=== PATIENT | male | born 1975 | race Caucasian/White ===

== ENCOUNTER 2023-07-22 08:55 | Outpatient (OUT) | payer OTHER, SELFPAY ==
[2023-07-22 09:19] LABS: Basophils Percent Auto 0.9 % (0.2-2.0); Bilirubin Urine NEGATIVE (NEGATIVE); Blood Urine TRACE-I (NEGATIVE); Clarity Urine CLEAR (CLEAR); Color Urine LT. YELLOW (YELLOW); Eosinophils Percent Auto 0.7 % (0.9-7.0); Glucose Urine UA NEGATIVE (NEGATIVE); Hematocrit 48.9 % (42.0-54.0); Hemoglobin 16.2 g/dL (14.0-18.0); Immature Granulocytes Abs Auto 0.01 10^3/uL (0.00-0.03); Immature Granulocytes Pct Auto 0.2 % (0.0-0.5); Ketones Urine NEGATIVE (NEGATIVE); Leukocyte Esterase Urine NEGATIVE (NEGATIVE); Lymphocytes Absolute Auto 1.4 10^3/uL (1.2-3.8); Lymphocytes Percent Auto 31.8 % (20.5-60.0); Mean Corpuscular HGB Conc 33.1 g/dL (29.9-35.2); Mean Corpuscular Hemoglobin 30.5 pg (25.9-34.0); Mean Corpuscular Volume 91.9 fL (80.0-94.0); Mean Platelet Volume 10.1 fL (9.5-13.5); Monocytes Absolute Auto 0.5 10^3/uL (0.3-0.8); Monocytes Percent Auto 11.1 % (1.7-12.0); Neutrophils Absolute Auto 2.4 10^3/uL (1.4-6.5); Neutrophils Percent Auto 55.3 % (43.0-75.0); Nitrite Urine NEGATIVE (NEGATIVE); Platelet Count 219 10^3/uL (150-450); Protein Urine NEGATIVE (NEG/TRACE); Red Blood Count 5.32 10^6/uL (4.70-6.10); Red Cell Distribution Width 13.2 % (11.0-15.0); Specific Gravity Urine <=1.005 (1.005-1.025); Urobilinogen Urine 0.2 EU/dL (0.2-1.0); White Blood Count 4.3 10^3/uL (4.0-11.0)
[2023-07-22 09:31] LABS: Bacteria Urine NONE SEEN #/HPF (NONE SEEN); Mucus Urine NONE SEEN (NONE SEEN); RBC Urine 0-2 #/HPF (0-2); Squamous Epithelial Cell Urine NONE SEEN #/LPF (NONE/RARE); WBC Urine NONE SEEN #/HPF (NONE SEEN)
[2023-07-22 09:54] LABS: Estimated Average Glucose 100 mg/dL; Glycohemoglobin A1C 5.1 % (4.5-6.2)
[2023-07-22 10:05] LABS: Alanine Aminotransferase 36 U/L (16-63); Albumin Globulin Ratio 1.3; Albumin Level 4.2 g/dL (3.4-5.0); Alkaline Phosphatase 90 U/L (46-116); Aspartate Amino Transferase 22 U/L (15-37); Bilirubin Total 2.6 mg/dL (0.2-1.0); Calcium 9.2 mg/dL (8.5-10.1); Chloride 102 mmol/L (98-107); Chol HDL Ratio 4.2; Cholesterol 200 mg/dL (<=200); Estimated GFR (African America >60 (>=60); Estimated GFR (Non-African Ame >60 (>=60); Globulin 3.2 g/dL; Glucose 94 mg/dL (74-106); HDL Cholesterol 48 mg/dL (40-60); LDL Cholesterol Calculated 140.4 mg/dL; Sodium 139 mmol/L (136-145); Thyroid Stimulating Hormone 1.319 uIU/mL (0.358-3.740); Total Protein 7.4 g/dL (6.4-8.2); Triglycerides 58 mg/dL (<=150); VLDL CHOLESTEROL 11.6 mg/dL
[2023-07-22 10:13] LABS: Prostate Specific Antigen Scrn 0.63 ng/mL (<=4.00)
== END 2023-07-22 08:56 | disposition home or self-care (01) ==
PROVIDERS: PCP Family Medicine; Visit Provider Family Medicine
DX: Z00.00 Encounter for general adult medical examination without abnormal findings (principal); E55.9 Vitamin D deficiency, unspecified
CPT/HCPCS: 36415; 80053; 80061; 81001; 82306; 83036; 84443; 85025; G0103

== ENCOUNTER 2024-01-15 13:45 | Outpatient (REF) | payer OTHER, SELFPAY ==
[2024-01-15 16:25] LABS: Occult Blood Negative
[2024-01-15 16:29] LABS: C. Difficile PCR NEGATIVE (NEGATIVE)
[2024-01-18 14:09] LABS: Rotavirus Ag, EIA Negative (Negative)
[2024-01-19 01:07] LABS: Lactoferrin, Fecal, Quant. <1.00 ug/mL(g) (0.00-7.24)
[2024-01-22 16:09] LABS: Ova + Parasite Exam Final report (.)
== END 2024-01-15 13:46 | disposition home or self-care (01) ==
LOC: LAB 13:45
PROVIDERS: PCP Family Medicine; Visit Provider Family Medicine
DX: R19.7 Diarrhea, unspecified (principal)
CPT/HCPCS: 36415; 83631; 87045; 87046; 87177; 87209; 87425; 87427; 87493; 87798; G0328

== ENCOUNTER 2024-08-03 08:06 | Outpatient (OUT) | payer OTHER, SELFPAY ==
[2024-08-03 08:38] LABS: Bilirubin Urine NEGATIVE (NEGATIVE); Blood Urine NEGATIVE (NEGATIVE); Clarity Urine CLEAR (CLEAR); Color Urine LT. YELLOW (YELLOW); Glucose Urine UA NEGATIVE (NEGATIVE); Ketones Urine NEGATIVE (NEGATIVE); Leukocyte Esterase Urine NEGATIVE (NEGATIVE); Nitrite Urine NEGATIVE (NEGATIVE); Protein Urine NEGATIVE (NEG/TRACE); Specific Gravity Urine <=1.005 (1.005-1.025); Urobilinogen Urine 0.2 EU/dL (0.2-1.0); pH Urine 6.5 (5.0-9.0)
[2024-08-03 08:45] LABS: Basophils Percent Auto 0.9 % (0.2-2.0); Eosinophils Percent Auto 0.9 % (0.9-7.0); Hematocrit 49.9 % (42.0-54.0); Hemoglobin 16.3 g/dL (14.0-18.0); Lymphocytes Absolute Auto 1.4 10^3/uL (1.2-3.8); Lymphocytes Percent Auto 32.6 % (20.5-60.0); Mean Corpuscular HGB Conc 32.7 g/dL (29.9-35.2); Mean Corpuscular Hemoglobin 29.9 pg (25.9-34.0); Mean Corpuscular Volume 91.6 fL (80.0-94.0); Mean Platelet Volume 10.3 fL (9.5-13.5); Monocytes Absolute Auto 0.5 10^3/uL (0.3-0.8); Monocytes Percent Auto 11.8 % (1.7-12.0); Neutrophils Absolute Auto 2.3 10^3/uL (1.4-6.5); Neutrophils Percent Auto 53.8 % (43.0-75.0); Platelet Count 236 10^3/uL (150-450); Red Blood Count 5.45 10^6/uL (4.70-6.10); Red Cell Distribution Width 13.5 % (11.0-15.0); White Blood Count 4.3 10^3/uL (4.0-11.0)
[2024-08-03 08:46] LABS: Bacteria Urine NONE SEEN #/HPF (NONE SEEN); Cast Seen? NONE SEEN #/LPF (NONE SEEN); Crystals Seen? None Seen #/HPF (None Seen); Mucus Urine NONE SEEN (NONE SEEN); RBC Urine NONE SEEN #/HPF (0-2); Squamous Epithelial Cell Urine RARE #/LPF (NONE/RARE); WBC Urine NONE SEEN #/HPF (NONE SEEN)
[2024-08-03 08:51] LABS: Estimated Average Glucose 94 mg/dL; Glycohemoglobin A1C 4.9 % (4.5-6.2)
[2024-08-03 10:42] LABS: Alanine Aminotransferase 35 U/L (16-63); Albumin Globulin Ratio 1.2; Alkaline Phosphatase 100 U/L (46-116); Anion Gap 12.7; Aspartate Amino Transferase 23 U/L (15-37); BUN Creatinine Ratio 16.4; Bilirubin Total 2.4 mg/dL (0.2-1.0); Calcium 9.4 mg/dL (8.5-10.1); Carbon Dioxide 27.5 mmol/L (21.0-32.0); Chloride 106 mmol/L (98-107); Chol HDL Ratio 3.9; Cholesterol 166 mg/dL (<=200); Estimated GFR (African America >60 (>=60 mL/min/1.73m^2); Estimated GFR (Non-African Ame >60 (>=60 mL/min/1.73m^2); Globulin 3.3 g/dL; Glucose 95 mg/dL (74-106); HDL Cholesterol 43 mg/dL (40-60); LDL Cholesterol Calculated 109.2 mg/dL; Potassium 4.2 mmol/L (3.5-5.1); Sodium 142 mmol/L (136-145); Thyroid Stimulating Hormone 1.807 uIU/mL (0.358-3.740); Total Protein 7.3 g/dL (6.4-8.2); Triglycerides 69 mg/dL (<=150); VLDL CHOLESTEROL 13.8 mg/dL
[2024-08-03 10:45] LABS: Prostate Specific Antigen Scrn 0.69 ng/mL (<=4.00)
== END 2024-08-03 08:07 | disposition home or self-care (01) ==
LOC: LAB 08:06
PROVIDERS: PCP Family Medicine; Visit Provider Family Medicine
DX: Z00.00 Encounter for general adult medical examination without abnormal findings (principal)
CPT/HCPCS: 36415; 80053; 80061; 81001; 82306; 83036; 84443; 85025; G0103

== ENCOUNTER 2025-04-01 09:38 | Emergency (ER) | payer OTHER, SELFPAY ==
--- OUTSIDE RECORDS SUMMARY | 2025-04-01 09:44 | XMS_ITS | Encounter Summary ---
Author Organization [facility] Address [address] [place] [address] Care Team Providers Care Marketing Operations Associate Name Role Phone Satish Kaufman MD Primary Care Provider [phone] Encounter Details Date Type Department Care Team (Late st Contact Info) Description 12/22/[address] [facility] [address] 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 [employer] 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 Not on file No t on file documented as of this encounter Plan of Treatment Not on file documented as of this encounter Procedures Procedure Name Priority Date/Time Associated Diagnosis Comments COLONOSCOPY Routine 12/22/2023 10:56 AM EDT documented in this encounter Results * Colonoscopy (12/22/2023 10:56 AM EDT) Anatomical Region Laterality Modality Endoscopy Alex Schneider MD ENDOSCOPY PROCEDURE ORDERABL ES Final Result documented in this encounter Visit Diagnoses Not on filedocumented in this encounter Care Teams Marketing Operations Associate Relationship Specialty Start Date End Date Satish Kaufman MD [address] [place] [address] [place] [address] PCP - General Family Medicine 10/23/23 documented as of this encounter
--- OUTSIDE RECORDS SUMMARY | 2025-04-01 09:44 | XMS_ITS | Clinical Summary ---
Author Organization [facility] Address [address] [place] [address] Care Team Providers Care Testboard Operator Name Role Phone Satish Kaufman MD Primary Care Provider [phone] Allergies Active Allergy Reactions Criticality Noted Date Comments Dimetapp Children's Cold-Cough Shortness of breath High 12/12/2023 Medications albuterol HFA 90 mcg/act inhaler INHALE 1 TO 2 PUFFS EVERY 4 TO 6 HOURS NEEDED 08/07/2023 Active budesonide-form oterol (Symbicort) 160-4.5 MCG/ACT inhaler Inhale 2 puffs in the morning and 2 puffs before bedtime. 08/07/2023 Active Active Problems Problem Noted Date Diagnosed Date Right inguinal pain 12/12/2023 Encounter for screening for malignant neoplasm o f colon 12/12/2023 Immunizations Immunization Administration Dates Next Due Tdap 12/28/2015 Family History Medical History Relation Name Comments No Known Problems Sister Breast cancer Neg Hx Colon cancer Neg Hx Ovarian cancer Neg Hx Relation Name Status Comments Father Alive Mother Alive Sister Alive Social History Tobacco Use Types Packs/Day Years Used Date Smoking Tobacco: Former Cigarettes 1 17 0 10/09/1987 - 10/09/2004 Smokeless Tobacco: Current Chew Tobacco Cessation:Ready to Q uit: Not Asked; Counseling Given: Not Answered Alcohol Use Standard Drinks/Week Comments Not Currently 0 (1 standard drink = 0.6 oz pure alcohol) caffeine intake: 1-2 cups per day Sex and Gender Information Value Date Recorded Sex Assigned at Not on file Legal Sex Male 7:21 PM EDT Gender Identity Not on file Sexual Orientation Not on file 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
--- OUTSIDE RECORDS SUMMARY | 2025-04-01 09:44 | XMS_ITS | Clinical Summary ---
Author Organization [facility] Address [address] [place] [address] Care Team Providers Care Fast Food Worker Name Role Phone Satish Kaufman DO Primary Care Provider Unavail able Social History Tobacco Use Types Packs/Day Years Used Date Smoking Tobacco: Never Assessed Sex and Gender Information Value Date Recorded Sex Assigned at Not on file Legal Sex Male 5:51 PM EST Gender Identity Not on file Sexual Orientation Not on file Plan of Treatment Not on file Insurance [employer] Care Teams Fast Food Worker Relationship Specialty Start Date End Date Satish Kaufman, [address] [place] [address] PCP - General Family Medicine 01/01/21
[2025-04-01 09:45] VITALS: BP 133/84; PULSE 72; TEMP 36.7; O2SAT 99; BMI 27.1
--- NOTE | 2025-04-01 10:26 | CT_ITS ---
The [address] [address] Patient Name: STEPHANIE BABB MRN: [id number] date: 1975 Sex: M Assigned Patient Location: ER Current Patient Location: ER Accession/Order Number: [id number] Exam Date: 04/01/2025 11:36 Report Date: 04/01/2025 11:44 At the request of: NUBIA VARGAS MD Procedure: CT abdomen pelvis wo con CT ABDOMEN AND PELVIS WITHOUT CONTRAST COMPARISON: None CLINICAL DATA: Left flank pain and hematuria. Spiral images were obtained through the abdomen and pelvis without contrast. This CT exam was performed using one or more following dose reduction techniques: Automated exposure control, adjustment of the mA and/or kV according to patient size, or use of iterative reconstruction technique. Limited cuts through the lung bases show minimal atelectasis or scarring. Evaluation of the intra-abdominal organs is slightly limited by the absence of contrast. No calcified gallstones are identified. No intrahepatic masses are seen. The spleen, pancreas and adrenal glands show no acute abnormalities. No renal calculi are identified. There is an extrarenal pelvis on the right. There is slight fullness of the renal collecting system on the left. There is a stone toward the ureteropelvic junction measuring 4 mm in size. No additional ureteral dilatation or stones are seen. The abdominal aorta is normal caliber. There are small lymph nodes and subtle hazy density at the root of mesentery. Mild mesenteric panniculitis is possible. No ascites is seen. The small bowel loops are not distended. There is stool at the ascending colon. The transverse and descending colon are decompressed. The bony structures are intact. Images through the pelvis show no appendiceal inflammation. There are normal caliber small bowel loops. The distal colon is decompressed. There is at least one colonic diverticulum at the junction of the descending and sigmoid colon. There is no associated active inflammation. The prostate is borderline in size. No urinary bladder abnormalities are noted. There is a mildly patulous right inguinal ring containing fat. No ascites is seen. CT/CT abdomen pelvis wo con IMPRESSION: STONE NEAR THE LEFT URETEROPELVIC JUNCTION WITH MINOR ASSOCIATED HYDRONEPHROSIS. POSSIBLE MILD MESENTERIC PANNICULITIS. NO OTHER ACUTE FINDINGS. Impression dictated by: Manasa Trejo M.D. 04/01/2025 11:44 AM Dictation Location: [place] [address] Electronically authenticated by: [id number] Y Date: 04/01/2025 11:44
--- NOTE | 2025-04-01 10:26 | ED_ITS ---
HPI HPI - General Adult General Chief complaint: Urogenital-Male Stated complaint: BLOOD IN URINE FLANK PAIN Time Seen by Provider: 04/01/25 10:23 Source: patient Mode of arrival: walk-in Limitations: no limitations History of Present Illness HPI narrative: 50-year-old male presents to the emergency department for hematuria and left flank pain. It began yesterday and he does not have any pain now. He has never had hematuria previously and has never had a kidney stone. No injury. He talked to his doctor who told him to come here to get checked. Related Data Home Medications ?Medication ?Instructions ?Recorded ?Confirmed albuterol sulfate 90 mcg/actuation 2 puff inhalation P RN asthma 04/01/25 aerosol inhaler Previous Rx's ?Medication ?Instructions ?Recorded acetaminophen 300 mg-codeine 30 mg 1 tab PO Q6H PRN pa in 5 days #20 04/01/25 tablet tabs ondansetron 4 mg disintegrating 4 mg PO Q6H PRN nausea and 04/01/25 tablet vomiting #20 tabs tamsulosin 0.4 mg capsule (Flomax) 0.4 mg PO DAILY #7 caps 04/01/25 Allergies Allergy/AdvReac Type Severity Reaction Status Date / Time cefdinir AdvReac Intermediate joint pain Verified 04/01/25 09:50 Opioid HPI Opioid Management Most Recent Opioid Data: Last Pain Scale 4 Today, 09:45 Review of Systems ROS Narrative A ten point review of systems is negative except as noted above. PFSH PFSH Social History Little interest or pleasure in doing things: not at all Feeling down, depressed, or hopeless: not at all Exam Narrative Exam Narrative: Nurses note and vital signs reviewed and patient is not hypoxic. General: The patient appears well and in no apparent distress. Patient is resting comfortably on cart. Skin: Warm, dry, no pallor noted. There is no rash noted. Head: Normocephalic, atraumatic Eye: Normal conjunctiva, no drainage Ears, Nose, Mouth, and Throat: oral mucosa is moist. Nares patent. Cardiovascular: Regular Rate and Rhythm Respiratory: Patient is in no distress, no accessory muscle use, lungs are clear to auscultation, no wheezing, rales or rhonchi Back: non-tender, no bruise or rash GI: Soft and nontender Musculoskeletal: The patient has no evidence of calf tenderness, no pitting edema, symmetrical pulses noted bilaterally Neurological: A&O, normal speech Psychiatric: Cooperative Constitutional Vital Signs, click to edit/add: Last Vital Signs Temp 98.1 F 04/01/25 09:45 Pulse 72 04/01/25 09:45 Resp 18 04/01/25 09:45 BP 133/84 04/01/25 09:45 Pulse Ox 99 04/01/25 09:45 O2 Del Method Room Air 04/01/25 09:45 Course Vital Signs Vital signs: Vital Signs Temperature 98.1 F 04/01/25 09:45 Pulse Rate 72 04/01/25 09:45 Respiratory Rate 18 04/01/25 09:45 Blood Pressure 133/84 04/01/25 09:45 Pulse Oximetry 99 04/01/25 09:45 Oxygen Delivery Method Room Air 04/01/25 09:45 Temperature 98.1 F 04/01/25 09:45 Pulse Rate 72 04/01/25 09:45 Respiratory Rate 18 04/01/25 09:45 Blood Pressure 133/84 04/01/25 09:45 Pulse Oximetry 99 04/01/25 09:45 Oxygen Delivery Method Room Air 04/01/25 09:45 Medical Decision Making MDM Narrative Medical decision making narrative: 4 mm proximal kidney stone is identified. He does not require admission in the hospital and is discharged home on Tylenol 3, Zofran, and Flomax. Referral made to urology. He was provided urine strainer and specimen cup. Treatment diagnosis and follow-up were discussed with the patient. Differential Diagnosis Differential Diagnosis: Kidney stone, UTI Lab Data Lab results reviewed: Yes I reviewed the patient's lab results Labs: Lab Results 04/01/25 04/01/25 Range/Units 10:20 10:31 WBC 10.0 (4.0-11.0) 10^3/uL RBC 5.47 (4.70-6.10) 10^6/uL Hgb 16.7 (14.0-18.0) g/dL Hct 48.5 (42.0-54.0) % MCV 88.7 (80.0-94.0) fL MCH 30.5 (25.9-34.0) pg MCHC 34.4 (29.9-35.2) g/dL RDW 13.6 (11.0-15.0) % Plt Count 225 (150-450) 10^3/uL MPV 10.2 (9.5-13.5) fL Neut % (Auto) 80.7 H (43.0-75.0) % Lymph % (Auto) 11.7 L (20.5-60.0) % [place] % (Auto) 6.7 (1.7-12.0) % Eos % (Auto) 0.2 L (0.9-7.0) % Baso % (Auto) 0.4 (0.2-2.0) % Neut # (Auto) 8.1 H (1.4-6.5) 10^3/uL Lymph # (Auto) 1.2 (1.2-3.8) 10^3/uL [place] # (Auto) 0.7 (0.3-0.8) 10^3/uL Eos # (Auto) 0.0 (0.0-0.7) 10^3/uL Baso # (Auto) 0.0 (0.0-0.1) 10^3/uL Abs Immat Gran (auto) 0.03 (0.00-0.03) 10^3/uL Imm/Tot Granulo (auto) 0.3 (0.0-0.5) % Sodium 138 (136-145) mmol/L Potassium 4.1 (3.5-5.1) mmol/L Chloride 104 (98-107) mmol/L Carbon Dioxide 23.5 (21.0-32.0) mmol/L Anion Gap 14.6 BUN 19.0 H (7.0-18.0) mg/dL Creatinine 0.83 (0.70-1.30) mg/dL Est GFR ( Amer) >60 (>=60 mL/min/1.73m^2) Est GFR (Non-Af Amer) >60 (>=60 mL/min/1.73m^2) BUN/Creatinine Ratio 22.9 Glucose 106 (74-106) mg/dL Calcium 9.2 (8.5-10.1) mg/dL Urine Color Brown A (YELLOW) Urine Clarity Cloudy A (CLEAR) Urine pH 6.0 (5.0-9.0) Ur Specific [place] 1.025 (1.005-1.025) Urine Protein Trace (NEG/TRACE) mg/dL Urine Glucose (UA) Negative (NEGATIVE) mg/dL Urine Ketones Negative (NEGATIVE) mg/dL Urine Occult Blood Large A (NEGATIVE) Urine Nitrite Negative (NEGATIVE) Urine Bilirubin Negative (NEGATIVE) Urine Urobilinogen 0.2 (0.2-1.0) EU/dL Ur Leukocyte Esterase Negative (NEGATIVE) Urine RBC >100 A (0-2) #/HPF Urine WBC 0-2 A (NONE SEEN) #/HPF Ur Squamous Epith Cells None seen (NONE/RARE) #/LPF Urine Crystals None seen (None Seen) #/HPF Urine Bacteria Large A (NONE SEEN) #/HPF Urine Casts None seen (NONE SEEN) #/LPF Urine Mucus None seen (NONE SEEN) Ur Culture Indicated? Yes-[facility] Imaging Data CT scan - abdomen: Radiologist's impression: ITS Impressions Abdomen/Pelvis CT 04/01/25 10:26 IMPRESSION: STONE NEAR THE LEFT URETEROPELVIC JUNCTION WITH MINOR ASSOCIATED HYDRONEPHROSIS. POSSIBLE MILD MESENTERIC PANNICULITIS. NO OTHER ACUTE FINDINGS. Impression dictated by: Manasa Trejo M.D. 04/01/2025 11:44 AM Dictation Location: [place] [address] Electronically authenticated by: [id number] Y Date: 04/01/2025 11:44 Discharge Plan Discharge Chief Complaint: Urogenital-Male Clinical Impression: Kidney stone Patient Disposition: Home, Self-Care Time of Disposition Decision: 11:52 Condition: Good Mode of Transportation: Private Vehicle Prescriptions / Home Meds: New acetaminophen-codeine 300-30 mg tablet 1 tab PO Q6H PRN (Reason: pain) 5 Days Qty: 20 0RF tamsulosin [Flomax] 0.4 mg capsule 0.4 mg PO DAILY Qty: 7 0RF ondansetron 4 mg tablet,disintegrating 4 mg PO Q6H PRN (Reason: nausea and vomiting) Qty: 20 0RF No Action albuterol sulfate 90 mcg/actuation HFA aerosol inhaler 2 puff INHALATION PRN (Reason: asthma) Print Language: Upper Sorbian Instructions: Kidney Stones (ED), How to Strain Your Urine (ED) Referrals: ANA GABRIEL [Primary Care Provider, Family Practice] - 1 week Hansel Tabor MD [Physician, Urology] - 1 week
[2025-04-01 10:43] LABS: Bilirubin Urine NEGATIVE (NEGATIVE); Blood Urine LARGE (NEGATIVE); Clarity Urine CLOUDY (CLEAR); Color Urine BROWN (YELLOW); Glucose Urine UA NEGATIVE (NEGATIVE); Ketones Urine NEGATIVE (NEGATIVE); Leukocyte Esterase Urine NEGATIVE (NEGATIVE); Nitrite Urine NEGATIVE (NEGATIVE); Protein Urine TRACE mg/dL (NEG/TRACE); Specific Gravity Urine 1.025 (1.005-1.025); Urobilinogen Urine 0.2 EU/dL (0.2-1.0)
[2025-04-01 10:46] LABS: Basophils Percent Auto 0.4 % (0.2-2.0); Eosinophils Percent Auto 0.2 % (0.9-7.0); Hematocrit 48.5 % (42.0-54.0); Hemoglobin 16.7 g/dL (14.0-18.0); Immature Granulocytes Abs Auto 0.03 10^3/uL (0.00-0.03); Immature Granulocytes Pct Auto 0.3 % (0.0-0.5); Lymphocytes Absolute Auto 1.2 10^3/uL (1.2-3.8); Lymphocytes Percent Auto 11.7 % (20.5-60.0); Mean Corpuscular HGB Conc 34.4 g/dL (29.9-35.2); Mean Corpuscular Hemoglobin 30.5 pg (25.9-34.0); Mean Corpuscular Volume 88.7 fL (80.0-94.0); Mean Platelet Volume 10.2 fL (9.5-13.5); Monocytes Absolute Auto 0.7 10^3/uL (0.3-0.8); Monocytes Percent Auto 6.7 % (1.7-12.0); Neutrophils Absolute Auto 8.1 10^3/uL (1.4-6.5); Neutrophils Percent Auto 80.7 % (43.0-75.0); Platelet Count 225 10^3/uL (150-450); Red Blood Count 5.47 10^6/uL (4.70-6.10); Red Cell Distribution Width 13.6 % (11.0-15.0)
[2025-04-01 10:56] LABS: Anion Gap 14.6; BUN Creatinine Ratio 22.9; Calcium 9.2 mg/dL (8.5-10.1); Carbon Dioxide 23.5 mmol/L (21.0-32.0); Chloride 104 mmol/L (98-107); Estimated GFR (African America >60 (>=60 mL/min/1.73m^2); Estimated GFR (Non-African Ame >60 (>=60 mL/min/1.73m^2); Glucose 106 mg/dL (74-106); Potassium 4.1 mmol/L (3.5-5.1); Sodium 138 mmol/L (136-145)
[2025-04-01 11:14] LABS: Bacteria Urine LARGE #/HPF (NONE SEEN); Cast Seen? NONE SEEN #/LPF (NONE SEEN); Crystals Seen? None Seen #/HPF (None Seen); Mucus Urine NONE SEEN (NONE SEEN); RBC Urine >100 #/HPF (0-2); Squamous Epithelial Cell Urine NONE SEEN #/LPF (NONE/RARE); Urine Culture Indicated YES-FRMC; WBC Urine 0-2 #/HPF (NONE SEEN)
[2025-04-01 12:05] VITALS: BP 134/83; PULSE 75; O2SAT 99
== END 2025-04-01 12:05 | disposition home or self-care (01) ==
PROVIDERS: Emergency Provider Emergency Medicine; PCP Family Medicine
DX: N13.2 Hydronephrosis with renal and ureteral calculous obstruction (principal)
CPT/HCPCS: 36415; 74176; 80048; 81001; 85025; 87086; 99285

== ENCOUNTER 2025-05-01 14:08 | Outpatient (OUT) | payer OTHER, SELFPAY ==
--- NOTE | 2025-05-01 14:09 | ECG_ITS ---
The [facility] Test Date: 2025-05-01 Pat Name: STEPHANIE BABB Department: Room: - Gender: Male Perinatal Technician: : 1975 Requested By: 1730 Order Number: [id number] Reading MD: FELICITAS DUNCAN M.D. Measurements Intervals Cosmos Rate: 62 P: 43 NE: 184 QRS: 26 QRSD: 114 T: 45 QT: 393 QTc: 400 Interpretive Statements SINUS RHYTHM MODERATE INTRAVENTRICULAR CONDUCTION DELAY [110+ ms QRS DURATION] Borderline ECG No previous ECG available for comparison Electronically Signed On 05-02-2025 6:48:07 EDT by FELICITAS DUNCAN M.D.
--- OUTSIDE RECORDS SUMMARY | 2025-05-01 14:10 | XMS_ITS | Clinical Summary ---
Author Organization [facility] Address [address] [facility], [address] [place] [address] Care Team Providers Care Credit Relationship Manager Name Role Phone Satish Kaufman DO Primary [...] on file Insurance [employer] Care Teams Credit Relationship Manager Relationship Specialty Start Date End Date Satish Kaufman DO [address] [place] [address] PCP - General Family Medicine 01/01/21
--- OUTSIDE RECORDS SUMMARY | 2025-05-01 14:10 | XMS_ITS | Clinical Summary ---
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
--- OUTSIDE RECORDS SUMMARY | 2025-05-01 14:11 | XMS_ITS | Encounter Summary ---
Author Organization [facility] Address [address] [place] [address] Care Team Providers Care Intermodal Owner Operator Truck Driver Name Role Phone Satish Kaufman MD Primary Care Provider [phone] Encounter Details Date Type Department Care Team (Late st Contact Info) Description 12/22/[address] [address] 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
--- NOTE | 2025-05-01 14:43 | PM.PRESUREVA ---
History of Present Illness History of Present Illness Chief complaint: Left Ureteral Stone with Hydronephrosis Narrative: Patient presents for presurgical testing. Please see HPI from Dr. Alberts dated April 09, 2025. Review of Systems ROS Narrative Please see ROS from Dr. Alberts dated April 09, 2025. [facility] Medical History (Updated 05/01/25 @ 14:45 by Isi Courtney NP) Hydronephrosis ?N13.30 - Unspecified hydronephrosis (ICD-10) Left ureteral stone ?N20.1 - Calculus of ureter (ICD-10) Snores ?R06.83 - Snoring (ICD-10) Asthma ?J45.909 - Unspecified asthma, uncomplicated (ICD-10) Surgical History (Updated 05/01/25 @ 14:23 by Isi Courtney NP) H/O colonoscopy ?Z98.890 - Other specified postprocedural states (ICD-10) H/O hand surgery ?Z98.890 - Other specified postprocedural states (ICD-10) H/O inguinal hernia repair ?Z98.890 - Other specified postprocedural states (ICD-10) ?Z87.19 - Personal history of other diseases of the digestive system (ICD-10) Family History (Updated 05/01/25 @ 14:26 by Isi Courtney NP) Other Family history of aneurysm Family history of cancer Family history of diabetes mellitus Family history of myocardial infarction Family history of seizures Social History (Updated 05/01/25 @ 14:22 by Isi Courtney NP) Within the past year, how often did you have a drink containing alcohol: never Score interpretation: A score less than 4 is consistent with normal alcohol consumption. Smoking status: Former smoker Non-prescribed substance use: denies use Previous occupational history: [employer] Highest level of school completed/degree received: high school graduate Little interest or pleasure in doing things: not at all Feeling down, depressed, or hopeless: not at all Meds Home Medications and Allergies Home Medications ?Medication ?Instructions ?Recorded ?Confirmed ?Type albuterol sulfate 90 mcg/actuation 2 puff inhalation Q4H PRN asthma 04/01/25 05/01/25 History aerosol inhaler tamsulosin 0.4 mg capsule (Flomax) 0.4 mg PO DAILY #7 caps 04/01/25 05/01/25 Rx multivitamin (Daily Multi-Vitamin 1 tab PO DAILY 05/01/25 05/01/25 History tablet) Allergies Allergy/AdvReac Type Severity Reaction Status Date / Time avocado Allergy Abdominal Verified 05/01/25 14:20 Pain brompheniramine (From Allergy Unknown Verified 05/01/25 14:19 Dimetapp (brompheniramine-PPA)) fluticasone (From Advair Allergy Headache Verified 05/01/25 14:20 Diskus) phenylpropanolamine (From Allergy Unknown Verified 05/01/25 14:19 Dimetapp (brompheniramine-PPA)) salmeterol (From Advair Allergy Headache Verified 05/01/25 14:20 Diskus) cefdinir AdvReac Intermediate joint pain Verified 04/01/25 09:50 Exam Narrative Exam Narrative: Constitutional: Awake, alert, comfortable, well-appearing, nontoxic, interactive, vital signs as charted Head: Normocephalic, atraumatic Neck: Supple, normal appearance, normal range of motion, no meningeal signs, no lymphadenopathy Respiratory: No respiratory distress, breath sounds clear Cardiovascular: Regular rate and rhythm, strong and regular heart tones Abdomen: Nontender, normal bowel sounds, soft, no CVA tenderness Musculoskeletal: Normal gait, no swelling or edema Skin: No rashes or induration, no lesions, only visible skin inspected Neuro: No neurological deficits, normal sensation Psychiatric: Oriented ?3, normal affect Assessment and Plan Assessment and Plan (1) Left ureteral stone: (2) Hydronephrosis: Plan Left ESWL scheduled with Dr. Alberts May 07, 2025.
[2025-05-01 14:56] LABS: Hematocrit 46.8 % (42.0-54.0); Hemoglobin 15.9 g/dL (14.0-18.0); Immature Granulocytes Abs Auto 0.00 10^3/uL (0.00-0.03); Immature Granulocytes Pct Auto 0.0 % (0.0-0.5); Lymphocytes Absolute Auto 1.7 10^3/uL (1.2-3.8); Mean Corpuscular HGB Conc 34.0 g/dL (29.9-35.2); Mean Corpuscular Hemoglobin 30.3 pg (25.9-34.0); Mean Corpuscular Volume 89.1 fL (80.0-94.0); Platelet Count 225 10^3/uL (150-450); Red Blood Count 5.25 10^6/uL (4.70-6.10); White Blood Count 5.6 10^3/uL (4.0-11.0)
[2025-05-01 15:03] LABS: INR 1.02; Partial Thromboplastin Time 29.1 sec (22.3-36.2); Prothrombin Time 10.8 sec (9.0-11.6)
[2025-05-01 15:15] LABS: Anion Gap 11.9; Blood Urea Nitrogen 20.0 mg/dL (7.0-18.0); Calcium 9.2 mg/dL (8.5-10.1); Carbon Dioxide 26.2 mmol/L (21.0-32.0); Chloride 105 mmol/L (98-107); Estimated GFR (African America >60 (>=60 mL/min/1.73m^2); Estimated GFR (Non-African Ame >60 (>=60 mL/min/1.73m^2); Glucose 93 mg/dL (74-106); Potassium 4.1 mmol/L (3.5-5.1); Sodium 139 mmol/L (136-145)
[2025-05-01 17:40] LABS: Glucose Urine UA NEGATIVE (NEGATIVE)
== END 2025-05-01 14:09 | disposition home or self-care (01) ==
LOC: PST 14:08
PROVIDERS: PCP Family Medicine; Visit Provider Urology
DX: Z01.810 Encounter for preprocedural cardiovascular examination (principal); Z01.812 Encounter for preprocedural laboratory examination; Z01.818 Encounter for other preprocedural examination; N20.1 Calculus of ureter; N13.30 Unspecified hydronephrosis
CPT/HCPCS: 80048; 81003; 85025; 85610; 85730; 93005; G0463

== ENCOUNTER 2025-05-07 10:26 | Day surgery (SDC) | payer OTHER, SELFPAY ==
[2025-05-01 14:39] VITALS: BP 125/76; PULSE 73; TEMP 36.2; O2SAT 97; BMI 28.1
[2025-05-07] VITALS (12 sets, daily range): BP systolic 101–139; BP diastolic 63–87; PULSE 48–65; TEMP 36.1–36.2; O2SAT 95–100; BMI 27.3
--- OUTSIDE RECORDS SUMMARY | 2025-05-07 10:29 | XMS_ITS | Clinical Summary ---
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
--- OUTSIDE RECORDS SUMMARY | 2025-05-07 10:29 | XMS_ITS | Encounter Summary ---
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 Not on file No t on file documented as of this encounter Plan of Treatment Not on file documented as of this encounter Procedures Procedure Name Priority Date/Time Associated Diagnosis Comments COLONOSCOPY Routine 12/22/2023 10:56 AM EDT documented in this encounter Results * Colonoscopy (12/22/2023 10:56 AM EDT) Anatomical Region Laterality Modality Endoscopy lAex Schneider MD ENDOSCOPY PROCEDURE ORDERABL ES Final Result documented in this encounter Visit Diagnoses Not on filedocumented in this encounter Care Teams Manager Copy Relationship Specialty Start Date End Date Satish Kaufman MD [address] [place] [address] [place] [address] PCP - General Family Medicine 10/23/23 documented as of this encounter
--- OUTSIDE RECORDS SUMMARY | 2025-05-07 10:29 | XMS_ITS | Clinical Summary ---
Author Organization [facility] Address [address] [facility], [address] [place] [address] Care Team Providers Care Compensation/Benefits Specialist Name Role Phone Satish Kaufman DO Primary [...] on file Insurance [employer] Care Teams Compensation/Benefits Specialist Relationship Specialty Start Date End Date Satish Kaufman DO [address] [place] [address] PCP - General Family Medicine 01/01/21
--- NOTE | 2025-05-07 10:35 | XR_ITS ---
The [address] [address] Patient Name: STEPHANIE BABB MRN: [id number] date: 1975 Sex: M Assigned Patient Location: [facility] Current Patient Location: [facility] Accession/Order Number: [id number] Exam Date: 05/07/2025 11:00 Report Date: 05/07/2025 11:01 At the request of: J LUIS PICKETT MD Procedure: XR abdomen 1V KUB: CLINICAL INFORMATION: Kidney stone. COMPARISON: CT abdomen and pelvis 04/01/2025 FINDINGS: 2 mm stone in the region of the proximal left ureter similar in location to the prior CT study. No additional suspicious urinary tract calculi are seen. Moderate stool burden without obstruction. Osseous structures appear grossly intact. XR/XR abdomen 1V IMPRESSION: 2 MM STONE IN THE REGION OF THE PROXIMAL LEFT URETER SIMILAR LOCATION WHEN COMPARED TO THE PRIOR CT STUDY. Impression dictated by: Jonathan Montez Jr., D.O. 05/07/2025 11:01 AM Dictation Location: [place] [address] Electronically authenticated by: [id number] Y Date: 05/07/2025 11:01
--- OUTSIDE RECORDS SUMMARY | 2025-05-07 10:49 | XMS_ITS | CCD ---
Author Organization [facility] Care Team Providers Care Cyber Defense Analyst Name Role Phone Ana Gabriel Primary Care Provider UnavailANA Jackson Primary Care Unavailable MARITO PATHAK Referring Unavailable Ana Gabriel Unavailable Ana Gabriel Primary Care Physician [phone] Monae Daily Unavailable DO Ana Gabriel Primary Care Provider Antonietta [facility] Aicha Saud Emergency Provider Antonietta [facility]- Aicha E Attending Provider DO Matthew Sneed Emergency Provider [phone] DO Jennifer Momin Admit Provider MD Christal Arnold Other Provider MD Judit Cuevas Attending Provider NERY, DR PEREZ Consulting Unavailable NERY, DR PEREZ Attending Unavailable GIRAISHA, DR PEREZ Admitting Unavailable GIRAISHA, DR PEREZ Primary Care Unavailable GIRAISHA, DR PEREZ Primary Care Unavailable GIRAISHA, DR PEREZ Consulting Unavailable NERY, DR PEREZ Attending Unavailable GIRAISHA, DR PEREZ Admitting Unavailable GIRVIN, DR PEREZ Primary Care Unavailable GIRVIN, DR PEREZ Consulting Unavailable GIRAISHA, DR PEREZ Attending Unavailable GIRAISHA, DR PEREZ Admitting Unavailable ABHISHEK MAYO Attending Unavailable ANA GABRIEL Referring Unavailable ABHISHEK MAYO Attending Unavailable Gray Edouard Attending Unavailable Gray Edouard Admitting Unavailable Isabelle Alberts Attending Unavailable Isabelle Alberts Attending Unavailable Allergies Allergy Classification Reported Allergen(s) Allergy Type Date of Onset Reaction(s) Facility (20 sources) avocaFatRedCouch allergenic extract Drug Allergy abdominal bloating [place] Other (1 source) Brompheniramine / Phenylephrine Drug Allergy stopped breathing [facility] [employer] Other (20 sources) Doxycycline Drug Allergy 05-18-20 22 rash/leg cramps, Rash, Rash, rash/leg cramps [facility] (20 sources) fluticasone / salmeterol Drug Allergy headache [facility] [employer] Other (20 sources) Pseudoephedrine Drug Allergy stopped breathing [facility] [employer] Other (20 sources) Dimetapp Cold/Allergy Drug allergy stopped breathing [facility] [employer] Other (6 sources) Brompheniramine; Translations: [brompheniramine] Drug Allergy 03-25-20 24 Unknown (qualifier value) [facility] (1 source) Brompheniramine / Phenylpropanolamine Drug Allergy 04-21-20 17 [facility] (1 source) cefdinir Drug Allergy 11-27-19 20 [facility] (1 source) fluticasone / salmeterol Drug Allergy 11-27-19 20 [facility] (3 sources) avocado oil Drug Allergy 08-07-20 23 abdominal bloating [facility] (3 sources) Dextromethorphan Drug Allergy 03-25-20 24 stopped breathing [facility] (3 sources) diphenhydrAMINE Drug Allergy 03-25-20 24 stopped breathing [facility] (3 sources) fluticasone Drug Allergy 03-25-20 24 [facility] (3 sources) guaiFENesin Drug Allergy 03-25-20 24 stopped breathing [facility] (3 sources) Phenylephrine Drug Allergy 03-25-20 24 stopped breathing [facility] (3 sources) Pseudoephedrine Drug Allergy 03-25-20 24 stopped breathing [facility] (3 sources) salmeterol Drug Allergy 03-25-20 24 [facility] Medications Current Medications Medication Drug Class(es) Dates Sig (Normalized) Sig (Original) [id number] 200 actuat albuterol 0.09 mg/actuat metered dose inhaler (20 sources) beta2-Adrenergic Agonist Start: 04-08-2025 Pro-Air HFA CFC free 90 mcg/inh MDI Inhalation, Refill(s) 0 Start Date: 04/08/25 Status: Ordered Repeat number: 1 Start: 07-09-2024 End: 07-09-2024 Albuterol Sulfate 90 mcg/act uation HFA aerosol inhaler Active 2 INH INHALATION EVERY 4-6 HOURS as needed for Shortness Of Breath Or Wheezing 8.5 July 09, 2024 3:22pm Start: 08-05-2020 End: 07-09-2024 take 1 puff(s) by inhalation once daily as needed for wheezing Albuterol Sulfate (Proair Hfa) 90 mcg/actuation HFA aerosol inhaler Discontinued 2 PUFF INHALATION Daily as needed for Shortness Of Breath Or Wheezing August 04, 2020 11:00pm July 09, 2024 3:22pm take 1-2 puff(s) by mouth every four to six hours as needed ProAir HFA 108 INHALE 1-2 PUFFS BY MOUTH EVERY 4-6 HOURS NEEDED for 90 days Active take 1-2 puff(s) by mouth every four to six hours as needed ProAir HFA 108 INHALE 1-2 PUFFS BY MOUTH EVERY 4-6 HOURS NEEDED Active cholecalciferol 0.05 mg oral tablet (11 sources) Vitamin D Start: 07-11-2022 take 1 tablet by mouth every twenty-four hours Vitamin D 50 MCG (2000 UT) 1 tablet Orally Once a day Jul, Active [facility] Fluticasone Propionate 50 MCG/ACT (2 sources) take 2 spray(s) nasal route once daily [facility] Fluticasone Propionate 50 MCG/ACT SPRAY 2 SPRAYS INTO INTO EACH NOSTRIL EVERY DAY for 30 Active LORazepam 0.5 mg oral tablet (6 sources) Benzodiazepine Start: 05-06-2022 methylPREDNISolone 4 mg oral tablet (20 sources) Corticosteroid Start: 08-26-2024 take 1 tablet by mouth once Methylprednisolone (Medrol ([place]le)) 4 mg tablets,dose pack Active 0 PO per package directions August 26, 2024 12:00am PO PER PKG DIR Start: 07-20-2022 Medrol 4 MG as directed Orally for 6 days Jul, Active Start: 04-20-2017 Depo-Medrol 80 mg Apr, 80 mg Multivitamin preparation (15 sources) Start: 04-09-2025 multivitamin R efill(s) 0 Start Date: 04/09/25 Status: Ordered Repeat number: 1 Start: 03-25-2024 take 1 tablet by yobani th once daily Multivitamin Active 1 TAB PO Daily March 25, 2024 12:00am Multivitamin Act lawrenec Multivitamin tablet (1 source) Start: 03-25-2024 take 1 tablet by mouth once daily Multivitamin tablet Active 1 TAB PO Daily March 24, 2024 11:00pm Multivitamins - (20 sources) Multivitamins - Orally Active probiotic (6 sources) probiotic Active Probiotic 250 MG (4 sources) take 1 capsule by mouth twice daily Probiotic 250 MG 1 capsule Orally Twice a day Active tamsulosin hydrochloride 0.4 mg oral capsule (1 source) alpha-Adrenergic Iva Start: End: take 1 capsule by mouth once daily tamsulosin 0.4 mg Cap 0.4 mg = 1 cap(s), Oral, Daily, Take to help with stone passage. Stop taking if experiencing dizziness or lightheadedness., X 30 day(s), # 30 cap(s), Refills(s) 0 Start Date: 04/09/25 Stop Date: 05/09/25 Status: Ordered Quantity: 30.0 Unit: cap(s) Repeat number: 1 Completed/Discontinued Medications Medication Drug Class(es) Dates Sig (Normalized) Sig (Original) acetaminophen 325 mg / HYDROcodone bitartrate 5 mg oral tablet (7 sources) Opioid Agonist Start: 12-12-2020 End: 05-17-2022 take 1 tablet by mouth three times daily as needed for pain Hydrocodone-Acetam inophen 5-325 mg tablet Discontinued 1 TAB PO Three times daily as needed for pain 10 December 12, 2020 May 17, 2022 4:29pm amoxicillin 875 mg / clavulanate 125 mg oral tablet (20 sources) Penicillin-class Antibacterial Start: 03-25-2024 End: 08-06-2024 take 1 tablet by mouth twice daily at mealtime Amoxicillin-Pot Clavulanate 875-125 mg tablet Discontinued 1 TAB PO Twice daily 20 March 24, 2024 11:00pm August 06, 2024 2:17pm with food Start: 05-27-2022 take 1 tablet by yobani th every twelve hours Amoxicillin-Pot Clavulanate 875-125 MG 1 tablet Orally every 12 hrs for 14 day(s) May, Active Start: 05-21-2022 End: 01-15-2024 take 1 tablet by mouth twice daily Amoxicillin-Pot Clavulanate 875-125 mg Tablet Discontinued 1 TAB PO Twice daily 21 04May 20, 2022 11:00pm January 15, 2024 10:59am Start: 05-21-2022 take 1 tablet by yobani th twice daily Amoxicillin-Pot Clavulanate Active 1 TAB PO Twice daily 21 04May 21, 2022 12:00am Start: 05-21-2022 take 1 tablet by yobani th twice daily Amoxicillin-Pot Clavulanate Active 1 TAB PO Twice daily 21 04May 21, 2022 12:00am Start: 05-21-2022 take 1 tablet by yobani th twice daily Amoxicillin-Pot Clavulanate Active 1 TAB PO Twice daily 21 04May 21, 2022 12:00am Start: 09-17-2021 take 1 tablet by yobani th twice daily at mealtime Amoxicillin-Pot Clavulanate 875-125 MG 1 tablet Orally bid with food May, Active 120 actuat budesonide 0.16 mg/actuat / formoterol fumarate 0.0045 mg/actuat metered dose inhaler (20 sources) Corticosteroid, beta2-Adrenergic Agonist Start: 07-09-2024 End: 08-26-2024 Budesonide-Formoterol (Symbicort) 160-4.5 mcg/actuation HFA aerosol inhaler Discontinued 2 INH INHALATION Twice daily 30.6 90 July 09, 2024 3:24pm August 26, 2024 3:39pm rinse mouth and brush teeth after use Start: 08-05-2020 End: 07-09-2024 take 1 puff(s) by inhalation twice daily Budesonide-Formoterol (Symbicort) 160-4.5 mcg/actuation HFA aerosol inhaler Discontinued 2 PUFF INHALATION Twice daily August 04, 2020 11:00pm July 09, 2024 3:23pm take 2 puff(s) by in halation twice daily Budesonide-Formoterol Fumarate 160-4.5 MCG/ACT 2 puffs Inhalation Twice a day for 90 days Active take 1 puff(s) by mo [facility] twice daily Budesonide-Formoterol Fumarate 160-4.5 MCG/ACT INHALE 1 PUFF BY MOUTH TWICE DAILY Active Symbicort Active cetirizine hydrochloride 10 mg oral tablet (15 sources) Histamine-1 Receptor Antagonist Start: 07-26-2021 take 1 tablet by mouth once daily ZyrTEC Allergy 10 MG 1 tablet Orally Once a day Jul, Not-Taking ciprofloxacin 250 mg oral tablet (13 sources) Quinolone Antimicrobial Start: 01-15-2024 End: 03-25-2024 take 1 tablet by mouth twice daily Ciprofloxacin Hcl 250 mg tablet Discontinued 250 MG PO Twice daily January 15, 2024 11:41am March 25, 2024 3:18pm Start: 08-05-2020 End: 08-07-2020 take 1 tablet by mouth twice daily Ciprofloxacin Hcl 500 mg tablet Discontinued 500 MG PO Twice daily August 04, 2020 11:00pm August 07, 2020 2:25pm clindamycin 150 mg oral capsule (7 sources) Lincosamide Antibacterial Start: 08-05-2020 End: 08-07-2020 take 1 capsule by mouth three times daily Clindamycin Hcl 150 mg capsule Discontinued 150 MG PO Three times daily August 04, 2020 11:00pm August 07, 2020 2:25pm ertapenem 1000 mg injection (7 sources) Penem Antibacterial Start: 08-07-2020 End: 05-17-2022 take 1 g intravenously once daily Ertapenem (Invanz) 1 gram recon soln Discontinued 1 GM IV Daily August 06, 2020 11:00pm May 17, 2022 4:29pm escitalopram 10 mg oral tablet (20 sources) Serotonin Reuptake Inhibitor Start: 08-05-2020 End: 01-15-2024 take 5 mg by mouth at bedtime Escitalopram Oxalate 10 mg tablet Discontinued 5 MG PO Bedtime August 04, 2020 11:00pm January 15, 2024 11:41am Start: 08-05-2020 End: 01-15-2024 take 5 mg by mouth at bedtime Escitalopram Oxalate Dis continued 5 MG PO Bedtime August 05, 2020 12:00am January 15, 2024 12:41pm take 1 tablet by [facility] once daily Escitalopram Oxalate 5 MG TAKE 1 TABLET BY MOUTH EVERY DAY for 90 days Active take 0.5 tablet by m outh once daily Escitalopram Oxalate 10 MG TAKE 1/2 TABLET BY MOUTH DAILY for 30 Not-Taking 120 actuat fluticasone propionate 0.22 mg/actuat metered dose inhaler (20 sources) Corticosteroid Start: 03-10-2023 Fluticasone Pr opionate HFA 220 MCG/ACT 2 inhalations Inhalation Twice a day rinse mouth after use for 90 days Mar, Not-Taking Start: 01-03-2023 take 2 spray(s) nasa l route once daily Fluticasone Propionate 50 MCG/ACT 2 sprays each nostril Nasally Once a day for 30 days Dec, Active Start: 07-26-2021 take 2 spray(s) nasa l route once daily Fluticasone Propionate 50 MCG/ACT 2 sprays each nostril Nasally Once a day Jul, Not-Taking Fluticasone Furo ate Active 60 actuat fluticasone propionate 0.113 mg/actuat / salmeterol xinafoate 0.014 mg/actuat dry powder inhaler (15 sources) Corticosteroid, beta2-Adrenergic Agonist Start: 03-09-2021 take 1 puff(s) by inhalation twice daily AirDuo RespiClick 113/14 113-14 MCG/ACT 1 puff Inhalation Twice a day for 30 days Mar, Not-Taking ibuprofen 800 mg oral tablet (15 sources) Nonsteroidal Anti-inflammatory Drug take 1 tablet by mouth at mealtime as needed, then take 1-2 tablets by mouth once daily as needed Ibuprofen 800 MG 1 tablet with food or milk as needed Orally 1 - 2 x daily PRN Not-Taking Ketorolac (18 sources) Nonsteroidal Anti-inflammatory Drug, Cyclooxygenase Inhibitor Start: 05-14-2017 Toradol per 15 mg May, 30 mg omeprazole 20 mg delayed release oral capsule (9 sources) Proton Pump Inhibitor Omeprazole 20 MG TAKE 1 CAPSULE BY MOUTH 30 MINUTES BEFORE MORNING MEAL for 30 Not-Taking take 1 tablet by mouth once adalberto y Omeprazole 20 MG 1 tablet 30 minutes before morning meal Orally Once a day for 30 day(s) Active Omeprazole Magnesium (Prilosec Otc) 20 mg Tablet,Delayed Release (Dr/Ec) (7 sources) Start: 05-18-2022 End: 03-25-2024 take 1 tablet by mouth once daily Omeprazole Magnesium (Prilosec Otc) 20 mg Tablet,Delayed Release (Dr/Ec) Discontinued 20 MG PO Daily May 17, 2022 11:00pm March 25, 2024 3:18pm Start: 05-18-2022 End: 03-25-2024 take 1 tablet by mouth once daily Omeprazole Magnesium (Prilosec Otc) 20 mg Tablet,Delayed Release (Dr/Ec) Discontinued 20 MG PO Daily May 18, 2022 12:00am March 25, 2024 4:18pm Start: 05-18-2022 take 1 tablet by yobani th once daily Omeprazole Magnesium (Prilosec Otc) 20 mg Tablet,Delayed Release (Dr/Ec) Active 20 MG PO Daily May 18, 2022 12:00am predniSONE 20 mg oral tablet (7 sources) Start: 12-12-2020 End: 05-17-2022 take 3 tablets by mouth once daily at mealtime Prednisone 20 mg tablet Discontinued 60 MG PO Daily December 12, 2020 12:00am May 17, 2022 4:29pm administer with food or milk Start: 12-12-2020 End: 05-17-2022 take 60 mg by mouth once daily at mealtime Prednisone Discontinued 60 MG PO Daily December 12, 2020 1:00am May 17, 2022 5:29pm administer with food or milk saccharomyces boulardii 250 mg oral capsule (20 sources) Start: 05-18-2022 End: 03-25-2024 take 1 capsule by mouth twice daily Saccharomyces Boulardii 250 mg Capsule Discontinued 500 MG PO Twice daily May 17, 2022 11:00pm March 25, 2024 3:18pm Start: 05-18-2022 End: 03-25-2024 take 500 mg by mouth twice daily Saccharomyces Boulardii Discontinued 500 MG PO Twice daily May 18, 2022 12:00am March 25, 2024 4:18pm sulfamethoxazole 800 mg / trimethoprim 160 mg oral tablet (13 sources) Dihydrofolate Reductase Inhibitor Antibacterial, Sulfonamide Antimicrobial Start: 05-21-2022 End: 01-15-2024 take 1 tablet by mouth twice daily Sulfamethoxazole-Trimethoprim 800-160 mg Tablet Discontinued 1 TAB PO Twice daily 21 04May 20, 2022 11:00pm January 15, 2024 10:59am Start: 05-21-2022 take 1 tablet by yobani th twice daily Sulfamethoxazole-Trimethoprim Active 1 T AB PO Twice daily 14 May 21, 2022 12:00am Start: 05-21-2022 take 1 tablet by yobani th twice daily Sulfamethoxazole-Trimethoprim Active 1 T AB PO Twice daily 21 04May 21, 2022 12:00am Start: 05-21-2022 take 1 tablet by yobani th twice daily Sulfamethoxazole-Trimethoprim Active 1 T AB PO Twice daily 14 May 21, 2022 12:00am Bactrim Active Triamcinolone (18 sources) Corticosteroid Start: 05-14-2017 KENALOG - 10 m g May, 40 mg Problems Active Problems Problem Classification Problem Date Documented Da te Episodic/Chronic Abdominal hernia (1 source) Right inguinal hernia 04-08-2025 Episodic Anxiety disorders (20 sources) Anxiety; Translations: [Anxiety disorder, unspecified] Onset: 1 Resolved: 1 Chronic Asthma (20 sources) Asthma; Translations: [Unspecified asthma, uncomplicated] Onset: 1 Resolved: 2 Chronic Coma; stupor; and brain damage (20 sources) Daytime somnolence; Translations: [Somnolence] 08-26-2024 Episodic Diabetes mellitus without complication (7 sources) Hyperglycemia, unspecified; Translations: [Hyperglycemia] Onset: 1 Resolved: 1 Episodic Disorders of lipid metabolism (20 sources) Hyperlipidemia; Translations: [Hyperlipidemia, unspecified] Onset: 1 Resolved: 1 Chronic Esophageal disorders (20 sources) Gastroesophageal reflux disease; Translations: [Gastro-esophageal reflux disease without esophagitis] 05-07-2022 Chronic Genitourinary symptoms and ill-defined conditions (8 sources) Hematuria, unspecified; Translations: [HEMATURIA UNSPECIFIED] Onset: 2 Episodic Nonspecific chest pain (1 source) Chest pain; Translations: [Other chest pain] Onset: 2 Episodic Nutritional deficiencies (20 sources) Vitamin D deficiency; Translations: [Vitamin D deficiency, unspecified] Onset: 2 Chronic Osteoarthritis (20 sources) Inflammation of joint of right hand; Translations: [Primary osteoarthritis, right hand] Chronic Other diseases of kidney and ureters (1 source) Urinary tract obstruction; Translations: [Hydronephrosis with renal and ureteral calculous obstruction] Onset: 5 Episodic Other diseases of veins and lymphatics (20 sources) Lymphangitis; Translations: [Lymphangitis] 05-18-2022 Chronic Comment on above: Problem List clean-u p per request of Phys. EHR Cmte Other diseases of veins and lymphatics (8 sources) Lymphangitis; Translations: [Lymphangitis] Onset: 2 Resolved: 2 Chronic Other gastrointestinal disorders (3 sources) Diarrhea; Translations: [Diarrhea, unspecified] 01-15-2024 Episodic Other liver diseases (3 sources) Abnormal levels of other serum enzymes; Translations: [ABNORMAL LEVELS OTHER SERUM ENZYMES] Onset: 2 Episodic Other lower respiratory disease (1 source) Dyspnea; Translations: [Shortness of breath] Onset: 2 Episodic Other nervous system disorders (1 source) Paresthesia of lower extremity; Translations: [Numbness and tingling of both legs] Episodic Other nutritional; endocrine; and metabolic disorders (3 sources) Abnormal weight loss; Translations: [Weight loss R63.4] Onset: 1 Resolved: 1 Episodic Other screening for suspected conditions (not mental disorders or infectious disease) (2 sources) Encounter for screening for malignant neoplasm of prostate; Translations: [Encounter for screening for malignant neoplasm of colon] Onset: 2 Episodic Other upper respiratory disease (20 sources) Allergic rhinitis; Translations: [Allergic rhinitis, unspecified] 03-25-2024 Chronic Other upper respiratory disease (2 sources) Allergic rhinitis, unspecified; Translations: [Allergic rhinitis, cause unspecified] Onset: 1 Resolved: 1 Chronic Other upper respiratory infections (7 sources) Acute sinusitis, unspecified; Translations: [Acute sinusitis] Onset: 1 Resolved: 2 Episodic Otitis media and related conditions (4 sources) Otitis media; Translations: [Otitis media, unspecified, unspecified ear] 03-25-2024 Episodic Comment on above: left / early Residual codes; unclassified (20 sources) Insomnia; Translations: [Insomnia, unspecified] Episodic Residual codes; unclassified (5 sources) Other specified postprocedural states Onset: 2 Resolved: 2 Episodic Residual codes; unclassified (7 sources) Other specified health status; Translations: [Failure of outpatient treatment] 08-06-2020 Episodic Comment on above: Problem List clean-u p per request of Phys. EHR Cmte Septicemia (except in labor) (11 sources) Sepsis; Translations: [Sepsis, unspecified organism] 05-18-2022 Episodic Comment on above: Problem List clean-u p per request of Phys. EHR Cmte Skin and subcutaneous tissue infections (20 sources) Cellulitis of right finger; Translations: [Infection of finger] Onset: 2 Resolved: 2 Episodic Comment on above: Problem List clean-u p per request of Phys. EHR Cmte Spondylosis; intervertebral disc disorders; other back problems (20 sources) Degeneration of lumbar intervertebral disc; Translations: [Other intervertebral disc degeneration, lumbar region] Chronic Spondylosis; intervertebral disc disorders; other back problems (8 sources) Lumbar radiculopathy; Translations: [Radiculopathy, lumbar region] 12-12-2020 Episodic Comment on above: Problem List clean-u p per request of Phys. EHR Cmte Unclassified (1 source) Obstructive hydronephrosis 04-09-2025 Viral infection (7 sources) COVID-19; Translations: [Severe acute respiratory syndrome coronavirus 2 (SARS-CoV-2) detected] 08-06-2020 Episodic Comment on above: Problem List clean-u p per request of Phys. EHR Cmte Past or Other Problems Problem Classification Problem Date Documented Da te Episodic/Chronic Headache; including migraine (1 source) Headache; including migraine; Translations: [Sinus headache R51.9] Onset: 07-26-2021 Resolved: 07-26-2021 Other aftercare (1 source) Encounter for removal of sutures Onset: 06-03-2022 Resolved: 06-03-2022 Episodic Results Test Name Value Interpretation Reference Range Facility Urology Office/Clinic Noteon 04-09-2025 Urology Office/Clinic Note Urology Office/Clinic Note Chief Complaint fu er HPI Staff 50 yr old male here as [employer]PER[employer], referred by [facility] and PCP. pt presented to [facility] ED with hematuria and left flank pain CT done 04/02/25 Patient denies any dysuria or gross hematuria. PAtient does have flank and abdomen pain. Weak stream History of Present Illness Tests reviewed: UA, external referral records, ER records, CT, labs, UA I have reviewed the previous health record information and history for this patient from external provider. I have reviewed and verified the staff HPI to be accurate for this encounter. Review of Systems PHQ Score Initial Depression Screen Score: 0 SCORE ROS - Provider Constitutional: denies weight loss, denies hot flashes. Eyes: denies eye problems. Gastrointestinal: denies nausea, denies vomiting. Cardiovascular: denies chest pain or angina. Integumentary: no dryness Musculoskeletal: denies musculoskeletal symptoms. ENMT: denies otolaryngeal symptoms. Respiratory: no shortness of breath. Heme/Lymph: denies easy bleeding tendency, denies easy bruising tendency. Psychiatric: no confusion, no anxiety. Genitourinary: See HPI. Physical Exam Vitals & Measurements HR: 67(Peripheral) BP: 123/77 HT: 72 in HT: 183 cm WT: 205.691 lb WT: 93.3 kg BMI: 27.86 General Appearance: alert, no distress, well nourished, well developed adult. Mild L CVA TTP Assessment/Plan Americo is a 50 yo M new pt following up to [facility] ER visit on 04/01/25 d/t hematuria and L flank pain. IPSS 2. AIMEE 25. 1. Ureteral stone with hydronephrosis (N13.2: Hydronephrosis with renal and ureteral calculous obstruction) CT AP wo con 04/01/25 - Extrarenal pelvis on the R. Slight fullness of RCS on the L. 4 mm stone toward the L UPJ. No additional stones. WBC 10. Cre wnl. UA was neg for infection but did show large bacteria. UA shows trace-intact blood wo signs of infection. Pt's first stone. Has been having pain on the L, radiates to flank and a little bit of groin. Reviewed imaging with pt using visual diagram and locations where stones cause the most pain. Likely 60% chance of passing stone. Educated pt on most common causes of renal stones and dietary modifications and fluid intake for stone prevention. Pt has been putting Celtic salt in his water for a yr. Discussed management options including medical expulsive therapy x 4-6 week vs intervention including extracorporeal shockwave lithotripsy vs ureteroscopy with laser lithotripsy/stone basket extraction possible stent. Risks/benefits of each were discussed including but not limited to: MET- renal damage, pain or infection; ESWL- bleeding, hematoma, pain, infection, inability to break up the stone, ureteral obstruction, cardiac arrhythmias, damage to surrounding structures and need for additional procedures; ureteroscopy - bleeding, pain, infection, damage to surrounding structures, ureteral perforation, stricture, inability to treat the stone and need for additional procedures. If a stent is placed, pt understands this is not permanent and needs to be removed or exchanged within 3 months to prevent encrustation, infection, permanent renal damage and need for more invasive procedures. Pt opts for MET-prefers ESWL if candidate and fails MET. Follow up pending below or sooner if needed. Pt understands and agrees with plan. -Cont Flomax for MET, refill sent -Strain urine, need to catch stone to ensure it passed -If he doesn't catch stone but thinks he passed it, would order imaging to ensure passage -Dietary modifications as above -If fails MET, will need KUB and if visible, will schedule Left ESWL. The procedure risks, benefits, details and treatment alternatives have been discussed with the patient. These include blood in the urine, infection, bleeding around the kidney, kidney bruising, inability to break up the stone, need for blood transfusion, blockage from stone fragments, and need for additional procedures, among others. Full informed consent has been obtained. Will order General anesthesia. -If fails MET and no stone visible on KUB, will schedule cysto, left RPG, ureteroscopy with Laser Lithotripsy, possible stent . The procedural risks, benefits, details, and treatment alternatives have been discussed with the patient. These include bleeding, infection, inability to break or retrieve all of the stone, injury to the ureter (the tube which connects the kidney to the bladder), injury to the kidney scarring of the ureter, and need for repeat procedures, among others. Full informed consent has been obtained. Will order General anesthesia. Follow-up With When Contact Information Aristeo SEBASTIAN, Isabelle Duncan, URL, URO Additional Instructions: f/u pending if pt passes stone Patient Education Laser Therapy for Kidney Stones, Care After Laser Therapy for Kidney Stones ESWL for Kidney Stones, Care After ESWL for Kidney Stones IMary, personally scribed for Dr. Alberts on 04/09/2025 08:59:26. Electronically signed by scr (more content not included)... Normal [facility] Comment on above: Result Comment: Elec tronically Signed By: Aristeo SEBASTIAN, Isabelle Duncan\.br\Date and Time Signed: 04/09/25 09:11 EDT\.br\Electronically Co-Signed By: Mary Roberts\.br\Date and Time Co-Signed: 04/09/25 09:00 EDT Urine Cultureon 04-01-2025 Bacteria identified Cx Nom (U) No Growth 2 Days PERFORMED BY: [place] [address] PATHOLOGIST PROSPECTING DRILLER STEFANIA BYRD M.D. Normal [facility] Comment on above: Performed By: #### C UU #### [address] Basophils Auto (Bld) [#/Vol] on 08-03-2024 Basophils (Bld) [#/Vol] 0.0 10 3/uL 0.0-0.1 [facility] Basophils (Bld) [#/Vol] Automated basoph il count 0.0-0.1 [facility] Basophils/100 WBC Auto (Bld) on 08-03-2024 Basophils/100 WBC (Bld) 0.9 % 0.2-2.0 [facility] Basophils/100 WBC (Bld) Automated basophil % 0. 2-2.0 [facility] Cholesterol in LDL Calc [Mas s/Vol]on 08-03-2024 Cholesterol in LDL [Mass/Vol] 109.2 mg/dL [facility] Comment on above: <100 mg/dl [id number] 0-129 mg/dl NEAR OR ABOVE PERAXNH231-997 mg/dl BORDERLINE [id number] mg/dl HIGH>190 mg/dl VERY HIGH Cholesterol in LDL [Mass/Vol] Cholesterol in LDL [Mass/volume] in Serum or Plasma by calculation [facility] Comment on above: <100 mg/dl [id number] 0-129 mg/dl NEAR OR ABOVE [id number] mg/dl BORDERLINE [id number] mg/dl HIGH>190 mg/dl VERY HIGH Cholesterol in VLDL Calc [Ma ss/Vol]on 08-03-2024 Cholesterol in VLDL [Mass/Vol] 13.8 mg/dL [facility] Cholesterol in VLDL [Mass/Vol] Cholesterol in VLDL [Mass/volume] in Serum or Plasma by calculation [facility] Eosinophils/100 WBC Auto (Bl d)on 08-03-2024 Eosinophils/100 WBC (Bld) 0.9 % 0.9-7.0 [facility] Eosinophils/100 WBC (Bld) Automated eosinophil % 0.9-7.0 [facility] Erythrocyte distribution wid th Auto (RBC) [Ratio]on 08-03-2024 Erythrocyte distribution width (RBC) [Ratio] 13.5 % 11.0-15.0 [facility] Erythrocyte distribution width (RBC) [Ratio] Erythrocyte distribution width [Ratio] by Automated count 11.0-15.0 [facility] Estimated glomerular filtrat ion rate (GFR) non- Americanon 08-03-2024 GFR/1.73 sq M.predicted among non-blacks MDRD (S/P/Bld) [Vol rate/Area] mL/min/{1.73_m2} >=60 mL/min/1.73m 2 [facility] GFR/1.73 sq M.predicted among non-blacks MDRD (S/P/Bld) [Vol rate/Area] Estimated glomerular filtration rate (GFR) non- >=60 mL/min/1.73m 2 [facility] Globulin Calc (S) [Mass/Vol] on 08-03-2024 Globulin (S) [Mass/Vol] 3.3 g/dL [facility] Globulin (S) [Mass/Vol] Serum globulin measurement by calculation (mass/volume) [facility] Glucose mean value [Mass/vol ume] in Blood Estimated from glycated hemoglobinon 08-03-2024 Average glucose Estimated from glycated hemoglobin (Bld) [Mass/Vol] 94 mg/dL [facility] Average glucose Estimated from glycated hemoglobin (Bld) [Mass/Vol] Glucose mean value [Mass/volume] in Blood Estimated from glycated hemoglobin [facility] Hematocrit Auto (Bld) [Volum e fraction]on 08-03-2024 Hematocrit (Bld) [Volume fraction] 49.9 % 42.0-54.0 [facility] Hematocrit (Bld) [Volume fraction] Hematocrit [Volume Fraction] of Blood by Automated count 42.0-54.0 [facility] Hemoglobin [Mass/volume] in Bloodon 08-03-2024 Hemoglobin (Bld) [Mass/Vol] 16.3 g/dL 14.0-18.0 [facility] Hemoglobin (Bld) [Mass/Vol] Hemoglobin [Mass/volume] in Blood 14.0-18.0 [facility] Laboratory - Chemistry and C hemistry - challengeon 08-03-2024 Albumin [Mass/Vol] 4.0 g/dL 3.4-5.0 [facility] ALP [Catalytic activity/Vol] 100 U/L 46-116 [facility] ALT [Catalytic activity/Vol] 35 U/L 16-63 [facility] AST [Catalytic activity/Vol] 23 U/L 15-37 [facility] Bilirubin [Mass/Vol] 2.4 mg/dL High 0.2-1.0 [facility] Calcium [Mass/Vol] 9.4 mg/dL 8.5-10.1 [facility] Chloride [Moles/Vol] 106 mmol/L 98-107 [facility] Cholesterol [Mass/Vol] 166 mg/dL <=200 [facility] Cholesterol in HDL [Mass/Vol] 43 mg/dL 40-60 [facility] Comment on above: > or =60 mg/dl - LOW CARDIOVASCULAR RISK<40 mg/dl - HIGH CARDIOVASCULAR RISK CO2 [Moles/Vol] 27.5 mmol/L 21.0-32.0 [facility] Creatinine [Mass/Vol] 1.10 mg/dL 0.70-1.30 [facility] GFR/1.73 sq M.predicted MDRD (S/P/Bld) [Vol rate/Area] mL/min/{1.73_m2} >=60 mL/min/1.73m 2 [facility] Glucose [Mass/Vol] 95 mg/dL 74-106 [facility] Potassium [Moles/Vol] 4.2 mmol/L 3.5-5.1 [facility] Protein [Mass/Vol] 7.3 g/dL 6.4-8.2 [facility] Sodium [Moles/Vol] 142 mmol/L 136-145 [facility] Triglyceride [Mass/Vol] 69 mg/dL <=150 [facility] TSH Qn 1.807 m[IU]/L 0.358-3.740 [facility] Urea nitrogen [Mass/Vol] 18.0 mg/dL 7.0-18.0 [facility] Urea nitrogen/Creatinine [Mass ratio] 16.4 mg/mg [facility] Bilirubin Ql (U) Negative NEGATIVE [facility] Glucose (U) [Mass/Vol] Negative NEGATIVE Fi [facility] Ketones Ql (U) Negative NEGATIVE [facility] pH (U) 6.5 [pH] 5.0-9.0 [facility] Specific gravity (U) [Rel density] <=1.005 Abnormal 1.005-1.025 [facility] Urobilinogen Qn (U) 0.2 {Colby'U}/dL 0.2-1.0 [facility] Laboratory - Hematology and Cell countson 08-03-2024 HbA1c (Bld) [Mass fraction] 4.9 % 4.5-6.2 [facility] Comment on above: ADA RECOMMENDED LIMI T 4.0 - 6.0ADA THERAPEUTIC TARGET < 7.0ACTION SUGGESTED> 7.0 Immature granulocytes/100 WBC (Bld) 0.0 % 0.0-0.5 [facility] Laboratory - Specimen inform ationon 08-03-2024 Appearance (U) CLEAR CLEAR [facility] Color (U) LT. YELLOW YELLOW [facility] Laboratory - Urinalysison Leukocyte esterase Test strip Ql (U) Negative NEGATIVE [facility] Mucus Ql (Urine sed) NONE SEEN NONE SEEN [facility] Nitrite Ql (U) Negative NEGATIVE [facility] Protein Ql (U) Negative NEG/TRACE [facility] Leukocytes [#/volume] correc randolph for nucleated erythrocytes in Blood by Automated counon 08-03-2024 WBC corrected for nucl RBC Auto (Bld) [#/Vol] 4.3 10 3/uL 4.0-11.0 [facility] WBC corrected for nucl RBC Auto (Bld) [#/Vol] Leukocytes [#/volume] corrected for nucleated erythrocytes in Blood by Automated coun 4.0-11.0 [facility] Lymphocytes Auto (Bld) [#/Vo l]on 08-03-2024 Lymphocytes (Bld) [#/Vol] 1.4 10 3/uL 1.2-3.8 [facility] Lymphocytes (Bld) [#/Vol] Lymphocytes [#/volume] in Blood by Automated count 1.2-3.8 [facility] Lymphocytes/100 WBC Auto (Bl d)on 08-03-2024 Lymphocytes/100 WBC (Bld) 32.6 % 20.5-60.0 [facility] Lymphocytes/100 WBC (Bld) Lymphocytes/100 leukocytes in Blood by Automated count 20.5-60.0 [facility] MCH Auto (RBC) [Entitic mass ]on 08-03-2024 MCH (RBC) [Entitic mass] 29.9 pg 25.9-34.0 [facility] MCH (RBC) [Entitic mass] MCH [Entitic ma ss] by Automated count 25.9-34.0 [facility] MCHC Auto (RBC) [Mass/Vol]on 08-03-2024 MCHC (RBC) [Mass/Vol] 32.7 g/dL 29.9-35.2 [facility] MCHC (RBC) [Mass/Vol] MCHC [Mass/volume] by Automated count 29.9-35.2 [facility] MCV Auto (RBC) [Entitic vol] on 08-03-2024 MCV (RBC) [Entitic vol] 91.6 fL 80.0-94.0 [facility] MCV (RBC) [Entitic vol] MCV [Entitic vol ume] by Automated count 80.0-94.0 [facility] Monocytes Auto (Bld) [#/Vol] on 08-03-2024 Monocytes (Bld) [#/Vol] 0.5 10 3/uL 0.3-0.8 [facility] Monocytes (Bld) [#/Vol] Automated blood monocyte count 0.3-0.8 [facility] Monocytes/100 WBC Auto (Bld) on 08-03-2024 Monocytes/100 WBC (Bld) 11.8 % 1.7-12.0 [facility] Monocytes/100 WBC (Bld) Automated monocyte % 1. 7-12.0 [facility] Neutrophils Auto (Bld) [#/Vo l]on 08-03-2024 Neutrophils (Bld) [#/Vol] 2.3 10 3/uL 1.4-6.5 [facility] Neutrophils (Bld) [#/Vol] Neutrophils [#/volume] in Blood by Automated count 1.4-6.5 [facility] Neutrophils/100 WBC Auto (Bl d)on 08-03-2024 Neutrophils/100 WBC (Bld) 53.8 % 43.0-75.0 [facility] Neutrophils/100 WBC (Bld) Automated neutrophil % 43.0-75.0 [facility] No Panel Informationon 08-03 25-Hydroxy Vitamin D Total 32.9 ng/mL [facility] Comment on above: <20 ng/mL Vit D defi cient20-<30 ng/mL Vit D jxzurixozpys40-123 ng/mL Vit D sufficient>100 ng/mL Potential Toxicity Eosinophils # (Auto) 0.0 10 3/uL 0.0-0.7 [facility] Immature Granulocyte # (Auto) 0.00 10 3/uL 0.00-0.03 [facility] Prostate Specific Antigen Screen 0.69 ng/mL <=4.00 [facility] Urine Bacteria NONE SEEN #/HPF NONE SEEN [facility] U[facility] Occult Blood Negative NEGATIVE [facility] Urine Other Casts NONE SEEN #/LPF NONE SEEN [facility] Urine Other Crystals None Seen #/HPF None Seen [facility] Urine RBC NONE SEEN #/HPF 0-2 [facility] Urine Squamous Epithelial Cells RARE #/LPF NONE/RARE [facility] Urine WBC NONE SEEN #/HPF NONE SEEN [facility] Platelet mean volume Auto (B ld) [Entitic vol]on 08-03-2024 Platelet mean volume (Bld) [Entitic vol] 10.3 fL 9.5-13.5 [facility] Platelet mean volume (Bld) [Entitic vol] Platelet mean volume [Entitic volume] in Blood by Automated count 9.5-13.5 [facility] Platelets Auto (Bld) [#/Vol] on 08-03-2024 Platelets (Bld) [#/Vol] 236 10 3/uL 150-450 [facility] Platelets (Bld) [#/Vol] Platelets [#/vol ume] in Blood by Automated count 150-450 [facility] RBC Auto (Bld) [#/Vol]on RBC (Bld) [#/Vol] 5.45 10 6/uL 4.70-6.10 [facility] RBC (Bld) [#/Vol] Erythrocytes [#/volume] in Blood by Automated count 4.70-6.10 [facility] Serum or plasma albumin/glob ulin mass ratioon 08-03-2024 Albumin/Globulin [Mass ratio] 1.2 {ratio} [facility] Albumin/Globulin [Mass ratio] Serum or plasma albumin/globulin mass ratio [facility] Serum or plasma anion gap de terminationon 08-03-2024 Anion gap [Moles/Vol] 12.7 mmol/L [facility] Anion gap [Moles/Vol] Serum or plasma anion gap determination [facility] Serum or plasma total choles terol/high density lipoprotein (HDL) cholesterol mass en 08-03-2024 Cholesterol.total/Choles terol in HDL [Mass ratio] 3.9 {ratio} [facility] Comment on above: 3.3 - 4.4 LOW RISK4. 4 - 7.1 AVERAGE RISK7.1 - 11.0 MODERATE RISK>11.0 HIGH RISK Cholesterol.total/Choles terol in HDL [Mass ratio] Serum or plasma total cholesterol/high density lipoprotein (HDL) cholesterol mass rat [facility] Comment on above: 3.3 - 4.4 LOW RISK4. 4 - 7.1 AVERAGE RISK7.1 - 11.0 MODERATE RISK>11.0 HIGH RISK No Panel Informationon 01-14 Clostridium difficile (PCR)(LAB) Negative NEGATIVE [facility] Miscellaneous Test COMMENT . [facility] Comment on above: Test Ordered: [id number] Norovirus, RT-PCRNorovirus GI Negative BN Reference Range: NegativeNorovirus GII Positive [A ] BN Reference Range: NegativeThis test was developed and its performance characteristicsdetermined by [employer]. It has not been cleared or approvedby the Food and Drug Administration. The FDA hasdetermined that such clearance or approval is notnecessary.Performed at: [address] [id number] Director: Jossue Elizabeth MD, Phone: [phone] at: [address] [id number] Director: Prosper Peña PhD, Phone: [phone] Miscellaneous Test Comment See comment [facility] Comment on above: Specimen Source: [facility] Stool - 700.100 Ova & Parasite Result 1 Comment . [facility] Comment on above: No ova, cysts, or pa rasites seen.One negative specimen does not rule out the possibility ofa parasitic infection.Performed at: [address] [id number] Director: Prosper Peña PhD, Phone: [phone] Ova and Parasites (LAB) Final report . [facility] Comment on above: These results were o btained using wet preparation(s) andtrichrome stained smear. This test does not include testingfor Cryptosporidium parvum, Cyclospora, or Microsporidia. Rotavirus Antigen (LAB) Negative Negative [facility] Comment on above: Performed at: [address] [id number] Director: Prosper Peña PhD, Phone: [phone] Stool Campylobacter Culture Res 1 See comment [facility] Comment on above: [facility], Stool Leukocytes, Qualitative <1.00 ug/mL(g) 0.00-7.24 [facility] Comment on above: Results verified b y repeat testing Baseline (normal) 0.00 - 7.24 Elevated >7.24An elevated result is indicative of the presence offecal lactoferrin, a marker of intestinal inflammation.A normal result does not exclude the presence ofintestinal inflammation.The test can be used as an in vitro diagnostic aid todistinguish patients with active inflammatory boweldisease (IBD) from those with non-inflammatoryirritable bowel syndrome (IBS).Performed at: [address] [id number] Director: Jossue Elizabeth MD, Phone: [phone] Stool Occult Blood Negative [facility] No Panel InformationOrdered By: Ana Gabriel on 01-15-2024 E coli Shiga Toxin EIA [facility] Salmonella/Shigella Screen [facility] VITAMIN D 25 OHon 09-29-2022 VIT D 25-OH 31.0 ng/mL Normal [facility] Comment on above: Performed By: #### V ITAD #### [facility] [address] [place] [address] Dr. Faith Quintana VIT D RANGES SEE BELOW Normal [facility] Comment on above: Result Comment: <20 ng/mL Vit D deficient 20 - <30 ng/mL Vit D insufficient 30 - 100 ng/mL Vit D sufficient >100 ng/mL Potential Toxicity Performed By: #### V ITAD #### [facility] [address] [address] [address] Faith Quintana UA RANDOM W/MICROSCOPICon AMORPHOUS CRYSTALS MODERATE Normal [facility] Comment on above: Performed By: #### U AMIC #### [facility] [address] [address] [address] Faith Quintana BACTERIA NONE SEEN Normal NONE SEEN [facility] Comment on above: Performed By: #### U AMIC #### [facility] [address] [address] [address] Faith Quintana Bilirubin Ql (U) Negative Normal NEGATIVE [facility] Comment on above: Performed By: #### U AMIC #### [facility] [address] [address] [address] Faith Quintana CAST NONE SEEN Normal NONE SEEN [facility] Comment on above: Performed By: #### U AMIC #### [facility] [address] [address] [address] Faith Quintana Clarity (U) CLEAR Normal CLEAR [facility] Comment on above: Performed By: #### U AMIC #### [facility] [address] [address] [address] Faith Quintana Color (U) LT. YELLOW Normal YELLOW [facility] Comment on above: Performed By: #### U AMIC #### [facility] [address] [address] [address] Faith Quintana Crystals LM Nom (Urine sed) SEEN Abnormal NONE SEEN [facility] Comment on above: Performed By: #### U AMIC #### [facility] [address] [place] [address] Dr. Faith Quintana Epithelial cells LM Ql (Urine sed) RARE Normal NONE SEEN /RARE [facility] Comment on above: Performed By: #### U AMIC #### [facility] [address] [place] [address] Dr. Faith Quintana Glucose Ql (U) Negative Normal NEGATIVE [facility] Comment on above: Performed By: #### U AMIC #### [facility] [address] [place] [address] Dr. Faith Quintana Hemoglobin Ql (U) TRACE-INTACT Abnormal NEGATIVE [facility] Comment on above: Performed By: #### U AMIC #### [facility] [address] [place] [address] Dr. Faith Quintana Ketones Ql (U) Negative Normal NEGATIVE [facility] Comment on above: Performed By: #### U AMIC #### [facility] [address] [address] [address] Faith Quintana LEUKOCYTES Negative Normal NEGATIVE [facility] Comment on above: Performed By: #### U AMIC #### [facility] [address] [address] [address] Faith Quintana MUCOUS NONE SEEN Normal NONE SEEN [facility] Comment on above: Performed By: #### U AMIC #### [facility] [address] [address] [address] Faith Quintana Nitrite Ql (U) Negative Normal NEGATIVE [facility] Comment on above: Performed By: #### U AMIC #### [facility] [address] [place] [address] Dr. Faith Quintana pH (U) 6.5 [pH] Normal 5-9 [facility] Comment on above: Performed By: #### U AMIC #### [facility] [address] [place] [address] Dr. Faith Quintana RBC 0-2 Normal 0-2 [facility] Comment on above: Performed By: #### U AMIC #### [facility] [address] [place] [address] Dr. Faith Quintana SPEC GRAVITY 1.020 Normal 1.005-<=1.02 5 [facility] Comment on above: Performed By: #### U AMIC #### [facility] [address] [place] [address] Dr. Faith Quintana UA PROTEIN Negative Normal NEGATIVE/ TRACE [facility] Comment on above: Performed By: #### U AMIC #### [facility] [address] [place] [address] Dr. Faith Quintana Urobilinogen Qn (U) 0.2 {Colby'U}/dL Normal 0.2 - 1. 0 [facility] Comment on above: Performed By: #### U AMIC #### [facility] [address] [place] [address] Dr. Faith Quintana WBC NONE SEEN Normal NONE SEEN [facility] Comment on above: Performed By: #### U AMIC #### [facility] [address] [place] [address] Dr. Faith Quintana CBC AUTO DIFFon 07-09-2022 BASO # 0.0 103/ul Normal 0.0-0.1 [facility] Comment on above: Performed By: #### C BC #### [facility] [address] [place] [address] Dr. Faith Quintana Basophils/100 WBC (Bld) 0.9 % Normal 0.2-2.0 [facility] Comment on above: Performed By: #### C BC #### [facility] [address] [place] [address] Dr. Faith Quintana EO # 0.1 103/ul Normal 0.0-0.7 [facility] Comment on above: Performed By: #### C BC #### [facility] [address] [place] [address] Dr. Faith Quintana Eosinophils/100 WBC (Bld) 1.2 % Normal 0.9-7.0 [facility] Comment on above: Performed By: #### C BC #### [facility] [address] [place] [address] Dr. Faith Quintana Erythrocyte distribution width (RBC) [Ratio] 13.7 % Normal 11.0-15.0 [facility] Comment on above: Performed By: #### C BC #### [facility] [address] [place] [address] Dr. Faith Quintana Hematocrit (Bld) [Volume fraction] 50.2 % Normal 42.0-54.0 [facility] Comment on above: Performed By: #### C BC #### [facility] [address] [place] [address] Dr. Faith Quintana Hemoglobin (Bld) [Mass/Vol] 16.4 g/dL Normal 14.0-18.0 [facility] Comment on above: Performed By: #### C BC #### [facility] [address] [place] [address] Dr. Faith Quintana IG # 0.01 10e3/ul Normal 0.00-0.03 [facility] Comment on above: Performed By: #### C BC #### [facility] [address] [place] [address] Dr. Faith Quintana IG % 0.2 % Normal 0.0-0.5 [facility] Comment on above: Performed By: #### C BC #### [facility] [address] [place] [address] Dr. Faith Quintana LYMPH # 1.5 103/ul Normal 1.2-3.8 [facility] Comment on above: Performed By: #### C BC #### [facility] [address] [place] [address] Dr. Faith Quintana Lymphocytes/100 WBC (Bld) 34.7 % Normal 20.5-60.0 [facility] Comment on above: Performed By: #### C BC #### [facility] [address] [place] [address] Dr. Faith Quintana MANUAL DIFF REQ NO Normal [facility] Comment on above: Performed By: #### C BC #### [facility] [address] [place] [address] Dr. Faith Quintana MCH (RBC) [Entitic mass] 29.7 pg Normal 25.9-34.0 [facility] Comment on above: Performed By: #### C BC #### [facility] [address] [place] [address] Dr. Faith Quintana MCHC (RBC) [Mass/Vol] 32.7 g/dL Normal 29.9-35.2 [facility] Comment on above: Performed By: #### C BC #### [facility] [address] [place] [address] Dr. Faith Quintana MCV (RBC) [Entitic vol] 90.8 fL Normal 80.0-94.0 [facility] Comment on above: Performed By: #### C BC #### [facility] [address] [place] [address] Dr. Faith Quintana MONO # 0.5 103/ul Normal 0.3-0.8 [facility] Comment on above: Performed By: #### C BC #### [facility] [address] [place] [address] Dr. Faith Quintana Monocytes/100 WBC (Bld) 11.2 % Normal 1.7-12.0 [facility] Comment on above: Performed By: #### C BC #### [facility] [address] [place] [address] Dr. Faith Quintana NEUT # 2.2 103/ul Normal 1.4-6.5 [facility] Comment on above: Performed By: #### C BC #### [facility] [address] [place] [address] Dr. Faith Quintana Neutrophils/100 WBC (Bld) 51.8 % Normal 43.0-75.0 [facility] Comment on above: Performed By: #### C BC #### [facility] [address] [place] [address] Dr. Faith Quintana Platelet mean volume (Bld) [Entitic vol] 10.3 fL Normal 9.5-13.5 [facility] Comment on above: Performed By: #### C BC #### [facility] [address] [place] [address] Dr. Faith Quintana PLT 227 103/ul Normal 150-450 [facility] Comment on above: Performed By: #### C BC #### [facility] [address] [place] [address] Dr. Faith Quintana RBC 5.53 106/ul Normal 4.70-6.10 [facility] Comment on above: Performed By: #### C BC #### [facility] [address] [place] [address] Dr. Faith Quintana WBC 4.3 103/ul Normal 4.0-11.0 [facility] Comment on above: Performed By: #### C BC #### [facility] [address] [place] [address] Dr. Faith Quintana GLYCOHEMOGLOBIN A1Con 2021 ADA RECOMMENDATION SEE BELOW Normal [facility] Comment on above: Result Comment: ADA RECOMMENDED LIMIT 4.0 - 6.0 ADA THERAPEUTIC TARGET < 7.0 ACTION SUGGESTED > 7.0 Performed By: #### A 1C #### [facility] [address] [place] [address] Dr. Faith Quintana Glucose [Mass/Vol] 100 mg/dL Normal [facility] Comment on above: Performed By: #### A 1C #### [facility] [address] [place] [address] Dr. Faith Quintana HbA1c (Bld) [Mass fraction] 5.1 % Normal 4.5-6.2 [facility] Comment on above: Performed By: #### A 1C #### [facility] [address] [address] [address] Faith Quintana LIPID PROFILEon 07-09-2022 CHOL-HDL RATIO NORM SEE BELOW Normal [facility] Comment on above: Result Comment: 3.3 - 4.4 LOW RISK 4.4 - 7.1 AVERAGE RISK 7.1 - 11.0 MODERATE RISK >11.0 HIGH RISK Performed By: #### T SH, CMP, LIPID #### [facility] [address] [address] [address] Faith Quintana Cholesterol [Mass/Vol] 192 mg/dL Normal <=200 [facility] Comment on above: Performed By: #### T SH, CMP, LIPID #### [facility] [address] [address] [address] Faith Quintana Cholesterol in HDL [Mass/Vol] 36 mg/dL Critically low 40-60 [facility] Comment on above: Performed By: #### T SH, CMP, LIPID #### [facility] [address] [address] [address] Faith Quintana Cholesterol in LDL [Mass/Vol] 136.2 mg/dL Normal [facility] Comment on above: Performed By: #### T SH, CMP, LIPID #### [facility] [address] [address] [address] Faith Quintana Cholesterol.total/Choles terol in HDL [Mass ratio] 5.3 {ratio} Normal [facility] Comment on above: Performed By: #### T SH, CMP, LIPID #### [facility] [address] [place], [place] [address] Dr. Faith Quintana HDL NORMAL > or = 60 mg/dl - LOW CARDIOVASCULAR RISK <40 mg/dl - HIGH CARDIOVASCULAR RISK Normal [facility] Comment on above: Performed By: #### T SH, CMP, LIPID #### [facility] [address] [address] [address] Faith Quintana LDL CALC NORMAL SEE BELOW Normal [facility] Comment on above: Result Comment: <100 mg/dl OPTIMAL 100 - 129 mg/dl NEAR OR ABOVE OPTIMAL 130 - 159 mg/dl BORDERLINE HIGH 160 - 189 mg/dl HIGH >190 mg/dl VERY HIGH Performed By: #### T SH, CMP, LIPID #### [facility] [address] [place] [address] Dr. Faith Quintana Triglyceride [Mass/Vol] 99 mg/dL Normal <=150 [facility] Comment on above: Performed By: #### T SH, CMP, LIPID #### [facility] [address] [place] [address] Dr. Faith Quintana VLDL CALC 19.8 mg/dL Normal [facility] Comment on above: Performed By: #### T VALE, CMP, LIPID #### [facility] [address] [place] [address] Dr. Faith Quintana PROF 14(COMP METB)on 022 Albumin [Mass/Vol] 4.2 g/dL Normal 3.4-5.0 [facility] Comment on above: Performed By: #### T SH, CMP, LIPID #### [facility] [address] [place] [address] Dr. Faith Quintana Albumin/Globulin [Mass ratio] 1.3 {ratio} Normal [facility] Comment on above: Performed By: #### T VALE, CMP, LIPID #### [facility] [address] [place] [address] Dr. Faith Quintana ALP [Catalytic activity/Vol] 120 U/L Critically high 46-116 [facility] Comment on above: Performed By: #### T SH, CMP, LIPID #### [facility] [address] [place] [address] Dr. Faith Quintana ALT [Catalytic activity/Vol] 37 U/L Normal 16-63 [facility] Comment on above: Performed By: #### T SH, CMP, LIPID #### [facility] [address] [place] [address] Dr. Faith Quintana Anion gap [Moles/Vol] 9.2 mmol/L Normal [facility] Comment on above: Performed By: #### T SH, CMP, LIPID #### [facility] [address] [address] [address] Faith Quintana AST [Catalytic activity/Vol] 19 U/L Normal 15-37 [facility] Comment on above: Performed By: #### T SH, CMP, LIPID #### [facility] [address] [address] [address] Faith Quintana Bilirubin [Mass/Vol] 1.8 mg/dL Critically high 0.2-1.0 [facility] Comment on above: Performed By: #### T SH, CMP, LIPID #### [facility] [address] [address] [address] Faith Quintana Calcium [Mass/Vol] 8.8 mg/dL Normal 8.5-10.1 [facility] Comment on above: Performed By: #### T SH, CMP, LIPID #### [facility] [address] [place] [address] Dr. Faith Quintana Chloride [Moles/Vol] 102 mmol/L Normal 98-107 [facility] Comment on above: Performed By: #### T SH, CMP, LIPID #### [facility] [address] [address] [address] Faith Quintana CO2 [Moles/Vol] 27.6 mmol/L Normal 21.0-32.[address] [facility] Comment on above: Performed By: #### T SH, CMP, LIPID #### [facility] [address] [address] [address] Faith Quintana Creatinine [Mass/Vol] 1.00 mg/dL Normal 0.70-1.30 [facility] Comment on above: Performed By: #### T SH, CMP, LIPID #### [facility] [address] [address] [address] Faith Quintana EGFR-AF PERUVIAN >60 Normal >=60 [facility] Comment on above: Performed By: #### T SH, CMP, LIPID #### [facility] [address] [place] [address] Dr. Faith Quintana EGFR-NON AF PERUVIAN >60 Normal >=60 [facility] Comment on above: Performed By: #### T SH, CMP, LIPID #### [facility] [address] [address] [address] Faith Quintana Globulin (S) [Mass/Vol] 3.3 g/dL Normal [facility] Comment on above: Performed By: #### T SH, CMP, LIPID #### [facility] [address] [place] [address] Dr. Faith Quintana Glucose [Mass/Vol] 91 mg/dL Normal 74-106 [facility] Comment on above: Performed By: #### T SH, CMP, LIPID #### [facility] [address] [place] [address] Dr. Faith Quintana Potassium [Moles/Vol] 3.8 mmol/L Normal 3.5-5.1 [facility] Comment on above: Performed By: #### T SH, CMP, LIPID #### [facility] [address] [place] [address] Dr. Faith Quintana Protein [Mass/Vol] 7.5 g/dL Normal 6.4-8.2 [facility] Comment on above: Performed By: #### T SH, CMP, LIPID #### [facility] [address] [place] [address] Dr. Faith Quintana Sodium [Moles/Vol] 135 mmol/L Critically low 136-145 [facility] Comment on above: Performed By: #### T SH, CMP, LIPID #### [facility] [address] [place] [address] Dr. Faith Quintana Urea nitrogen [Mass/Vol] 19.0 mg/dL Critically high 7.0-18 .0 [facility] Comment on above: Performed By: #### T SH, CMP, LIPID #### [facility] [address] [place] [address] Dr. Faith Quintana Urea nitrogen/Creatinine [Mass ratio] 19.0 mg/mg Normal [facility] Comment on above: Performed By: #### T SH, CMP, LIPID #### [facility] [address] [place] [address] Dr. Faith Quintana TSHon 07-09-2022 TSH 1.378 uIU/mL Normal 0.358-3.740 [facility] Comment on above: Performed By: #### T SH, CMP, LIPID #### [facility] [address] [place] [address] Dr. Faith Quintana UA RANDOMon 07-09-2022 Bilirubin Ql (U) Negative Normal NEGATIVE [facility] Comment on above: Performed By: #### U A #### [facility] [address] [place] [address] Dr. Faith Quintana Clarity (U) CLEAR Normal CLEAR [facility] Comment on above: Performed By: #### U A #### [facility] [address] [place] [address] Dr. Faith Quintana Color (U) LT. YELLOW Normal YELLOW [facility] Comment on above: Performed By: #### U A #### [facility] [address] [place] [address] Dr. Faith Quintana Glucose Ql (U) Negative Normal NEGATIVE [facility] Comment on above: Performed By: #### U A #### [facility] [address] [place] [address] Dr. Faith Quintana Hemoglobin Ql (U) TRACE-INTACT Abnormal NEGATIVE [facility] Comment on above: Performed By: #### U A #### [facility] [address] [place] [address] Dr. Faith Quintana Ketones Ql (U) Negative Normal NEGATIVE [facility] Comment on above: Performed By: #### U A #### [facility] [address] [place] [address] Dr. Faith Quintana LEUKOCYTES Negative Normal NEGATIVE [facility] Comment on above: Performed By: #### U A #### [facility] [address] [place] [address] Dr. Faith Quintana Nitrite Ql (U) Negative Normal NEGATIVE [facility] Comment on above: Performed By: #### U A #### [facility] [address] [place] [address] Dr. Faith Quintana pH (U) 6.0 [pH] Normal 5-9 [facility] Comment on above: Performed By: #### U A #### [facility] [address] [address] [address] Faith Quintana SPEC GRAVITY 1.015 Normal 1.005-<=1.02 5 [facility] Comment on above: Performed By: #### U A #### [facility] [address] [address] [address] Faith Quintana UA PROTEIN Negative Normal NEGATIVE/ TRACE [facility] Comment on above: Performed By: #### U A #### [facility] [address] [address] [address] Faith Quintana Urobilinogen Qn (U) 0.2 {Colby'U}/dL Normal 0.2 - 1. 0 [facility] Comment on above: Performed By: #### U A #### [facility] [address] [place] [address] Dr. Faith Quintana VITAMIN D 25 OHon 07-09-2022 VIT D 25-OH 26.4 ng/mL Normal [facility] Comment on above: Performed By: #### V ITAD #### [facility] [address] [address] [address] Faith Quintana VIT D RANGES SEE BELOW Normal [facility] Comment on above: Result Comment: <20 ng/mL Vit D deficient 20 - <30 ng/mL Vit D insufficient 30 - 100 ng/mL Vit D sufficient >100 ng/mL Potential Toxicity Performed By: #### V ITAD #### [facility] [address] [place] [address] Dr. Faith Quintana Bacteria identified Anaer cx Nom (Unsp spec)Ordered By: Monae Daily on 05-22-2022 Anaerobic microbial culture No Anaerobes Isolated 3 Days [facility] Bacterial blood cultureOrder ed By: Aicha Mane on 05-22-2022 Bacteria identified Cx Nom (Bld) NO GROWTH 5 DAYS [facility] Bacteria identified Aer cx N om (Unsp spec)Ordered By: Monae Daily on 05-21-2022 Aerobic Culture Beta strep not Group A or B [facility] Basophils Auto (Bld) [#/Vol] Ordered By: Kacie Antunez on 05-21-2022 Basophils (Bld) [#/Vol] 0.1 10*3/uL 0.0-0.2 [facility] Basophils/100 WBC Auto (Bld) Ordered By: Kacie Antunez on 05-21-2022 Basophils/100 WBC (Bld) 0.9 % . [facility] Blood hemoglobin measurement (mass/volume)Ordered By: Kacie Antunez on 05-21-2022 Hemoglobin (Bld) [Mass/Vol] 14.5 g/dL 13.0-17.0 [facility] Blood leukocytes automated c ount (number/volume)Ordered By: Kacie Antunez on 05-21-2022 WBC (Bld) [#/Vol] 5.7 10*3/uL 4.5-11.0 [facility] Creatinine and Glomerular fi ltration rate.predicted panel (S/P/Bld)Ordered By: Kacie Antunez on 05-21-2022 Creatinine [Mass/Vol] 0.95 mg/dL 0.64-1.27 [facility] Eosinophils Auto (Bld) [#/Vo l]Ordered By: Kacie Antunez on 05-21-2022 Eosinophils (Bld) [#/Vol] 0.1 10*3/uL 0.0-0.45 [facility] Eosinophils/100 WBC Auto (Bl d)Ordered By: Kacie Antunez on 05-21-2022 Eosinophils/100 WBC (Bld) 2.6 % . [facility] Erythrocyte distribution wid th Auto (RBC) [Ratio]Ordered By: Kacie Antunez on 05-21-2022 Erythrocyte distribution width (RBC) [Ratio] 14.1 % 12.0-14.8 [facility] Estimated glomerular filtrat ion rate (GFR) non- AmericanOrdered By: Kacie Antunez on 05-21-2022 GFR/1.73 sq M.predicted among non-blacks MDRD (S/P/Bld) [Vol rate/Area] > 60 mL/Min [facility] Hematocrit Auto (Bld) [Volum e fraction]Ordered By: Kacie Antunez on 05-21-2022 Hematocrit (Bld) [Volume fraction] 44.1 % 38.8-50.0 [facility] - Hematology and Cell countsOrdered By: Kacie Antunez on 05-21-2022 Nucleated RBC/100 WBC (Bld) [Ratio] 0.0 % 0-0.5 [facility] Lymphocytes Auto (Bld) [#/Vo l]Ordered By: Kacie Antunez on 05-21-2022 Lymphocytes (Bld) [#/Vol] 1.1 10*3/uL 1.00-4.8 [facility] Lymphocytes/100 WBC Auto (Bl d)Ordered By: Kacie Antunez on 05-21-2022 Lymphocytes/100 WBC (Bld) 18.8 % . [facility] MCH Auto (RBC) [Entitic mass ]Ordered By: Kacie Antunez on 05-21-2022 MCH (RBC) [Entitic mass] 30.1 pg 27.5-35.2 [facility] MCHC Auto (RBC) [Mass/Vol]Or dered By: Kacie Antunez on 05-21-2022 MCHC (RBC) [Mass/Vol] 32.9 g/dL 32.5-35.6 [facility] MCV Auto (RBC) [Entitic vol] Ordered By: Kacie Antunez on 05-21-2022 MCV (RBC) [Entitic vol] 91.5 fL 83.5-101 [facility] Monocytes Auto (Bld) [#/Vol] Ordered By: Kacie Antunez on 05-21-2022 Monocytes (Bld) [#/Vol] 0.7 10*3/uL 0.0-0.8 [facility] Monocytes/100 WBC Auto (Bld) Ordered By: Kacie Antunez on 05-21-2022 Monocytes/100 WBC (Bld) 11.7 % . [facility] Neutrophils Auto (Bld) [#/Vo l]Ordered By: Kacie Antunez on 05-21-2022 Neutrophils (Bld) [#/Vol] 3.7 10*3/uL 1.8-7.7 [facility] Neutrophils/100 WBC Auto (Bl d)Ordered By: Kacie Antunez on 05-21-2022 Neutrophils/100 WBC (Bld) 66.0 % . [facility] No Panel InformationOrdered By: Kacie Antunez on 05-21-2022 Estimated GFR () > 60 mL/Min [facility] Comment on above: GFR estimated refere nce range: According to KDOQI guidelines, <60 ml/min/1.73m2 is sufficient to diagnose a patient with chronic kidney disease. Pharmacy Creatinine Clearance (Chem 115.52 [facility] Peak vancomycin levelOrdered By: Kacie Antunez on 05-21-2022 Vancomycin peak [Mass/Vol] 25.3 ug/mL 20.0-40.0 [facility] Comment on above: Last dose: - Platelet mean volume Auto (B ld) [Entitic vol]Ordered By: Kacie Antunez on 05-21-2022 Platelet mean volume (Bld) [Entitic vol] 9.1 fL 6.6-10.1 [facility] Platelets Auto (Bld) [#/Vol] Ordered By: Kacie Antunez on 05-21-2022 Platelets (Bld) [#/Vol] 208 10*3/uL 150-450 [facility] RBC Auto (Bld) [#/Vol]Ordere d By: Kacie Antunez on 05-21-2022 RBC (Bld) [#/Vol] 4.82 10*6/uL 3.90-5.60 [facility] Serum or plasma calcium lola urement (mass/volume)Ordered By: Kacie Antunez on 05-21-2022 Calcium [Mass/Vol] 9.3 mg/dL 8.2-10.2 [facility] Serum or plasma chloride moose surement (moles/volume)Ordered By: Kacie Antunez on 05-21-2022 Chloride [Moles/Vol] 108 mmol/L 95-114 [facility] Serum or plasma glucose lola urement (mass/volume)Ordered By: Kacie Antunez on 05-21-2022 Glucose [Mass/Vol] 76 mg/dL 70-100 [facility] Comment on above: ADA recommended refe rence range Random Glucose Reference Range is dependent on time and content of last meal. Glucose of more than 200 mg/dL in a nonstressed, ambulatory subject supports the diagnosis of Diabetes Mellitus. Serum or plasma potassium me asurement (moles/volume)Ordered By: Kacie Antunez on 05-21-2022 Potassium [Moles/Vol] 3.9 mmol/L 3.5-5.1 [facility] Serum or plasma sodium measu rement (moles/volume)Ordered By: Kacie Antunez on 05-21-2022 Sodium [Moles/Vol] 140 mmol/L 136-146 [facility] Serum or plasma total carbon dioxide measurement (moles/volume)Ordered By: Kacie Antunez on 05-21-2022 CO2 [Moles/Vol] 22.1 mmol/L 22.0-30.0 [facility] Serum or plasma urea nitroge n measurement (mass/volume)Ordered By: Kacie Antunez on 05-21-2022 Urea nitrogen [Mass/Vol] 12 mg/dL 9-23 [facility] ABO and Rh group post transf usion reaction Nom (Bld)Ordered By: Monae Daily on 05-20-2022 Microscopic observation Gram stain Nom (Unsp spec) [facility] Serum or plasma trough vanco mycin levelOrdered By: Kacie Antunez on 05-20-2022 Vancomycin trough [Mass/Vol] 13.1 ug/mL 10.0-20.0 [facility] Comment on above: Last dose: - Activated partial thrombopla stin time (aPTT) in platelet poor plasma by coagulation aOrdered By: Kacie Antunez on 05-19-2022 aPTT Coag (PPP) [Time] 28.7 s 25.1-36.5 [facility] Albumin [Mass/volume] in Ser um or PlasmaOrdered By: Kacie Antunez on 05-19-2022 Albumin [Mass/Vol] 3.2 g/dL 3.2-5.5 [facility] Globulin Calc (S) [Mass/Vol] Ordered By: Kacie Antunez on 05-19-2022 Globulin (S) [Mass/Vol] 2.5 g/dL [facility] - CoagulationOrde red By: Kacie Antunez on 05-19-2022 PT Coag (PPP) [Time] 14.4 s 9.0-12.9 [facility] Platelet poor plasma interna tional normalized ratio (INR) by coagulation assay (relatOrdered By: Kacie Antunez on 05-19-2022 INR Coag (PPP) [Relative time] 1.3 {INR} [facility] Comment on above: INR Therapeutic Rang e A) Pre- and Peroperative OAT started two weeks before surgery. NOT HIP SURGERY: 1.5 - 2.5 HIP SURGERY: 2 - 3 B) Primary and secondary prevention of venous THROMBOSIS: 2 - 3 C) Active venous thrombosis, pulmonary embolism and prevention of recurrent venous thrombosis: 2 - 3 D) Prevention of arterial thromboembolism including patients with mechanical heart valves: 3 - 4.5 Protein [Mass/volume] in Ser um or PlasmaOrdered By: Kacie Antunez on 05-19-2022 Protein [Mass/Vol] 5.7 g/dL 6.1-7.9 [facility] Serum or plasma alanine talley otransferase measurement without P-5'-P (enzymatic activiOrdered By: Kacie Antunez on 05-19-2022 ALT No additional P-5'-P [Catalytic activity/Vol] 22 U/L 10-60 [facility] Serum or plasma albumin/glob ulin mass ratioOrdered By: Kacie Antunez on 05-19-2022 Albumin/Globulin [Mass ratio] 1.3 {ratio} [facility] Serum or plasma alkaline cristopher sphatase measurement (enzymatic activity/volume)Ordered By: Kacie Antunez on 05-19-2022 ALP [Catalytic activity/Vol] 62 U/L 32-92 [facility] Serum or plasma aspartate am inotransferase measurement (enzymatic activity/volume)Ordered By: Kacie Antunez on 05-19-2022 AST [Catalytic activity/Vol] 18 U/L 10-42 [facility] Serum or plasma total biliru bin measurement (mass/volume)Ordered By: Kacie Antunez on 05-19-2022 Bilirubin [Mass/Vol] 2.2 mg/dL 0.3-1.2 [facility] Comment on above: Samples from patient s who have taken Naproxen have shown spurious elevation in Total Bilirubin levels. A metabolite of Naproxen, O-desmethylnaproxen, has been shown to interfere with the Jendrсергейik-Davidf method for measuring Total Bilirubin. C reactive protein [Mass/vol ume] in Serum or PlasmaOrdered By: Matthew Sneed on 05-18-2022 CRP [Mass/Vol] 11.8 mg/dL 0.0-1.0 [facility] COVID-19 Positive/NegativeOr dered By: Matthew Sneed on 05-18-2022 SARS-CoV-2 (COVID-19) N gene ARIELLE+probe Ql (Resp) Positive Negative [facility] Comment on above: Positive results joe l only be called to Providers for the following groups of patients: Pre-Surgical Testing, Emergency Room, and Inpatients. Results called at [phone] on 05/18/22 Testing for SARS-CoV-2 by RT-PCR This test was developed and its performance characteristics determined by [employer] and validated at the [facility]. This test has not been FDA cleared or approved. This test has been authorized by FDA under an Emergency Use Authorization (EUA). This test has been validated in accordance with the FDA's Guidance Document (Policy for Diagnostics Testing in Laboratories Certified to Perform High Complexity Testing under CLIA prior to Emergency Use Authorization for Coronavirus Disease-2019 during the Public Health Emergency) issued on January 09, 2020. This test is only authorized for the duration of time the declaration that circumstances exist justifying the authorization of the emergency use of in vitro diagnostic tests for detection of SARS-CoV-2 virus and/or diagnosis of COVID-19 infection under section 564(b)(1) of the Act, 21 U.S.C. 360bbb-3(b)(1), unless the authorization is terminated or revoked sooner. COVID-19 SOFIAOrdered By: Jaylon Sneed on 05-18-2022 SARS-CoV+SARS-CoV-2 (COVID-19) Ag IA.rapid Ql (Resp) Negative Negative [facility] Comment on above: This is a duplicate Nina SARS Antigen (CATRACHO) result to be used for statistical tracking purpose only. Creatine kinase [Enzymatic a ctivity/volume] in Serum or PlasmaOrdered By: Jennifer Momin on 05-18-2022 CK [Catalytic activity/Vol] 237 U/L 22-269 [facility] Erythrocyte sedimentation ra te by Photometric methodOrdered By: Matthew Sneed on 05-18-2022 ESR Photometric method (Bld) [Velocity] 4 mm/hr 0-14 [facility] - Microbiology an d Antimicrobial susceptibilityOrdered By: Matthew Sneed on 05-18-2022 SARS-CoV-2 (COVID-19) RNA ARIELLE+probe Ql (Unsp spec) N/A [facility] No Panel InformationOrdered By: Matthew Sneed on 05-18-2022 SARS Antigen (LFIA) [facility] Urine lactic acid measuremen tOrdered By: Matthew Sneed on 05-18-2022 Lactate (U) [Moles/Vol] 1.2 mmol/L 0.5-2.2 [facility] Basophils Auto (Bld) [#/Vol] Ordered By: Aicha Mane on 05-17-2022 Basophils (Bld) [#/Vol] 0.0 10*3/uL 0.0-0.2 [facility] Basophils/100 WBC Auto (Bld) Ordered By: Aicha Mane on 05-17-2022 Basophils/100 WBC (Bld) 0.3 % . [facility] Blood hemoglobin measurement (mass/volume)Ordered By: Aicha Mane on 05-17-2022 Hemoglobin (Bld) [Mass/Vol] 16.9 g/dL 13.0-17.0 [facility] Blood leukocytes automated c ount (number/volume)Ordered By: Aicha Mane on 05-17-2022 WBC (Bld) [#/Vol] 16.8 10*3/uL 4.5-11.0 [facility] Body fluid albumin measureme nt (mass/volume)Ordered By: Aicha Mane on 05-17-2022 Albumin (Body fld) [Mass/Vol] 4.8 g/dL 3.2-5.5 [facility] Creatinine and Glomerular fi ltration rate.predicted panel (S/P/Bld)Ordered By: Aicha Bullimore on 05-17-2022 Creatinine [Mass/Vol] 1.06 mg/dL 0.64-1.27 [facility] Eosinophils Auto (Bld) [#/Vo l]Ordered By: Aicha Bullimore on 05-17-2022 Eosinophils (Bld) [#/Vol] 0.0 10*3/uL 0.0-0.45 [facility] Eosinophils/100 WBC Auto (Bl d)Ordered By: Aicha Bullimore on 05-17-2022 Eosinophils/100 WBC (Bld) 0.2 % . [facility] Erythrocyte distribution wid th Auto (RBC) [Ratio]Ordered By: Aicha Bullimore on 05-17-2022 Erythrocyte distribution width (RBC) [Ratio] 13.4 % 12.0-14.8 [facility] Estimated glomerular filtrat ion rate (GFR) non- AmericanOrdered By: Aicha Bullimore on 05-17-2022 GFR/1.73 sq M.predicted among non-blacks MDRD (S/P/Bld) [Vol rate/Area] > 60 mL/Min [facility] Globulin Calc (S) [Mass/Vol] Ordered By: Aicha Bullimore on 05-17-2022 Globulin (S) [Mass/Vol] 3.1 g/dL [facility] Hematocrit Auto (Bld) [Volum e fraction]Ordered By: Aicha Bullimore on 05-17-2022 Hematocrit (Bld) [Volume fraction] 50.9 % 38.8-50.0 [facility] Laboratory - Hematology and Cell countsOrdered By: Aicha Bullimore on 05-17-2022 Nucleated RBC/100 WBC (Bld) [Ratio] 0.0 % 0-0.5 [facility] Lymphocytes Auto (Bld) [#/Vo l]Ordered By: Aicha Bullimore on 05-17-2022 Lymphocytes (Bld) [#/Vol] 0.8 10*3/uL 1.00-4.8 [facility] Lymphocytes/100 WBC Auto (Bl d)Ordered By: Aicha Bullimore on 05-17-2022 Lymphocytes/100 WBC (Bld) 4.7 % . [facility] MCH Auto (RBC) [Entitic mass ]Ordered By: Aicha Bullimore on 05-17-2022 MCH (RBC) [Entitic mass] 30.0 pg 27.5-35.2 [facility] MCHC Auto (RBC) [Mass/Vol]Or dered By: Aicha Bullimore on 05-17-2022 MCHC (RBC) [Mass/Vol] 33.2 g/dL 32.5-35.6 [facility] MCV Auto (RBC) [Entitic vol] Ordered By: Aicha Bullimore on 05-17-2022 MCV (RBC) [Entitic vol] 90.4 fL 83.5-101 [facility] Monocytes Auto (Bld) [#/Vol] Ordered By: Aicha Bullimore on 05-17-2022 Monocytes (Bld) [#/Vol] 1.1 10*3/uL 0.0-0.8 [facility] Monocytes/100 WBC Auto (Bld) Ordered By: Aicha Bullimore on 05-17-2022 Monocytes/100 WBC (Bld) 6.4 % . [facility] Neutrophils Auto (Bld) [#/Vo l]Ordered By: Aicha Bullimore on 05-17-2022 Neutrophils (Bld) [#/Vol] 14.8 10*3/uL 1.8-7.7 [facility] Neutrophils/100 WBC Auto (Bl d)Ordered By: Aicha Bullimore on 05-17-2022 Neutrophils/100 WBC (Bld) 88.4 % . [facility] No Panel InformationOrdered By: Aicha Bullimore on 05-17-2022 Estimated GFR () > 60 mL/Min [facility] Comment on above: GFR estimated refere nce range: According to KDOQI guidelines, <60 ml/min/1.73m2 is sufficient to diagnose a patient with chronic kidney disease. Pharmacy Creatinine Clearance (Chem 103.33 [facility] Platelet mean volume Auto (B ld) [Entitic vol]Ordered By: Aicha Bullimore on 05-17-2022 Platelet mean volume (Bld) [Entitic vol] 9.0 fL 6.6-10.1 [facility] Platelets Auto (Bld) [#/Vol] Ordered By: Aicha Mane on 05-17-2022 Platelets (Bld) [#/Vol] 235 10*3/uL 150-450 [facility] Protein [Mass/volume] in Ser um or PlasmaOrdered By: Aicha Mane on 05-17-2022 Protein [Mass/Vol] 7.9 g/dL 6.1-7.9 [facility] RBC Auto (Bld) [#/Vol]Ordere d By: Aicha Benzore on 05-17-2022 RBC (Bld) [#/Vol] 5.63 10*6/uL 3.90-5.60 [facility] Serum or plasma alanine talley otransferase measurement without P-5'-P (enzymatic activiOrdered By: Aicha Mane on 05-17-2022 ALT No additional P-5'-P [Catalytic activity/Vol] 32 U/L 10-60 [facility] Serum or plasma albumin/glob ulin mass ratioOrdered By: Aicha Mane on 05-17-2022 Albumin/Globulin [Mass ratio] 1.5 {ratio} [facility] Serum or plasma alkaline cristopher sphatase measurement (enzymatic activity/volume)Ordered By: Aicha Mane on 05-17-2022 ALP [Catalytic activity/Vol] 86 U/L 32-92 [facility] Serum or plasma aspartate am inotransferase measurement (enzymatic activity/volume)Ordered By: Aicha Mane on 05-17-2022 AST [Catalytic activity/Vol] 25 U/L 10-42 [facility] Serum or plasma calcium lola urement (mass/volume)Ordered By: Aicha Mane on 05-17-2022 Calcium [Mass/Vol] 9.9 mg/dL 8.2-10.2 [facility] Serum or plasma chloride moose surement (moles/volume)Ordered By: Aicha Benzore on 05-17-2022 Chloride [Moles/Vol] 101 mmol/L 95-114 [facility] Serum or plasma glucose lola urement (mass/volume)Ordered By: Aicha Mane on 05-17-2022 Glucose [Mass/Vol] 105 mg/dL 70-100 [facility] Comment on above: ADA recommended refe rence range Random Glucose Reference Range is dependent on time and content of last meal. Glucose of more than 200 mg/dL in a nonstressed, ambulatory subject supports the diagnosis of Diabetes Mellitus. Serum or plasma potassium me asurement (moles/volume)Ordered By: Aicha Mane on 05-17-2022 Potassium [Moles/Vol] 3.9 mmol/L 3.5-5.1 [facility] Serum or plasma sodium measu rement (moles/volume)Ordered By: Aicha Mane on 05-17-2022 Sodium [Moles/Vol] 138 mmol/L 136-146 [facility] Serum or plasma total biliru bin measurement (mass/volume)Ordered By: Aicha Mane on 05-17-2022 Bilirubin [Mass/Vol] 2.0 mg/dL 0.3-1.2 [facility] Comment on above: Samples from patient s who have taken Naproxen have shown spurious elevation in Total Bilirubin levels. A metabolite of Naproxen, O-desmethylnaproxen, has been shown to interfere with the Gricelda-Kenji method for measuring Total Bilirubin. Serum or plasma total carbon dioxide measurement (moles/volume)Ordered By: Aicha Mane on 05-17-2022 CO2 [Moles/Vol] 26.1 mmol/L 22.0-30.0 [facility] Serum or plasma urea nitroge n measurement (mass/volume)Ordered By: Aicha Mane on 05-17-2022 Urea nitrogen [Mass/Vol] 15 mg/dL 9- [facility] Urine lactic acid measuremen tOrdered By: Aicha Mane on 05-17-2022 Lactate (U) [Moles/Vol] 0.9 mmol/L 0.5-2.2 [facility] CHEMISTRYOrdered By: SYSTEM SYSTEM on 05-07-2022 Anion gap [Moles/Vol] 12 mmol/L Normal 6 - 16 mEq/L [facility] Calcium [Mass/Vol] 10.0 mg/dL Normal 8.9 - 11. 1 mg/dL [facility] Chloride [Moles/Vol] 105 mmol/L Normal 101 - 1 11 mmol/L [facility] CO2 [Moles/Vol] 25 mmol/L Normal 21 - 31 mmol/L [facility] Creatinine [Mass/Vol] 1.0 mg/dL Normal 0.5 - 1.3 mg/dL [facility] GFR/1.73 sq M.predicted among blacks MDRD (S/P/Bld) [Vol rate/Area] mL/min/1.73 m2 Normal >=59mL/min/1 .73 m2 [facility] Chem S GFR/1.73 sq M.predicted among non-blacks MDRD (S/P/Bld) [Vol rate/Area] mL/min/1.73 m2 Normal >=59mL/min/1 .73 m2 [facility] Chem S Glucose [Mass/Vol] 97 mg/dL Normal 55 - 199 mg/dL [facility] Magnesium [Mass/Vol] 2.3 mg/dL Normal 1.3 - 2 .4 mg/dL [facility] Potassium [Moles/Vol] 4.1 mmol/L Normal 3.5 - 5.3 mmol/L [facility] Sodium [Moles/Vol] 138 mmol/L Normal 135 - 145 mmol/L [facility] Troponin I.cardiac [Mass/Vol] 3.90 pg/mL Low 15.90 - 38.40 pg/mL [facility] Urea nitrogen [Mass/Vol] 18 mg/dL Normal 5 - 21 mg/d L [facility] Urea nitrogen/Creatinine [Mass ratio] 18 mg/mg Normal 10 - 20 [facility] Remisol CHEMISTRYOrdered By: Isi Valerio on 05-07-2022 Natriuretic peptide B (Bld) [Mass/Vol] 10 pg/mL Normal 5 - 80 pg/mL [facility] HemeManSS COAGULATIONOrdered By: Zeynep Hahn on 05-07-2022 aPTT Coag (PPP) [Time] 37.9 s High 25.1 - 36.5 second(s) [facility] Auto Coag Fibrin D-dimer FEU (PPP) [Mass/Vol] 445 ng/mL FEU Normal 215 - 500 ng/mL FEU [facility] Auto Coag INR Coag (PPP) [Relative time] 1.0 {INR} Invalid Interpretation Code [facility] Auto Coag PT Coag (PPP) [Time] 11.9 s Normal 10.2 - 12.9 second(s) [facility] Auto Coag HEMATOLOGYOrdered By: SYSTEM SYSTEM on 05-07-2022 Basophils/100 WBC (Bld) 1.0 % Normal 0.0 - 2.0 % [facility] HemeAutoSS Basophils/Leukocytes Auto (Bld) [Pure # fraction] 0.1 E9/L Normal 0.0 - 0.2 E9/L [facility] Eosinophils/100 WBC (Bld) 0.9 % Normal 0.0 - 8.0 % [facility]Auto[facility] Eosinophils/Leukocytes Auto (Bld) [Pure # fraction] 0.1 E9/L Normal 0.0 - 0.5 E9/L [facility] Lymphocytes/100 WBC (Bld) 21.3 % Normal 14.0 - 50.0 % [facility]eAuto[facility] Lymphocytes/Leukocytes Auto (Bld) [Pure # fraction] 1.3 E9/L Normal 1.0 - 4.0 E9/L [facility]eAuto[facility] Monocytes/100 WBC (Bld) 10.4 % Normal 4.0 - 14.0 % [facility]eAuto[facility] Monocytes/Leukocytes Auto (Bld) [Pure # fraction] 0.7 E9/L Normal 0.2 - 1.0 E9/L [facility] Neutrophils/100 WBC (Bld) 66.4 % Normal 36.0 - 75.0 % [facility]eAuto[facility] Neutrophils/Leukocytes Auto (Bld) [Pure # fraction] 4.2 E9/L Normal 2.0 - 7.5 E9/L [facility] HEMATOLOGYOrdered By: Isi Valerio on 05-07-2022 Erythrocyte distribution width (RBC) [Ratio] 13.6 % Normal 10.9 - 14.2 % [facility] Hematocrit (Bld) [Volume fraction] 51.3 % High 37.7 - 49.0 % [facility] Hemoglobin (Bld) [Mass/Vol] 17.1 g/dL Normal 13.5 - 17.5 gm/dL [facility]eAuto[facility] MCH (RBC) [Entitic mass] 30.0 pg Normal 27. 0 - 34.0 pg [facility] MCHC (RBC) [Mass/Vol] 33.4 g/dL Normal 31.4 - 36.0 gm/dL [facility]eAuto[facility] MCV (RBC) [Entitic vol] 89.7 fL Normal 80.0 - 100.0 fL [facility]eAuto[facility] Platelet mean volume (Bld) [Entitic vol] 8.9 fL Normal 6.4 - 10.8 fL [facility]eAutoSS Platelets (Bld) [#/Vol] 251.0 E9/L Normal 150. 0 - 500.0 E9/L [facility] HemeAuto[facility] RBC (Bld) [#/Vol] 5.7 E12/L Normal 4.3 - 5.9 E12/L [facility]eAuto[facility] WBC corrected for nucl RBC Auto (Bld) [#/Vol] 6.3 E9/L Normal 4.0 - 11.0 E9/L [facility] HemeAutoSS MRI LUMBAR SPINE WO CONTRAST on 2021 MRI LUMBAR SPINE WO CONTRAST EXAMINATION: MRI OF THE LUMBAR SPINE WITHOUT CONTRAST, 2021 3:43 pm TECHNIQUE: Multiplanar multisequence MRI of the lumbar spine was performed without the administration of intravenous contrast. COMPARISON: None. HISTORY: ORDERING SYSTEM PROVIDED HISTORY: Lumbar radiculopathy FINDINGS: BONES/ALIGNMENT: There is normal alignment of the spine. The vertebral body heights are maintained. The bone marrow signal appears unremarkable. SPINAL CORD: The conus terminates normally. SOFT TISSUES: No paraspinal mass identified. L1-L2: There is no significant disc herniation, spinal canal stenosis or neural foraminal narrowing. L2-L3: There is no significant disc herniation, spinal canal stenosis or neural foraminal narrowing. L3-L4: There is no significant disc herniation, spinal canal stenosis or neural foraminal narrowing. L4-L5: Mild loss of disc signal. Disc bulging with 3 mm central disc protrusion with annular tear effaces the anterior thecal sac. Mild bilateral facet arthropathy. Findings resulting in mild bilateral neural foraminal narrowing. L5-S1: Mild loss of disc signal. Disc bulging with 5 mm central/left paracentral disc protrusion effaces the anterior thecal sac. The protruded disc mildly narrows left subarticular recess impinging on the descending left S1 nerve root. Moderate bilateral facet arthropathy and ligamentum flavum thickening. Findings result in moderate bilateral neural foraminal narrowing. IMPRESSION: At L4-L5, central disc protrusion with annular tear and mild bilateral neural foraminal narrowing. At L5-S1, moderate bilateral neural foraminal narrowing, left paracentral disc protrusion impinges on the descending left S1 nerve root. Interpreted by: Rolf Grayson MD Signed by: Rolf Grayson MD 01/07/21 Final result Normal [facility] At L4-L5, central disc protrusion with annular tear and mild bilateral neural foraminal narrowing. At L5-S1, moderate bilateral neural foraminal narrowing, left paracentral disc protrusion impinges on the descending left S1 nerve root. [employer] Phone: EXAMINATION: MRI OF THE LUMBAR SPINE WITHOUT CONTRAST, 2021 3:43 pm TECHNIQUE: Multiplanar multisequence MRI of the lumbar spine was performed without the administration of intravenous contrast. COMPARISON: None. HISTORY: ORDERING SYSTEM PROVIDED HISTORY: Lumbar radiculopathy FINDINGS: BONES/ALIGNMENT: There is normal alignment of the spine. The vertebral body heights are maintained. The bone marrow signal appears unremarkable. SPINAL CORD: The conus terminates normally. SOFT TISSUES: No paraspinal mass identified. L1-L2: There is no significant disc herniation, spinal canal stenosis or neural foraminal narrowing. L2-L3: There is no significant disc herniation, spinal canal stenosis or neural foraminal narrowing. L3-L4: There is no significant disc herniation, spinal canal stenosis or neural foraminal narrowing. L4-L5: Mild loss of disc signal. Disc bulging with 3 mm central disc protrusion with annular tear effaces the anterior thecal sac. Mild bilateral facet arthropathy. Findings resulting in mild bilateral neural foraminal narrowing. L5-S1: Mild loss of disc signal. Disc bulging with 5 mm central/left paracentral disc protrusion effaces the anterior thecal sac. The protruded disc mildly narrows left subarticular recess impinging on the descending left S1 nerve root. Moderate bilateral facet arthropathy and ligamentum flavum thickening. Findings result in moderate bilateral neural foraminal narrowing. [employer] Phone: Anmol, [employer] Incoming Radiant Results From [employer] - 2021 4:39 PM EDT EXAMINATION: MRI OF THE LUMBAR SPINE WITHOUT CONTRAST, 2021 3:43 pm TECHNIQUE: Multiplanar multisequence MRI of the lumbar spine was performed without the administration of intravenous contrast. COMPARISON: None. HISTORY: ORDERING SYSTEM PROVIDED HISTORY: Lumbar radiculopathy FINDINGS: BONES/ALIGNMENT: There is normal alignment of the spine. The vertebral body heights are maintained. The bone marrow signal appears unremarkable. SPINAL CORD: The conus terminates normally. SOFT TISSUES: No paraspinal mass identified. L1-L2: There is no significant disc herniation, spinal canal stenosis or neural foraminal narrowing. L2-L3: There is no significant disc herniation, spinal canal stenosis or neural foraminal narrowing. L3-L4: There is no significant disc herniation, spinal canal stenosis or neural foraminal narrowing. L4-L5: Mild loss of disc signal. Disc bulging with 3 mm central disc protrusion with annular tear effaces the anterior thecal sac. Mild bilateral facet arthropathy. Findings resulting in mild bilateral neural foraminal narrowing. L5-S1: Mild loss of disc signal. Disc bulging with 5 mm central/left paracentral disc protrusion effaces the anterior thecal sac. The protruded disc mildly narrows left subarticular recess impinging on the descending left S1 nerve root. Moderate bilateral facet arthropathy and ligamentum flavum thickening. Findings result in moderate bilateral neural foraminal narrowing. IMPRESSION: At L4-L5, central disc protrusion with annular tear and mild bilateral neural foraminal narrowing. At L5-S1, moderate bilateral neural foraminal narrowing, left paracentral disc protrusion impinges on the descending left S1 nerve root. [employer] Work Phone: Vital Signs Date Time Vital Sign Value Performing Clinician Facility 08-26-2024 15:32-0500 Body height 182.88 cm [facility] 08-26-2024 15:32-0500 Body mass index (BMI) [Ratio] 27.9 kg/m2 [facility] 08-26-2024 15:32-0500 Body temperature 98.5 [degF] [facility] 08-26-2024 15:32-0500 Body weight 93.44 kg [facility] 08-26-2024 15:32-0500 Diastolic blood pressure 76 mm[Hg] [facility] 08-26-2024 15:32-0500 Heart rate 78 /min [facility] 08-26-2024 15:32-0500 Respiratory rate 16 /min [facility] 08-26-2024 15:32-0500 SaO2% (BldA) [Mass fraction] 95 % [facility] 08-26-2024 15:32-0500 Systolic blood pressure 120 mm[Hg] [facility] 08-06-2024 13:51-0400 Body height 180.34 cm [facility] 08-06-2024 13:51-0400 Body mass index (BMI) [Ratio] 28.4 kg/m2 [facility] 08-06-2024 13:51-0400 Body temperature 97.3 [degF] [facility] 08-06-2024 13:51-0400 Body weight 92.53 kg [facility] 08-06-2024 13:51-0400 Diastolic blood pressure 80 mm[Hg] [facility] 08-06-2024 13:51-0400 Heart rate 74 /min [facility] 08-06-2024 13:51-0400 SaO2% (BldA) [Mass fraction] 97 % [facility] 08-06-2024 13:51-0400 Systolic blood pressure 118 mm[Hg] [facility] 03-25-2024 16:09-0400 Body height 180.34 cm [facility] 03-25-2024 16:09-0400 Body mass index (BMI) [Ratio] 28.3 kg/m2 [facility] 03-25-2024 16:09-0400 Body temperature 97.5 [degF] [facility] 03-25-2024 16:09-0400 Body weight 92.22 kg [facility] 03-25-2024 16:09-0400 Diastolic blood pressure 82 mm[Hg] [facility] 03-25-2024 16:09-0400 Heart rate 80 /min [facility] 03-25-2024 16:09-0400 Systolic blood pressure 120 mm[Hg] [facility] 08-07-2023 15:20-0400 Body height 180.34 cm Ana Gabriel Other [facility] Other 08-07-2023 15:20-0400 Body mass index (BMI) [Ratio] 27.33 kg/m2 Ana Gabriel Other [facility] Other 08-07-2023 15:20-0400 Body temperature 98 [degF] Ana Gabriel Other [facility] Other 08-07-2023 15:20-0400 Body weight 88.91 kg Ana Gabriel Other [facility] Other 08-07-2023 15:20-0400 Diastolic blood pressure 74 mm[Hg] Ana Gabriel Other [facility] Other 08-07-2023 15:20-0400 Respiratory rate 18 /min Ana Joeaisha Other [facility] Other 08-07-2023 15:20-0400 SaO2% (BldA) [Mass fraction] 99 % Ana Joeaisha Other [facility] Other 08-07-2023 15:20-0400 Systolic blood pressure 118 mm[Hg] Ana Gabriel Other [facility] Other 07-11-2022 16:20-0400 Body height 180.34 cm Ana Joeaisha Other [facility] Other 07-11-2022 16:20-0400 Body mass index (BMI) [Ratio] 29.84 kg/m2 Ana Gabriel Other [facility] Other 07-11-2022 16:20-0400 Body temperature 97.1 [degF] Ana Gabriel Other [facility] Other 07-11-2022 16:20-0400 Body weight 97.07 kg Ana Gabriel Other [employer] Other 07-11-2022 16:20-0400 Diastolic blood pressure 86 mm[Hg] Ana Gabriel Other [employer] Other 07-11-2022 16:20-0400 Respiratory rate 18 /min Ana Gabriel Other [employer] Other 07-11-2022 16:20-0400 SaO2% (BldA) [Mass fraction] 97 % Ana Gabriel Other [employer] Other 07-11-2022 16:20-0400 Systolic blood pressure 128 mm[Hg] Ana Diazaisha Other [facility] [employer] Other 05-21-2022 07:56-0400 Body temperature 97.7 [degF] DO Ana Gabriel Work Phone: [facility] 05-21-2022 07:56-0400 Diastolic blood pressure 85 mm[Hg] DO Ana Gabriel Work Phone: [facility] 05-21-2022 07:56-0400 Heart rate 70 /min DO Ana Gabriel Work Phone: [facility] 05-21-2022 07:56-0400 Respiratory rate 16 /min DO Ana Gabriel Work Phone: [facility] 05-21-2022 07:56-0400 SaO2% (BldA) [Mass fraction] 98 % DO Ana Gabriel Work Phone: [facility] 05-21-2022 07:56-0400 Systolic blood pressure 144 mm[Hg] DO Ana Gabriel Work Phone: [facility] 05-21-2022 06:00-0400 Body weight 96 kg DO Ana Gabriel Work Phone: [facility] 05-19-2022 14:29-0400 Body height 182.88 cm DO Ana Giraisha Work Phone: [facility] 05-19-2022 13:35-0400 Inhaled oxygen flow rate 6 L/min DO Ana Gabriel Work Phone: [facility] 05-19-2022 12:33-0400 Body mass index (BMI) [Ratio] 28.5 kg/m2 DO Ana Giraisha Work Phone: [facility] 05-18-2022 08:45-0400 Body temperature 98 [degF] DO Ana Gabriel Work Phone: [facility] 05-18-2022 08:45-0400 Diastolic blood pressure 86 mm[Hg] DO Ana Gabriel Work Phone: [facility] 05-18-2022 08:45-0400 Heart rate 105 /min DO Ana Gabriel Work Phone: [facility] 05-18-2022 08:45-0400 Respiratory rate 18 /min DO Ana Gabriel Work Phone: [facility] 05-18-2022 08:45-0400 Systolic blood pressure 141 mm[Hg] DO Ana Giraisha Work Phone: [facility] 05-17-2022 21:15-0400 Body temperature 99.1 [degF] DO Ana Giraisha Work Phone: [facility] 05-17-2022 21:15-0400 Diastolic blood pressure 83 mm[Hg] DO Ana Girvin Work Phone: [facility] 05-17-2022 21:15-0400 Heart rate 92 /min DO Ana Girvin Work Phone: [facility] 05-17-2022 21:15-0400 Respiratory rate 16 /min DO Ana Giraisha Work Phone: [facility] 05-17-2022 21:15-0400 SaO2% (BldA) [Mass fraction] 96 % DO Ana Gabriel Work Phone: [facility] 05-17-2022 21:15-0400 Systolic blood pressure 137 mm[Hg] DO Ana Gabriel Work Phone: [facility] 05-17-2022 17:32-0400 Body height 182.88 cm DO Ana Gabriel Work Phone: [facility] 05-17-2022 17:32-0400 Body weight 95.6 kg DO Ana Gabriel Work Phone: [facility] 05-07-2022 14:39-0400 Diastolic blood pressure 79 mm[Hg] [facility] 05-07-2022 14:39-0400 Heart rate 77 /min [facility] 05-07-2022 14:39-0400 Mean blood pressure 90 mm[Hg] [facility] 05-07-2022 14:39-0400 Respiratory rate 16 /min [facility] 05-07-2022 14:39-0400 SaO2% (BldA) [Mass fraction] 98 % [facility] 05-07-2022 14:39-0400 Systolic blood pressure 111 mm[Hg] [facility] 05-07-2022 13:21-0400 Diastolic blood pressure 87 mm[Hg] [facility] 05-07-2022 13:21-0400 Heart rate 61 /min [facility] 05-07-2022 13:21-0400 Hourly Rounding [facility] 05-07-2022 13:21-0400 Mean blood pressure 98 mm[Hg] [facility] 05-07-2022 13:21-0400 Promise to Return [facility] 05-07-2022 13:21-0400 Respiratory rate 10 /min [facility] 05-07-2022 13:21-0400 SaO2% (BldA) [Mass fraction] 96 % [facility] 05-07-2022 13:21-0400 Systolic blood pressure 121 mm[Hg] [facility] 05-07-2022 12:40-0400 Hourly Rounding [facility] 05-07-2022 12:40-0400 Promise to Return [facility] 05-07-2022 12:34-0400 Diastolic blood pressure 89 mm[Hg] [facility] 05-07-2022 12:34-0400 Heart rate 69 /min [facility] 05-07-2022 12:34-0400 Mean blood pressure 105 mm[Hg] [facility] 05-07-2022 12:34-0400 Respiratory rate 14 /min [facility] 05-07-2022 12:34-0400 SaO2% (BldA) [Mass fraction] 97 % [facility] 05-07-2022 12:34-0400 Systolic blood pressure 136 mm[Hg] [facility] 05-07-2022 12:05-0400 Body temperature 97.88 [degF] [facility] 05-07-2022 12:05-0400 Hourly Rounding [facility] 05-07-2022 12:05-0400 Promise to Return [facility] 05-07-2022 11:41-0400 Heart rate 82 /min [facility] 05-07-2022 11:41-0400 Respiratory rate 20 /min [facility] 02-11-2022 12:30-0400 Body height 180.34 cm Ana Gabriel Other [facility] Other 07-26-2021 16:20-0400 Body height 180.34 cm Ana Gabriel Other [facility] Other 07-26-2021 16:20-0400 Body mass index (BMI) [Ratio] 29.84 kg/m2 Ana Gabriel Other [facility] Other 07-26-2021 16:20-0400 Body temperature 98.2 [degF] Ana Diazaisha Other [facility] Other 07-26-2021 16:20-0400 Body weight 97.07 kg Ana Diazaisha Other [facility] Other 07-26-2021 16:20-0400 Diastolic blood pressure 86 mm[Hg] Ana Joeaisha Other [facility] Other 07-26-2021 16:20-0400 Respiratory rate 18 /min Ana Gabriel Other [facility] Other 07-26-2021 16:20-0400 SaO2% (BldA) [Mass fraction] 97 % Ana Gabriel Other [facility] Other 07-26-2021 16:20-0400 Systolic blood pressure 130 mm[Hg] Ana Joeaisha Other [facility] Other Encounters Encounter Date Encounter Type Care Provider Facility Start: 05-07-2025 ambulatory Isabelle Alberts Facility:C D:[id number] Start: 04-09-2025 End: 04-09-2025 ambulatory Isabelle Alberts Facility:[facility] Start: 04-09-2025 End: 04-09-2025 Patient encounter procedure Isabelle Alberts [facility] Start: 04-01-2025 ambulatory Facility:[facility] Start: 04-01-2025 End: 04-01-2025 ambulatory Gray Edouard Facility:[facility] Start: 08-26-2024 End: 08-26-2024 ambulatory [facility] Work Phone: Start: 08-26-2024 End: 08-26-2024 Patient encounter procedure [facility] Work Phone: Start: 08-06-2024 Patient encounter status [facility] Start: 08-06-2024 End: 08-06-2024 ambulatory [facility] Work Phone: Start: 08-06-2024 End: 08-06-2024 Encounter for general adult medical examination without abnormal findings [facility] Start: 08-06-2024 End: 08-06-2024 Patient encounter procedure [facility] Work Phone: Start: 08-03-2024 Non-patient / Non-visit [facility] Work Phone: Start: 03-25-2024 End: 03-25-2024 ambulatory [facility] Work Phone: Start: 03-25-2024 End: 03-25-2024 Patient encounter procedure [facility] Work Phone: Start: 01-15-2024 Non-patient / Non-visit [facility] Work Phone: Start: 12-27-2023 End: 12-27-2023 ambulatory ABHISHEK GUTIERRES V Not Available Start: 12-12-2023 End: 12-12-2023 ambulatory ABHISHEK GUTIERRES V Not Available Start: 08-07-2023 End: 08-07-2023 ambulatory Ana Gabriel Other [facility] Other Start: 08-07-2023 Encounter for genera l adult medical examination without abnormal findings Ana Gabriel [facility] Start: 08-07-2023 Periodic preventive med est patient 40-64yrs Ana Gabriel [facility] Start: 07-10-2023 End: 07-10-2023 ambulatory Ana Gabriel Other [facility] Other Start: 07-10-2023 Encounter for genera l adult medical examination without abnormal findings Ana Gabriel [facility] Start: 07-10-2023 Telephone encounter Ana Gabriel [facility] Start: 03-10-2023 End: 03-10-2023 ambulatory Ana Gabriel Other [facility] Other Start: 03-10-2023 Telephone encounter Ana Gabriel [facility] Start: 01-03-2023 End: 01-03-2023 ambulatory Ana Gabriel Other [facility] Other Start: 01-03-2023 Telephone encounter Ana Gabriel [facility] Start: 09-29-2022 End: 09-30-[address] ANA GABRIEL Facility:[facility] Start: 08-16-2022 End: 08-16-2022 ambulatory Monae Daily Other [facility] Other Start: 08-16-2022 Office outpatient vi sit 15 minutes Monae Daily [facility] Start: 07-20-2022 End: 07-20-2022 ambulatory Monae Daily Other [facility] Other Start: 07-20-2022 Postop follow up vis it related to original px Monae Daily [facility] Start: 07-18-2022 End: 07-19-[address] ANA GABRIEL Facility:[facility] Start: 07-12-2022 Encounter for genera l adult medical examination without abnormal findings DR ANA GABRIEL [facility] Start: 07-12-2022 End: 07-12-2022 ambulatory Ana Gabriel Other [facility] Other Start: 07-12-2022 Telephone encounter Ana Gabriel [facility] Start: 07-11-2022 End: 07-11-2022 ambulatory Ana Gabriel Other [facility] Other Start: 07-11-2022 Encounter for genera l adult medical examination without abnormal findings Ana Gabriel [facility] Start: 07-11-2022 Periodic preventive med est patient 40-64yrs Ana Gabriel [facility] Start: 07-11-2022 Telephone encounter Ana Gabriel [facility] Start: 07-09-2022 End: 07-10-[address] ANA GABRIEL Facility:[facility] Start: 07-09-2022 End: 07-10-2022 Encounter for general adult medical examination without abnormal findings DR ANA GABRIEL Facility:[facility] Start: 06-17-2022 End: 06-17-2022 ambulatory Monae Daily Other [facility] Other Start: 06-17-2022 Postop follow up vis it related to original px Monae Calvey [facility] Start: 06-16-2022 End: 06-16-2022 ambulatory Ana Gabriel Other [facility] Other Start: 06-16-2022 Telephone encounter Ana Gabriel [facility] Start: 06-03-2022 End: 06-03-2022 ambulatory Monae Daily Other [facility] Other Start: 06-03-2022 Postop follow up vis it related to original px Monae Calvey [facility] Start: 05-23-2022 End: 05-23-2022 ambulatory Ana Gabriel Other [facility] Other Start: 05-23-2022 [facility] Start: 05-18-2022 End: 05-18-2022 ambulatory Ana Gabriel Other [facility] Other Start: 05-18-2022 Telephone encounter Ana Gabriel [facility] Start: 05-18-2022 End: 05-21-2022 Evaluation and management of inpatient DO Ana Gabriel Work Phone: [facility] Start: 05-18-2022 End: 05-18-2022 Discharged Recurring DO Ana Gabriel Work Phone: [facility] Start: 05-17-2022 End: 05-17-2022 Emergency department patient visit DO Ana Gabriel Work Phone: [facility] Start: 05-07-2022 End: 05-07-2022 Emergency department patient visit Marcelo Parish juana [facility] Start: 05-06-2022 End: 05-06-2022 ambulatory Ana Gabriel Other [facility] Other Start: 05-06-2022 Telephone encounter Ana Gabriel [facility] [place] Start: 02-11-2022 End: 02-11-2022 ambulatory Ana Gabriel Other [facility] Other Start: 02-11-2022 Telephone encounter Ana Gabriel [facility] [place] Start: 09-27-2021 End: 09-27-2021 ambulatory Ana Gabriel Other [facility] Other Start: 09-27-2021 Telephone encounter Ana Gabriel [facility] [place] Start: 09-17-2021 End: 09-17-2021 ambulatory Ana Gabriel Other [facility] Other Start: 09-17-2021 Telephone encounter Ana Gabriel [facility] Start: 07-26-2021 Encounter for genera l adult medical examination without abnormal findings Ana Gabriel [facility] Start: 07-26-2021 Periodic preventive med est patient 40-64yrs Ana Gabriel [facility] Start: 2021 End: 01-10-2021 Patient encounter procedure ANA GABRIEL [facility] Start: 2021 End: 01-09-2021 Subsequent hospital visit by physician [facility] Comment on above: Lumbar radiculopathy ; Numbness and tingling of both legs Procedures Date Procedure Procedure Detail Performing Clinician Start: 01-15-2024 E coli Shiga Toxin EIA Start: 01-15-2024 Salmonella/Shigella Screen Start: 07-09-[address] ANA GABRIEL Comment on above: Performed By: #### P SASC #### [facility] [address] [place] [address] Dr. Faith Quintana Start: 05-18-2022 MRI of right hand wi th contrast DO Ana Gabriel Work Phone: Start: 05-18-2022 XR pre/post mri xray DO nAa Gabriel Work Phone: Start: 05-17-2022 Plain X-ray of right thumb DO Ana Gabriel Work Phone: Start: 2021 Mri spinal canal lum bar w/o contrast material Marito Pathak Work Phone: Aerobic microbial culture DO Ana Gabriel Work Phone: Anaerobic microbial culture DO Ana Gabriel Work Phone: Blood culture for ba cteria, including anaerobic screen DO Ana Gabriel Work Phone: Investigation of transfusion reaction DO Ana Gabriel Work Phone: Repair of right ingu inal hernia Isabelle Aristeo SARS Antigen (LFIA) DO Ana Gabriel Work Phone: Plan of Treatment Date Care Activity Detail Author Start: 05-21-2022 [facility] Work Phone: Start: 05-18-2022 Drainage of Right Mccarthy nd Tendon, Open Approach Drainage of Right Hand Tendon, Open Approach [facility] Start: 05-18-2022 Release Right Hand Tendon, Open Approach Release Right Hand Tendon, Open Approach [facility] Start: 05-18-2022 End: 05-21-2022 Evaluation and management of inpatient Cellulitis of thumb, right [facility] Start: 05-18-2022 Consultation [facility] Work Phone: Start: 05-18-[address] [facility] Work Phone: Start: 06-09-2021 Influenza vaccination Flu vacc ine (Season Ended) [facility] Work Phone: Start: 2015 Lipid panel Lipid screen [facility] Work Phone: Start: 1994 DTaP/Tdap/Td vaccine (1 - Tdap) DTaP/Tdap/Td vaccine (1 - Tdap) [facility] Work Phone: Start: 1991 COVID-19 Vaccine (1) COVID-19 Vaccin e (1) [facility] Work Phone: Start: 1990 HIV screening HIV screen [facility] Work Phone: Start: 1975 Hepatitis C screening Hepatitis C sc [facility] Work Phone: Comprehensive metabo lic 2000 panel - Serum or Plasma [facility] Patient Education [facility] Work Phone: Patient referral [facility] Work Phone: [facility] Immunizations Immunization Date Immunization Notes Care Provider Fa cility 05-14-2017 KENALOG - 10 mg Ana Gabriel Other [facility] Other 05-14-2017 Toradol per 15 mg Ana Parry in Other [facility] Other 04-20-2017 Depo-Medrol 80 mg Ana Parry in Other [facility] [employer] Other Payers Date Payer Category Payer Unknown [id number] [id number] 2022 Private Health Insurance 68f [id number] 1975 Unknown [id number] 2.16.8 [id number] 1975 Unknown [id number] 2.16.84 [id number] 1975 Unknown [id number] 2.16.84 [id number] 1975 Unknown [id number] 2.16.84 [id number] 1975 Unknown [id number] 2.16.84 [id number] 1975 Unknown [id number] 2.16.84 [id number] 1975 Unknown [id number] 2.16.8 [id number] 1975 Unknown [id number] 2.16.8 [id number] 1959 Unknown [id number] Self-pay Self Pay [id number] Social History Date Type Detail Facility Tobacco smoking stat [facility] Unknown if ever smoked [facility] Phone: Sex Assigned At Not on file [facility] Phone: Exposure to SARS-CoV -2 (event) Not sure [employer] Phone: Start: 10-09-1989 Sex Assigned At N [facility] [employer] Other Tobacco smoking status No Smokin g Status Entered [facility] Start: 05-19-2022 End: 04-09-2025 Tobacco smoking status NHIS Ex-smoker (finding) [facility] Start: 1975 Sex Assigned At Male F [facility] Start: 05-07-2022 End: 08-26-2024 Sex Male (finding) [facility] Sexual Orientation [facility] Goals Date Patient Goal Desired Activity /State Functional Status Date Assessment Result Facility 05-21-2022 Functional status Patient at Baseline [facility] Work Phone: 05-07-2022 Functional Status N/A [facility] Mental Status Date Assessment Result Facility 05-21-2022 Cognitive function Cognitive Sta tus Patient at Baseline [facility] Work Phone: Clinical Notes 05-09-2020 to 04-09-2025 Note Date & Type Note Facility 04-09-2025 Hospital Discharg e instructions Patient Education 04/09/2025 08:58:51 Laser Therapy for Kidney Stones, Care After Laser Therapy for Kidney Stones, Care After After laser therapy for kidney stones, it is common to have: Pain. A burning feeling when you pee (urinate). Small amounts of blood in your pee (urine). A need to pee a lot. Parts of the kidney stone in your pee. Mild discomfort in your back when you pee. You may have this if you had a small mesh tube (stent) placed during the procedure. Follow these instructions at home: Medicines Take fnog-uuo-djvutfn and prescription medicines only as told by your health care provider. If you were prescribed antibiotics, take them as told by your provider. Do not stop using the antibiotic even if you start to feel better. Ask your provider if the medicine prescribed to you: ?Requires you to avoid driving or using machinery. ?Can cause constipation. You may need to take these actions to prevent or treat constipation: ?Drink enough fluid to keep your pee pale yellow. ?Take jppy-kcb-xrlgice or prescription medicines. ?Eat foods that are high in fiber, such as beans, whole grains, and fresh fruits and vegetables. ?Limit foods that are high in fat and processed sugars, such as fried or sweet foods. Activity If you were given a sedative during the procedure, it can affect you for several hours. Do not drive or operate machinery until your provider says that it is safe. Return to your normal activities as told by your provider. Ask your provider what activities are safe for you. General instructions Your provider may recommend that you drink a lot of water for a few hours after your procedure. If you have heart or kidney disease, ask your provider how much you should drink. You may be asked to strain your pee to collect any stone pieces that you pass. Your provider may have these pieces tested. Do not take baths, swim, or use a hot tub until your provider approves. Ask your provider if you may take warm baths to soothe the burning. Keep all follow-up visits. If you have a stent, you will need to go back to your provider to have it removed. Your provider may give you more instructions. Make sure you know what you can and cannot do. Contact a health care provider if: You have pain or a burning feeling that lasts for more than 2 days. You feel nauseous. You vomit more and more often. You have trouble peeing. You have pain that gets worse or does not get better with medicine. You have a fever or shaking chills. Get help right away if: You cannot pee, even when your bladder feels full. You faint. You have chest pain, shortness of breath, or cough up blood. You have: ?Bright red blood or blood clots in your pee. ?Severe pain or discomfort. ?Pain in your abdomen. ?Swelling in your legs. These symptoms may be an emergency. Get help right away. Call 911. Do not wait to see if the symptoms will go away. Do not drive yourself to the hospital. This information is not intended to replace advice given to you by your health care provider. Make sure you discuss any questions you have with your health care provider. Document Revised: 05/26/2023 Document Reviewed: 05/26/2023 [employer] Patient Education 2023 [employer]. 04/09/2025 08:58:51 Laser Therapy for Kidney Stones Laser Therapy for Kidney Stones Laser therapy for kidney stones is a procedure to break up rock-like masses that form inside the kidneys (kidney stones). It is done using a device that beams a strong light (laser) on the kidney stones. This breaks the stones up into small pieces. These small pieces may leave your body when you pee (urinate) or may be taken out during the procedure. You may need laser therapy if you have kidney stones that are painful or that are stopping you from being able to pee. Tell a health care provider about: Any allergies you have. All medicines you are taking, including vitamins, herbs, eye drops, creams, and mbdw-qsj-uswnmyx medicines. Any problems you or family members have had with anesthesia. Any bleeding problems you have. Any surgeries you have had. Any medical conditions you have. Whether you are or may be . What are the risks? Your health care provider will talk with you about risks. These may include: Infection. Bleeding. Allergic reactions to medicines. Damage to: ?The part of your body that drains pee (urine) from the bladder (urethra). ?The bladder. ?The tube that connects the bladder to the kidneys (ureter). Urinary tract infection (UTI). Urethral stricture. This is when the urethra is narrowed by scarring. Trouble peeing. Blockage of the kidney. This may be caused by a piece of kidney stone. What happens before the procedure? When to stop eating and drinking Follow instructions from your provider about what you may eat and drink. These may include: 8 hours before the procedure ?Stop eating most foods. Do not eat meat, fried foods, or fatty foods. ?Eat only light foods, such as toast or crackers. ?All liquids are okay except energy drinks and alcohol. 6 hours before the procedure ?Stop eating. ?Drink only clear liquids, such as water, clear fruit juice, black coffee, plain tea, and sports drinks. ?Do not drink energy drinks or alcohol. 2 hours before the procedure ?Stop drinking all liquids. ?You may be allowed to take medicines with small sips of water. If you do not follow your provider's instructions, your procedure may be delayed or canceled. Medicines Ask your provider about: ?Changing or stopping your regular medicines. These include any diabetes medicines or blood thinners you take. ?Taking medicines such as aspirin and ibuprofen. These medicines can thin your blood. Do not take them unless your provider tells you to. ?Taking dnql-fqy-ordffjz medicines, vitamins, herbs, and supplements. Tests You may have a physical exam before the procedure. You may also have tests done. These may include: ?Imaging tests. ?Blood or pee tests. Surgery safety Ask your provider: ?How your surgery site will be marked. ?What steps will be taken to help prevent infection. These steps may include: ?Removing hair at the surgery site. ?Washing skin with a soap that kills germs. ?Taking antibiotics. General instructions Do not use any products that contain nicotine or tobacco for at least 4 weeks before the procedure. These products include cigarettes, chewing tobacco, and vaping devices, such as e-cigarettes. If you need help quitting, ask your provider. If you will be going home right after the procedure, plan to have a responsible adult: ?Take you home from the hospital or clinic. You will not be allowed to drive. ?Care for you for the time you are told. What happens during the procedure? An IV will be inserted into one of your veins. You will be given: ?A sedative. This helps you relax. ?Anesthesia. This keeps you from feeling pain. It will make you fall asleep for surgery. A tool with a camera on the end (ureteroscope) will be put into your urethra. It will be moved through your bladder to your kidney. It will send pictures to a screen in the operating room. This will show what parts of your kidney need to be treated. A tube will be put through the ureteroscope. It will be moved into your kidney. The laser device will be put into your kidney through the tube. The laser will be used to break up the kidney stones. A tool with a tiny wire basket may be put through the tube into your kidney. This can help remove the small pieces of the kidney stone. A small mesh tube (stent) may be placed to allow your kidney to drain. The tube and ureteroscope will be taken out at the end of the surgery. The procedure may vary among providers and hospitals. What happens after the procedure? Your blood pressure, heart rate, breathing rate, and blood oxygen level will be monitored until you leave the hospital or clinic. If you had a stent placed, it may have a string that will be secured to your skin. This helps your provider remove the stent. You may be given a strainer to collect any stone pieces that you pass in your pee. Your provider may have these tested. This information is not intended to replace advice given to you by your health care provider. Make sure you discuss any questions you have with your health care provider. Document Revised: 05/26/2023 Document Reviewed: 05/26/2023 [employer] Patient Education 2023 [employer]. 04/09/2025 08:58:48 ESWL for Kidney Stones, Care After ESWL for Kidney Stones, Care After The following information offers guidance on how to care for yourself after your procedure. Your health care provider may also give you more specific instructions. If you have problems or questions, contact your health care provider. What can I expect after the procedure? After the procedure, it is common to have: Some blood in your urine. This should only last for a few days. Soreness in your back, sides, or upper abdomen for a few days. Blotches or bruises on the area where the shock wave entered the skin. Pain, discomfort, or nausea when pieces (fragments) of the kidney stone move through the tube that carries urine from the kidney to the bladder (ureter). Fragments may pass soon after the procedure. They may also take up to 4 8 weeks to pass. ?If you have severe pain or nausea, contact your health care provider. This may be caused by a large stone that was not broken up enough. This may mean that you need more treatment. Some pain or discomfort during urination. Some pain or discomfort in the lower abdomen or at the base of the penis. Follow these instructions at home: Medicines Take wtxr-msz-afkxfmu and prescription medicines only as told by your health care provider. If you were prescribed antibiotics, take them as told by your health care provider. Do not stop using the antibiotic even if you start to feel better. Ask your health care provider if the medicine prescribed to you: ?Requires you to avoid driving or using machinery. ?Can cause constipation. You may need to take these actions to prevent or treat constipation: ?Take ffbk-xnt-wvwults or prescription medicines. ?Eat foods that are high in fiber, such as beans, whole grains, and fresh fruits and vegetables. ?Limit foods that are high in fat and processed sugars, such as fried or sweet foods. Eating and drinking Follow instructions from your health care provider about what you may eat and drink. You may be told to: ?Reduce how much salt (sodium) you eat or drink. Check ingredients and nutrition facts on packaged foods and drinks to see how much sodium they contain. ?Reduce how much meat you eat. Drink enough fluid to keep your urine pale yellow. This can help you pass any pieces of the stone that are left. It can also prevent new stones from forming. Eat plenty of fresh fruits and vegetables. Eat the recommended amount of calcium for your age and gender. Ask your health care provider how much calcium you should have. Activity Get plenty of rest as told by your health care provider. Avoid sitting for a long time without moving. Get up to take short walks every 1 2 hours. This is important to improve blood flow and breathing. Ask for help if you feel weak or unsteady. Your health care provider may tell you to lie in a certain position (postural drainage) and tap firmly (percuss) over your kidney area to help stone fragments pass. Follow instructions as told by your health care provider. Return to your normal activities as told by your health care provider. Ask your health care provider what activities are safe for you. Most people can resume normal activities 1 2 days after the procedure. General instructions If told, strain all urine through the strainer that was provided by your health care provider. ?Keep all fragments for your health care provider to see. Any stones that are found may be sent to a medical lab for examination. The stone may be as small as a grain of salt. Keep all follow-up visits. This is important if you had a stent placed because it may need to stay in place for a few weeks. Ask your health care provider when the stent will be removed. Contact a health care provider if: You have a fever or chills. You have severe nausea that leads to persistent vomiting. You have any of these urinary symptoms: ?Increased blood or blood clots in the urine. ?Urine that smells bad or unusual. ?A strong urge to urinate after emptying your bladder. ?Pain or burning with urination that does not go away. ?A continued need to urinate more often than usual. You have a stent, and it comes out. Get help right away if: You have severe pain in your back, sides, or upper abdomen. You faint. You have any of these urinary symptoms: ?Severe pain while urinating. ?More blood in your urine, or blood in your urine when you did not have any before. ?Blood clots in your urine larger than 1 inch (2.5 cm) in size. ?You pass only a small amount of urine when you urinate or are unable to pass any urine. This information is not intended to replace advice given to you by your health care provider. Make sure you discuss any questions you have with your health care provider. Document Revised: 01/26/2023 Document Reviewed: 01/26/2023 [employer] Patient Education 2023 [employer]. 04/09/2025 08:58:47 ESWL for Kidney Stones ESWL for Kidney Stones Extracorporeal shock wave lithotripsy (ESWL) is a treatment that can help break up kidney stones that are too large to pass on their own. This is a nonsurgical procedure that breaks up a kidney stone with shock waves. These shock waves pass through your body and focus on the kidney stone. They cause the kidney stone to break into smaller pieces (fragments) while it is still in the urinary tract. The fragments of stone can pass more easily out of your body in the urine. Tell a health care provider about: Any allergies you have. All medicines you are taking, including vitamins, herbs, eye drops, creams, and sdeu-pao-wwdzajf medicines. Any problems you or family members have had with anesthetic medicines. Any bleeding problems you have. Any surgeries you have had. Any medical conditions you have. Whether you are or may be . What are the risks? Your health care provider will talk with you about risks. These may include: Infection. Bleeding from the kidney. Bruising of the kidney or skin. Scarring of the kidney. This can lead to: ?Increased blood pressure. ?Poor kidney function. ?Return (recurrence) of kidney stones. Damage to other structures or organs. This may include the liver, colon, spleen, or pancreas. Blockage (obstruction) of the tube that carries urine from the kidney to the bladder (ureter). Failure of the kidney stone to break into fragments. What happens before the procedure? When to stop eating and drinking Follow instructions from your health care provider about what you may eat and drink. These may include: 8 hours before your procedure ?Stop eating most foods. Do not eat meat, fried foods, or fatty foods. ?Eat only light foods, such as toast or crackers. ?All liquids are okay except energy drinks and alcohol. 6 hours before your procedure ?Stop eating. ?Drink only clear liquids, such as water, clear fruit juice, black coffee, plain tea, and sports drinks. ?Do not drink energy drinks or alcohol. 2 hours before your procedure ?Stop drinking all liquids. ?You may be allowed to take medicines with small sips of water. If you do not follow your health care provider's instructions, your procedure may be delayed or canceled. Medicines Ask your health care provider about: Changing or stopping your regular medicines. These include any diabetes medicines or blood thinners you take. Taking medicines such as aspirin and ibuprofen. These medicines can thin your blood. Do not take them unless your health care provider tells you to. Taking uwvw-vqo-ewusqps medicines, vitamins, herbs, and supplements. Tests You may have tests, such as: Blood tests. Urine tests. Imaging tests. This may include a CT scan. Surgery safety Ask your health care provider: How your surgery site will be marked. What steps will be taken to help prevent infection. These steps may include: ?Washing skin with a soap that kills germs. ?Receiving antibiotics. General instructions If you will be going home right after the procedure, plan to have a responsible adult: ?Take you home from the hospital or clinic. You will not be allowed to drive. ?Care for you for the time you are told. What happens during the procedure? An IV will be inserted into one of your veins. You may be given: ?A sedative. This helps you relax. ?Anesthesia. This will: ?Numb certain areas of your body. ?Make you fall asleep for surgery. A water-filled cushion may be placed behind your kidney or on your abdomen. In some cases, you may be placed in a tub of lukewarm water. Your body will be positioned in a way that makes it easier to target the kidney stone. An X-ray or ultrasound exam will be done to locate your stone. Shock waves will be aimed at the stone. If you are awake, you may feel a tapping sensation as the shock waves pass through your body. A small mesh tube (stent) may be placed in your ureter. This will help keep urine flowing from the kidney if the fragments of the stone have been blocking the ureter. The stent will be removed at a later time by your health care provider. The procedure may vary among health care providers and hospitals. What happens after the procedure? Your blood pressure, heart rate, breathing rate, and blood oxygen level will be monitored until you leave the hospital or clinic. You may have an X-ray after the procedure to see how many of the kidney stones were broken up. This will also show how much of the stone has passed. If there are still large fragments after treatment, you may need to have a second procedure at a later time. This information is not intended to replace advice given to you by your health care provider. Make sure you discuss any questions you have with your health care provider. Document Revised: 01/26/2023 Document Reviewed: 01/26/2023 [employer] Patient Education 2023 [employer]. Follow Up Care 04/03/2025 10:22:13 With:Aristeo SEBASTIAN, REBECCA Browning, URO Address: When: Unknown [facility] 04-09-2025 Note Patient Education Nephrology Laser Therapy for Kidney Stones, Care After After laser therapy for kidney stones, it is common to have: ??? Pain. ??? A burning feeling when you pee (urinate). ??? Small amounts of blood in your pee (urine). ??? A need to pee a lot. ??? Parts of the kidney stone in your pee. ??? Mild discomfort in your back when you pee. You may have this if you had a small mesh tube (stent) placed during the procedure. Follow these instructions at home: Medicines ??? Take lqvf-hfj-ujvgklt and prescription medicines only as told by your health care provider. ??? If you were prescribed antibiotics, take them as told by your provider. Do not stop using the antibiotic even if you start to feel better. ??? Ask your provider if the medicine prescribed to you: ? Requires you to avoid driving or using machinery. ? Can cause constipation. You may need to take these actions to prevent or treat constipation: ? Drink enough fluid to keep your pee pale yellow. ? Take efry-jij-lvqnjbp or prescription medicines. ? Eat foods that are high in fiber, such as beans, whole grains, and fresh fruits and vegetables. ? Limit foods that are high in fat and processed sugars, such as fried or sweet foods. Activity ??? If you were given a sedative during the procedure, it can affect you for several hours. Do not drive or operate machinery until your provider says that it is safe. ??? Return to your normal activities as told by your provider. Ask your provider what activities are safe for you. General instructions ??? Your provider may recommend that you drink a lot of water for a few hours after your procedure. If you have heart or kidney disease, ask your provider how much you should drink. ??? You may be asked to strain your pee to collect any stone pieces that you pass. Your provider may have these pieces tested. ??? Do not take baths, swim, or use a hot tub until your provider approves. Ask your provider if you may take warm baths to soothe the burning. ??? Keep all follow-up visits. If you have a stent, you will need to go back to your provider to have it removed. Your provider may give you more instructions. Make sure you know what you can and cannot do. Contact a health care provider if: ??? You have pain or a burning feeling that lasts for more than 2 days. ??? You feel nauseous. ??? You vomit more and more often. ??? You have trouble peeing. ??? You have pain that gets worse or does not get better with medicine. ??? You have a fever or shaking chills. Get help right away if: ??? You cannot pee, even when your bladder feels full. ??? You faint. ??? You have chest pain, shortness of breath, or cough up blood. ??? You have: ? Bright red blood or blood clots in your pee. ? Severe pain or discomfort. ? Pain in your abdomen. ? Swelling in your legs. These symptoms may be an emergency. Get help right away. Call 911. ??? Do not wait to see if the symptoms will go away. ??? Do not drive yourself to the hospital. This information is not intended to replace advice given to you by your health care provider. Make sure you discuss any questions you have with your health care provider. Document Revised: 05/26/2023 Document Reviewed: 05/26/2023 [employer] Patient Education ? 2023 [employer] Laser Therapy for Kidney Stones Laser therapy for kidney stones is a procedure to break up rock-like masses that form inside the kidneys (kidney stones). It is done using a device that beams a strong light (laser) on the kidney stones. This breaks the stones up into small pieces. These small pieces may leave your body when you pee (urinate) or may be taken out during the procedure. You may need laser therapy if you have kidney stones that are painful or that are stopping you from being able to pee. Tell a health care provider about: ??? Any allergies you have. ??? All medicines you are taking, including vitamins, herbs, eye drops, creams, and itlp-viy-ykytfgo medicines. ??? Any problems you or family members have had with anesthesia. ??? Any bleeding problems you have. ??? Any surgeries you have had. ??? Any medical conditions you have. ??? Whether you are or may be . What are the risks? Your health care provider will talk with you about risks. These may include: ??? Infection. ??? Bleeding. ??? Allergic reactions to medicines. ??? Damage to: ? The part of your body that drains pee (urine) from the bladder (urethra). ? The bladder. ? The tube that connects the bladder to the kidneys (ureter). ??? Urinary tract infection (UTI). ??? Urethral stricture. This is when the urethra is narrowed by scarring. ??? Trouble peeing. ??? Blockage of the kidney. This may be caused by a piece of kidney stone. What happens before the procedure? When to stop eating and drinking Follow instructions from your provider about what you may eat and drink. Thes (more content not included)... [facility] 08-06-2024 Evaluation note Authored August 06, 2024 2 :53pm The above note written by __ _Mohit Baeza____ acting as human recorder, note dictated by Dr. Castro .I performed the above HPI, ROS, and Examination. I formulated and dictated the treatment plan and was present for entire encounter. Ana Gabriel D.O. [facility] Work Phone: [phone]) 331-689910-30-2023 Evaluation note* Encounter Date Diagnosis Assessment Notes Treatment Notes Treatment Clinical Notes Jul, Wellness examination (ICD-10 - Z00.00) He is here for a wellness exam today. I did recommend a colonoscopy. He does agree, a referral is provided. His PSA is 0.63, no sign of prostate cancer at this time. Jul, Asthma (ICD-10 - J45.909) Provided him with a new prescription for above medications today. He has only been using the Budesonide-Formoter ol one inhalation twice a day and is doing well. Jul, Anxiety (ICD-10 - F41.9) Above medication is working well, I did provide him with a new prescription today. Jul, Hyperglycemia (ICD-10 - R73.9) Discussed blood sugar results with him today. Glucose is 94. HgA1C is 5.1. He is to continue with his lifestyle and dietary changes and weight loss. Jul, Hyperlipidemia (ICD-10 - E78.5) Discussed cholesterol results with patient today. Total is 200. HDL is 48. LDL is 140.4. Triglycerides are 58. VLDL is 11.6. Jul, Vitamin D deficiency (ICD-10 - E55.9) His Vitamin D level is 45.5. He is to continue with his Vitamin D supplement. Jul, Weight loss (ICD-10 - R63.4) He has lost weight by watching his diet and with exercise. He started one year ago and has done well. He is to continue with his dietary and lifestyle changes. He voices that on his home scale he is around 185-190 pounds. His TSH is normal at 1.319. 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 Jul, Infection of right hand (ICD-10 - L08.9) He voices that he had another infection in his right hand thumb last fall (2021) but since then he has not had any issue. He voices that the thumb functions well but it does not feel normal. Jul, Encounter for screening colonoscopy (ICD-10 - Z12.11) I did recommend that he have a colonoscopy. He agrees and a referral is provided for him to see Dr. Gutierres. [facility] 10-02-2023 Evaluation note* Encounter Date Diagnosis Assessment Notes Treatment Notes Treatment Clinical Notes Jul, Wellness examination (ICD-10 - Z00.00) Jul, Vitamin D deficiency (ICD-10 - E55.9) [facility] 06-02-2023 Evaluation note* Encounter Date Diagnosis Assessment Notes Treatment Notes Treatment Clinical Notes Mar, Asthma (ICD-10 - J45.909) [facility] 03-28-2023 Evaluation note* Encounter Date Diagnosis Assessment Notes Treatment Notes Treatment Clinical Notes Dec, Other specified postprocedural states (ICD-10 - Z98.890) [facility] 11-08-2022 Evaluation note* Encounter Date Diagnosis Assessment Notes Treatment Notes Treatment Clinical Notes Aug, Cellulitis of right finger (ICD-10 - L03.011) Aug, Lymphangitis (ICD-10 - I89.1) Aug, Other specified postprocedural states (ICD-10 - Z98.890) Patient is progressing well from this Surgery. Progress activity as tolerated. [facility] 10-12-2022 Evaluation note* Encounter Date Diagnosis Assessment Notes Treatment Notes Treatment Clinical Notes Jul, Cellulitis of right finger (ICD-10 - L03.011) Jul, Lymphangitis (ICD-10 - I89.1) Jul, Other specified postprocedural states (ICD-10 - Z98.890) Patient instructed on the use of Voltaren Gel. use of heat and ice, use of lidocaine patches, use of turmeric/curcumin and Glucosamine/Chond roitin. Rx given for Medrol Dosepak [facility] 10-04-2022 Evaluation note* Encounter Date Diagnosis Assessment Notes Treatment Notes Treatment Clinical Notes Jul, Hematuria (ICD-10 - R31.9) [facility] 10-03-2022 Evaluation note* Encounter Date Diagnosis Assessment Notes Treatment Notes Treatment Clinical Notes Jul, Hematuria (ICD-10 - R31.9) [facility] 10-03-2022 Evaluation note* Encounter Date Diagnosis Assessment Notes Treatment Notes Treatment Clinical Notes Jul, Vitamin D deficiency (ICD-10 - E55.9) Jul, Elevated alkaline phosphatase level (ICD-10 - R74.8) [facility] 10-03-2022 Evaluation note* Encounter Date Diagnosis Assessment Notes Treatment Notes Treatment Clinical Notes Jul, Wellness examination (ICD-10 - Z00.00) He is here for a wellness exam today. His PSA is 0.82 which is normal, no sign of over or underactive thyroid. Jul, Anxiety (ICD-10 - F41.9) He is doing well on the generic Lexapro. He is still taking 1/2 of the 10 MG of Lexapro (5 MG) daily. He has only used the Lorazepam one time and does not feel he will need to use these. I will discontinue the Lorazepam. If he feels he needs to return to taking this medication he will need to be seen every three months for evaluation. Side effects/risks/bene fits of medication were reviewed. An OARRS report was reviewed no discrepancies noted. Jul, Asthma (ICD-10 - J45.909) He does continue to use and benefit from above medications. Jul, Hyperglycemia (ICD-1 0 - R73.9) Discussed blood sugar results with patient today. Glucose is 91. HgA1C is 5.1 which is normal. Continue to monitor intake of carbs and sugars. Stay active. Jul, Hyperlipidemia (ICD- 10 - E78.5) Discussed cholesterol results with patient today. Total is 192. HDL is 36. LDL is 136.2. Triglycerides are 99. VLDL is 19.8. Again, he is encouraged to watch his intake of carbs and sugars, stay active. Jul, Weight loss (ICD-10 - R63.4) TSH is normal at 1.378. Thyroid is not over or underactive. Jul, Hematuria (ICD-10 - R31.9) His urine did have blood in it so we did ask the lab to do the microscopic urine, they are currently working on this and he was asked to call later this week for that result. He has never seen blood in his urine. His urine was not infected. Jul, Elevated alkaline phosphatase level (ICD-10 - R74.8) His alk phos level is 120 which is elevated. He voices that the issue with his right hand thumb was in May (2021) I would like to see if they can add a Vitamin D level to his lab that was recently drawn. He can call for the results. I explained to him that this is usually an indication that the Vitamin D level is low but it is also possible that the lab is being too strict with their lab values. Jul, Gastroesophageal reflux disease, esophagitis presence not specified (ICD-10 - K21.9) He voices that he took the Omeprazole as directed and then stopped the medication and he has not had any issue since then. He wonders if he should continue to take the medication or not. He is still working on chewing tobacco cessation. I would like him to let me know if the symptoms return and we would discuss referring him to a specialist to have the EGD done and would likely refer him to Dr. Alcazar in [place]. He voices that the Omeprazole helped his constipation and hemorrhoids. Jul, Other He voices that he got a strep bacteria in his right thumb after he pinched the finger on a sommelier, he had to have surgery with Dr. Daily. He voices that it continues to heal but continues to be tender. He voices that it gets his attention at times if he grabs something and is not paying attention. He does return to see Dr. Daily one more time this month for evaluation. This could be why his alk phos level is elevated. [facility] 09-09-2022 Evaluation note* Encounter Date Diagnosis Assessment Notes Treatment Notes Treatment Clinical Notes Jun, Cellulitis of right finger (ICD-10 - L03.011) Patient instructed on desensitizing exercises. Patient may return to work with no restrictions 06/20/2022 Jun, Lymphangitis (ICD-10 - I89.1) Jun, Other specified postprocedural states (ICD-10 - Z98.890) [facility] 09-08-2022 Evaluation note* Encounter Date Diagnosis Assessment Notes Treatment Notes Treatment Clinical Notes Jun, Asthma (ICD-10 - J45.909) [facility] 08-26-2022 Evaluation note* Encounter Date Diagnosis Assessment Notes Treatment Notes Treatment Clinical Notes May, Cellulitis of right finger (ICD-10 - L03.011) May, Lymphangitis (ICD-10 - I89.1) May, Other specified postprocedural states (ICD-10 - Z98.890) Patient is progressing well from surgery. Advised the skin peeling is normal, and it will likely continue to some extent. Swelling continues to improve. Sutures removed under clean conditions, patient tolerated well. Advised the numbness he is experiencing is also normal and should improve as time goes. Continue gentle motion exercises of the hand. May slowly progress lifting as tolerated. Instructed to keep thumb clean and covered for any potentially contaminated activities. Finish antibiotics as directed. Continue to monitor for signs of infection, call if any occur. May, Encounter for remova l of sutures (ICD-10 - Z48.02) [facility] 08-13-2022 Discharge summary Author Judit Cuevas [facility] May 23, 2022 10:36am Note Date/Time May 21, 2022 9: 54am [facility] [address] [place] [address] Discharge Summary Signed with Brian Patient: Americo Figueroa MR#: [id number] : 1975 Acct:[id number] Age/Sex: 47 / M Adm Date: 2 Loc: Room: [address] [place] [address]: Judit Cuevas MD Copies to: Kacie Antunez, [employer]-C DO Judit Mascorro MD~ ADDENDUM1 Patient was personally seen by me on the day of encounter, reviewed his history and performed garcia elements of exam and formulated the plan of care and confirmedthe nurse practitioner note below. Addendum Documented By: Judit Cuevas MD 05/23/22 1036 Addendum Signed By: <Electronically signed by Judit Cuevas MD> 05/23/22 1036 Providers Date of Discharge: 05/21/22 Discharging Provider: Kacie Antunez Primary Care Provider: Ana Gabriel Consults: 05/18/22 11:50 Consult to Orthopedic Surgery Routine Discharge Diagnosis (1) Cellulitis of thumb, right: (2) Lymphangitis: (3) Sepsis: Final Diagnosis Final Discharge Diagnosis: as above s/p right thumb I&D of flexor tenosynovitis and abscess Summary Hospital Course Hospital course: Patient is a pleasant 47-year-old male with past medical history of anxiety and asthma who presented to the emergency department due to worsening right thumb cellulitis.? This past Monday, patient pinched the pad of his thumb in a sommelier.? He noticed increased pain, swelling, erythema prompting presentation tothe ER yesterday.? He was diagnosed with cellulitis and offered admission for IVantibiotic therapy versus outpatient follow-up at the infusion center.? He received vancomycin and was seen at the infusion center the following day.? He was sent to the emergency department due to worsening erythema, edema, red streaking ascending of his right forearm to right medial upper arm area.? Patient does have previous history of right thumb cellulitis requiring PICC lineplacement and IV antibiotic therapy. In the ER, CBC demonstrated leukocytosis of 17,000 (up from 16,800 yesterday).? Chemistry is unremarkable.? T bili is 3.6.? Patient states he has chronically elevated bilirubin. CRP is 11.8.? Negative for COVID-19.? He received a 1 L normal saline bolus, vancomycin, and Zosyn and is admitted to hospitalist service for further evaluation and treatment The patient was followed by orthopedic surgery. On 05/19, the patient underwent right thumb I&D of flexor tenosynovitis and abscess. The patient demonstrated marked improvement in erythema. He continued with right thumb edema, decreased mobility. Sensation was intact. He was medically cleared for discharge with recommendation to continue antibiotic coverage with Bactrim and Augmentin as blood cultures demonstrated no growth and wound cultures were pending at time ofdischarge. He is to continue soap soaks x3 days per orthopedic recommendation and follow-up with orthopedic surgery. Condition Condition at Discharge: Stable Status at Discharge Functional status at discharge: independent ambulation Overall status at discharge: patient is progressing back to baseline Time Spent with Patient Time spent providing/coordinating discharge services (# min): 35 Surgeries and Procedures Operation Date: 05/19/22 14:15 Actual Procedures p OR I&D Right Thumb abscess and flexor tendon shealth(Right) - Monae Daily MD Diagnostic Studies Completed and Pending Studies Pending studies at discharge: 05/19/22 13:01 Wound Culture (Deep) Routine 05/21/22 09:46 Basic Metabolic Panel [CHEM] IN AM Complete Blood Count Auto Diff IN AM Vancomycin,Peak [TOX] Timed 05/21/22 15:30 Vancomycin,Trough [TOX] Timed 05/22/22 05:00 Basic Metabolic Panel [CHEM] IN AM Complete Blood Count Auto Diff IN AM 05/23/22 05:00 Basic Metabolic Panel [CHEM] IN AM Complete Blood Count Auto Diff IN AM Preliminary micro results at discharge 05/19/22 13:01 Aerobic Culture - Preliminary Thumb, Right - Incision Anaerobic Culture - Preliminary No Anaerobes Isolated 2 Days Exam Physical Exam Vital Signs: Temp Pulse Resp BP Pulse Ox O2 Del Method O2 Flow Rate 36.5 C 70 16 144/85 H 98 Room Air 6 05/21/22 07:56 05/21/22 07:56 05/21/22 07:56 05/21/22 07:56 05/21/22 07:56 05/21/22 07:56 05/19/22 13:35 Const General: cooperative and comfortable Orientation: alert, awake and oriented x3 HEENT Head: normocephalic and atraumatic Eyes General: appearance normal, both eyes and all related structures Neck Neck: normal visual inspection Chest Chest palpation & inspection: normal inspection of the chest Resp Effort & Inspection: normal respiratory effort, able to speak in complete sentences and symmetric chest movement Auscultation: clear to auscultation bilaterally Cardio Rate: regular rate Rhythm: regular rhythm GI Inspection: normal to inspection Palpation: soft and nontender Auscultation: normal bowel sounds Skin General: other (Right forearm postsurgical dressing/Michael wrap intact) Neuro General: patient alert, patient awake, patient oriented x3, moves all extremities and no focal motor deficits Cranial Nerves: CN's II-XII intact bilaterally Cognition: normal cognition Speech: speech normal Extrem General: no clubbing, cyanosis or edema and no calf tenderness Discharge Plan Discharge Plan Patient Disposition: Home Activity: Other Comment: See Dr. Daily and Covid discharge instructions for activity restrictions. Diet: Regular Additional Instructions: You tested positive for Covid-19. Please see provided instructions. DR. DAILY'S POST OP INSTRUCTIONS Take prescribed pain medication as directed and as needed to control your post-operative pain. -In addition to the prescribed medication, you may take ibuprofen (Advil, Motrin) or naproxen (Aleve/Naprosyn) to help control pain and decrease swelling. -DO NOT TAKE ibuprofen/Naprosyn/naproxen if you have a history of bleeding ulcer, are taking anticoagulation medication (Coumadin/warfarin, Eliquis, Xarelto, Plavix, Lovenox), if you have had a history of gastric bypass surgery, or if you have a history of kidney disease. Elevate the operative area as much as possible, using at least 2-3 pillows, keeping the hand higher than the elbow. Keep ice at the operative area as much as possible. It takes longer than 20 minutes for the cold to penetrate the bandages, so leave the ice bag or cold pack in place until the ice melts, then it is time to change to a fresh ice bag or cold pack. -Elevation and ice help to lessen the swelling post-operatively which helps to lessen pain so that you will need to take less pain medication, as well as maintaining better range of motion and function of your hand (more swelling, less movement). You may wiggle your fingers, bending, flexing, and move them to decrease stiffness. You may use your hands for light activities of 2-5 lbs. This is lifting your coffee cup, using your silverware, and typing on a computer or tablet. -Do NOT perform strenuous lifting or lift greater than 10 lbs until 4-6 weeks after surgery to minimize exacerbation of pain at the surgery site. You may remove your dressing on the third day after surgery, and get your surgical incision wet in the shower or when washing your hands with soap and water. -DO NOT soak your incision or submerge it under standing water such as dishwater or bathtub. -DO NOT apply perfumed moisturizers or ointments unless otherwise instructed by your physician. -Washing your incision gently with soap and water on a daily basis, helps to rid your skin of bacteria and decrease the risk of wound infections. -After showering or washing your hands, pat the incision dry, and keep covered with a clean dry gauze bandage. -You may apply Bacitracin, Neosporin, or generic triple antibiotic ointment to incision if you would like Take vitamin C 500 mg by mouth daily to help skin and incision heal Take antibiotics as directed to decrease risk of infection after surgery SOAP SOAKING PROTOCOL: Please continue the soap soaking protocol as directed and per the preprinted sheet three times daily Instructions: [facility] [place] Discharge Instructions Stand Alone Forms: Work/School Release Form Prescriptions: New amoxicillin-pot clavulanate 875-125 mg Tablet 1 tab PO BID 7 Days Qty: 14 0RF sulfamethoxazole-trimethoprim 800-160 mg Tablet 1 tab PO BID 7 Days Qty: 14 0RF Continued albuterol sulfate [ProAir HFA] 90 mcg/actuation HFA aerosol inhaler 2 puff INHALATION DAILY PRN (Reason: Shortness Of Breath Or Wheezing) Label Comments: INL 1 TO 2 PFS PO Q 4 TO 6 H PRN escitalopram oxalate 10 mg tablet 5 mg PO HS Label Comments: TAKE 1 TABLET BY MOUTH EVERY DAY budesonide-formoterol [Symbicort] 160-4.5 mcg/actuation HFA aerosol inhaler 2 puff INHALATION BID Label Comments: INL 1 PUFF PO BID omeprazole magnesium [Prilosec OTC] 20 mg Tablet,Delayed Release (Dr/Ec) 20 mg PO DAILY Saccharomyces boulardii 250 mg Capsule 500 mg PO BID Follow Up: Ana Gabriel DO [Primary Care Provider] - (His office is currently closed. Please call on Monday to schedule a post hospital follow up appointment. When you call please inform them that you tested positive for Covid on 05/19/22 so that they can schedule this appointment accordingly.) Monae Daily MD [Active Staff] - (Please call and schedule an appointment for 1 week.) Documented By: EDI Kat 05/21/22 0 954 Signed By: <Electronically signed by EDI Antunez> 05/22/227 <Electronically signed by Judit Cuevas MD> 05/23/22 1035 [facility] Work Phone: [phone]) [phone] Progress note Author Arnold Siegel [facility] May 21, 2022 8:47am Note Date/Time May 21, 2022 7: 35am [facility] [address] [place] [address] Orthopedic Progress Note Signed Patient: Americo Figueroa MR#: [id number] : 1975 Acct:[id number] Age/Sex: 47 / M Adm Date: 2 Loc: 3T Room: [address] [place] [address] Type: ADM IN Attending Dr: Judit Cuevas MD Copies to: ~ Date of Service: 05/21/2022 Exam Physical Exam Vital Signs: Temp Pulse Resp BP Pulse Ox O2 Del Method O2 Flow Rate 98 F 68 14 111/67 99 Room Air 6 05/20/22 20:00 05/20/22 23:49 05/20/22 23:49 05/20/22 23:49 05/20/22 23:49 05/20/22 23:49 05/19/22 13:35 Narrative: Patient states hand is improving. Still notable stiffness of the thumb. No redness or warmth into the forearm. Objective Micro Microbiology Results: Microbiology 05/19/22 13:01 Thumb, Right - Incision Aerobic Culture - Preliminary 05/19/22 13:01 Thumb, Right - Incision Anaerobic Culture - Preliminary No Anaerobes Isolated 1 Day 05/19/22 13:01 Thumb, Right - Incision Gram Stain - Final Assessment / Plan Assessment and plan (1) Cellulitis of thumb, right: Plan: Plan for discharge home today on oral antibiotic. Follow-up in the office next week. Code(s): L03.011 - Cellulitis of right finger Status: Acute (2) Lymphangitis: Code(s): I89.1 - Lymphangitis Status: Acute (3) Sepsis: Code(s): A41.9 - Sepsis, unspecified organism Status: Acute Documented By: Arnold Siegel MD 05/21/22 0734 Signed By: <Electronically signed by MD Arnold Siegel> 05/21/22 0847 [facility] Work Phone: [phone]) 506-379308-13-2022 Progress note Author Judit Cuevas [facility] May 21, 2022 8:22am Note Date/Time May 20, 2022 12 :19pm [facility] [address] [place] [address] Hospitalist Progress Note Signed with Brian Patient: Americo Figueroa MR#: [id number] : 1975 Acct:[id number] Age/Sex: 47 / M Adm Date: 2 Loc: Room: [address] [place] [address] Type: ADM IN Attending Dr: Judit Cuevas MD Copies to: ~ ADDENDUM1 Patient was personally seen by me on the day of encounter, reviewed his history and performed garcia elements of exam and formulated the plan of care and confirmedthe nurse practitioner note below. Addendum Documented By: Judit Cuevas MD 05/21/22820 Addendum Signed By: <Electronically signed by Judit Cuevas MD> 05/21/22821 Date of Service: 05/20/2022 Subjective Subjective Narrative: Patient is seen and examined with spouse at bedside. Denies headache or dizziness. No fevers or chills. No abdominal pain or nausea. Right thumb presently dressed. He did do soaks earlier today. Reported he thought his affected thumb appeared nugent earlier today. Undressed wound. Good capillary refill. He does have expected postsurgical bruising. Edema and erythema is much improved from initial presentation. Exam Physical Exam Vital Signs: Temp Pulse Resp BP Pulse Ox O2 Del Method O2 Flow Rate 36.6 C 78 18 134/78 97 Room Air 6 05/20/22 08:10 05/20/22 11:27 05/20/22 11:27 05/20/22 11:27 05/20/22 11:27 05/20/22 11:27 05/19/22 13:35 Const General: cooperative and comfortable Orientation: alert, awake and oriented x3 HEENT Head: normocephalic and atraumatic Eyes General: appearance normal, both eyes and all related structures Neck Neck: normal visual inspection Chest Chest palpation & inspection: normal inspection of the chest Resp Effort & Inspection: normal respiratory effort, able to speak in complete sentences and symmetric chest movement Auscultation: clear to auscultation bilaterally Cardio Rate: regular rate Rhythm: regular rhythm GI Inspection: normal to inspection Palpation: soft and nontender Auscultation: normal bowel sounds Skin General: other (Right forearm postsurgical dressing/Michael wrap intact) Neuro General: patient alert, patient awake, patient oriented x3, moves all extremities and no focal motor deficits Cranial Nerves: CN's II-XII intact bilaterally Cognition: normal cognition Speech: speech normal Extrem General: no clubbing, cyanosis or edema and no calf tenderness Objective Lab Results CBC & Chem 7: 05/20/22 05:55 05/20/22 05:55 Microbiology Results Microbiology 05/19/22 13:01 Thumb, Right - Incision Aerobic Culture - Preliminary 05/19/22 13:01 Thumb, Right - Incision Anaerobic Culture - Preliminary No Anaerobes Isolated 1 Day Meds Allergies and Active Meds Allergies doxycycline Adverse Reaction (Verified 05/18/22 10:29) Rash Active Meds: Active Medications Generic Name Dose Route Start Last Admin Trade Name Freq PRN Reason Stop Dose Admin Acetaminophen 650 mg 05/18/22 11:50 05/19/22 09:01 Acetaminophen 325 Mg Tablet PO 05/18/23 11:49 650 mg Q6HR PRN Administration Pain or fever Hydrocodone Bitart/Acetaminophen 1 tab 05/19/22 13:42 Hydrocodone/Acetaminophen 5-325 Mg Tablet PO Q4H PRN Pain Scale 1 - 3 Hydrocodone Bitart/Acetaminophen 2 tab 05/19/22 13:42 Hydrocodone/Acetaminophen 5-325 Mg Tablet PO Q4H PRN Pain Scale 4 - 7 Al Hydrox/Mg Hydrox/Simethicone 30 ml 05/18/22 11:50 Mag Hydrox/Al Hydrox/Simeth 30 Ml Udc PO 05/18/23 11:49 Q4H PRN Heartburn Albuterol 2 puff 05/18/22 11:58 05/19/22 10:52 Albuterol Hfa 60 Puff/8 Gram Inhaler INHALATION 05/18/23 11:57 2 puff DAILY PRN Administration Shortness Of Breath Or Wheezing Ascorbic Acid 500 mg 05/19/22 17:00 05/20/22 08:07 Ascorbic Acid 500 Mg Tablet PO 05/19/23 16:59 500 mg BID.WITH.MEALS KRISTEN Administration Docusate Sodium 100 mg 05/19/22 21:00 05/20/22 08:07 Docusate 100 Mg Capsule PO 05/19/23 20:59 100 mg BID KRISTEN Administration Escitalopram Oxalate 5 mg 05/18/22 22:00 05/19/22 21:14 Escitalopram 5 Mg Tablet PO 05/18/23 21:59 5 mg HS KRISTEN Administration Piperacillin Sod/Tazobactam Sod 3.375 gm in 100 mls @ 200 mls/hr 05/18/22 15:00 05/20/22 12:10 Zosyn IV 100 mls/hr Q6H KRISTEN Administration Lactated Ringer's 1,000 mls @ 75 mls/hr 05/19/22 13:45 05/20/22 05:52 Lactated Ringers IV 05/19/23 13:44 75 mls/hr .[id number] KRISTEN Administration Vancomycin HCl 0.75 gm in 250 mls @ 250 mls/hr 05/20/22 08:00 05/20/22 08:07 Vancomycin IV 250 mls/hr Q8H KRISTEN Administration Ketorolac Tromethamine 30 mg 05/18/22 11:50 05/19/22 21:13 Ketorolac Tromethamine 30 Mg/Ml Vial IV-PUSH 05/23/22 11:49 30 mg Q6H PRN Administration Pain Scale 1 - 3 Ketorolac Tromethamine 15 mg 05/19/22 13:42 Ketorolac Tromethamine 15 Mg/Ml Vial IV-PUSH 05/24/22 13:41 Q8H PRN Pain Magnesium Hydroxide 30 ml 05/19/22 13:42 Magnesium Hydroxide Susp 30 Ml Udc PO 05/19/23 13:41 BID PRN Constipation Omeprazole 20 mg 05/19/22 07:30 05/20/22 08:06 Omeprazole 20 Mg Capsule. PO 05/19/23 07:29 20 mg DAILY.AC.BKFAST KRISTEN Administration Ondansetron HCl 4 mg 05/18/22 11:50 Ondansetron 4 Mg/2 Ml Vial IV-PUSH 05/18/23 11:49 Q8H PRN Nausea And Vomiting Oxycodone HCl 5 mg 05/18/22 18:13 Oxycodone Ir 5 Mg Tablet PO Q4HR PRN pain Potassium Chloride 20 meq 05/18/22 11:50 Potassium Chloride Er 20 Meq Tab.Er.Prt PO 05/18/23 11:49 DAILY PRN Hypokalemia Potassium Chloride 40 meq 05/18/22 11:50 Potassium Chloride Er 20 Meq Tab.Er.Prt PO 05/18/23 11:49 DAILY PRN Hypokalemia Promethazine HCl 12.5 mg 05/19/22 13:46 Promethazine 25 Mg/Ml Vial IV-PUSH 05/19/23 13:45 Q6H PRN Nausea And Vomiting Saccharomyces Boulardii 500 mg 05/18/22 21:00 05/20/22 08:07 Saccharomyces Boulardii 250 Mg Capsule PO 05/18/23 20:59 500 mg BID KRISTEN Administration Fluticasone/Salmeterol 1 puff 05/18/22 21:00 05/20/22 07:43 Fluticasone/Salmeterol 113-14 Mcg 60 Puff Inhaler INHALATION 05/18/23 20:59 1 puff BID KRISTEN Administration Sodium Chloride 0 ml 05/18/22 09:08 05/19/22 10:28 Sodium Chloride 0.9 % 10 Ml Syringe IV-PUSH 05/18/23 09:07 10 ml PRN PRN Administration Flush Sodium Chloride 0 ml 05/19/22 14:00 05/20/22 06:00 Sodium Chloride 0.9 % 10 Ml Syringe IV-PUSH 05/19/23 13:59 Not Given QSHIFT KRISTEN Sodium Chloride 10 ml 05/19/22 13:46 Sodium Chloride 0.9 % 10 Ml Vial.Pf INJECTION 05/19/23 13:45 PRN PRN Promethazine Dilution Vancomycin HCl 1 each 05/18/22 11:55 Vancomycin - Pharmacy Dosing 1 Each Miscell IV ONCE PRN ZZ.Pharmacy Consult Protocol A&P - Hospitalist Assessment/Plan (1) Cellulitis of thumb, right: (2) Lymphangitis: (3) Sepsis: Plan Right thumb cellulitis Lymphangitis ? Previous history of right thumb cellulitis requiring PICC line and IV antibiotic therapy. Presents due to injury of right palmar aspect of thumb withworsening erythema, edema, streaking up the right arm. ? Initiated on vancomycin and Zosyn ? Blood culture showing NGTD ? Orthopedic surgery following. POD 1 status post right thumb I&D of flexor tenosynovitis and abscess ? Follow wound cultures Chronic conditions 1. Asthma?continue Symbicort, as needed albuterol 2. Anxiety?escitalopram Full code DVT PPx with SCDs Documented By: EDI Kat 05/20/22 1 218 Signed By: <Electronically signed by TERMINAL GAUGER SUPERVISOR-C Kacie J Chesnee> 05/20/22 1711 <Electronically signed by Judit Cuevas MD> 05/21/22 0821 [facility] Work Phone: 1([phone]) 331-268008-12-2022 Progress note Author Monae Daily [facility] May 20, 2022 2:22pm Note Date/Time May 20, 2022 2: 22pm [facility] [address] [place] [address] Orthopedic Progress Note Signed Patient: Americo Figueroa MR#: [id number] : 1975 Acct:[id number] Age/Sex: 47 / M Adm Date: 2 Loc: Room: [address] [place] [address] Type: ADM IN Attending Dr: Judit Cuevas MD Copies to: ~ Date of Service: 05/20/2022 Subjective Subjective Interval History: Patient and family report that he is doing well, overall pain seems to be improved compared to prior to surgery Denies fevers Reports that pain seems to be well controlled, and again, is better than prior to surgery Patient was able to do 1 soak earlier this morning, reports that he has another one scheduled for this afternoon Exam Physical Exam Vital Signs: Temp Pulse Resp BP Pulse Ox O2 Del Method O2 Flow Rate 97.9 F 78 18 134/78 97 Room Air 6 05/20/22 08:10 05/20/22 11:27 05/20/22 11:27 05/20/22 11:27 05/20/22 11:27 05/20/22 11:27 05/19/22 13:35 Narrative: GENERAL Awake, alert, oriented, and in no acute distress UPPER EXTREMITY Post injury/ operative incision is clean dry and intact Nonabsorbable sutures are in place without evidence of significant wound dehiscence Positive swelling right thumb and hand as expected in the postoperative period Positive ecchymosis right thumb and hand as expected in the postoperative period Mild positive tenderness to palpation right thumb and hand as expected in the postoperative period Negative pain with passive right thumb extension Minimal tenderness palpation over right thumb flexor sheath Negative pain with percussion of the right thumb flexor tendon sheath R Radial pulse 2+ and intact R Sensory intact to light touch at the axillary/ radial/ ulnar/ median nerve distributions R Motor intact EPL/ FPL/ Dorsal interosseous ABduction/ Palmar interosseous ADduction/ DIP/ PIP/ EIP/ EDC/ EDM/ wrist extension & flexion/ elbow extension & flexion/ shoulder forward elevation & abduction Objective Labs Labs: Laboratory Results - last 24 hr 05/19/22 05/19/22 05/20/22 14:31 17:34 00:33 Corrected WBC Uncorrected WBC Count RBC Hgb Hct MCV MCH MCHC RDW Plt Count MPV Neut % (Auto) Lymph % (Auto) [place] % (Auto) Eos % (Auto) Baso % (Auto) Neut # (Auto) Lymph # (Auto) [place] # (Auto) Eos # (Auto) Baso # (Auto) Nucleated RBC % (auto) PHA Creatinine Clear Sodium Potassium Chloride Carbon Dioxide BUN Creatinine Est GFR ( Amer) Est GFR (Non-Af Amer) Glucose Calcium Vancomycin Peak 17.9 L 31.3 Vancomycin Trough 25.1 H 05/20/22 05/20/22 05/20/22 05:55 05:55 05:55 Corrected WBC 7.9 Uncorrected WBC Count 7.9 RBC 4.73 Hgb 14.4 Hct 43.6 MCV 92.2 MCH 30.5 MCHC 33.1 RDW 14.2 Plt Count 199 MPV 8.9 Neut % (Auto) 67.9 Lymph % (Auto) 17.2 [place] % (Auto) 11.4 Eos % (Auto) 3.0 Baso % (Auto) 0.5 Neut # (Auto) 5.4 Lymph # (Auto) 1.4 [place] # (Auto) 0.9 H Eos # (Auto) 0.2 Baso # (Auto) 0.0 Nucleated RBC % (auto) 0.0 PHA Creatinine Clear 105.47 Sodium 139 Potassium 3.8 Chloride 106 Carbon Dioxide 25.7 BUN 13 Creatinine 1.04 Est GFR ( Amer) > 60 Est GFR (Non-Af Amer) > 60 Glucose 105 H Calcium 9.1 Vancomycin Peak Vancomycin Trough 13.1 Micro Microbiology Results: Microbiology 05/19/22 13:01 Thumb, Right - Incision Aerobic Culture - Preliminary 05/19/22 13:01 Thumb, Right - Incision Anaerobic Culture - Preliminary No Anaerobes Isolated 1 Day Assessment / Plan Assessment and plan (1) Cellulitis of thumb, right: Plan: 47-year-old man POD 1 status post right thumb I&D of flexor tenosynovitis and abscess - Edema reduction - Local wound care - Scar management - Pain control - Light activities 2-5 lbs for activities of daily living - Vitamin C 500 mg daily for wound healing - Soap soaking protocol to 3 times daily - Antibiotics: Currently on Zosyn and vancomycin - Follow-up on cultures as become available - DC planning: Patient seems to be stable from orthopedic standpoint, I would anticipate potential discharge home 05/21/2022 as long as patient continues to improve and we can determine home-going oral antibiotic. Would recommend follow-up with orthopedics in 1 week following discharge. Code(s): L03.011 - Cellulitis of right finger Status: Acute (2) Lymphangitis: Code(s): I89.1 - Lymphangitis Status: Acute (3) Sepsis: Code(s): A41.9 - Sepsis, unspecified organism Status: Acute Billing Billing Codes (IF APPLICABLE) List of Applicable Codes for [place] Documented By: Monae Daiyl MD 05/20/22 141 8 Signed By: <Electronically signed by Monae Daily MD> 05/20/22 1422 [facility] Work Phone: [phone]) [phone] Progress note Author Naveen Moore [facility] May 20, 2022 12:41am Note Date/Time May 19, 2022 4: 14pm [facility] [address] [place] [address] Hospitalist Progress Note Signed with Brian Patient: Americo Figueroa MR#: [id number] : 1975 Acct:[id number] Age/Sex: 47 / M Adm Date: 2 Loc: Room: [address] [place] [address] Type: ADM IN Attending Dr: Naveen Moore MD Copies to: ~ ADDENDUM1 I personally saw this patient on the day of the encounter, reviewed the history,performed the garcia elements of the exam and formulated the plan of care and confirmed the nurse practitioners/residents/manager of international written note. Addendum Documented By: Naveen Moore MD 05/20/22 0041 Addendum Signed By: <Electronically signed by Naveen Moore MD> 05/20/22 0041 Date of Service: 05/19/2022 Subjective Subjective Narrative: Patient is seen and examined. He is status post right thumb incision, irrigation, debridement flexor tendon sheath and abscess. No fever or chills. No headache or dizziness. No chest pain, palpitations, shortness of breath. Noabdominal pain or nausea. Patient did have an incidental finding of COVID-19. He states that he was sick approximately 2 to 3 weeks ago. States that he did have contact with coworkers who were COVID-positive around that time. Reports no symptoms at present. Exam Physical Exam Vital Signs: Temp Pulse Resp BP Pulse Ox O2 Del Method O2 Flow Rate 36.8 C 69 16 145/82 H 99 Room Air 6 05/19/22 15:23 05/19/22 15:23 05/19/22 15:23 05/19/22 15:23 05/19/22 15:23 05/19/22 15:45 05/19/22 13:35 Const General: cooperative and comfortable Orientation: alert, awake and oriented x3 HEENT Head: normocephalic and atraumatic Eyes General: appearance normal, both eyes and all related structures Neck Neck: normal visual inspection Chest Chest palpation & inspection: normal inspection of the chest Resp Effort & Inspection: normal respiratory effort, able to speak in complete sentences and symmetric chest movement Auscultation: clear to auscultation bilaterally Cardio Rate: regular rate Rhythm: regular rhythm GI Inspection: normal to inspection Palpation: soft and nontender Auscultation: normal bowel sounds Skin General: other (Right forearm postsurgical dressing/Michael wrap intact) Neuro General: patient alert, patient awake, patient oriented x3, moves all extremities and no focal motor deficits Cranial Nerves: CN's II-XII intact bilaterally Cognition: normal cognition Speech: speech normal Extrem General: no clubbing, cyanosis or edema and no calf tenderness Objective Lab Results CBC & Chem 7: 05/19/22 06:55 05/19/22 06:55 Meds Allergies and Active Meds Allergies doxycycline Adverse Reaction (Verified 05/18/22 10:29) Rash Active Meds: Active Medications Generic Name Dose Route Start Last Admin Trade Name Freq PRN Reason Stop Dose Admin Acetaminophen 650 mg 05/18/22 11:50 05/19/22 09:01 Acetaminophen 325 Mg Tablet PO 05/18/23 11:49 650 mg Q6HR PRN Administration Pain or fever Hydrocodone Bitart/Acetaminophen 1 tab 05/19/22 13:42 Hydrocodone/Acetaminophen 5-325 Mg Tablet PO Q4H PRN Pain Scale 1 - 3 Hydrocodone Bitart/Acetaminophen 2 tab 05/19/22 13:42 Hydrocodone/Acetaminophen 5-325 Mg Tablet PO Q4H PRN Pain Scale 4 - 7 Al Hydrox/Mg Hydrox/Simethicone 30 ml 05/18/22 11:50 Mag Hydrox/Al Hydrox/Simeth 30 Ml Udc PO 05/18/23 11:49 Q4H PRN Heartburn Albuterol 2 puff 05/18/22 11:58 05/19/22 10:52 Albuterol Hfa 60 Puff/8 Gram Inhaler INHALATION 05/18/23 11:57 2 puff DAILY PRN Administration Shortness Of Breath Or Wheezing Ascorbic Acid 500 mg 05/19/22 17:00 Ascorbic Acid 500 Mg Tablet PO 05/19/23 16:59 BID.WITH.MEALS KRISTEN Docusate Sodium 100 mg 05/19/22 21:00 Docusate 100 Mg Capsule PO 05/19/23 20:59 BID KRISTEN Escitalopram Oxalate 5 mg 05/18/22 22:00 05/18/22 23:27 Escitalopram 5 Mg Tablet PO 05/18/23 21:59 5 mg HS KRISTEN Administration Piperacillin Sod/Tazobactam Sod 3.375 gm in 100 mls @ 200 mls/hr 05/18/22 15:00 05/19/22 13:18 Zosyn IV Infused Q6H KRISTEN Infusion Vancomycin HCl 1 gm in 250 mls @ 250 mls/hr 05/18/22 21:00 05/19/22 13:14 Vancomycin IV 250 mls/hr Q8H KRISTEN Administration Lactated Ringer's 1,000 mls @ 75 mls/hr 05/19/22 10:00 05/19/22 10:52 Lactated Ringers IV 05/19/23 09:59 75 mls/hr .[id number] KRISTEN Administration Lactated Ringer's 1,000 mls @ 75 mls/hr 05/19/22 13:45 05/19/22 15:01 Lactated Ringers IV 05/19/23 13:44 75 mls/hr .[id number] KRISTEN Administration Ketorolac Tromethamine 30 mg 05/18/22 11:50 05/19/22 14:55 Ketorolac Tromethamine 30 Mg/Ml Vial IV-PUSH 05/23/22 11:49 30 mg Q6H PRN Administration Pain Scale 1 - 3 Ketorolac Tromethamine 15 mg 05/19/22 13:42 Ketorolac Tromethamine 15 Mg/Ml Vial IV-PUSH 05/24/22 13:41 Q8H PRN Pain Magnesium Hydroxide 30 ml 05/19/22 13:42 Magnesium Hydroxide Susp 30 Ml Udc PO 05/19/23 13:41 BID PRN Constipation Omeprazole 20 mg 05/19/22 07:30 05/19/22 09:02 Omeprazole 20 Mg Capsule. PO 05/19/23 07:29 20 mg DAILY.AC.BKFAST KRISTEN Administration Ondansetron HCl 4 mg 05/18/22 11:50 Ondansetron 4 Mg/2 Ml Vial IV-PUSH 05/18/23 11:49 Q8H PRN Nausea And Vomiting Oxycodone HCl 5 mg 05/18/22 18:13 Oxycodone Ir 5 Mg Tablet PO Q4HR PRN pain Potassium Chloride 20 meq 05/18/22 11:50 Potassium Chloride Er 20 Meq Tab.Er.Prt PO 05/18/23 11:49 DAILY PRN Hypokalemia Potassium Chloride 40 meq 05/18/22 11:50 Potassium Chloride Er 20 Meq Tab.Er.Prt PO 05/18/23 11:49 DAILY PRN Hypokalemia Promethazine HCl 12.5 mg 05/19/22 13:46 Promethazine 25 Mg/Ml Vial IV-PUSH 05/19/23 13:45 Q6H PRN Nausea And Vomiting Saccharomyces Boulardii 500 mg 05/18/22 21:00 05/19/22 08:51 Saccharomyces Boulardii 250 Mg Capsule PO 05/18/23 20:59 500 mg BID KRISTEN Administration Fluticasone/Salmeterol 1 puff 05/18/22 21:00 05/19/22 07:56 Fluticasone/Salmeterol 113-14 Mcg 60 Puff Inhaler INHALATION 05/18/23 20:59 1 puff BID KRISTEN Administration Sodium Chloride 0 ml 05/18/22 09:08 05/19/22 10:28 Sodium Chloride 0.9 % 10 Ml Syringe IV-PUSH 05/18/23 09:07 10 ml PRN PRN Administration Flush Sodium Chloride 0 ml 05/19/22 14:00 05/19/22 15:02 Sodium Chloride 0.9 % 10 Ml Syringe IV-PUSH 05/19/23 13:59 10 ml QSHIFT KRISTEN Administration Sodium Chloride 10 ml 05/19/22 13:46 Sodium Chloride 0.9 % 10 Ml Vial.Pf INJECTION 05/19/23 13:45 PRN PRN Promethazine Dilution Vancomycin HCl 1 each 05/18/22 11:55 Vancomycin - Pharmacy Dosing 1 Each Miscell IV ONCE PRN ZZ.Pharmacy Consult Protocol A&P - Hospitalist Assessment/Plan (1) Cellulitis of thumb, right: (2) Lymphangitis: (3) Sepsis: Plan Right thumb cellulitis Lymphangitis ? Previous history of right thumb cellulitis requiring PICC line and IV antibiotic therapy. Presents due to injury of right palmar aspect of thumb withworsening erythema, edema, streaking up the right arm. ? Initiated on vancomycin and Zosyn ? Blood culture showing no growth x1 day ? Orthopedic surgery following. Patient is status post right thumb incision, irrigation, debridement flexor tendon sheath and abscess, right thumb A1 july release ? Follow wound cultures Chronic conditions 1. Asthma?continue Symbicort, as needed albuterol 2. Anxiety?escitalopram Full code DVT PPx with SCDs Documented By: EDI Kat 05/19/22 1 608 Signed By: <Electronically signed by EDI Antunez> 05/19/22 1614 <Electronically signed by Naveen Moore MD> 05/20/22 0036 [facility] Work Phone: 1([phone] 453-538608-11-2022 Consult note Author Arnold Siegel [facility] May 19, 2022 11:01am Note Date/Time May 19, 2022 6: 37am [facility] [address] [place], [place] [id number] Orthopedic Consult Note Signed Patient: Americo Figueroa MR#: [id number] : 1975 Acct:[id number] Age/Sex: 47 / M Adm Date: 2 Loc: 3T Room: [address] [place] [address] Type: ADM IN Attending Dr: Naveen Moore MD Copies to: MD Ana Mendoza DO Thomas A Olexa, MD~ History of Present Illness HPI Consult date: 05/19/2022 Requesting provider: Jennifer Momin DO History of present illness: Patient is a 47-year-old male who states he was picking cherries 2 days ago and sustained a puncture/compression injury to the volar aspect of the thumb near the IP joint. He progressively developed redness pain and swelling. He was seen in the emergency room on the and placed on IV antibiotics. He then returned again on the and has been admitted for IV antibiotic treatment andobservation. Orthopedics consulted for evaluation Review of Systems Review of Systems All other systems reviewed & are negative unless noted below or in HPI PMFSH Vaccinated for COVID-19?: No Medical History (Updated 05/18/22 @ 18:26 by Jennifer Momin DO) Anxiety Asthma Surgical History History of hernia surgery Family History (Updated 05/18/22 @ 11:38 by EDI Kat) Other Heart disease Lung cancer Social History Smoking Status: Former smoker Tobacco Type: cigarettes Substance Use Type: None Substance Abuse Comment: social alcohol Allergies & Medications Medications and Allergies Allergies doxycycline Adverse Reaction (Verified 05/18/22 10:29) Rash Home Medications albuterol sulfate 90 mcg/actuation aerosol inhaler (ProAir HFA) 2 puff inhalation DAILY PRN Shortness Of Breath Or Wheezing 08/05/20 [History Confirmed 05/18/22] budesonide-formoterol HFA 160 mcg-4.5 mcg/actuation aerosol inhaler (Symbicort) 2 puff inhalation BID 08/05/20 [History Confirmed 05/18/22] escitalopram oxalate 10 mg tablet 5 mg PO HS 08/05/20 [History Confirmed 05/18/22] Saccharomyces boulardii 250 mg capsule 500 mg PO BID 05/18/22 [History Confirmed 05/18/22] omeprazole magnesium 20 mg tablet,delayed release (Prilosec OTC) 20 mg PO DAILY 05/18/22 [History Confirmed 05/18/22] Exam Physical Exam Vital Signs: Temp Pulse Resp BP Pulse Ox O2 Del Method 98.6 F 88 16 124/74 97 Room Air 05/19/22 04:00 05/19/22 04:00 05/19/22 04:00 05/19/22 04:00 05/19/22 04:00 05/19/22 04:00 Const General: cooperative and no acute distress HEENT Head: normal to inspection Resp Effort & Inspection: normal respiratory effort Extrem Other: Evaluation of the right hand demonstrates notable swelling of the entire right thumb. There is a small puncture site noted on the volar aspect of the distal phalanx. No drainage noted. there appears to be particular swelling on the volar aspect near the IP joint. Demonstrating limited flexion of the IP joint due to swelling. There are some generalized redness and swelling in the first webspace and into the index finger. There is some redness extending proximally to the volar aspect of the wrist and forearm. Results Lab Results Result Diagrams: 05/18/22 09:14 05/18/22 09:14 Labs: Laboratory Results - Last 48 hrs. 05/18/22 19:20: Total Creatine Kinase 237 05/18/22 09:18: SARS Antigen (LFIA) Negative 05/18/22 09:18: COVID-19 PCR Interp N/A, COVID-19 Clin Com Positive A 05/18/22 09:14: Lactic Acid 1.2 05/18/22 09:14: PHA Creatinine Clear 105.62, Sodium 134 L, Potassium 4.0, Chloride 102, Carbon Dioxide 20.9 L, BUN 19, Creatinine 1.04, Est GFR ( Amer) > 60, Est GFR (Non-Af Amer) > 60, Glucose 99, Calcium 9.6, Total Bilirubin3.6 H, AST 21, ALT 27, Alkaline Phosphatase 81, C-Reactive Prot, Quant 11.8 H, Total Protein 6.9, Albumin 4.0, Globulin 2.9, Albumin/Globulin Ratio 1.4 05/18/22 09:14: Corrected WBC 17.0 H, Uncorrected WBC Count 17.0 H, RBC 5.30, Hgb 16.1, Hct 47.9, MCV 90.4, MCH 30.4, MCHC 33.6, RDW 14.0, Plt Count 247, MPV 9.4, Neut % (Auto) 86.8, Lymph % (Auto) 5.0, [place] % (Auto) 7.8, Eos % (Auto) 0.1, Baso % (Auto) 0.3, Neut # (Auto) 14.8 H, Lymph # (Auto) 0.9 L, [place] # (Auto) 1.3 H, Eos # (Auto) 0.0, Baso # (Auto) 0.1, Nucleated RBC % (auto) 0.1, ESR 4 H & H 05/18/22 Range/Units 09:14 Hgb 16.1 (13.0-17.0) g/dL Hct 47.9 (38.8-50.0) % All other labs are normal. Microbiology Results Microbiology: Microbiology - Results from entire visit 05/18/22 09:18 Nasal SARS Antigen (LFIA) - Final Imaging & Diagnostic Results Imaging/Diagnostics: AP and lateral views of the right hand demonstrate generalized soft tissue swelling of the thumb. MRI of the thumb demonstrates swelling/possible abscess over the volar aspect ofdistal phalanx Assessment/Plan (1) Cellulitis of thumb, right: Plan: Patient appears to have sustained a puncture wound to the right thumb with development of deep infection/flexor tenosynovitis. I would like to keep him n.p.o. today. Plan for potential open irrigation and debridement this afternoon. Code(s): L03.011 - Cellulitis of right finger (2) Lymphangitis: Code(s): I89.1 - Lymphangitis (3) Sepsis: Code(s): A41.9 - Sepsis, unspecified organism Documented By: Arnold Siegel MD 05/19/22 0629 Signed By: <Electronically signed by MD Arnold Siegel> 05/19/22 1105 [facility] Work Phone: [phone]) 478-637208-10-2022 History and physical note Author Jennifer Momin [facility] May 18, 2022 6:54pm Note Date/Time May 18, 2022 11 :40am [facility] [address] [place] [address] Hospitalist H&P Signed Patient: Americo Figueroa MR#: [id number] : 1975 Acct:[id number] Age/Sex: 47 / M Adm Date: 2 Loc: Room: [address] [place] [address] Type: ADM IN Attending Dr: Jennifer Momin DO Copies to: EDI Kat DO Margo Simon, DO~ HPI DATE OF EXAMINATION: 05/18/22 CHIEF COMPLAINT: Right thumb cellulitis, injury HISTORY OF PRESENT ILLNESS: Patient is a pleasant 47-year-old male with past medical history of anxiety and asthma who presented to the emergency department due to worsening right thumb cellulitis. This past Monday, patient pinched the pad of his thumb in a astorga pit or. He noticed increased pain, swelling, erythema prompting presentation tothe ER yesterday. He was diagnosed with cellulitis and offered admission for IVantibiotic therapy versus outpatient follow-up at the infusion center. He received vancomycin and was seen at the infusion center earlier today. He was sent to the emergency department due to worsening erythema, edema, red streakingascending of his right forearm to right medial upper arm area. Patient does have previous history of right thumb cellulitis requiring PICC line placement and IV antibiotic therapy. In the ER, CBC demonstrates leukocytosis of 17,000 (up from 16,800 yesterday). Chemistry is unremarkable. T bili is 3.6. Patient states he has chronically elevated bilirubin. CRP is 11.8. Negative for COVID-19. He received a 1 L normal saline bolus, vancomycin, and Zosyn and is admitted to hospitalist service for further evaluation and treatment. Seen and examined in the ER. No headache or dizziness. No fevers. Endorses chills. No chest pain or shortness of breath. No abdominal pain or nausea. Nodiarrhea. Review of Systems Review of Systems Review of systems: 10 point review of systems was obtained and all are negative unless noted below or in the HPI. [facility] Vaccinated for COVID-19?: No Medical History (Updated 05/18/22 @ 18:26 by Jennifer Momin DO) Anxiety Asthma Surgical History History of hernia surgery Family History (Updated 05/18/22 @ 11:38 by EDI Kat) Other Heart disease Lung cancer Social History Smoking Status: Former smoker (1ppd, smoked for ~15 years. quit ~age 30) Tobacco Type: cigarettes Substance Use Type: None Substance Abuse Comment: social alcohol Meds Medications and Allergies Allergies doxycycline Adverse Reaction (Verified 05/18/22 10:29) Rash Home Medications albuterol sulfate 90 mcg/actuation aerosol inhaler (ProAir HFA) 2 puff inhalation DAILY PRN Shortness Of Breath Or Wheezing 08/05/20 [History Confirmed 05/18/22] budesonide-formoterol HFA 160 mcg-4.5 mcg/actuation aerosol inhaler (Symbicort) 2 puff inhalation BID 08/05/20 [History Confirmed 05/18/22] escitalopram oxalate 10 mg tablet 5 mg PO HS 08/05/20 [History Confirmed 05/18/22] Saccharomyces boulardii 250 mg capsule 500 mg PO BID 05/18/22 [History Confirmed 05/18/22] omeprazole magnesium 20 mg tablet,delayed release (Prilosec OTC) 20 mg PO DAILY 05/18/22 [History Confirmed 05/18/22] Exam Physical Exam Vital Signs: Temp Pulse Resp BP Pulse Ox O2 Del Method 36.6 C 108 H 18 157/80 H 97 Room Air 05/18/22 09:10 05/18/22 09:10 05/18/22 09:10 05/18/22 09:10 05/18/22 09:10 05/18/22 09:10 Const General: cooperative and comfortable Orientation: alert, awake and oriented x3 HEENT Head: normocephalic and atraumatic Eyes General: appearance normal, both eyes and all related structures Neck Neck: normal visual inspection Chest Chest palpation & inspection: normal inspection of the chest Resp Effort & Inspection: normal respiratory effort, able to speak in complete sentences and symmetric chest movement Auscultation: clear to auscultation bilaterally Cardio Rate: regular rate Rhythm: regular rhythm GI Inspection: normal to inspection Palpation: soft and nontender Auscultation: normal bowel sounds Skin General: other (Right thumb erythema, edema, erythematous streaking running medially RUE) Neuro General: patient alert, patient awake, patient oriented x3, moves all extremities and no focal motor deficits Cranial Nerves: CN's II-XII intact bilaterally Cognition: normal cognition Speech: speech normal Extrem General: no clubbing, cyanosis or edema and no calf tenderness Results Lab Results Labs: Laboratory Last Values Corrected WBC 17.0 X10E3/uL (4.1-10.5) H 05/18/22 09:14 Uncorrected WBC Count 17.0 x10E3/uL (4.5-11.0) H 05/18/22 09:14 RBC 5.30 x10E6/uL (3.90-5.60) 05/18/22 09:14 Hgb 16.1 g/dL (13.0-17.0) 05/18/22 09:14 Hct 47.9 % (38.8-50.0) 05/18/22 09:14 MCV 90.4 fl (83.5-101) 05/18/22 09:14 MCH 30.4 pg (27.5-35.2) 05/18/22 09:14 MCHC 33.6 g/dL (32.5-35.6) 05/18/22 09:14 RDW 14.0 % (12.0-14.8) 05/18/22 09:14 Plt Count 247 x10E3/uL (150-450) 05/18/22 09:14 MPV 9.4 fl (6.6-10.1) 05/18/22 09:14 Neut % (Auto) 86.8 % (.) 05/18/22 09:14 Lymph % (Auto) 5.0 % (.) 05/18/22 09:14 [place] % (Auto) 7.8 % (.) 05/18/22 09:14 Eos % (Auto) 0.1 % (.) 05/18/22 09:14 Baso % (Auto) 0.3 % (.) 05/18/22 09:14 Neut # (Auto) 14.8 x10E3/uL (1.8-7.7) H 05/18/22 09:14 Lymph # (Auto) 0.9 x10E3/uL (1.00-4.8) L 05/18/22 09:14 [place] # (Auto) 1.3 x10E3/uL (0.0-0.8) H 05/18/22 09:14 Eos # (Auto) 0.0 x10E3/uL (0.0-0.45) 05/18/22 09:14 Baso # (Auto) 0.1 x10E3/uL (0.0-0.2) 05/18/22 09:14 Nucleated RBC % (auto) 0.1 % (0-0.5) 05/18/22 09:14 ESR 4 mm/hr (0-14) 05/18/22 09:14 PHA Creatinine Clear 105.62 05/18/22 09:14 Sodium 134 mmol/L (136-146) L 05/18/22 09:14 Potassium 4.0 mmol/L (3.5-5.1) 05/18/22 09:14 Chloride 102 mmol/L (95-114) 05/18/22 09:14 Carbon Dioxide 20.9 mmol/L (22.0-30.0) L 05/18/22 09:14 BUN 19 mg/dL (9-23) 05/18/22 09:14 Creatinine 1.04 mg/dL (0.64-1.27) 05/18/22 09:14 Est GFR ( Amer) > 60 mL/Min 05/18/22 09:14 Est GFR (Non-Af Amer) > 60 mL/Min 05/18/22 09:14 Glucose 99 mg/dL (70-100) 05/18/22 09:14 Lactic Acid 1.2 mmol/L (0.5-2.2) 05/18/22 09:14 Calcium 9.6 mg/dL (8.2-10.2) 05/18/22 09:14 Total Bilirubin 3.6 mg/dL (0.3-1.2) H 05/18/22 09:14 AST 21 U/L (10-42) 05/18/22 09:14 ALT 27 U/L (10-60) 05/18/22 09:14 Alkaline Phosphatase 81 U/L (32-92) 05/18/22 09:14 C-Reactive Prot, Quant 11.8 mg/dL (0.0-1.0) H 05/18/22 09:14 Total Protein 6.9 gm/dL (6.1-7.9) 05/18/22 09:14 Albumin 4.0 gm/dL (3.2-5.5) 05/18/22 09:14 Globulin 2.9 gm/dL 05/18/22 09:14 Albumin/Globulin Ratio 1.4 05/18/22 09:14 COVID-19 PCR Interp N/A 05/18/22 09:18 SARS Antigen (LFIA) Negative (Negative) 05/18/22 09:18 Microbiology Results Micro: Microbiology - Results from entire visit 05/18/22 09:18 Nasal SARS Antigen (LFIA) - Final A&P - Hospitalist Assessment/Plan (1) Cellulitis of thumb, right: (2) Lymphangitis: (3) Sepsis: Plan Right thumb cellulitis Lymphangitis ? Previous history of right thumb cellulitis requiring PICC line and IV antibiotic therapy. Presents due to injury of right palmar aspect of thumb withworsening erythema, edema, streaking up the right arm. ? Initiated on vancomycin and Zosyn ? Follow blood cultures ? Consult orthopedic surgery Chronic conditions 1. Asthma?continue Symbicort, as needed albuterol 2. Anxiety?escitalopram Full code DVT PPx with SCDs Patient was seen by me on the day of encounter. I reviewed history and performed garcia elements of exam and formulated the plan of care and agree with the A&P above. Patient was seen and evaluated on the medical floor. I saw the patient with nurse practitioner Kacie Stone. 47-year-old male presenting with nonpurulent cellulitis of the right thumb and a sending lymphangitis. He was seen in the emergency department 05/17. Initial WBCS 16.8, afebrile. Received IV antibiotics Vancomycin and Zosyn and opted for outpatient treatment and antibiotics through the infusion center. Blood cx drawn 05/17 are pending. He was sent from the infusion center back to the emergency department today after he had worsening signs and symptoms. Repeat WBCs of 17 today. He was initiallytachycardic, afebrile . XR of the right thumb did not show acute bony process orerosion. No focal soft tissue abnormality. He was admitted to the medical floor. After receiving IV Zosyn on the floor he c/o of worsening pain and swelling of the left thumb and hand, worsening of erythema and edema of the lefthand that was confirmed during examination by myself and the nurse practitioner. Wound has been outlined. -Agree with Vanco and Zosyn -Obtain stat MRI to eval for foreign body and bone -Orthopedics consulted, reviewed the case with Dr. Siegel over the phone, states he will see patient first thing in the morning -Did discuss the case with Dr. Zaidi on the phone, he recommended one-time additional dose of daptomycin and continuing vancomycin and Zosyn. -Patient reports up-to-date on tetanus -Pain control -Keep the thumb iced, extremity elevated -Follow-up blood cultures Jennifer Momin DO Documented By: EDI Kat 05/18/22 1 122 Signed By: <Electronically signed by EDI Antunez> 05/18/22 1429 <Electronically signed by Jennifer Momin DO> 05/18/22 8874 [facility] Work Phone: [phone]) 823-757908-10-2022 History and physical note Author Jennifer Momin [facility] May 18, 2022 6:54pm Note Date/Time May 18, 2022 11 :40am [facility] [address] [place] [address] Hospitalist H&P Signed Patient: Americo Figueroa MR#: [id number] : 1975 Acct:[id number] Age/Sex: 47 / M Adm Date: 2 Loc: Room: [address] [place] [address] Type: ADM IN Attending Dr: Jennifer Momin DO Copies to: EDI Kat DO Margo Simon, DO~ HPI DATE OF EXAMINATION: 05/18/22 CHIEF COMPLAINT: Right thumb cellulitis, injury HISTORY OF PRESENT ILLNESS: Patient is a pleasant 47-year-old male with past medical history of anxiety and asthma who presented to the emergency department due to worsening right thumb cellulitis. This past Monday, patient pinched the pad of his thumb in a astorga pit or. He noticed increased pain, swelling, erythema prompting presentation tothe ER yesterday. He was diagnosed with cellulitis and offered admission for IVantibiotic therapy versus outpatient follow-up at the infusion center. He received vancomycin and was seen at the infusion center earlier today. He was sent to the emergency department due to worsening erythema, edema, red streakingascending of his right forearm to right medial upper arm area. Patient does have previous history of right thumb cellulitis requiring PICC line placement and IV antibiotic therapy. In the ER, CBC demonstrates leukocytosis of 17,000 (up from 16,800 yesterday). Chemistry is unremarkable. T bili is 3.6. Patient states he has chronically elevated bilirubin. CRP is 11.8. Negative for COVID-19. He received a 1 L normal saline bolus, vancomycin, and Zosyn and is admitted to hospitalist service for further evaluation and treatment. Seen and examined in the ER. No headache or dizziness. No fevers. Endorses chills. No chest pain or shortness of breath. No abdominal pain or nausea. Nodiarrhea. Review of Systems Review of Systems Review of systems: 10 point review of systems was obtained and all are negative unless noted below or in the HPI. PMFSH Vaccinated for COVID-19?: No Medical History (Updated 05/18/22 @ 18:26 by Jennifer Momin DO) Anxiety Asthma Surgical History History of hernia surgery Family History (Updated 05/18/22 @ 11:38 by Kacie Antunez NP-C) Other Heart disease Lung cancer Social History Smoking Status: Former smoker (1ppd, smoked for ~15 years. quit ~age 30) Tobacco Type: cigarettes Substance Use Type: None Substance Abuse Comment: social alcohol Meds Medications and Allergies Allergies doxycycline Adverse Reaction (Verified 05/18/22 10:29) Rash Home Medications albuterol sulfate 90 mcg/actuation aerosol inhaler (ProAir HFA) 2 puff inhalation DAILY PRN Shortness Of Breath Or Wheezing 08/05/20 [History Confirmed 05/18/22] budesonide-formoterol HFA 160 mcg-4.5 mcg/actuation aerosol inhaler (Symbicort) 2 puff inhalation BID 08/05/20 [History Confirmed 05/18/22] escitalopram oxalate 10 mg tablet 5 mg PO HS 08/05/20 [History Confirmed 05/18/22] Saccharomyces boulardii 250 mg capsule 500 mg PO BID 05/18/22 [History Confirmed 05/18/22] omeprazole magnesium 20 mg tablet,delayed release (Prilosec OTC) 20 mg PO DAILY 05/18/22 [History Confirmed 05/18/22] Exam Physical Exam Vital Signs: Temp Pulse Resp BP Pulse Ox O2 Del Method 36.6 C 108 H 18 157/80 H 97 Room Air 05/18/22 09:10 05/18/22 09:10 05/18/22 09:10 05/18/22 09:10 05/18/22 09:10 05/18/22 09:10 Const General: cooperative and comfortable Orientation: alert, awake and oriented x3 HEENT Head: normocephalic and atraumatic Eyes General: appearance normal, both eyes and all related structures Neck Neck: normal visual inspection Chest Chest palpation & inspection: normal inspection of the chest Resp Effort & Inspection: normal respiratory effort, able to speak in complete sentences and symmetric chest movement Auscultation: clear to auscultation bilaterally Cardio Rate: regular rate Rhythm: regular rhythm GI Inspection: normal to inspection Palpation: soft and nontender Auscultation: normal bowel sounds Skin General: other (Right thumb erythema, edema, erythematous streaking running medially RUE) Neuro General: patient alert, patient awake, patient oriented x3, moves all extremities and no focal motor deficits Cranial Nerves: CN's II-XII intact bilaterally Cognition: normal cognition Speech: speech normal Extrem General: no clubbing, cyanosis or edema and no calf tenderness Results Lab Results Labs: Laboratory Last Values Corrected WBC 17.0 X10E3/uL (4.1-10.5) H 05/18/22 09:14 Uncorrected WBC Count 17.0 x10E3/uL (4.5-11.0) H 05/18/22 09:14 RBC 5.30 x10E6/uL (3.90-5.60) 05/18/22 09:14 Hgb 16.1 g/dL (13.0-17.0) 05/18/22 09:14 Hct 47.9 % (38.8-50.0) 05/18/22 09:14 MCV 90.4 fl (83.5-101) 05/18/22 09:14 MCH 30.4 pg (27.5-35.2) 05/18/22 09:14 MCHC 33.6 g/dL (32.5-35.6) 05/18/22 09:14 RDW 14.0 % (12.0-14.8) 05/18/22 09:14 Plt Count 247 x10E3/uL (150-450) 05/18/22 09:14 MPV 9.4 fl (6.6-10.1) 05/18/22 09:14 Neut % (Auto) 86.8 % (.) 05/18/22 09:14 Lymph % (Auto) 5.0 % (.) 05/18/22 09:14 [place] % (Auto) 7.8 % (.) 05/18/22 09:14 Eos % (Auto) 0.1 % (.) 05/18/22 09:14 Baso % (Auto) 0.3 % (.) 05/18/22 09:14 Neut # (Auto) 14.8 x10E3/uL (1.8-7.7) H 05/18/22 09:14 Lymph # (Auto) 0.9 x10E3/uL (1.00-4.8) L 05/18/22 09:14 [place] # (Auto) 1.3 x10E3/uL (0.0-0.8) H 05/18/22 09:14 Eos # (Auto) 0.0 x10E3/uL (0.0-0.45) 05/18/22 09:14 Baso # (Auto) 0.1 x10E3/uL (0.0-0.2) 05/18/22 09:14 Nucleated RBC % (auto) 0.1 % (0-0.5) 05/18/22 09:14 ESR 4 mm/hr (0-14) 05/18/22 09:14 PHA Creatinine Clear 105.62 05/18/22 09:14 Sodium 134 mmol/L (136-146) L 05/18/22 09:14 Potassium 4.0 mmol/L (3.5-5.1) 05/18/22 09:14 Chloride 102 mmol/L (95-114) 05/18/22 09:14 Carbon Dioxide 20.9 mmol/L (22.0-30.0) L 05/18/22 09:14 BUN 19 mg/dL (9-23) 05/18/22 09:14 Creatinine 1.04 mg/dL (0.64-1.27) 05/18/22 09:14 Est GFR ( Amer) > 60 mL/Min 05/18/22 09:14 Est GFR (Non-Af Amer) > 60 mL/Min 05/18/22 09:14 Glucose 99 mg/dL (70-100) 05/18/22 09:14 Lactic Acid 1.2 mmol/L (0.5-2.2) 05/18/22 09:14 Calcium 9.6 mg/dL (8.2-10.2) 05/18/22 09:14 Total Bilirubin 3.6 mg/dL (0.3-1.2) H 05/18/22 09:14 AST 21 U/L (10-42) 05/18/22 09:14 ALT 27 U/L (10-60) 05/18/22 09:14 Alkaline Phosphatase 81 U/L (32-92) 05/18/22 09:14 C-Reactive Prot, Quant 11.8 mg/dL (0.0-1.0) H 05/18/22 09:14 Total Protein 6.9 gm/dL (6.1-7.9) 05/18/22 09:14 Albumin 4.0 gm/dL (3.2-5.5) 05/18/22 09:14 Globulin 2.9 gm/dL 05/18/22 09:14 Albumin/Globulin Ratio 1.4 05/18/22 09:14 COVID-19 PCR Interp N/A 05/18/22 09:18 SARS Antigen (LFIA) Negative (Negative) 05/18/22 09:18 Microbiology Results Micro: Microbiology - Results from entire visit 05/18/22 09:18 Nasal SARS Antigen (LFIA) - Final A&P - Hospitalist Assessment/Plan (1) Cellulitis of thumb, right: (2) Lymphangitis: (3) Sepsis: Plan Right thumb cellulitis Lymphangitis ? Previous history of right thumb cellulitis requiring PICC line and IV antibiotic therapy. Presents due to injury of right palmar aspect of thumb withworsening erythema, edema, streaking up the right arm. ? Initiated on vancomycin and Zosyn ? Follow blood cultures ? Consult orthopedic surgery Chronic conditions 1. Asthma?continue Symbicort, as needed albuterol 2. Anxiety?escitalopram Full code DVT PPx with SCDs Patient was seen by me on the day of encounter. I reviewed history and performed garcia elements of exam and formulated the plan of care and agree with the A&P above. Patient was seen and evaluated on the medical floor. I saw the patient with nurse practitioner Kacie Stone. 47-year-old male presenting with nonpurulent cellulitis of the right thumb and a sending lymphangitis. He was seen in the emergency department 05/17. Initial WBCS 16.8, afebrile. Received IV antibiotics Vancomycin and Zosyn and opted for outpatient treatment and antibiotics through the infusion center. Blood cx drawn 05/17 are pending. He was sent from the infusion center back to the emergency department today after he had worsening signs and symptoms. Repeat WBCs of 17 today. He was initiallytachycardic, afebrile . XR of the right thumb did not show acute bony process orerosion. No focal soft tissue abnormality. He was admitted to the medical floor. After receiving IV Zosyn on the floor he c/o of worsening pain and swelling of the left thumb and hand, worsening of erythema and edema of the lefthand that was confirmed during examination by myself and the nurse practitioner. Wound has been outlined. -Agree with Vanco and Zosyn -Obtain stat MRI to eval for foreign body and bone -Orthopedics consulted, reviewed the case with Dr. Siegel over the phone, states he will see patient first thing in the morning -Did discuss the case with Dr. Zaidi on the phone, he recommended one-time additional dose of daptomycin and continuing vancomycin and Zosyn. -Patient reports up-to-date on tetanus -Pain control -Keep the thumb iced, extremity elevated -Follow-up blood cultures Jennifer Momin DO Documented By: EDI Kat 05/18/22 1 122 Signed By: <Electronically signed by EDI Antunez> 05/18/22 1429 <Electronically signed by Jennifer Momin DO> 05/18/22 1669 [facility] [facility] Phone: 1(467) 828-265807-30-2022 Hospital Discharge instructions Patient Education 05/07/2022 14:50:51 Nonspecific Chest Pain, Adult Nonspecific Chest Pain, Adult Chest pain can be caused by many different conditions. It can be caused by a condition that is life-threatening and requires treatment right away. It can also be caused by something that is not life-threatening. If you have chest pain, it can be hard to know the difference, so it is important to get help right away to make sure that you do not have a serious condition. Some life-threatening causes of chest pain include: Heart attack. A tear in the body's main blood vessel (aortic dissection). Inflammation around your heart (pericarditis). A problem in the lungs, such as a blood clot (pulmonary embolism) or a collapsed lung (pneumothorax). Some non life-threatening causes of chest pain include: Heartburn. Anxiety or stress. Damage to the bones, muscles, and cartilage that make up your chest wall. Pneumonia or bronchitis. Shingles infection (varicella-zoster virus). Chest pain can feel like: Pain or discomfort on the surface of your chest or deep in your chest. Crushing, pressure, aching, or squeezing pain. Burning or tingling. Dull or sharp pain that is worse when you move, cough, or take a deep breath. Pain or discomfort that is also felt in your back, neck, jaw, shoulder, or arm, or pain that spreads to any of these areas. Your chest pain may come and go. It may also be constant. Your health care provider will do lab tests and other studies to find the cause of your pain. Treatment will depend on the cause of your chest pain. Follow these instructions at home: Medicines Take [id number] and prescription medicines only as told by your health care provider. If you were prescribed an antibiotic, take it as told by your health care provider. Do not stop taking the antibiotic even if you start to feel better. Lifestyle Rest as directed by your health care provider. Do not use any products that contain nicotine or tobacco, such as cigarettes and e-cigarettes. If you need help quitting, ask your health care provider. Do not drink alcohol. Make healthy lifestyle choices as recommended. These may include: ?Getting regular exercise. Ask your health care provider to suggest some activities that are safe for you. ?Eating a heart-healthy diet. This includes plenty of fresh fruits and vegetables, whole grains, low-fat (lean) protein, and low-fat dairy products. A dietitian can help you find healthy eating options. ?Maintaining a healthy weight. ?Managing any other health conditions you have, such as high blood pressure (hypertension) or diabetes. ?Reducing stress, such as with yoga or relaxation techniques. General instructions Pay attention to any changes in your symptoms. Tell your health care provider about them or any newsymptoms. Avoid any activities that cause chest pain. Keep all follow-up visits as told by your health care provider. This is important. This includes visits for any further testing if your chest pain does not go away. Contact a health care provider if: Your chest pain does not go away. You feel depressed. You have a fever. Get help right away if: Your chest pain gets worse. You have a cough that gets worse, or you cough up blood. You have severe pain in your abdomen. You faint. You have sudden, unexplained chest discomfort. You have sudden, unexplained discomfort in your arms, back, neck, or jaw. You have shortness of breath at any time. You suddenly start to sweat, or your skin gets clammy. You feel nausea or you vomit. You suddenly feel lightheaded or dizzy. You have severe weakness, or unexplained weakness or fatigue. Your heart begins to beat quickly, or it feels like it is skipping beats. These symptoms may represent a serious problem that is an emergency. Do not wait to see if the symptoms will go away. Get medical help right away. Call your local emergency services (911 in the [place] Do not drive yourself to the hospital. Summary Chest pain can be caused by a condition that is serious and requires urgent treatment. It may also be caused by something that is not life-threatening. If you have chest pain, it is very important to see your health care provider. Your health care provider may do lab tests and other studies to find the cause of your pain. Follow your health care provider's instructions on taking medicines, making lifestyle changes, and getting emergency treatment if symptoms become worse. Keep all follow-up visits as told by your health care provider. This includes visits for any further testing if your chest pain does not go away. This information is not intended to replace advice given to you by your health care provider. Make sure you discuss any questions you have with your health care provider. Document Released: 07/05/2006 Document Revised: 03/28/2019 Document Reviewed: 03/28/2019 [employer] Patient Education 2020 [employer]. Follow Up Care 05/07/2022 11:40:18 With:Ana Gabriel Address: [facility] [place] [address] [facility] (1) When:05/10/2022 14:35:06 Comments:Return to the emergency room if your chest pain and/or shortness of breath recurs or any new symptoms. [facility]07-30-2022 Evaluation + Plan noteExtracted from: Title:ED Note Author:Esteban ELIJAHCHRISDewey Date:05/07/22 1. Atypical chest pain (R07. 89: Other chest pain) 2. Shortness of breath (R06.02: Shortness of breath) Orders: Al hydroxide/Mg hydroxide/simethicone, 30 mL, Susp-Oral, Oral, Once, Stop date 05/07/22 12:34:00 EDT, STAT, Start date 05/07/22 12:34:00 EDT atropine/hyoscyamine/PB/scopolamine, 10 mL, Elixir, Oral, Once, Stop date 05/07/22 12:34:00 EDT, STAT, Start date 05/07/22 12:34:00 EDT lidocaine topical, 200 mg, 10 mL, Soln-Oral, Oral, Once, Stop date 05/07/22 12:34:00 EDT, STAT, Start date 05/07/22 12:34:00 EDT lorazepam, 1 mg = 1 tab(s), Tab, Oral, Once, Stop date 05/07/22 12:19:00 EDT, STAT, Start date 05/07/22 12:19:00 EDT, 05/07/22 12:19:00 EDT Automated Diff B-Type Natriuretic Peptide Basic Metabolic Panel CBC w/ Auto Diff D-Dimer ED Cardiac Monitoring eGFR Magnesium Level Oxygen Saturation Oxygen Therapy PT & PTT Saline Lock Insert Troponin 0 Hr. XR Chest Single View Addendum by Aide Covarrubias, As [facility] on May 07, 2022 18:18:36 EDT Review of system: Additional ROS info: Except as noted in the above Review of Systems and in the History of Present Illness all other systems have been reviewed and are negative or noncontributory. [facility]05-06-2022 Evaluation note* Encounter Date Diagnosis Assessment Notes Treatment Notes Treatment Clinical Notes February, Acute sinusitis (ICD-10 - J01.90) Will treat with an antibiotic to help resolve symptoms. He is in agreement to this. He is encouraged to eat yogurt daily while on ATB to prevent GI upset. Rest, push fluids. He may get loose stools while on the medication but if he develops severe diarrhea then he should stop the medication and let me know. He is encouraged to start using the Fluticasone nasal spray 2 sprays each morning versus evening due to letdown effect to help keep the eustachian tube open and decrease inflammation. February, Other 11:55 AM - 12:00 PM [facility] Other 04-01-2022 Progress note Author Judit Cuevas [facility] May 21, 2022 8:22am Note Date/Time May 20, 2022 12 :19pm [facility] [address] [place] [address] Hospitalist Progress Note Signed with Addenda Patient: Americo Figueroa MR#: [id number] : 1975 Acct:[id number] Age/Sex: 47 / M Adm Date: 2 Loc: Room: [address] [place] [address] Type: ADM IN Attending Dr: Judit Cuevas MD Copies to: ~ ADDENDUM1 Patient was personally seen by me on the day of encounter, reviewed his history and performed garcia elements of exam and formulated the plan of care and confirmedthe nurse practitioner note below. Addendum Documented By: Judit Cuevas MD 05/21/22820 Addendum Signed By: <Electronically signed by Judit Cuevas MD> 05/21/22821 Date of Service: 05/20/2022 Subjective Subjective Narrative: Patient is seen and examined with spouse at bedside. Denies headache or dizziness. No fevers or chills. No abdominal pain or nausea. Right thumb presently dressed. He did do soaks earlier today. Reported he thought his affected thumb appeared nugent earlier today. Undressed wound. Good capillary refill. He does have expected postsurgical bruising. Edema and erythema is much improved from initial presentation. Exam Physical Exam Vital Signs: Temp Pulse Resp BP Pulse Ox O2 Del Method O2 Flow Rate 36.6 C 78 18 134/78 97 Room Air 6 05/20/22 08:10 05/20/22 11:27 05/20/22 11:27 05/20/22 11:27 05/20/22 11:27 05/20/22 11:27 05/19/22 13:35 Const General: cooperative and comfortable Orientation: alert, awake and oriented x3 HEENT Head: normocephalic and atraumatic Eyes General: appearance normal, both eyes and all related structures Neck Neck: normal visual inspection Chest Chest palpation & inspection: normal inspection of the chest Resp Effort & Inspection: normal respiratory effort, able to speak in complete sentences and symmetric chest movement Auscultation: clear to auscultation bilaterally Cardio Rate: regular rate Rhythm: regular rhythm GI Inspection: normal to inspection Palpation: soft and nontender Auscultation: normal bowel sounds Skin General: other (Right forearm postsurgical dressing/Michael wrap intact) Neuro General: patient alert, patient awake, patient oriented x3, moves all extremities and no focal motor deficits Cranial Nerves: CN's II-XII intact bilaterally Cognition: normal cognition Speech: speech normal Extrem General: no clubbing, cyanosis or edema and no calf tenderness Objective Lab Results CBC & Chem 7: 05/20/22 05:55 05/20/22 05:55 Microbiology Results Microbiology 05/19/22 13:01 Thumb, Right - Incision Aerobic Culture - Preliminary 05/19/22 13:01 Thumb, Right - Incision Anaerobic Culture - Preliminary No Anaerobes Isolated 1 Day Meds Allergies and Active Meds Allergies doxycycline Adverse Reaction (Verified 05/18/22 10:29) Rash Active Meds: Active Medications Generic Name Dose Route Start Last Admin Trade Name Freq PRN Reason Stop Dose Admin Acetaminophen 650 mg 05/18/22 11:50 05/19/22 09:01 Acetaminophen 325 Mg Tablet PO 05/18/23 11:49 650 mg Q6HR PRN Administration Pain or fever Hydrocodone Bitart/Acetaminophen 1 tab 05/19/22 13:42 Hydrocodone/Acetaminophen 5-325 Mg Tablet PO Q4H PRN Pain Scale 1 - 3 Hydrocodone Bitart/Acetaminophen 2 tab 05/19/22 13:42 Hydrocodone/Acetaminophen 5-325 Mg Tablet PO Q4H PRN Pain Scale 4 - 7 Al Hydrox/Mg Hydrox/Simethicone 30 ml 05/18/22 11:50 Mag Hydrox/Al Hydrox/Simeth 30 Ml Udc PO 05/18/23 11:49 Q4H PRN Heartburn Albuterol 2 puff 05/18/22 11:58 05/19/22 10:52 Albuterol Hfa 60 Puff/8 Gram Inhaler INHALATION 05/18/23 11:57 2 puff DAILY PRN Administration Shortness Of Breath Or Wheezing Ascorbic Acid 500 mg 05/19/22 17:00 05/20/22 08:07 Ascorbic Acid 500 Mg Tablet PO 05/19/23 16:59 500 mg BID.WITH.MEALS KRISTEN Administration Docusate Sodium 100 mg 05/19/22 21:00 05/20/22 08:07 Docusate 100 Mg Capsule PO 05/19/23 20:59 100 mg BID KRISTEN Administration Escitalopram Oxalate 5 mg 05/18/22 22:00 05/19/22 21:14 Escitalopram 5 Mg Tablet PO 05/18/23 21:59 5 mg HS KRISTEN Administration Piperacillin Sod/Tazobactam Sod 3.375 gm in 100 mls @ 200 mls/hr 05/18/22 15:00 05/20/22 12:10 Zosyn IV 100 mls/hr Q6H KRISTEN Administration Lactated Ringer's 1,000 mls @ 75 mls/hr 05/19/22 13:45 05/20/22 05:52 Lactated Ringers IV 05/19/23 13:44 75 mls/hr .[id number] KRISTEN Administration Vancomycin HCl 0.75 gm in 250 mls @ 250 mls/hr 05/20/22 08:00 05/20/22 08:07 Vancomycin IV 250 mls/hr Q8H KRISTEN Administration Ketorolac Tromethamine 30 mg 05/18/22 11:50 05/19/22 21:13 Ketorolac Tromethamine 30 Mg/Ml Vial IV-PUSH 05/23/22 11:49 30 mg Q6H PRN Administration Pain Scale 1 - 3 Ketorolac Tromethamine 15 mg 05/19/22 13:42 Ketorolac Tromethamine 15 Mg/Ml Vial IV-PUSH 05/24/22 13:41 Q8H PRN Pain Magnesium Hydroxide 30 ml 05/19/22 13:42 Magnesium Hydroxide Susp 30 Ml Udc PO 05/19/23 13:41 BID PRN Constipation Omeprazole 20 mg 05/19/22 07:30 05/20/22 08:06 Omeprazole 20 Mg Capsule.Dr PO 05/19/23 07:29 20 mg DAILY.AC.BKFAST KRISTEN Administration Ondansetron HCl 4 mg 05/18/22 11:50 Ondansetron 4 Mg/2 Ml Vial IV-PUSH 05/18/23 11:49 Q8H PRN Nausea And Vomiting Oxycodone HCl 5 mg 05/18/22 18:13 Oxycodone Ir 5 Mg Tablet PO Q4HR PRN pain Potassium Chloride 20 meq 05/18/22 11:50 Potassium Chloride Er 20 Meq Tab.Er.Prt PO 05/18/23 11:49 DAILY PRN Hypokalemia Potassium Chloride 40 meq 05/18/22 11:50 Potassium Chloride Er 20 Meq Tab.Er.Prt PO 05/18/23 11:49 DAILY PRN Hypokalemia Promethazine HCl 12.5 mg 05/19/22 13:46 Promethazine 25 Mg/Ml Vial IV-PUSH 05/19/23 13:45 Q6H PRN Nausea And Vomiting Saccharomyces Boulardii 500 mg 05/18/22 21:00 05/20/22 08:07 Saccharomyces Boulardii 250 Mg Capsule PO 05/18/23 20:59 500 mg BID KRISTEN Administration Fluticasone/Salmeterol 1 puff 05/18/22 21:00 05/20/22 07:43 Fluticasone/Salmeterol 113-14 Mcg 60 Puff Inhaler INHALATION 05/18/23 20:59 1 puff BID KRISTEN Administration Sodium Chloride 0 ml 05/18/22 09:08 05/19/22 10:28 Sodium Chloride 0.9 % 10 Ml Syringe IV-PUSH 05/18/23 09:07 10 ml PRN PRN Administration Flush Sodium Chloride 0 ml 05/19/22 14:00 05/20/22 06:00 Sodium Chloride 0.9 % 10 Ml Syringe IV-PUSH 05/19/23 13:59 Not Given QSHIFT KRISTEN Sodium Chloride 10 ml 05/19/22 13:46 Sodium Chloride 0.9 % 10 Ml Vial.Pf INJECTION 05/19/23 13:45 PRN PRN Promethazine Dilution Vancomycin HCl 1 each 05/18/22 11:55 Vancomycin - Pharmacy Dosing 1 Each Miscell IV ONCE PRN ZZ.Pharmacy Consult Protocol A&P - Hospitalist Assessment/Plan (1) Cellulitis of thumb, right: (2) Lymphangitis: (3) Sepsis: Plan Right thumb cellulitis Lymphangitis ? Previous history of right thumb cellulitis requiring PICC line and IV antibiotic therapy. Presents due to injury of right palmar aspect of thumb withworsening erythema, edema, streaking up the right arm. ? Initiated on vancomycin and Zosyn ? Blood culture showing NGTD ? Orthopedic surgery following. POD 1 status post right thumb I&D of flexor tenosynovitis and abscess ? Follow wound cultures Chronic conditions 1. Asthma?continue Symbicort, as needed albuterol 2. Anxiety?escitalopram Full code DVT PPx with SCDs Documented By: EDI Kat 05/20/22 1 218 Signed By: <Electronically signed by EDI Antunez> 05/20/22 1711 <Electronically signed by Judit Cuevas MD> 05/21/22 0821 [facility] Work Phone: 1(220) 727-644712-20-2021 Evaluation note* Encounter Date Diagnosis Assessment Notes Treatment Notes Treatment Clinical Notes Sep, Acute sinusitis (ICD-10 - J01.90) [facility] Other 12-10-2021 Evaluation note* Encounter Date Diagnosis Assessment Notes Treatment Notes Treatment Clinical Notes Sep, Acute sinusitis (ICD-10 - J01.90) Will treat with above medication. He is encouraged to eat yogurt daily while on ATB to prevent GI upset. Rest, push fluids. If he develops severe diarrhea then he is to stop the medication. If by ten days he does not feel completely better he should call and we will extend treatment. Other than the yogurt he should avoid dairy to keep secretions thin and make them easier to expel. I do not feel he needs steroid treatment just yet. Rest, push fluids. Sep, Allergic rhinitis (ICD-10 - J30.9) He has been taking above medications daily for the last two months. He can continue with the nasal spray but while on the ATB he should hold the Zyrtec. Sep, Other 8:34 AM - 8:40 AM [facility] Other 10-18-2021 Evaluation note* Encounter Date Diagnosis Assessment Notes Treatment Notes Treatment Clinical Notes Jul, Wellness examination (ICD-10 - Z00.00) He is here for a wellness exam today. After evaluation I did sign his physical exam form today. His PSA level is 0.67, no sign of prostate cancer at this time. Jul, Hyperglycemia (ICD-10 - R73.9) Discussed blood sugar results with patient today. Glucose is 103. HgA1C is up from 5.1 to 5.2. Readings are at goal. Jul, Hyperlipidemia (ICD-10 - E78.5) Discussed cholesterol results with patient today. Total is 184. HDL is 37. LDL is 128.6. Triglycerides are 92. I would like to see his LDL between 70-100. He is encouraged to watch his intake of carbs and sugars. Stay active. Jul, Asthma (ICD-10 - J45.909) He is using the Symbicort daily as directed. He uses the ProAir as needed but states that he uses it on Monday's twice. When he hikes he does not need the ProAir. He notices he may use the inhaler when he has to wear a mask. He did not fill the AirDuo inhaler because it cost more than Symbicort. Jul, Weight loss (ICD-10 - R63.4) He has lost 8 pounds since last seen. He is encouraged to continue with what he is doing as it is working well. TSH is 1.801. Jul, Sinus headache (ICD-10 - R51.9) He voices that he is using Lisa and Flonase every morning. He blows his nose up to 10 times before he leaves his home every morning. He started the Lisa in the summer when it was warm through this recent weather change. He has been on the Fluticasone daily for one month. I did recommend that he switch to plain Zyrtec and continue with the nasal spray until the first deep freeze. I asked him to keep me posted with how he is doing by two weeks and if needed we may have him switch to Astelin nasal spray. He was recently in [place] and [place] for 9 days and felt good. He feels that his allergies are caused by his work and home environment. Mondays and Tuesdays he uses his inhaler often because of allergens. We may also try Singulair but I did advise him that this can cause behavior issues and irritate the liver. May also consider Accolate. 18 Jul, 2021 Anxiety (ICD-10 - F41.9) Right now he is not taking the generic Lexapro, but wants to have it available. He feels he may need this during the winter months. He has this available if needed and understands that if he needs to take it he should take it for at least six months. [facility] Other 08-01-2020 History general Narrative - Reported* Type Description Date Medical History Asthma Medical History Spinal stenosis of lumbar region Medical History COVID 05/2020 Surgical History hernia repair- right inguinal Surgical History hernia/ right inguinal at age [age]. Hospitalization History right inguinal hernia Hospitalization History right thumb infection- b [facility] Other 08-01-2020 History general Narrative - Reported* Type Description Date Medical History Asthma Medical History Spinal stenosis of lumbar region Medical History COVID 05/2020 Surgical History hernia repair- right inguinal Surgical History hernia/ right inguinal at age [age]. Surgical History I and D right thumb 05/2022 Hospitalization History right inguinal hernia Hospitalization History right thumb infection- b [facility] Hospitalization History Right thumb infection [facility] 05/2022 [facility] Other 08-01-2020 History general Narrative - Reported* Type Description Date Medical History Asthma Medical History Spinal stenosis of lumbar region Medical History COVID 05/2020 Medical History ANXIETY Surgical History hernia repair- right inguinal Surgical History hernia/ right inguinal at age [age]. Surgical History I and D right thumb 05/2022 Hospitalization History right inguinal hernia Hospitalization History right thumb infection- b [facility] Hospitalization History Right thumb infection [facility] 05/2022 [facility] Other Consult note Author Arnold Siegel [facility] May 19, 2022 11:01am Note Date/Time May 19, 2022 6: 37am [facility] [address] [place] [address] Orthopedic Consult Note Signed Patient: Americo Figueroa MR#: [id number] : 1975 Acct:[id number] Age/Sex: 47 / M Adm Date: 2 Loc: Room: [address] [place] [address] Type: ADM IN Attending Dr: Naveen Moore MD Copies to: MD Ana Mendoza DO Thomas A Olexa, MD~ History of Present Illness HPI Consult date: 05/19/2022 Requesting provider: Jennifer Momin DO History of present illness: Patient is a 47-year-old male who states he was picking cherries 2 days ago and sustained a puncture/compression injury to the volar aspect of the thumb near the IP joint. He progressively developed redness pain and swelling. He was seen in the emergency room on the and placed on IV antibiotics. He then returned again on the and has been admitted for IV antibiotic treatment andobservation. Orthopedics consulted for evaluation Review of Systems Review of Systems All other systems reviewed & are negative unless noted below or in HPI PMFSH Vaccinated for COVID-19?: No Medical History (Updated 05/18/22 @ 18:26 by Jennifer Momin DO) Anxiety Asthma Surgical History History of hernia surgery Family History (Updated 05/18/22 @ 11:38 by EDI Kat) Other Heart disease Lung cancer Social History Smoking Status: Former smoker Tobacco Type: cigarettes Substance Use Type: None Substance Abuse Comment: social alcohol Allergies & Medications Medications and Allergies Allergies doxycycline Adverse Reaction (Verified 05/18/22 10:29) Rash Home Medications albuterol sulfate 90 mcg/actuation aerosol inhaler (ProAir HFA) 2 puff inhalation DAILY PRN Shortness Of Breath Or Wheezing 08/05/20 [History Confirmed 05/18/22] budesonide-formoterol HFA 160 mcg-4.5 mcg/actuation aerosol inhaler (Symbicort) 2 puff inhalation BID 08/05/20 [History Confirmed 05/18/22] escitalopram oxalate 10 mg tablet 5 mg PO HS 08/05/20 [History Confirmed 05/18/22] Saccharomyces boulardii 250 mg capsule 500 mg PO BID 05/18/22 [History Confirmed 05/18/22] omeprazole magnesium 20 mg tablet,delayed release (Prilosec OTC) 20 mg PO DAILY 05/18/22 [History Confirmed 05/18/22] Exam Physical Exam Vital Signs: Temp Pulse Resp BP Pulse Ox O2 Del Method 98.6 F 88 16 124/74 97 Room Air 05/19/22 04:00 05/19/22 04:00 05/19/22 04:00 05/19/22 04:00 05/19/22 04:00 05/19/22 04:00 Const General: cooperative and no acute distress HEENT Head: normal to inspection Resp Effort & Inspection: normal respiratory effort Extrem Other: Evaluation of the right hand demonstrates notable swelling of the entire right thumb. There is a small puncture site noted on the volar aspect of the distal phalanx. No drainage noted. there appears to be particular swelling on the volar aspect near the IP joint. Demonstrating limited flexion of the IP joint due to swelling. There are some generalized redness and swelling in the first webspace and into the index finger. There is some redness extending proximally to the volar aspect of the wrist and forearm. Results Lab Results Result Diagrams: 05/18/22 09:14 05/18/22 09:14 Labs: Laboratory Results - Last 48 hrs. 05/18/22 19:20: Total Creatine Kinase 237 05/18/22 09:18: SARS Antigen (LFIA) Negative 05/18/22 09:18: COVID-19 PCR Interp N/A, COVID-19 Clin Com Positive A 05/18/22 09:14: Lactic Acid 1.2 05/18/22 09:14: PHA Creatinine Clear 105.62, Sodium 134 L, Potassium 4.0, Chloride 102, Carbon Dioxide 20.9 L, BUN 19, Creatinine 1.04, Est GFR ( Amer) > 60, Est GFR (Non-Af Amer) > 60, Glucose 99, Calcium 9.6, Total Bilirubin3.6 H, AST 21, ALT 27, Alkaline Phosphatase 81, C-Reactive Prot, Quant 11.8 H, Total Protein 6.9, Albumin 4.0, Globulin 2.9, Albumin/Globulin Ratio 1.4 05/18/22 09:14: Corrected WBC 17.0 H, Uncorrected WBC Count 17.0 H, RBC 5.30, Hgb 16.1, Hct 47.9, MCV 90.4, MCH 30.4, MCHC 33.6, RDW 14.0, Plt Count 247, MPV 9.4, Neut % (Auto) 86.8, Lymph % (Auto) 5.0, [place] % (Auto) 7.8, Eos % (Auto) 0.1, Baso % (Auto) 0.3, Neut # (Auto) 14.8 H, Lymph # (Auto) 0.9 L, [place] # (Auto) 1.3 H, Eos # (Auto) 0.0, Baso # (Auto) 0.1, Nucleated RBC % (auto) 0.1, ESR 4 H & H 05/18/22 Range/Units 09:14 Hgb 16.1 (13.0-17.0) g/dL Hct 47.9 (38.8-50.0) % All other labs are normal. Microbiology Results Microbiology: Microbiology - Results from entire visit 05/18/22 09:18 Nasal SARS Antigen (LFIA) - Final Imaging & Diagnostic Results Imaging/Diagnostics: AP and lateral views of the right hand demonstrate generalized soft tissue swelling of the thumb. MRI of the thumb demonstrates swelling/possible abscess over the volar aspect ofdistal phalanx Assessment/Plan (1) Cellulitis of thumb, right: Plan: Patient appears to have sustained a puncture wound to the right thumb with development of deep infection/flexor tenosynovitis. I would like to keep him n.p.o. today. Plan for potential open irrigation and debridement this afternoon. Code(s): L03.011 - Cellulitis of right finger (2) Lymphangitis: Code(s): I89.1 - Lymphangitis (3) Sepsis: Code(s): A41.9 - Sepsis, unspecified organism Documented By: Arnold Siegel MD 05/19/22 0629 Signed By: <Electronically signed by MD Arnold Siegel> 05/19/22 1101 [facility] Work Phone: Discharge summary Author Judit Cuevas [facility] May 23, 2022 10:36am Note Date/Time May 21, 2022 9: 54am [facility] [address] [place], [place] [id number] Discharge Summary Signed with Brian Patient: Americo Figueroa MR#: [id number] : 1975 Acct:[id number] Age/Sex: 47 / M Adm Date: 2 Loc: Room: 3Q2641-[address]: Judit Cuevas MD Copies to: Kacie Antunez, TERMINAL GAUGER SUPERVISOR-C Ana Gabriel,DO Judit Cuevas MD~ ADDENDUM1 Patient was personally seen by me on the day of encounter, reviewed his history and performed garcia elements of exam and formulated the plan of care and confirmedthe nurse practitioner note below. Addendum Documented By: Judit Cuevas MD 05/23/22 1036 Addendum Signed By: <Electronically signed by Judit Cuevas MD> 05/23/22 1036 Providers Date of Discharge: 05/21/22 Discharging Provider: Kacie Antunez Primary Care Provider: Ana Gabriel Consults: 05/18/22 11:50 Consult to Orthopedic Surgery Routine Discharge Diagnosis (1) Cellulitis of thumb, right: (2) Lymphangitis: (3) Sepsis: Final Diagnosis Final Discharge Diagnosis: as above s/p right thumb I&D of flexor tenosynovitis and abscess Summary Hospital Course Hospital course: Patient is a pleasant 47-year-old male with past medical history of anxiety and asthma who presented to the emergency department due to worsening right thumb cellulitis.? This past Monday, patient pinched the pad of his thumb in a sommelier.? He noticed increased pain, swelling, erythema prompting presentation tothe ER yesterday.? He was diagnosed with cellulitis and offered admission for IVantibiotic therapy versus outpatient follow-up at the infusion center.? He received vancomycin and was seen at the infusion center the following day.? He was sent to the emergency department due to worsening erythema, edema, red streaking ascending of his right forearm to right medial upper arm area.? Patient does have previous history of right thumb cellulitis requiring PICC lineplacement and IV antibiotic therapy. In the ER, CBC demonstrated leukocytosis of 17,000 (up from 16,800 yesterday).? Chemistry is unremarkable.? T bili is 3.6.? Patient states he has chronically elevated bilirubin. CRP is 11.8.? Negative for COVID-19.? He received a 1 L normal saline bolus, vancomycin, and Zosyn and is admitted to hospitalist service for further evaluation and treatment The patient was followed by orthopedic surgery. On 05/19, the patient underwent right thumb I&D of flexor tenosynovitis and abscess. The patient demonstrated marked improvement in erythema. He continued with right thumb edema, decreased mobility. Sensation was intact. He was medically cleared for discharge with recommendation to continue antibiotic coverage with Bactrim and Augmentin as blood cultures demonstrated no growth and wound cultures were pending at time ofdischarge. He is to continue soap soaks x3 days per orthopedic recommendation and follow-up with orthopedic surgery. Condition Condition at Discharge: Stable Status at Discharge Functional status at discharge: independent ambulation Overall status at discharge: patient is progressing back to baseline Time Spent with Patient Time spent providing/coordinating discharge services (# min): 35 Surgeries and Procedures Operation Date: 05/19/22 14:15 Actual Procedures p OR I&D Right Thumb abscess and flexor tendon shealth(Right) - Monae Daily MD Diagnostic Studies Completed and Pending Studies Pending studies at discharge: 05/19/22 13:01 Wound Culture (Deep) Routine 05/21/22 09:46 Basic Metabolic Panel [CHEM] IN AM Complete Blood Count Auto Diff IN AM Vancomycin,Peak [TOX] Timed 05/21/22 15:30 Vancomycin,Trough [TOX] Timed 05/22/22 05:00 Basic Metabolic Panel [CHEM] IN AM Complete Blood Count Auto Diff IN AM 05/23/22 05:00 Basic Metabolic Panel [CHEM] IN AM Complete Blood Count Auto Diff IN AM Preliminary micro results at discharge 05/19/22 13:01 Aerobic Culture - Preliminary Thumb, Right - Incision Anaerobic Culture - Preliminary No Anaerobes Isolated 2 Days Exam Physical Exam Vital Signs: Temp Pulse Resp BP Pulse Ox O2 Del Method O2 Flow Rate 36.5 C 70 16 144/85 H 98 Room Air 6 05/21/22 07:56 05/21/22 07:56 05/21/22 07:56 05/21/22 07:56 05/21/22 07:56 05/21/22 07:56 05/19/22 13:35 Const General: cooperative and comfortable Orientation: alert, awake and oriented x3 HEENT Head: normocephalic and atraumatic Eyes General: appearance normal, both eyes and all related structures Neck Neck: normal visual inspection Chest Chest palpation & inspection: normal inspection of the chest Resp Effort & Inspection: normal respiratory effort, able to speak in complete sentences and symmetric chest movement Auscultation: clear to auscultation bilaterally Cardio Rate: regular rate Rhythm: regular rhythm GI Inspection: normal to inspection Palpation: soft and nontender Auscultation: normal bowel sounds Skin General: other (Right forearm postsurgical dressing/Michael wrap intact) Neuro General: patient alert, patient awake, patient oriented x3, moves all extremities and no focal motor deficits Cranial Nerves: CN's II-XII intact bilaterally Cognition: normal cognition Speech: speech normal Extrem General: no clubbing, cyanosis or edema and no calf tenderness Discharge Plan Discharge Plan Patient Disposition: Home Activity: Other Comment: See Dr. Daily and Clark discharge instructions for activity restrictions. Diet: Regular Additional Instructions: You tested positive for Covid-19. Please see provided instructions. DR. DAILY'S POST OP INSTRUCTIONS Take prescribed pain medication as directed and as needed to control your post-operative pain. -In addition to the prescribed medication, you may take ibuprofen (Advil, Motrin) or naproxen (Aleve/Naprosyn) to help control pain and decrease swelling. -DO NOT TAKE ibuprofen/Naprosyn/naproxen if you have a history of bleeding ulcer, are taking anticoagulation medication (Coumadin/warfarin, Eliquis, Xarelto, Plavix, Lovenox), if you have had a history of gastric bypass surgery, or if you have a history of kidney disease. Elevate the operative area as much as possible, using at least 2-3 pillows, keeping the hand higher than the elbow. Keep ice at the operative area as much as possible. It takes longer than 20 minutes for the cold to penetrate the bandages, so leave the ice bag or cold pack in place until the ice melts, then it is time to change to a fresh ice bag or cold pack. -Elevation and ice help to lessen the swelling post-operatively which helps to lessen pain so that you will need to take less pain medication, as well as maintaining better range of motion and function of your hand (more swelling, less movement). You may wiggle your fingers, bending, flexing, and move them to decrease stiffness. You may use your hands for light activities of 2-5 lbs. This is lifting your coffee cup, using your silverware, and typing on a computer or tablet. -Do NOT perform strenuous lifting or lift greater than 10 lbs until 4-6 weeks after surgery to minimize exacerbation of pain at the surgery site. You may remove your dressing on the third day after surgery, and get your surgical incision wet in the shower or when washing your hands with soap and water. -DO NOT soak your incision or submerge it under standing water such as dishwater or bathtub. -DO NOT apply perfumed moisturizers or ointments unless otherwise instructed by your physician. -Washing your incision gently with soap and water on a daily basis, helps to rid your skin of bacteria and decrease the risk of wound infections. -After showering or washing your hands, pat the incision dry, and keep covered with a clean dry gauze bandage. -You may apply Bacitracin, Neosporin, or generic triple antibiotic ointment to incision if you would like Take vitamin C 500 mg by mouth daily to help skin and incision heal Take antibiotics as directed to decrease risk of infection after surgery SOAP SOAKING PROTOCOL: Please continue the soap soaking protocol as directed and per the preprinted sheet three times daily Instructions: [facility] COVID-19 Discharge Instructions Stand Alone Forms: Work/School Release Form Prescriptions: New amoxicillin-pot clavulanate 875-125 mg Tablet 1 tab PO BID 7 Days Qty: 14 0RF sulfamethoxazole-trimethoprim 800-160 mg Tablet 1 tab PO BID 7 Days Qty: 14 0RF Continued albuterol sulfate [ProAir HFA] 90 mcg/actuation HFA aerosol inhaler 2 puff INHALATION DAILY PRN (Reason: Shortness Of Breath Or Wheezing) Label Comments: INL 1 TO 2 PFS PO Q 4 TO 6 H PRN escitalopram oxalate 10 mg tablet 5 mg PO HS Label Comments: TAKE 1 TABLET BY MOUTH EVERY DAY budesonide-formoterol [Symbicort] 160-4.5 mcg/actuation HFA aerosol inhaler 2 puff INHALATION BID Label Comments: INL 1 PUFF PO BID omeprazole magnesium [Prilosec OTC] 20 mg Tablet,Delayed Release (Dr/Ec) 20 mg PO DAILY Saccharomyces boulardii 250 mg Capsule 500 mg PO BID Follow Up: Ana Gabriel DO [Primary Care Provider] - (His office is currently closed. Please call on Monday to schedule a post hospital follow up appointment. When you call please inform them that you tested positive for Covid on 05/19/22 so that they can schedule this appointment accordingly.) Monae Daily MD [Active Staff] - (Please call and schedule an appointment for 1 week.) Documented By: EDI Kat 05/21/22 0 954 Signed By: <Electronically signed by EDI Antunez> 05/22/22 1927 <Electronically signed by Judit Cuevas MD> 05/23/22 1035 [facility] Work Phone: Evaluation noteNo [facility] [employer] Other Evaluation note* Diagnosis Onset Date Resolution Status Cellulitis of thumb, right a cute Finger infection acute Lymphangitis acute Sepsis acute [facility] Work Phone: Evaluation note* Diagnosis Onset Date Resolution Status Allergic rhinitis acute Otitis media acute [facility] Work Phone: Evaluation note* Diagnosis Onset Date Resolution Status Acute sinusitis acute Asthma acute Hyperglycemia acute Hyperlipidemia acute Vitamin D deficiency acute Wellness examination acute [facility] Work Phone: Hospital course Narrative No data available for this section [facility] Work Phone: [facility] Work Phone: [facility] Work Phone: [facility] Work Phone: Progress note No data available for this section [facility] Author Naveen Moore [facility] May 20, 2022 12:41am Note Date/Time May 19, 2022 4: 14pm [facility] [address] [place] [address] Hospitalist Progress Note Signed with Brian Patient: Americo Figueroa MR#: [id number] : 1975 Acct:[id number] Age/Sex: 47 / M Adm Date: 2 Loc: Room: [address] [place] [address] Type: ADM IN Attending Dr: Naveen Moore MD Copies to: ~ ADDENDUM1 I personally saw this patient on the day of the encounter, reviewed the history,performed the garcia elements of the exam and formulated the plan of care and confirmed the nurse practitioners/residents/manager of international written note. Addendum Documented By: Naveen Moore MD 05/20/2240 Addendum Signed By: <Electronically signed by Naveen Moore MD> 05/20/2240 Date of Service: 05/19/2022 Subjective Subjective Narrative: Patient is seen and examined. He is status post right thumb incision, irrigation, debridement flexor tendon sheath and abscess. No fever or chills. No headache or dizziness. No chest pain, palpitations, shortness of breath. Noabdominal pain or nausea. Patient did have an incidental finding of COVID-19. He states that he was sick approximately 2 to 3 weeks ago. States that he did have contact with coworkers who were COVID-positive around that time. Reports no symptoms at present. Exam Physical Exam Vital Signs: Temp Pulse Resp BP Pulse Ox O2 Del Method O2 Flow Rate 36.8 C 69 16 145/82 H 99 Room Air 6 05/19/22 15:23 05/19/22 15:23 05/19/22 15:23 05/19/22 15:23 05/19/22 15:23 05/19/22 15:45 05/19/22 13:35 Const General: cooperative and comfortable Orientation: alert, awake and oriented x3 HEENT Head: normocephalic and atraumatic Eyes General: appearance normal, both eyes and all related structures Neck Neck: normal visual inspection Chest Chest palpation & inspection: normal inspection of the chest Resp Effort & Inspection: normal respiratory effort, able to speak in complete sentences and symmetric chest movement Auscultation: clear to auscultation bilaterally Cardio Rate: regular rate Rhythm: regular rhythm GI Inspection: normal to inspection Palpation: soft and nontender Auscultation: normal bowel sounds Skin General: other (Right forearm postsurgical dressing/Michael wrap intact) Neuro General: patient alert, patient awake, patient oriented x3, moves all extremities and no focal motor deficits Cranial Nerves: CN's II-XII intact bilaterally Cognition: normal cognition Speech: speech normal Extrem General: no clubbing, cyanosis or edema and no calf tenderness Objective Lab Results CBC & Chem 7: 05/19/22 06:55 05/19/22 06:55 Meds Allergies and Active Meds Allergies doxycycline Adverse Reaction (Verified 05/18/22 10:29) Rash Active Meds: Active Medications Generic Name Dose Route Start Last Admin Trade Name Freq PRN Reason Stop Dose Admin Acetaminophen 650 mg 05/18/22 11:50 05/19/22 09:01 Acetaminophen 325 Mg Tablet PO 05/18/23 11:49 650 mg Q6HR PRN Administration Pain or fever Hydrocodone Bitart/Acetaminophen 1 tab 05/19/22 13:42 Hydrocodone/Acetaminophen 5-325 Mg Tablet PO Q4H PRN Pain Scale 1 - 3 Hydrocodone Bitart/Acetaminophen 2 tab 05/19/22 13:42 Hydrocodone/Acetaminophen 5-325 Mg Tablet PO Q4H PRN Pain Scale 4 - 7 Al Hydrox/Mg Hydrox/Simethicone 30 ml 05/18/22 11:50 Mag Hydrox/Al Hydrox/Simeth 30 Ml Udc PO 05/18/23 11:49 Q4H PRN Heartburn Albuterol 2 puff 05/18/22 11:58 05/19/22 10:52 Albuterol Hfa 60 Puff/8 Gram Inhaler INHALATION 05/18/23 11:57 2 puff DAILY PRN Administration Shortness Of Breath Or Wheezing Ascorbic Acid 500 mg 05/19/22 17:00 Ascorbic Acid 500 Mg Tablet PO 05/19/23 16:59 BID.WITH.MEALS KRISTEN Docusate Sodium 100 mg 05/19/22 21:00 Docusate 100 Mg Capsule PO 05/19/23 20:59 BID KRISTEN Escitalopram Oxalate 5 mg 05/18/22 22:00 05/18/22 23:27 Escitalopram 5 Mg Tablet PO 05/18/23 21:59 5 mg HS KRISTEN Administration Piperacillin Sod/Tazobactam Sod 3.375 gm in 100 mls @ 200 mls/hr 05/18/22 15:00 05/19/22 13:18 Zosyn IV Infused Q6H KRISTEN Infusion Vancomycin HCl 1 gm in 250 mls @ 250 mls/hr 05/18/22 21:00 05/19/22 13:14 Vancomycin IV 250 mls/hr Q8H KRISTEN Administration Lactated Ringer's 1,000 mls @ 75 mls/hr 05/19/22 10:00 05/19/22 10:52 Lactated Ringers IV 05/19/23 09:59 75 mls/hr .[id number] KRISTEN Administration Lactated Ringer's 1,000 mls @ 75 mls/hr 05/19/22 13:45 05/19/22 15:01 Lactated Ringers IV 05/19/23 13:44 75 mls/hr .[id number] KRISTEN Administration Ketorolac Tromethamine 30 mg 05/18/22 11:50 05/19/22 14:55 Ketorolac Tromethamine 30 Mg/Ml Vial IV-PUSH 05/23/22 11:49 30 mg Q6H PRN Administration Pain Scale 1 - 3 Ketorolac Tromethamine 15 mg 05/19/22 13:42 Ketorolac Tromethamine 15 Mg/Ml Vial IV-PUSH 05/24/22 13:41 Q8H PRN Pain Magnesium Hydroxide 30 ml 05/19/22 13:42 Magnesium Hydroxide Susp 30 Ml Udc PO 05/19/23 13:41 BID PRN Constipation Omeprazole 20 mg 05/19/22 07:30 05/19/22 09:02 Omeprazole 20 Mg Capsule.Dr PO 05/19/23 07:29 20 mg DAILY.AC.BKFAST KRISTEN Administration Ondansetron HCl 4 mg 05/18/22 11:50 Ondansetron 4 Mg/2 Ml Vial IV-PUSH 05/18/23 11:49 Q8H PRN Nausea And Vomiting Oxycodone HCl 5 mg 05/18/22 18:13 Oxycodone Ir 5 Mg Tablet PO Q4HR PRN pain Potassium Chloride 20 meq 05/18/22 11:50 Potassium Chloride Er 20 Meq Tab.Er.Prt PO 05/18/23 11:49 DAILY PRN Hypokalemia Potassium Chloride 40 meq 05/18/22 11:50 Potassium Chloride Er 20 Meq Tab.Er.Prt PO 05/18/23 11:49 DAILY PRN Hypokalemia Promethazine HCl 12.5 mg 05/19/22 13:46 Promethazine 25 Mg/Ml Vial IV-PUSH 05/19/23 13:45 Q6H PRN Nausea And Vomiting Saccharomyces Boulardii 500 mg 05/18/22 21:00 05/19/22 08:51 Saccharomyces Boulardii 250 Mg Capsule PO 05/18/23 20:59 500 mg BID KRISTEN Administration Fluticasone/Salmeterol 1 puff 05/18/22 21:00 05/19/22 07:56 Fluticasone/Salmeterol 113-14 Mcg 60 Puff Inhaler INHALATION 05/18/23 20:59 1 puff BID KRISTEN Administration Sodium Chloride 0 ml 05/18/22 09:08 05/19/22 10:28 Sodium Chloride 0.9 % 10 Ml Syringe IV-PUSH 05/18/23 09:07 10 ml PRN PRN Administration Flush Sodium Chloride 0 ml 05/19/22 14:00 05/19/22 15:02 Sodium Chloride 0.9 % 10 Ml Syringe IV-PUSH 05/19/23 13:59 10 ml QSHIFT KRISTEN Administration Sodium Chloride 10 ml 05/19/22 13:46 Sodium Chloride 0.9 % 10 Ml Vial.Pf INJECTION 05/19/23 13:45 PRN PRN Promethazine Dilution Vancomycin HCl 1 each 05/18/22 11:55 Vancomycin - Pharmacy Dosing 1 Each Miscell IV ONCE PRN ZZ.Pharmacy Consult Protocol A&P - Hospitalist Assessment/Plan (1) Cellulitis of thumb, right: (2) Lymphangitis: (3) Sepsis: Plan Right thumb cellulitis Lymphangitis ? Previous history of right thumb cellulitis requiring PICC line and IV antibiotic therapy. Presents due to injury of right palmar aspect of thumb withworsening erythema, edema, streaking up the right arm. ? Initiated on vancomycin and Zosyn ? Blood culture showing no growth x1 day ? Orthopedic surgery following. Patient is status post right thumb incision, irrigation, debridement flexor tendon sheath and abscess, right thumb A1 july release ? Follow wound cultures Chronic conditions 1. Asthma?continue Symbicort, as needed albuterol 2. Anxiety?escitalopram Full code DVT PPx with SCDs Documented By: EDI Kat 05/19/22 1 608 Signed By: <Electronically signed by EDI Antunez> 05/19/22 1614 <Electronically signed by Naveen Moore MD> 05/20/22 0036 [facility] Work Phone: Progress note Author Monae Daily [facility] May 20, 2022 2:22pm Note Date/Time May 20, 2022 2: 22pm [facility] [address] [place] [address] Orthopedic Progress Note Signed Patient: Americo Figueroa MR#: [id number] : 1975 Acct:[id number] Age/Sex: 47 / M Adm Date: 2 Loc: Room: [address] [place] [address] Type: ADM IN Attending Dr: Judit Cuevas MD Copies to: ~ Date of Service: 05/20/2022 Subjective Subjective Interval History: Patient and family report that he is doing well, overall pain seems to be improved compared to prior to surgery Denies fevers Reports that pain seems to be well controlled, and again, is better than prior to surgery Patient was able to do 1 soak earlier this morning, reports that he has another one scheduled for this afternoon Exam Physical Exam Vital Signs: Temp Pulse Resp BP Pulse Ox O2 Del Method O2 Flow Rate 97.9 F 78 18 134/78 97 Room Air 6 05/20/22 08:10 05/20/22 11:27 05/20/22 11:27 05/20/22 11:27 05/20/22 11:27 05/20/22 11:27 05/19/22 13:35 Narrative: GENERAL Awake, alert, oriented, and in no acute distress UPPER EXTREMITY Post injury/ operative incision is clean dry and intact Nonabsorbable sutures are in place without evidence of significant wound dehiscence Positive swelling right thumb and hand as expected in the postoperative period Positive ecchymosis right thumb and hand as expected in the postoperative period Mild positive tenderness to palpation right thumb and hand as expected in the postoperative period Negative pain with passive right thumb extension Minimal tenderness palpation over right thumb flexor sheath Negative pain with percussion of the right thumb flexor tendon sheath R Radial pulse 2+ and intact R Sensory intact to light touch at the axillary/ radial/ ulnar/ median nerve distributions R Motor intact EPL/ FPL/ Dorsal interosseous ABduction/ Palmar interosseous ADduction/ DIP/ PIP/ EIP/ EDC/ EDM/ wrist extension & flexion/ elbow extension & flexion/ shoulder forward elevation & abduction Objective Labs Labs: Laboratory Results - last 24 hr 05/19/22 05/19/22 05/20/22 14:31 17:34 00:33 Corrected WBC Uncorrected WBC Count RBC Hgb Hct MCV MCH MCHC RDW Plt Count MPV Neut % (Auto) Lymph % (Auto) [place] % (Auto) Eos % (Auto) Baso % (Auto) Neut # (Auto) Lymph # (Auto) [place] # (Auto) Eos # (Auto) Baso # (Auto) Nucleated RBC % (auto) PHA Creatinine Clear Sodium Potassium Chloride Carbon Dioxide BUN Creatinine Est GFR ( Amer) Est GFR (Non-Af Amer) Glucose Calcium Vancomycin Peak 17.9 L 31.3 Vancomycin Trough 25.1 H 05/20/22 05/20/22 05/20/22 05:55 05:55 05:55 Corrected WBC 7.9 Uncorrected WBC Count 7.9 RBC 4.73 Hgb 14.4 Hct 43.6 MCV 92.2 MCH 30.5 MCHC 33.1 RDW 14.2 Plt Count 199 MPV 8.9 Neut % (Auto) 67.9 Lymph % (Auto) 17.2 [place] % (Auto) 11.4 Eos % (Auto) 3.0 Baso % (Auto) 0.5 Neut # (Auto) 5.4 Lymph # (Auto) 1.4 [place] # (Auto) 0.9 H Eos # (Auto) 0.2 Baso # (Auto) 0.0 Nucleated RBC % (auto) 0.0 PHA Creatinine Clear 105.47 Sodium 139 Potassium 3.8 Chloride 106 Carbon Dioxide 25.7 BUN 13 Creatinine 1.04 Est GFR ( Amer) > 60 Est GFR (Non-Af Amer) > 60 Glucose 105 H Calcium 9.1 Vancomycin Peak Vancomycin Trough 13.1 Micro Microbiology Results: Microbiology 05/19/22 13:01 Thumb, Right - Incision Aerobic Culture - Preliminary 05/19/22 13:01 Thumb, Right - Incision Anaerobic Culture - Preliminary No Anaerobes Isolated 1 Day Assessment / Plan Assessment and plan (1) Cellulitis of thumb, right: Plan: 47-year-old man POD 1 status post right thumb I&D of flexor tenosynovitis and abscess - Edema reduction - Local wound care - Scar management - Pain control - Light activities 2-5 lbs for activities of daily living - Vitamin C 500 mg daily for wound healing - Soap soaking protocol to 3 times daily - Antibiotics: Currently on Zosyn and vancomycin - Follow-up on cultures as become available - DC planning: Patient seems to be stable from orthopedic standpoint, I would anticipate potential discharge home 05/21/2022 as long as patient continues to improve and we can determine home-going oral antibiotic. Would recommend follow-up with orthopedics in 1 week following discharge. Code(s): L03.011 - Cellulitis of right finger Status: Acute (2) Lymphangitis: Code(s): I89.1 - Lymphangitis Status: Acute (3) Sepsis: Code(s): A41.9 - Sepsis, unspecified organism Status: Acute Billing Billing Codes (IF APPLICABLE) List of Applicable Codes for [place] Documented By: Monae Daily MD 05/20/22 141 8 Signed By: <Electronically signed by Monae Daily MD> 05/20/22 1422 [facility] Work Phone: Progress note Author Arnold Siegel [facility] May 21, 2022 8:47am Note Date/Time May 21, 2022 7: 35am [facility] [address] [place] [address] Orthopedic Progress Note Signed Patient: Americo Figueroa MR#: [id number] : 1975 Acct:[id number] Age/Sex: 47 / M Adm Date: 2 Loc: Room: [address] [place] [address] Type: ADM IN Attending Dr: Judit Cuevas MD Copies to: ~ Date of Service: 05/21/2022 Exam Physical Exam Vital Signs: Temp Pulse Resp BP Pulse Ox O2 Del Method O2 Flow Rate 98 F 68 14 111/67 99 Room Air 6 05/20/22 20:00 05/20/22 23:49 05/20/22 23:49 05/20/22 23:49 05/20/22 23:49 05/20/22 23:49 05/19/22 13:35 Narrative: Patient states hand is improving. Still notable stiffness of the thumb. No redness or warmth into the forearm. Objective Micro Microbiology Results: Microbiology 05/19/22 13:01 Thumb, Right - Incision Aerobic Culture - Preliminary 05/19/22 13:01 Thumb, Right - Incision Anaerobic Culture - Preliminary No Anaerobes Isolated 1 Day 05/19/22 13:01 Thumb, Right - Incision Gram Stain - Final Assessment / Plan Assessment and plan (1) Cellulitis of thumb, right: Plan: Plan for discharge home today on oral antibiotic. Follow-up in the office next week. Code(s): L03.011 - Cellulitis of right finger Status: Acute (2) Lymphangitis: Code(s): I89.1 - Lymphangitis Status: Acute (3) Sepsis: Code(s): A41.9 - Sepsis, unspecified organism Status: Acute Documented By: Arnold Siegel MD 05/21/22 0734 Signed By: <Electronically signed by MD Arnold Siegel> 05/21/22 0847 [facility] Work Phone: Reason for Referral Status Reason Specialty Diagnoses / Procedures Referre d By Contact Referred To Contact Closed Radiology Diagnoses Lumbar radiculopathy Numbness and tingling of both legs Procedures MRI LUMBAR SPINE WO CONTRAST Marito Pathak, NANCY [address] [place] [address] Reason appt pt needs cons ult to discuss screening colonoscopy Diagnosis 1 Encounter for screen ing colonoscopy (Z12.11) Referral Organization [facility] Family Stacie Carias Referring Provider First Name Ana Referring Provider Last Name Nery Referring Provider Specialty Family Prac estefania Referred Organization [facility] Referred Provider Abhishek Gutierres Referred Address ,[place], [place],[address] Referred Provider Specialty Surgery Referral Priority Routine General Notes Sadaf Mendez 08/08/2023 10:02:37 AM > referral faxed thru [facility] with visit note and insurance card. pt understands he will be contacted to schedule this appt. Assessments Diagnosis Lumbar radiculopathy Thoracic or lumbosacral neuritis or radiculitis, unspecified Numbness and tingling of both legs Disturbance of skin sensation Summary Purpose Family History No Family History Records Found Relationship Condition Age at Onset Recorded Date/T jeri Not Specified Heart disease Unknown Malignant neoplasm of lung Unknown Relationship Condition Age at Onset Recorded Date/T jeri Not Specified Malignant neoplasm of lung Unknown grandparent Unknown Heart disease Unknown Myocardial infarction Unknown grandparent Myocardial infarction Unknown Unknown Malignant neoplasm Unknown Advance Directives No Advanced Directives Records Found Advance Directive Response Recorded Date/ Time Advance Directives No August 05, 2020 10:32am Advance Directive Response Recorded Date/ Time Advance Directives No August 05, 2020 9:32am Chief Complaint and Reason for Visit Chief Complaint rt hand poss infecti on cellulitis. R hand/arm infection getting worse Reason for Visit Cellulitis of thumb, right Finger infection Lymphangitis Sepsis Chief Complaint rt ear pain Reason for Visit Allergic rhinitis Otitis media Chief Complaint wellness/review labs Reason for Visit Acute sinusitis Asthma Hyperglycemia Hyperlipidemia Vitamin D deficiency Wellness examination Chief Complaint Admit Date wellness/review labs August 06, 2024 3:07pm chest congestion August 26, 2024 3:03pm Reason for Visit Admit Date Acute sinusitis August 06, 2024 3 :07pm Asthma August 06, 2024 3 :07pm Hyperglycemia August 06, 2024 3 :07pm Hyperlipidemia August 06, 2024 3 :07pm Vitamin D deficiency August 06, 2024 3:07pm Wellness examination August 06, 2024 3:07pm Additional Source Comments Reason for Visit (unrecogniz ed section and content) Status Reason Specialty Diagnoses / Procedures Referred By Contact Referred To Contact Pending Review Radiology Diagnoses Lumbar radiculopathy Numbness and tingling of both legs Procedures MRI lumbar spine without contrast Marito Pathak, NANCY [address] [place] [address] [place] [address] (unrecognized sect ion and content) No Status Records FoundNo Status Records FoundNo Status Records FoundNo Status Records FoundNo Status Records FoundNo Status Records Found INFORMATION SOURCE (unrecogn ized section and content) DATE CREATED AUTHOR 01/10/2021 [facility] DATE CREATED AUTHOR AUTHOR'S ORGANIZ ATION 10/06/2022 [facility] DATE CREATED AUTHOR AUTHOR'S ORGANIZ ATION 12/28/2023 [facility] DATE CREATED AUTHOR AUTHOR'S ORGANIZ ATION 04/02/2025 [facility] DATE CREATED AUTHOR AUTHOR'S ORGANIZ ATION 04/04/2025 [facility] DATE CREATED AUTHOR AUTHOR'S ORGANIZ ATION 04/30/2025 [facility] Care Team (unrecognized sect ion and content) Team Status: Inactive Member Role Status Dates Ana Gabriel , DO Primary Care Provider Active Matthew Sneed , DO Emergency Provider Active Jennifer Momin , DO Admit Provider Active Arnold Siegel MD Other Provider Active Judit Cuevas MD Attending Provider Active Team Status: Inactive Member Role Status Dates Ana Gabriel , DO Primary Care Provider Active Aicha Saud Bullalexis , TOOL INSPECTOR-BC Attending Provider Active Team Status: Inactive Member Role Status Dates Ana Gabriel , DO Primary Care Provider Active Aicha E Bullimore , TOOL INSPECTOR-BC Emergency Provider Active Team Status: Active Member Role Status Dates Ana Gabriel , DO Primary Care Provider Active Team Status: Active Member Role Status Dates Ana Gabriel , DO Primary Care Provide r, Attending Provider Active Start: January 15, 2024 Team Status: Inactive Member Role Status Dates Ana Gabriel , DO Primary Care Provide r, Attending Provider Active Start: March 25, 2024 End: March 25, 2024 Team Status: Active Member Role Status Yumiko Gabriel , DO Primary Care Provide r, Attending Provider Active Start: August 03, 2024 Team Status: Inactive Member Role Status Yumiko Gabriel , DO Primary Care Provide r, Attending Provider Active Start: August 06, 2024 End: August 06, 2024 Team Status: Inactive Member Role Status Yumiko Gabriel , DO Primary Care Provider Active S tart: August 26, 2024 End: August 26, 2024 Alice Borja APRN Attending Provider Active S tart: August 26, 2024 End: August 26, 2024 Goals (unrecognized section and content) Goals may be documented in a n alternate section FOR RECORDS PERTAINING TO PATIENTS WHO ARE OR HAVE BEEN ENROLLED IN A CHEMICAL DEPENDENCY/SUBSTANCEABUSE PROGRAM, SOME INFORMATION MAY BE OMITTED. This clinical summary was aggregated from multiple sources. Caution should be exercised in using it in the provision of clinical care. This summary normalizes information from multiple sources, and as a consequence, information in this document may materially change the coding, format and clinical context of patient data. In addition, data may be omitted in some cases. CLINICAL DECISIONS SHOULD BE BASED ON THE PRIMARY CLINICAL RECORDS. [employer] provides no warranty or guarantee of the accuracy or completeness of information in this document.
[2025-05-07] MEDS: CEFAZOLIN SODIUM 2 GM/50 ML D5W PREMIX IV (12:16)
--- NOTE | 2025-05-07 13:07 | PM.URSON ---
Urology Surgery Operative Note Operative Note Procedure Date: 05/07/25 Time Out Performed: yes Pre-op Diagnosis: Left ureteral stone Post-op Diagnosis: same as pre-op Procedures performed: Left extracorporeal shockwave lithotripsy Anesthesia: General-LMA (Dr. Steele) Primary Surgeon: Isabelle Alberts Complications: none Estimated blood loss (mL): 0 Findings: Radiopaque left proximal ureteral stone underwent 3000 shocks, not visible at end of case. Specimens: none Indications for Procedures: The patient was evaluated in clinic and deemed a candidate for left extracorporeal shock wave lithotripsy. Risks were discussed to include but not limited to bleeding, pain, infection, damage to surrounding structures, inability to treat the stone, residual fragments, obstruction and need for additional procedures. Detailed description of Procedure: After informed consent was obtained, the patient was brought to the operating room and placed on the lithotripsy bed in supine position. Sequential compression devices were placed on bilateral lower extremities. The patient received the appropriate dose of preoperative IV antibiotics and general anesthesia was induced. An operative time out was performed confirming the patient's identity, procedure, laterality and safety checks. The patient was positioned with the Siemens Modularis Lithostar lithotripter head on the left flank. The stone was triangulated using fluoroscopy. A total of 3000 shocks were provided and the stone was seen to fragment well. It was no longer visualized. The procedure was concluded and patient was awakened from anesthesia in stable condition. The patient tolerated the procedure well without complications. Plan: Discharge home with strainer and tamsulosin. Follow up in 3 weeks with [facility] and renal US
--- NOTE | 2025-05-07 14:24 | PC.NURSE ---
1411- No increase in small reddened area/bruising noted to left flank area.
== END 2025-05-07 14:30 | disposition home or self-care (01) ==
LOC: SURGOUT 10:27
PROVIDERS: PCP Family Medicine; Visit Provider Urology
PROC: (CPT 00873; principal; 2025-05-07 12:00)
DX: N13.2 Hydronephrosis with renal and ureteral calculous obstruction (principal); F41.9 Anxiety disorder, unspecified; K21.9 Gastro-esophageal reflux disease without esophagitis; Z87.891 Personal history of nicotine dependence; J45.909 Unspecified asthma, uncomplicated
CPT/HCPCS: 00873; 50590; 36415; 74018; J0690; J1100; J1885; J2250; J2371; J2405; J2704; J3010

== ENCOUNTER 2025-05-08 15:45 | Outpatient (REF) | payer OTHER, SELFPAY ==
--- OUTSIDE RECORDS SUMMARY | 2025-06-11 19:25 | XMS_ITS | CCD ---
Author Organization [facility] Care Team Providers Care Neurology Technologist Name Role Phone Ana Gabriel Primary Care Provider UnavailANA Jackson Primary Care Unavailable MARITO PATHAK Referring Unavailable Ana Gabriel Unavailable Ana Gabriel Primary Care Physician [phone] Monae Daily Unavailable DO Ana Gabriel Primary Care Provider [phone] Antonietta PROMOTIONS PRODUCER-BC Aicha Saud Emergency Provider Antonietta [employer]OMOTIONS PRODUCER-ANGE Aicha E Attending Provider [phone] DO Matthew Sneed Emergency Provider DO Jennifer Momin Admit Provider MD Arnold Siegel Other Provider MD Judit Cuevas Attending Provider [phone] NERY, DR PEREZ Consulting Unavailable NERY, DR PEREZ Attending Unavailable GIRAISHA, DR PEREZ Admitting Unavailable GIRAISHA, DR PEREZ Primary Care Unavailable GIRAISHA, DR PEREZ Primary Care Unavailable GIRAISHA, DR PEREZ Consulting Unavailable NERY, DR PEREZ Attending Unavailable GIRAISHA, DR PEREZ Admitting Unavailable GIRAISHA, DR PEREZ Primary Care Unavailable GIRAISHA, DR PEREZ Consulting Unavailable GIRAISHA, DR PEREZ Attending Unavailable GIRAISHA, DR PEREZ Admitting Unavailable ABHISHEK MAYO Attending Unavailable ANA GABRIEL Referring Unavailable ABHISHEK MAYO Attending Unavailable Gray Edouard Attending Unavailable Gray Edouard Admitting Unavailable Isabelle Alberts Attending Unavailable Isabelle Alberts Referring Unavailable Isabelle Alberts Attending Unavailable Isabelle Alberts Attending Unavailable Allergies Allergy Classification Reported Allergen(s) Allergy Type Date of Onset Reaction(s) Facility (20 sources) avocado allergenic extract Drug Allergy abdominal bloating [facility] Other (1 source) Brompheniramine / Phenylephrine Drug Allergy stopped breathing [facility] Other (20 sources) Doxycycline Drug Allergy 05-18-20 22 rash/leg cramps, Rash, Rash, rash/leg cramps [facility] (20 sources) fluticasone / salmeterol Drug Allergy headache [facility] Other (20 sources) Pseudoephedrine Drug Allergy stopped breathing [facility] Other (20 sources) Dimetapp Cold/Allergy Drug allergy stopped breathing [facility] Other (6 sources) Brompheniramine; Translations: [brompheniramine] Drug Allergy 03-25-20 24 Unknown (qualifier value) [facility] (1 source) Brompheniramine / Phenylpropanolamine Drug Allergy 04-21-20 17 [facility] (1 source) cefdinir Drug Allergy 11-27-19 20 [facility] (1 source) fluticasone / salmeterol Drug Allergy 11-27-19 20 [facility] (3 sources) avocado oil Drug Allergy 08-07-20 23 abdominal bloating [facility] (3 sources) Dextromethorphan Drug Allergy 03-25-20 24 stopped breathing [facility] (3 sources) diphenhydrAMINE Drug Allergy 03-25-20 24 stopped breathing [facility] (3 sources) fluticasone Drug Allergy 03-25-20 24 headache [facility] (3 sources) guaiFENesin Drug Allergy 03-25-20 24 stopped breathing [facility] (3 sources) Phenylephrine Drug Allergy 03-25-20 24 stopped breathing [facility] (3 sources) Pseudoephedrine Drug Allergy 03-25-20 24 stopped breathing [facility] (3 sources) salmeterol Drug Allergy 03-25-20 24 [facility] Medications Current Medications Medication Drug Class(es) Dates Sig (Normalized) Sig (Original) [id number] 200 actuat albuterol 0.09 mg/actuat metered dose [...] Daily March 25, 2024 12:00am Multivitamin Act lawrence Multivitamin tablet (1 source) Start: 03-25-2024 take [...] Three times daily as needed for pain 07 11December 12, 2020 May 17, 2022 4:29pm amoxicillin 875 mg / clavulanate 125 mg oral tablet (20 sources) Penicillin-class Antibacterial Start: 03-25-2024 End: 08-06-2024 take 1 tablet by mouth twice daily at mealtime Amoxicillin-Pot Clavulanate 875-125 mg tablet Discontinued 1 TAB PO Twice daily 28 07March 24, 2024 11:00pm August 06, 2024 2:17pm [...] 10:59am Start: 05-21-2022 take 1 tablet by yoabni th twice daily Amoxicillin-Pot Clavulanate Active 1 TAB PO Twice daily 21 04May 21, 2022 12:00am Start: 05-21-2022 take 1 tablet by yobani th twice daily Amoxicillin-Pot Clavulanate Active 1 TAB PO Twice daily 14 May 21, 2022 [...] days Active take 1 puff(s) by mo uth twice daily Budesonide-Formoterol Fumarate 160-4.5 MCG/ACT INHALE [...] 15, 2024 12:41pm take 1 tablet by yobani th once daily Escitalopram Oxalate 5 MG TAKE [...] Twice daily 21 04May 21, 2022 12:00am Bactrim Active Triamcinolone (18 [...] Test Name Value Interpretation Reference Range Facility Provider Letteron 05-27-2025 Provider Letter Provider Letter May 27, 2025 [address]OA [address] [place] [phone] : 1975 Dear Americo, We have been trying to reach you with no success. It is important that you return our call regarding a message from your provider upon receiving this letter. Also, at the time of your call, please provide us with your current information. Thank you for your prompt attention to this matter. Sincerely, [facility] [address] [place] [id number] [facility] Patient Letter [facility] 2024 Patient Letter [facility] Patient Letter [facility] May 26, 2025 [address]OA [address] [place] [phone] : 1975 Dear Mr. Figueroa, I am corresponding with you by certified mail because you have a medical condition known as Left Ureteral Stone . This requires a routine follow up appointment with current imaging. My office has tried contacting you to get this scheduled with no response. Please contact my office at your earliest convenience and we will reschedule your testing and appointment so I can closely monitor your condition. We cannot be responsible for your urologic care and potential complications if you fail to obtain the follow up imaging as recommended. Non compliance may result in dismissal from the practice. Office Sincerely, Dr. Isabelle Alberts MD [facility] [address] [facility] Provider Letteron 05-12-2025 Provider Letter Provider Letter May 12, 2025 AMERICO FIGUEROA [address] [place] [phone] : 1975 Dear Americo, We have been trying to reach you with no success. It is important that you return our call regarding a message from your provider upon receiving this letter. Also, at the time of your call, please provide us with your current information. Thank you for your prompt attention to this matter. Sincerely, [facility] 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 pt presented to [facility] ED with hematuria and left flank pain [...] yo M new pt following up to [facility] ER visit on 04/01/25 d/t hematuria and [...] General anesthesia. Follow-up With When Contact Information Isabelle Alberts MD, URL, URO Additional Instructions: f/u pending if [...] above: Result Comment: Elec tronically Signed By: Isabelle Alberts MD\.br\Date and Time Signed: 04/09/25 09:11 EDT\.br\Electronically Co-Signed By: Mary Roberts\.br\Date and Time Co-Signed: 04/09/25 09:00 EDT Urine Cultureon 04-01-2025 Bacteria identified Cx Nom (U) No Growth 2 Days PERFORMED BY: [place] [address] PATHOLOGIST MECHANICAL DESIGNER STEFANIA BYRD M.D. Normal [facility] Comment on above: Performed By: #### C UU #### [address] Basophils Auto (Bld) [#/Vol] on 08-03-2024 Basophils (Bld) [#/Vol] 0.0 10 3/uL 0.0-0.1 [facility] Basophils (Bld) [#/Vol] Automated basoph il count 0.0-0.1 [facility] Basophils/100 WBC Auto (Bld) on 08-03-2024 Basophils/100 WBC (Bld) 0.9 % 0.2-2.0 [facility] Basophils/100 WBC (Bld) Automated basophil % 0. 2-2.0 [facility] Cholesterol in LDL Calc [Mas s/Vol]on 08-03-2024 Cholesterol in LDL [Mass/Vol] 109.2 mg/dL [facility] Comment on above: <100 mg/dl [id number] 0-129 mg/dl NEAR OR ABOVE [id number] mg/dl BORDERLINE [id number] mg/dl HIGH>190 mg/dl VERY HIGH Cholesterol in LDL [Mass/Vol] Cholesterol in LDL [Mass/volume] in Serum or Plasma by calculation [facility] Comment on above: <100 mg/dl [id number] 0-129 mg/dl NEAR OR ABOVE [id number] mg/dl BORDERLINE [id number] mg/dl HIGH>190 mg/dl VERY HIGH Cholesterol in VLDL Calc [Ma ss/Vol]on 08-03-2024 Cholesterol in VLDL [Mass/Vol] 13.8 mg/dL [facility] Cholesterol in VLDL [Mass/Vol] Cholesterol in VLDL [Mass/volume] in Serum or Plasma by calculation [facility] Eosinophils/100 WBC Auto (Bl d)on 08-03-2024 Eosinophils/100 WBC (Bld) 0.9 % 0.9-7.0 [facility] Eosinophils/100 WBC (Bld) Automated eosinophil % 0.9-7.0 [facility] Erythrocyte distribution wid th Auto (RBC) [Ratio]on 08-03-2024 Erythrocyte distribution width (RBC) [Ratio] 13.5 % 11.0-15.0 [facility] Erythrocyte distribution width (RBC) [Ratio] Erythrocyte distribution width [Ratio] by Automated count 11.0-15.0 [facility] Estimated glomerular filtrat ion rate (GFR) non- Americanon 08-03-2024 GFR/1.73 sq M.predicted among non-blacks MDRD (S/P/Bld) [Vol rate/Area] mL/min/{1.73_m2} >=60 mL/min/1.73m 2 [facility] GFR/1.73 sq M.predicted among non-blacks MDRD (S/P/Bld) [Vol rate/Area] Estimated glomerular filtration rate (GFR) non- >=60 mL/min/1.73m 2 [facility] Globulin Calc (S) [Mass/Vol] on 08-03-2024 Globulin (S) [Mass/Vol] 3.3 g/dL [facility] Globulin (S) [Mass/Vol] Serum globulin measurement by calculation (mass/volume) [facility] Glucose mean value [Mass/vol ume] in Blood Estimated from glycated hemoglobinon 08-03-2024 Average glucose Estimated from glycated hemoglobin (Bld) [Mass/Vol] 94 mg/dL [facility] Average glucose Estimated from glycated hemoglobin (Bld) [Mass/Vol] Glucose mean value [Mass/volume] in Blood Estimated from glycated hemoglobin [facility] Hematocrit Auto (Bld) [Volum e fraction]on 08-03-2024 Hematocrit (Bld) [Volume fraction] 49.9 % 42.0-54.0 [facility] Hematocrit (Bld) [Volume fraction] Hematocrit [Volume Fraction] of Blood by Automated count 42.0-54.0 [facility] Hemoglobin [Mass/volume] in Bloodon 08-03-2024 Hemoglobin (Bld) [Mass/Vol] 16.3 g/dL 14.0-18.0 [facility] Hemoglobin (Bld) [Mass/Vol] Hemoglobin [Mass/volume] in Blood 14.0-18.0 [facility] Laboratory - Chemistry and C hemistry - challengeon 08-03-2024 Albumin [Mass/Vol] 4.0 g/dL 3.4-5.[address] [facility] ALP [Catalytic activity/Vol] 100 U/L 46-116 [facility] ALT [Catalytic activity/Vol] 35 U/L 16-63 [facility] AST [Catalytic activity/Vol] 23 U/L 15-37 [facility] Bilirubin [Mass/Vol] 2.4 mg/dL High 0.2-1.0 [facility] Calcium [Mass/Vol] 9.4 mg/dL 8.5-10.[address] [facility] Chloride [Moles/Vol] 106 mmol/L 98-107 [facility] Cholesterol [Mass/Vol] 166 mg/dL <=200 [facility] Cholesterol in HDL [Mass/Vol] 43 mg/dL 40-60 [facility] Comment on above: > or =60 mg/dl - LOW CARDIOVASCULAR RISK<40 mg/dl - HIGH CARDIOVASCULAR RISK CO2 [Moles/Vol] 27.5 mmol/L 21.0-32.0 [facility] Creatinine [Mass/Vol] 1.10 mg/dL 0.70-1.30 [facility] GFR/1.73 sq M.predicted MDRD (S/P/Bld) [Vol rate/Area] mL/min/{1.73_m2} >=60 mL/min/1.73m 2 [facility] Glucose [Mass/Vol] 95 mg/dL 74-[address] [facility] Potassium [Moles/Vol] 4.2 mmol/L 3.5-5.1 [facility] Protein [Mass/Vol] 7.3 g/dL 6.4-8.[address] [facility] Sodium [Moles/Vol] 142 mmol/L 136-[address] [facility] Triglyceride [Mass/Vol] 69 mg/dL <=150 [facility] TSH Qn 1.807 m[IU]/L 0.358-3.740 [facility] Urea nitrogen [Mass/Vol] 18.0 mg/dL 7.0-18.0 [facility] Urea nitrogen/Creatinine [Mass ratio] 16.4 mg/mg [facility] Bilirubin Ql (U) Negative NEGATIVE [facility] Glucose (U) [Mass/Vol] Negative NEGATIVE Fi [facility] Ketones Ql (U) Negative NEGATIVE [facility] pH (U) 6.5 [pH] 5.0-9.0 [facility] Specific gravity (U) [Rel density] <=1.005 Abnormal 1.005-1.025 [facility] Urobilinogen Qn (U) 0.2 {Colby'U}/dL 0.2-1.0 [facility] Laboratory - Hematology and Cell countson 08-03-2024 HbA1c (Bld) [Mass fraction] 4.9 % 4.5-6.2 [facility] Comment on above: ADA RECOMMENDED LIMI T 4.0 - 6.0ADA THERAPEUTIC TARGET < 7.0ACTION SUGGESTED> 7.0 Immature granulocytes/100 WBC (Bld) 0.0 % 0.0-0.5 [facility] Laboratory - Specimen inform ationon 08-03-2024 Appearance (U) CLEAR CLEAR [facility] Color (U) LT. YELLOW YELLOW [facility] Laboratory - Urinalysison Leukocyte esterase Test strip Ql (U) Negative NEGATIVE [facility] Mucus Ql (Urine sed) NONE SEEN NONE SEEN [facility] Nitrite Ql (U) Negative NEGATIVE [facility] Protein Ql (U) Negative NEG/TRACE [facility] Leukocytes [#/volume] correc randolph for nucleated erythrocytes in Blood by Automated counon 08-03-2024 WBC corrected for nucl RBC Auto (Bld) [#/Vol] 4.3 10 3/uL 4.0-11.0 [facility] WBC corrected for nucl RBC Auto (Bld) [#/Vol] Leukocytes [#/volume] corrected for nucleated erythrocytes in Blood by Automated coun 4.0-11.0 [facility] Lymphocytes Auto (Bld) [#/Vo l]on 08-03-2024 Lymphocytes (Bld) [#/Vol] 1.4 10 3/uL 1.2-3.8 [facility] Lymphocytes (Bld) [#/Vol] Lymphocytes [#/volume] in Blood by Automated count 1.2-3.8 [facility] Lymphocytes/100 WBC Auto (Bl d)on 08-03-2024 Lymphocytes/100 WBC (Bld) 32.6 % 20.5-60.0 [facility] Lymphocytes/100 WBC (Bld) Lymphocytes/100 leukocytes in Blood by Automated count 20.5-60.0 [facility] MCH Auto (RBC) [Entitic mass ]on 08-03-2024 MCH (RBC) [Entitic mass] 29.9 pg 25.9-34.0 [facility] MCH (RBC) [Entitic mass] MCH [Entitic ma ss] by Automated count 25.9-34.0 [facility] MCHC Auto (RBC) [Mass/Vol]on 08-03-2024 MCHC (RBC) [Mass/Vol] 32.7 g/dL 29.9-35.2 [facility] MCHC (RBC) [Mass/Vol] MCHC [Mass/volume] by Automated count 29.9-35.2 [facility] MCV Auto (RBC) [Entitic vol] on 08-03-2024 MCV (RBC) [Entitic vol] 91.6 fL 80.0-94.0 [facility] MCV (RBC) [Entitic vol] MCV [Entitic vol ume] by Automated count 80.0-94.0 [facility] Monocytes Auto (Bld) [#/Vol] on 08-03-2024 Monocytes (Bld) [#/Vol] 0.5 10 3/uL 0.3-0.8 [facility] Monocytes (Bld) [#/Vol] Automated blood monocyte count 0.3-0.8 [facility] Monocytes/100 WBC Auto (Bld) on 08-03-2024 Monocytes/100 WBC (Bld) 11.8 % 1.7-12.0 [facility] Monocytes/100 WBC (Bld) Automated monocyte % 1. 7-12.0 [facility] Neutrophils Auto (Bld) [#/Vo l]on 08-03-2024 Neutrophils (Bld) [#/Vol] 2.3 10 3/uL 1.4-6.5 [facility] Neutrophils (Bld) [#/Vol] Neutrophils [#/volume] in Blood by Automated count 1.4-6.5 [facility] Neutrophils/100 WBC Auto (Bl d)on 08-03-2024 Neutrophils/100 WBC (Bld) 53.8 % 43.0-75.0 [facility] Neutrophils/100 WBC (Bld) Automated neutrophil % 43.0-75.0 [facility] No Panel Informationon 08-03 25-Hydroxy Vitamin D Total 32.9 ng/mL [facility] Comment on above: <20 ng/mL Vit D defi cient20-<30 ng/mL Vit D [id number] ng/mL Vit D sufficient>100 ng/mL Potential Toxicity Eosinophils # (Auto) 0.0 10 3/uL 0.0-0.7 [facility] Immature Granulocyte # (Auto) 0.00 10 3/uL 0.00-0.03 [facility] Prostate Specific Antigen Screen 0.69 ng/mL <=4.00 [facility] Urine Bacteria NONE SEEN #/HPF NONE SEEN [facility] Urine Occult Blood Negative NEGATIVE [facility] Urine Other Casts NONE SEEN #/LPF NONE SEEN [facility] Urine Other Crystals None Seen #/HPF None Seen [facility] Urine RBC NONE SEEN #/HPF 0-2 [facility] Urine Squamous Epithelial Cells RARE #/LPF NONE/RARE [facility] Urine WBC NONE SEEN #/HPF NONE SEEN [facility] Platelet mean volume Auto (B ld) [Entitic vol]on 08-03-2024 Platelet mean volume (Bld) [Entitic vol] 10.3 fL 9.5-13.5 [facility] Platelet mean volume (Bld) [Entitic vol] Platelet mean volume [Entitic volume] in Blood by Automated count 9.5-13.5 [facility] Platelets Auto (Bld) [#/Vol] on 08-03-2024 Platelets (Bld) [#/Vol] 236 10 3/uL 150-450 [facility] Platelets (Bld) [#/Vol] Platelets [#/vol ume] in Blood by Automated count 150-450 [facility] RBC Auto (Bld) [#/Vol]on RBC (Bld) [#/Vol] 5.45 10 6/uL 4.70-6.10 [facility] RBC (Bld) [#/Vol] Erythrocytes [#/volume] in Blood by Automated count 4.70-6.10 [facility] Serum or plasma albumin/glob ulin mass ratioon 08-03-2024 Albumin/Globulin [Mass ratio] 1.2 {ratio} [facility] Albumin/Globulin [Mass ratio] Serum or plasma albumin/globulin mass ratio [facility] Serum or plasma anion gap de terminationon 08-03-2024 Anion gap [Moles/Vol] 12.7 mmol/L [facility] Anion gap [Moles/Vol] Serum or plasma anion gap determination [facility] Serum or plasma total choles terol/high density lipoprotein (HDL) cholesterol mass en 08-03-2024 Cholesterol.total/Choles terol in HDL [Mass ratio] 3.9 {ratio} [facility] Comment on above: 3.3 - 4.4 LOW RISK4. 4 - 7.1 AVERAGE RISK7.1 - 11.0 MODERATE RISK>11.0 HIGH RISK Cholesterol.total/Choles terol in HDL [Mass ratio] Serum or plasma total cholesterol/high density lipoprotein (HDL) cholesterol mass rat [facility] Comment on above: 3.3 - 4.4 LOW RISK4. 4 - 7.1 AVERAGE RISK7.1 - 11.0 MODERATE RISK>11.0 HIGH RISK No Panel Informationon 01-14 Clostridium difficile (PCR)(LAB) Negative NEGATIVE [facility] Miscellaneous Test COMMENT . [facility] Comment on above: Test Ordered: [id number] Norovirus, RT-PCRNorovirus GI Negative BN Reference Range: NegativeNorovirus GII Positive [A ] BN Reference Range: NegativeThis test was developed and its performance characteristicsdetermined by [employer]. It has not been cleared or approvedby the Food and Drug Administration. The FDA hasdetermined that such clearance or approval is notnecessary.Performed at: [address] [id number] Director: Jossue Elizabeth MD, Phone: [phone] at: [address] [id number] Director: Prosper Peña PhD, Phone: [phone] Miscellaneous Test Comment See comment [facility] Comment on above: Specimen Source: [facility] Stool 700.100 Ova & Parasite Result 1 Comment . [facility] Comment on above: No ova, cysts, or pa rasites seen.One negative specimen does not rule out the possibility ofa parasitic infection.Performed at: [address] [id number] Director: Prosper Peña PhD, Phone: [phone] Ova and Parasites (LAB) Final report . [facility] Comment on above: These results were o btained using wet preparation(s) andtrichrome stained smear. This test does not include testingfor Cryptosporidium parvum, Cyclospora, or Microsporidia. Rotavirus Antigen (LAB) Negative Negative [facility] Comment on above: Performed at: [address] [id number] Director: Prosper Peña PhD, Phone: [phone] Stool Campylobacter Culture Res 1 See comment [facility] Comment on above: [facility], Stool Leukocytes, Qualitative <1.00 ug/mL(g) 0.00-7.24 [facility] Comment on above: Results verified b y [...] those with non-inflammatoryirritable bowel syndrome (IBS).Performed at: [facility] Lab[address] [id number] Director: Jossue Elizabeth MD, Phone: [phone] Stool Occult Blood Negative [facility] No Panel InformationOrdered By: Ana Gabriel on 01-15-2024 E coli Shiga Toxin EIA [facility] Salmonella/Shigella Screen [facility] VITAMIN D 25 OHon 09-29-2022 VIT D 25-OH 31.0 ng/mL Normal [facility] Comment on above: Performed By: #### V ITAD #### [facility] [address] [place] [address] Dr. Faith Quintana VIT D RANGES SEE BELOW Normal [facility] Comment on above: Result Comment: <20 ng/mL Vit D deficient 20 - <30 ng/mL Vit D insufficient 30 - 100 ng/mL Vit D sufficient >100 ng/mL Potential Toxicity Performed By: #### V ITAD #### [facility] [address] [address] [address] Faith Quintana UA RANDOM W/MICROSCOPICon AMORPHOUS CRYSTALS MODERATE Normal [facility] Comment on above: Performed By: #### U AMIC #### [facility] [address] [address] [address] Faith Quintana BACTERIA NONE SEEN Normal NONE SEEN [facility] Comment on above: Performed By: #### U AMIC #### [facility] [address] [address] [address] Faith Quintana Bilirubin Ql (U) Negative Normal NEGATIVE [facility] Comment on above: Performed By: #### U AMIC #### [facility] [address] [address] [address] Faith uQintana CAST NONE SEEN Normal NONE SEEN [facility] Comment on above: Performed By: #### U AMIC #### [facility] [address] [address] [address] Faith Quintana Clarity (U) CLEAR Normal CLEAR [facility] Comment on above: Performed By: #### U AMIC #### [facility] [address] [address] [address] Faith Quintana Color (U) LT. YELLOW Normal YELLOW [facility] Comment on above: Performed By: #### U AMIC #### [facility] [address] [address] [address] Faith Quintana Crystals LM Nom (Urine sed) SEEN Abnormal NONE SEEN [facility] Comment on above: Performed By: #### U AMIC #### [facility] [address] [address] [address] Faith Quintana Epithelial cells LM Ql (Urine sed) RARE Normal NONE SEEN /RARE [facility] Comment on above: Performed By: #### U AMIC #### [facility] [address] [place] [address] Dr. Faith Quintana Glucose Ql (U) Negative Normal NEGATIVE [facility] Comment on above: Performed By: #### U AMIC #### [facility] [address] [address] [address] Faith Quintana Hemoglobin Ql (U) TRACE-INTACT Abnormal NEGATIVE [facility] Comment on above: Performed By: #### U AMIC #### [facility] [address] [address] [address] Faith Quintana Ketones Ql (U) Negative Normal NEGATIVE [facility] Comment on above: Performed By: #### U AMIC #### [facility] [address] [address] [address] Faith Quintana LEUKOCYTES Negative Normal NEGATIVE [facility] Comment on above: Performed By: #### U AMIC #### [facility] [address] [place] [address] Dr. Faith Quintana MUCOUS NONE SEEN Normal NONE SEEN [facility] Comment on above: Performed By: #### U AMIC #### [facility] [address] [place] [address] Dr. Faith Quintana Nitrite Ql (U) Negative Normal NEGATIVE [facility] Comment on above: Performed By: #### U AMIC #### [facility] [address] [place] [address] Dr. Faith Quintana pH (U) 6.5 [pH] Normal 5-9 [facility] Comment on above: Performed By: #### U AMIC #### [facility] [address] [place] [address] Dr. Faith Quintana RBC 0-2 Normal 0-2 [facility] Comment on above: Performed By: #### U AMIC #### [facility] [address] [place] [address] Dr. Faith Quintana SPEC GRAVITY 1.020 Normal 1.005-<=1.02 5 [facility] Comment on above: Performed By: #### U AMIC #### [facility] [address] [place] [address] Dr. Faith Quintana UA PROTEIN Negative Normal NEGATIVE/ TRACE [facility] Comment on above: Performed By: #### U AMIC #### [facility] [address] [place] [address] Dr. Faith Quintana Urobilinogen Qn (U) 0.2 {Colby'U}/dL Normal 0.2 - 1. 0 [facility] Comment on above: Performed By: #### U AMIC #### [facility] [address] [place] [address] Dr. Faith Quintana WBC NONE SEEN Normal NONE SEEN [facility] Comment on above: Performed By: #### U AMIC #### [facility] [address] [place] [address] Dr. Faith Quintana CBC AUTO DIFFon 10-01-2022 BASO # 0.0 103/ul Normal 0.0-0.1 [facility] Comment on above: Performed By: #### C BC #### [facility] [address] [place] [address] Dr. Faith Quintana Basophils/100 WBC (Bld) 0.9 % Normal 0.2-2.0 [facility] Comment on above: Performed By: #### C BC #### [facility] [address] [place] [address] Dr. Faith Quintana EO # 0.1 103/ul Normal 0.0-0.7 [facility] Comment on above: Performed By: #### C BC #### [facility] [address] [place] [address] Dr. Faith Quintana Eosinophils/100 WBC (Bld) 1.2 % Normal 0.9-7.0 [facility] Comment on above: Performed By: #### C BC #### [facility] [address] [place] [address] Dr. Faith Quintana Erythrocyte distribution width (RBC) [Ratio] 13.7 % Normal 11.0-15.0 [facility] Comment on above: Performed By: #### C BC #### [facility] [address] [place] [address] Dr. Faith Quintana Hematocrit (Bld) [Volume fraction] 50.2 % Normal 42.0-54.0 [facility] Comment on above: Performed By: #### C BC #### [facility] [address] [place] [address] Dr. Faith Quintana Hemoglobin (Bld) [Mass/Vol] 16.4 g/dL Normal 14.0-18.0 [facility] Comment on above: Performed By: #### C BC #### [facility] [address] [place] [address] Dr. Faith Quintana IG # 0.01 10e3/ul Normal 0.00-0.03 [facility] Comment on above: Performed By: #### C BC #### [facility] [address] [place] [address] Dr. Faith Quintana IG % 0.2 % Normal 0.0-0.5 [facility] Comment on above: Performed By: #### C BC #### [facility] [address] [place] [address] Dr. Faith Quintana LYMPH # 1.5 103/ul Normal 1.2-3.8 [facility] Comment on above: Performed By: #### C BC #### [facility] [address] [place] [address] Dr. Faith Quintana Lymphocytes/100 WBC (Bld) 34.7 % Normal 20.5-60.0 [facility] Comment on above: Performed By: #### C BC #### [facility] [address] [place] [address] Dr. Faith Quintana MANUAL DIFF REQ NO Normal [facility] Comment on above: Performed By: #### C BC #### [facility] [address] [place] [address] Dr. Faith Quintana MCH (RBC) [Entitic mass] 29.7 pg Normal 25.9-34.0 [facility] Comment on above: Performed By: #### C BC #### [facility] [address] [place] [address] Dr. Faith Quintana MCHC (RBC) [Mass/Vol] 32.7 g/dL Normal 29.9-35.2 [facility] Comment on above: Performed By: #### C BC #### [facility] [address] [place] [address] Dr. Faith Quintana MCV (RBC) [Entitic vol] 90.8 fL Normal 80.0-94.0 [facility] Comment on above: Performed By: #### C BC #### [facility] [address] [place] [address] Dr. Faith Quintana MONO # 0.5 103/ul Normal 0.3-0.8 [facility] Comment on above: Performed By: #### C BC #### [facility] [address] [place] [address] Dr. Faith Quintana Monocytes/100 WBC (Bld) 11.2 % Normal 1.7-12.0 [facility] Comment on above: Performed By: #### C BC #### [facility] [address] [place] [address] Dr. Faith Quintana NEUT # 2.2 103/ul Normal 1.4-6.5 [facility] Comment on above: Performed By: #### C BC #### [facility] [address] [place] [address] Dr. Faith Quintana Neutrophils/100 WBC (Bld) 51.8 % Normal 43.0-75.0 [facility] Comment on above: Performed By: #### C BC #### [facility] [address] [place] [address] Dr. Faith Quintana Platelet mean volume (Bld) [Entitic vol] 10.3 fL Normal 9.5-13.5 [facility] Comment on above: Performed By: #### C BC #### [facility] [address] [place] [address] Dr. Faith Quintana PLT 227 103/ul Normal 150-450 [facility] Comment on above: Performed By: #### C BC #### [facility] [address] [place] [address] Dr. Faith Quintana RBC 5.53 106/ul Normal 4.70-6.10 [facility] Comment on above: Performed By: #### C BC #### [facility] [address] [place] [address] Dr. Faith Quintana WBC 4.3 103/ul Normal 4.0-11.0 [facility] Comment on above: Performed By: #### C BC #### [facility] [address] [place] [address] Dr. Faith Quintana GLYCOHEMOGLOBIN A1Con 2021 ADA RECOMMENDATION SEE BELOW Normal [facility] Comment on above: Result Comment: ADA RECOMMENDED LIMIT 4.0 - 6.0 ADA THERAPEUTIC TARGET < 7.0 ACTION SUGGESTED > 7.0 Performed By: #### A 1C #### [facility] [address] [place] [address] Dr. Faith Quintana Glucose [Mass/Vol] 100 mg/dL Normal [facility] Comment on above: Performed By: #### A 1C #### [facility] [address] [address] [address] Faith Quintana HbA1c (Bld) [Mass fraction] 5.1 % Normal 4.5-6.2 [facility] Comment on above: Performed By: #### A 1C #### [facility] [address] [address] [address] Faith Quintana LIPID PROFILEon 07-09-2022 CHOL-HDL RATIO NORM SEE BELOW Normal [facility] Comment on above: Result Comment: 3.3 - 4.4 LOW RISK 4.4 - 7.1 AVERAGE RISK 7.1 - 11.0 MODERATE RISK >11.0 HIGH RISK Performed By: #### T SH, CMP, LIPID #### [facility] [address] [address] [address] Faith Quintana Cholesterol [Mass/Vol] 192 mg/dL Normal <=200 [facility] Comment on above: Performed By: #### T SH, CMP, LIPID #### [facility] [address] [address] [address] Faith Quintana Cholesterol in HDL [Mass/Vol] 36 mg/dL Critically low 40-60 [facility] Comment on above: Performed By: #### T SH, CMP, LIPID #### [facility] [address] [address] [address] Faith Quintana Cholesterol in LDL [Mass/Vol] 136.2 mg/dL Normal [facility] Comment on above: Performed By: #### T SH, CMP, LIPID #### [facility] [address] [address] [address] Faith Quintana Cholesterol.total/Choles terol in HDL [Mass ratio] 5.3 {ratio} Normal [facility] Comment on above: Performed By: #### T SH, CMP, LIPID #### [facility] [address] [address] [address] Faith Quintana HDL NORMAL > or = 60 mg/dl - LOW CARDIOVASCULAR RISK <40 mg/dl - HIGH CARDIOVASCULAR RISK Normal [facility] Comment on above: Performed By: #### T SH, CMP, LIPID #### [facility] [address] [address] [address] Faith Quintana LDL CALC NORMAL SEE BELOW Normal [facility] Comment on above: Result Comment: <100 mg/dl OPTIMAL 100 - 129 mg/dl NEAR OR ABOVE OPTIMAL 130 - 159 mg/dl BORDERLINE HIGH 160 - 189 mg/dl HIGH >190 mg/dl VERY HIGH Performed By: #### T SH, CMP, LIPID #### [facility] [address] [address] [address] Faith Quintana Triglyceride [Mass/Vol] 99 mg/dL Normal <=150 [facility] Comment on above: Performed By: #### T SH, CMP, LIPID #### [facility] [address] [address] [address] Faith Quintana VLDL CALC 19.8 mg/dL Normal [facility] Comment on above: Performed By: #### T SH, CMP, LIPID #### [facility] [address] [address] [address] Faith Quintana PROF 14(COMP METB)on 022 Albumin [Mass/Vol] 4.2 g/dL Normal 3.4-5.[address] [facility] Comment on above: Performed By: #### T SH, CMP, LIPID #### [facility] [address] [address] [address] Faith Quintana Albumin/Globulin [Mass ratio] 1.3 {ratio} Normal [facility] Comment on above: Performed By: #### T SH, CMP, LIPID #### [facility] [address] [address] [address] Faith Quintana ALP [Catalytic activity/Vol] 120 U/L Critically high 46-116 [facility] Comment on above: Performed By: #### T SH, CMP, LIPID #### [facility] [address] [address] [address] Faith Quintana ALT [Catalytic activity/Vol] 37 U/L Normal 16-63 [facility] Comment on above: Performed By: #### T SH, CMP, LIPID #### [facility] [address] [address] [address] Faith Quintana Anion gap [Moles/Vol] 9.2 mmol/L Normal [facility] Comment on above: Performed By: #### T SH, CMP, LIPID #### [facility] [address] [address] [address] Faith Quintana AST [Catalytic activity/Vol] 19 U/L Normal 15-37 [facility] Comment on above: Performed By: #### T SH, CMP, LIPID #### [facility] [address] [address] [address] Faith Quintana Bilirubin [Mass/Vol] 1.8 mg/dL Critically high 0.2-1.0 [facility] Comment on above: Performed By: #### T SH, CMP, LIPID #### [facility] [address] [address] [address] Faith Quintana Calcium [Mass/Vol] 8.8 mg/dL Normal 8.5-10.[address] [facility] Comment on above: Performed By: #### T SH, CMP, LIPID #### [facility] [address] [address] [address] Faith Quintana Chloride [Moles/Vol] 102 mmol/L Normal 98-107 [facility] Comment on above: Performed By: #### T SH, CMP, LIPID #### [facility] [address] [address] [address] Faith Quintana CO2 [Moles/Vol] 27.6 mmol/L Normal 21.0-32.0 [facility] Comment on above: Performed By: #### T SH, CMP, LIPID #### [facility] [address] [address] [address] Faith Quintana Creatinine [Mass/Vol] 1.00 mg/dL Normal 0.70-1.30 [facility] Comment on above: Performed By: #### T SH, CMP, LIPID #### [facility] [address] [address] [address] Faith Quintana EGFR-AF MAURITIAN >60 Normal >=60 [facility] Comment on above: Performed By: #### T SH, CMP, LIPID #### [facility] [address] [address] [address] Faith Quintana EGFR-NON AF MAURITIAN >60 Normal >=60 [facility] Comment on above: Performed By: #### T SH, CMP, LIPID #### [facility] [address] [address] [address] Faith Quintana Globulin (S) [Mass/Vol] 3.3 g/dL Normal [facility] Comment on above: Performed By: #### T SH, CMP, LIPID #### [facility] [address] [address] [address] Faith Quintana Glucose [Mass/Vol] 91 mg/dL Normal 74-[address] [facility] Comment on above: Performed By: #### T SH, CMP, LIPID #### [facility] [address] [place] [address] Dr. Faith Quintana Potassium [Moles/Vol] 3.8 mmol/L Normal 3.5-5.1 [facility] Comment on above: Performed By: #### T SH, CMP, LIPID #### [facility] [address] [address] [address] Faith Quintana Protein [Mass/Vol] 7.5 g/dL Normal 6.4-8.[address] [facility] Comment on above: Performed By: #### T SH, CMP, LIPID #### [facility] [address] [address] [address] Faith Quintana Sodium [Moles/Vol] 135 mmol/L Critically low 136-145 [facility] Comment on above: Performed By: #### T SH, CMP, LIPID #### [facility] [address] [address] [address] Faith Quintana Urea nitrogen [Mass/Vol] 19.0 mg/dL Critically high 7.0-18 .0 [facility] Comment on above: Performed By: #### T SH, CMP, LIPID #### [facility] [address] [address] [address] Faith Quintana Urea nitrogen/Creatinine [Mass ratio] 19.0 mg/mg Normal [facility] Comment on above: Performed By: #### T SH, CMP, LIPID #### [facility] [address] [place] [address] Dr. Faith Quintana TSHon 07-09-2022 TSH 1.378 uIU/mL Normal 0.358-3.740 [facility] Comment on above: Performed By: #### T SH, CMP, LIPID #### [facility] [address] [place] [address] Dr. Faith Quintana UA RANDOMon 07-09-2022 Bilirubin Ql (U) Negative Normal NEGATIVE [facility] Comment on above: Performed By: #### U A #### [facility] [address] [place] [address] Dr. Faith Quintana Clarity (U) CLEAR Normal CLEAR [facility] Comment on above: Performed By: #### U A #### [facility] [address] [place] [address] Dr. Faith Quintana Color (U) LT. YELLOW Normal YELLOW [facility] Comment on above: Performed By: #### U A #### [facility] [address] [place] [address] Dr. Faith Quintana Glucose Ql (U) Negative Normal NEGATIVE [facility] Comment on above: Performed By: #### U A #### [facility] [address] [place] [address] Dr. Faith Quintana Hemoglobin Ql (U) TRACE-INTACT Abnormal NEGATIVE [facility] Comment on above: Performed By: #### U A #### [facility] [address] [place] [address] Dr. Faith Quintana Ketones Ql (U) Negative Normal NEGATIVE [facility] Comment on above: Performed By: #### U A #### [facility] [address] [place] [address] Dr. Faith Quintana LEUKOCYTES Negative Normal NEGATIVE [facility] Comment on above: Performed By: #### U A #### [facility] [address] [place] [address] Dr. Faith Quintana Nitrite Ql (U) Negative Normal NEGATIVE [facility] Comment on above: Performed By: #### U A #### [facility] [address] [place] [address] Dr. Faith Quintana pH (U) 6.0 [pH] Normal 5-9 [facility] Comment on above: Performed By: #### U A #### [facility] [address] [place] [address] Dr. Faith Quintana SPEC GRAVITY 1.015 Normal 1.005-<=1.02 5 [facility] Comment on above: Performed By: #### U A #### [facility] [address] [place] [address] Dr. Faith Quintana UA PROTEIN Negative Normal NEGATIVE/ TRACE [facility] Comment on above: Performed By: #### U A #### [facility] [address] [place] [address] Dr. Faith Quintana Urobilinogen Qn (U) 0.2 {Colby'U}/dL Normal 0.2 - 1. 0 [facility] Comment on above: Performed By: #### U A #### [facility] [address] [place] [address] Dr. Faith Quintana VITAMIN D 25 OHon 07-09-2022 VIT D 25-OH 26.4 ng/mL Normal [facility] Comment on above: Performed By: #### V ITAD #### [facility] [address] [place] [address] Dr. Faith Quintana VIT D RANGES SEE BELOW Normal [facility] Comment on above: Result Comment: <20 ng/mL Vit D deficient 20 - <30 ng/mL Vit D insufficient 30 - 100 ng/mL Vit D sufficient >100 ng/mL Potential Toxicity Performed By: #### V ITAD #### [facility] [address] [place] [address] Dr. Faith Quintana Bacteria identified Anaer cx Nom (Unsp spec)Ordered By: Monae Daily on 05-22-2022 Anaerobic microbial culture No Anaerobes Isolated 3 Days [facility] Bacterial blood cultureOrder ed By: Aicha Mane on 05-22-2022 Bacteria identified Cx Nom (Bld) NO GROWTH 5 DAYS [facility] Bacteria identified Aer cx N om (Unsp spec)Ordered By: Monae Daily on 05-21-2022 Aerobic Culture Beta strep not Group A or B [facility] Basophils Auto (Bld) [#/Vol] Ordered By: Kacie Antunez on 05-21-2022 Basophils (Bld) [#/Vol] 0.1 10*3/uL 0.0-0.2 [facility] Basophils/100 WBC Auto (Bld) Ordered By: Kacie Antunez on 05-21-2022 Basophils/100 WBC (Bld) 0.9 % . [facility] Blood hemoglobin measurement (mass/volume)Ordered By: Kacie Antunez on 05-21-2022 Hemoglobin (Bld) [Mass/Vol] 14.5 g/dL 13.0-17.0 [facility] Blood leukocytes automated c ount (number/volume)Ordered By: Kacie Antunez on 05-21-2022 WBC (Bld) [#/Vol] 5.7 10*3/uL 4.5-11.[address] [facility] Creatinine and Glomerular fi ltration rate.predicted panel (S/P/Bld)Ordered By: Kacie Antunez on 05-21-2022 Creatinine [Mass/Vol] 0.95 mg/dL 0.64-1.27 [facility] Eosinophils Auto (Bld) [#/Vo l]Ordered By: Kacie Antunez on 05-21-2022 Eosinophils (Bld) [#/Vol] 0.1 10*3/uL 0.0-0.45 [facility] Eosinophils/100 WBC Auto (Bl d)Ordered By: Kacie Antunez on 05-21-2022 Eosinophils/100 WBC (Bld) 2.6 % . [facility] Erythrocyte distribution wid th Auto (RBC) [Ratio]Ordered By: Kacie Antunez on 05-21-2022 Erythrocyte distribution width (RBC) [Ratio] 14.1 % 12.0-14.8 [facility] Estimated glomerular filtrat ion rate (GFR) non- AmericanOrdered By: Kacie Antunez on 05-21-2022 GFR/1.73 sq M.predicted among non-blacks MDRD (S/P/Bld) [Vol rate/Area] > 60 mL/Min [facility] Hematocrit Auto (Bld) [Volum e fraction]Ordered By: Kacie Antunez on 05-21-2022 Hematocrit (Bld) [Volume fraction] 44.1 % 38.8-50.0 [facility] Laboratory - Hematology and Cell countsOrdered By: Kacie Antunez on 05-21-2022 Nucleated RBC/100 WBC (Bld) [Ratio] 0.0 % 0-0.5 [facility] Lymphocytes Auto (Bld) [#/Vo l]Ordered By: Kacie Antunez on 05-21-2022 Lymphocytes (Bld) [#/Vol] 1.1 10*3/uL 1.00-4.8 [facility] Lymphocytes/100 WBC Auto (Bl d)Ordered By: Kacie Antunez on 05-21-2022 Lymphocytes/100 WBC (Bld) 18.8 % . [facility] MCH Auto (RBC) [Entitic mass ]Ordered By: Kacie Antunez on 05-21-2022 MCH (RBC) [Entitic mass] 30.1 pg 27.5-35.2 [facility] MCHC Auto (RBC) [Mass/Vol]Or dered By: Kacie Antunez on 05-21-2022 MCHC (RBC) [Mass/Vol] 32.9 g/dL 32.5-35.6 [facility] MCV Auto (RBC) [Entitic vol] Ordered By: Kacie Antunez on 05-21-2022 MCV (RBC) [Entitic vol] 91.5 fL 83.5-101 [facility] Monocytes Auto (Bld) [#/Vol] Ordered By: Kacie Antunez on 05-21-2022 Monocytes (Bld) [#/Vol] 0.7 10*3/uL 0.0-0.8 [facility] Monocytes/100 WBC Auto (Bld) Ordered By: Kacie Antunez on 05-21-2022 Monocytes/100 WBC (Bld) 11.7 % . [facility] Neutrophils Auto (Bld) [#/Vo l]Ordered By: Kacie Antunez on 05-21-2022 Neutrophils (Bld) [#/Vol] 3.7 10*3/uL 1.8-7.7 [facility] Neutrophils/100 WBC Auto (Bl d)Ordered By: Kacie Antunez on 05-21-2022 Neutrophils/100 WBC (Bld) 66.0 % . [facility] No Panel InformationOrdered By: Kacie Antunez on 05-21-2022 Estimated GFR () > 60 mL/Min [facility] [facility] Comment on above: GFR estimated refere nce range: According to KDOQI guidelines, <60 ml/min/1.73m2 is sufficient to diagnose a patient with chronic kidney disease. Pharmacy Creatinine Clearance (Chem 115.52 [facility] Peak vancomycin levelOrdered By: Kacie Antunez on 05-21-2022 Vancomycin peak [Mass/Vol] 25.3 ug/mL 20.0-40.0 [facility] Comment on above: Last dose: - Platelet mean volume Auto (B ld) [Entitic vol]Ordered By: Kacie Antunez on 05-21-2022 Platelet mean volume (Bld) [Entitic vol] 9.1 fL 6.6-10.1 [facility] Platelets Auto (Bld) [#/Vol] Ordered By: Kacie Antunez on 05-21-2022 Platelets (Bld) [#/Vol] 208 10*3/uL 150-450 [facility] RBC Auto (Bld) [#/Vol]Ordere d By: Kacie Antunez on 05-21-2022 RBC (Bld) [#/Vol] 4.82 10*6/uL 3.90-5.60 [facility] Serum or plasma calcium lola urement (mass/volume)Ordered By: Kacie Antunez on 05-21-2022 Calcium [Mass/Vol] 9.3 mg/dL 8.2-10.[address] [facility] Serum or plasma chloride moose surement (moles/volume)Ordered By: Kacie Antunez on 05-21-2022 Chloride [Moles/Vol] 108 mmol/L 95-114 [facility] Serum or plasma glucose lola urement (mass/volume)Ordered By: Kacie Anutnez on 05-21-2022 Glucose [Mass/Vol] 76 mg/dL 70-[address] [facility] Comment on above: ADA recommended refe rence range Random Glucose Reference Range is dependent on time and content of last meal. Glucose of more than 200 mg/dL in a nonstressed, ambulatory subject supports the diagnosis of Diabetes Mellitus. Serum or plasma potassium me asurement (moles/volume)Ordered By: Kacie Antunez on 05-21-2022 Potassium [Moles/Vol] 3.9 mmol/L 3.5-5.1 [facility] Serum or plasma sodium measu rement (moles/volume)Ordered By: Kacie Antunez on 05-21-2022 Sodium [Moles/Vol] 140 mmol/L 136-[address] [facility] Serum or plasma total carbon dioxide measurement (moles/volume)Ordered By: Kacie Antunez on 05-21-2022 CO2 [Moles/Vol] 22.1 mmol/L 22.0-30.0 [facility] Serum or plasma urea nitroge n measurement (mass/volume)Ordered By: Kacie Antunez on 05-21-2022 Urea nitrogen [Mass/Vol] 12 mg/dL 9-23 [facility] ABO and Rh group post transf usion reaction Nom (Bld)Ordered By: Monae Daily on 05-20-2022 Microscopic observation Gram stain Nom (Unsp spec) [facility] Serum or plasma trough vanco mycin levelOrdered By: Kacie Antunez on 05-20-2022 Vancomycin trough [Mass/Vol] 13.1 ug/mL 10.0-20.0 [facility] Comment on above: Last dose: - Activated partial thrombopla stin time (aPTT) in platelet poor plasma by coagulation aOrdered By: Kacie Antunez on 05-19-2022 aPTT Coag (PPP) [Time] 28.7 s 25.1-36.5 [facility] Albumin [Mass/volume] in Ser um or PlasmaOrdered By: Kacie Antunez on 05-19-2022 Albumin [Mass/Vol] 3.2 g/dL 3.2-5.[address] [facility] Globulin Calc (S) [Mass/Vol] Ordered By: Kacie Antunez on 05-19-2022 Globulin (S) [Mass/Vol] 2.5 g/dL [facility] - CoagulationOrde red By: Kacie Antunez on 05-19-2022 PT Coag (PPP) [Time] 14.4 s 9.0-12.9 [facility] Platelet poor plasma interna tional normalized ratio (INR) by coagulation assay (relatOrdered By: Kacie Antunez on 05-19-2022 INR Coag (PPP) [Relative time] 1.3 {INR} [facility] Comment on above: INR Therapeutic Rang e [...] on 05-19-2022 Protein [Mass/Vol] 5.7 g/dL 6.1-7.[address] [facility] Serum or plasma alanine talley otransferase measurement without P-5'-P (enzymatic activiOrdered By: Kacie Antunez on 05-19-2022 ALT No additional P-5'-P [Catalytic activity/Vol] 22 U/L 10-60 [facility] Serum or plasma albumin/glob ulin mass ratioOrdered By: Kacie Antunez on 05-19-2022 Albumin/Globulin [Mass ratio] 1.3 {ratio} [facility] Serum or plasma alkaline cristopher sphatase measurement (enzymatic activity/volume)Ordered By: Kacie Antunez on 05-19-2022 ALP [Catalytic activity/Vol] 62 U/L 32-92 [facility] Serum or plasma aspartate am inotransferase measurement (enzymatic activity/volume)Ordered By: Kacie Antunez on 05-19-2022 AST [Catalytic activity/Vol] 18 U/L 10-42 [facility] Serum or plasma total biliru bin measurement (mass/volume)Ordered By: Kacie Antunez on 05-19-2022 Bilirubin [Mass/Vol] 2.2 mg/dL 0.3-1.2 [facility] Comment on above: Samples from patient s who have taken Naproxen have shown spurious elevation in Total Bilirubin levels. A metabolite of Naproxen, O-desmethylnaproxen, has been shown to interfere with the Gricelda-Kenji method for measuring Total Bilirubin. C reactive protein [Mass/vol ume] in Serum or PlasmaOrdered By: Matthew Sneed on 05-18-2022 CRP [Mass/Vol] 11.8 mg/dL 0.0-1.0 [facility] COVID-19 Positive/NegativeOr dered By: Matthew Sneed on 05-18-2022 SARS-CoV-2 (COVID-19) N gene ARIELLE+probe Ql (Resp) Positive Negative [facility] Comment on above: Positive results joe l only be called to Providers for the following groups of patients: Pre-Surgical Testing, Emergency Room, and Inpatients. Results called at [phone] on 05/18/22 Testing for SARS-CoV-2 by RT-PCR This test was developed and its performance characteristics determined by [employer] ([employer]) and validated at the [facility]. This test has not been FDA cleared [...] (COVID-19) Ag IA.rapid Ql (Resp) Negative Negative [facility] Comment on above: This is a duplicate Nina SARS Antigen (CATRACHO) result to be used for statistical tracking purpose only. Creatine kinase [Enzymatic a ctivity/volume] in Serum or PlasmaOrdered By: Jennifer Momin on 05-18-2022 CK [Catalytic activity/Vol] 237 U/L 22-269 [facility] Erythrocyte sedimentation ra te by Photometric methodOrdered By: Matthew Sneed on 05-18-2022 ESR Photometric method (Bld) [Velocity] 4 mm/hr 0-14 [facility] Laboratory - Microbiology an d Antimicrobial susceptibilityOrdered By: Matthew Sneed on 05-18-2022 SARS-CoV-2 (COVID-19) RNA ARIELLE+probe Ql (Unsp spec) N/A [facility] No Panel InformationOrdered By: Matthew Sneed on 05-18-2022 SARS Antigen (LFIA) [facility] Urine lactic acid measuremen tOrdered By: Matthew Sneed on 05-18-2022 Lactate (U) [Moles/Vol] 1.2 mmol/L 0.5-2.2 [facility] Basophils Auto (Bld) [#/Vol] Ordered By: Aicha Mane on 05-17-2022 Basophils (Bld) [#/Vol] 0.0 10*3/uL 0.0-0.2 [facility] Basophils/100 WBC Auto (Bld) Ordered By: Aicha Mane on 05-17-2022 Basophils/100 WBC (Bld) 0.3 % . [facility] Blood hemoglobin measurement (mass/volume)Ordered By: Aicha Mane on 05-17-2022 Hemoglobin (Bld) [Mass/Vol] 16.9 g/dL 13.0-17.0 [facility] Blood leukocytes automated c ount (number/volume)Ordered By: Aicha Mane on 05-17-2022 WBC (Bld) [#/Vol] 16.8 10*3/uL 4.5-11.0 [facility] Body fluid albumin measureme nt (mass/volume)Ordered By: Aicha Mane on 05-17-2022 Albumin (Body fld) [Mass/Vol] 4.8 g/dL 3.2-5.5 [facility] Creatinine and Glomerular fi ltration rate.predicted panel (S/P/Bld)Ordered By: Aicha Lawsonimore on 05-17-2022 Creatinine [Mass/Vol] 1.06 mg/dL 0.64-1.27 [facility] Eosinophils Auto (Bld) [#/Vo l]Ordered By: Aicha Bullimore on 05-17-2022 Eosinophils (Bld) [#/Vol] 0.0 10*3/uL 0.0-0.45 [facility] Eosinophils/100 WBC Auto (Bl d)Ordered By: Aicha Bullimore on 05-17-2022 Eosinophils/100 WBC (Bld) 0.2 % . [facility] Erythrocyte distribution wid th Auto (RBC) [Ratio]Ordered By: Aicha Benzore on 05-17-2022 Erythrocyte distribution width (RBC) [Ratio] 13.4 % 12.0-14.8 [facility] Estimated glomerular filtrat ion rate (GFR) non- AmericanOrdered By: Aicha Benzore on 05-17-2022 GFR/1.73 sq M.predicted among non-blacks MDRD (S/P/Bld) [Vol rate/Area] > 60 mL/Min [facility] Globulin Calc (S) [Mass/Vol] Ordered By: Aicha Mane on 05-17-2022 Globulin (S) [Mass/Vol] 3.1 g/dL [facility] Hematocrit Auto (Bld) [Volum e fraction]Ordered By: Aicha Bullimore on 05-17-2022 Hematocrit (Bld) [Volume fraction] 50.9 % 38.8-50.0 [facility] Laboratory - Hematology and Cell countsOrdered By: Aicha Bullimore on 05-17-2022 Nucleated RBC/100 WBC (Bld) [Ratio] 0.0 % 0-0.5 [facility] Lymphocytes Auto (Bld) [#/Vo l]Ordered By: Aicha Bullimore on 05-17-2022 Lymphocytes (Bld) [#/Vol] 0.8 10*3/uL 1.00-4.8 [facility] Lymphocytes/100 WBC Auto (Bl d)Ordered By: Aicha Bullimore on 05-17-2022 Lymphocytes/100 WBC (Bld) 4.7 % . [facility] MCH Auto (RBC) [Entitic mass ]Ordered By: Aicha Bullimore on 05-17-2022 MCH (RBC) [Entitic mass] 30.0 pg 27.5-35.2 [facility] MCHC Auto (RBC) [Mass/Vol]Or dered By: Aicha Bullimore on 05-17-2022 MCHC (RBC) [Mass/Vol] 33.2 g/dL 32.5-35.6 [facility] MCV Auto (RBC) [Entitic vol] Ordered By: Aicha Bullimore on 05-17-2022 MCV (RBC) [Entitic vol] 90.4 fL 83.5-101 [facility] Monocytes Auto (Bld) [#/Vol] Ordered By: Aicha Bullimore on 05-17-2022 Monocytes (Bld) [#/Vol] 1.1 10*3/uL 0.0-0.8 [facility] Monocytes/100 WBC Auto (Bld) Ordered By: Aicha Bullimore on 05-17-2022 Monocytes/100 WBC (Bld) 6.4 % . [facility] Neutrophils Auto (Bld) [#/Vo l]Ordered By: Aicha Bullimore on 05-17-2022 Neutrophils (Bld) [#/Vol] 14.8 10*3/uL 1.8-7.7 [facility] Neutrophils/100 WBC Auto (Bl d)Ordered By: Aicha Bullimore on 05-17-2022 Neutrophils/100 WBC (Bld) 88.4 % . [facility] No Panel InformationOrdered By: Aicha Lawsonimore on 05-17-2022 Estimated GFR () > 60 mL/Min [facility] Comment on above: GFR estimated refere nce range: According to KDOQI guidelines, <60 ml/min/1.73m2 is sufficient to diagnose a patient with chronic kidney disease. Pharmacy Creatinine Clearance (Chem 103.33 [facility] Platelet mean volume Auto (B ld) [Entitic vol]Ordered By: Aicha Mane on 05-17-2022 Platelet mean volume (Bld) [Entitic vol] 9.0 fL 6.6-10.1 [facility] Platelets Auto (Bld) [#/Vol] Ordered By: Aicha Lawsonimore on 05-17-2022 Platelets (Bld) [#/Vol] 235 10*3/uL 150-450 [facility] Protein [Mass/volume] in Ser um or PlasmaOrdered By: Aicha Mane on 05-17-2022 Protein [Mass/Vol] 7.9 g/dL 6.1-7.[address] [facility] RBC Auto (Bld) [#/Vol]Ordere d By: Aicha Benzore on 05-17-2022 RBC (Bld) [#/Vol] 5.63 10*6/uL 3.90-5.60 [facility] Serum or plasma alanine talley otransferase measurement without P-5'-P (enzymatic activiOrdered By: Aicha Mane on 05-17-2022 ALT No additional P-5'-P [Catalytic activity/Vol] 32 U/L 10-60 [facility] Serum or plasma albumin/glob ulin mass ratioOrdered By: Aicha Mane on 05-17-2022 Albumin/Globulin [Mass ratio] 1.5 {ratio} [facility] Serum or plasma alkaline cristopher sphatase measurement (enzymatic activity/volume)Ordered By: Aicha Mane on 05-17-2022 ALP [Catalytic activity/Vol] 86 U/L 32-92 [facility] Serum or plasma aspartate am inotransferase measurement (enzymatic activity/volume)Ordered By: Aicha Mane on 05-17-2022 AST [Catalytic activity/Vol] 25 U/L 10-42 [facility] Serum or plasma calcium lola urement (mass/volume)Ordered By: Aicha Mane on 05-17-2022 Calcium [Mass/Vol] 9.9 mg/dL 8.2-10.[address] [facility] Serum or plasma chloride moose surement (moles/volume)Ordered By: Aicha Mane on 05-17-2022 Chloride [Moles/Vol] 101 mmol/L 95-114 [facility] Serum or plasma glucose lola urement (mass/volume)Ordered By: Aicha Mane on 05-17-2022 Glucose [Mass/Vol] 105 mg/dL 70-[address] [facility] Comment on above: ADA recommended refe rence range Random Glucose Reference Range is dependent on time and content of last meal. Glucose of more than 200 mg/dL in a nonstressed, ambulatory subject supports the diagnosis of Diabetes Mellitus. Serum or plasma potassium me asurement (moles/volume)Ordered By: Aicha Mane on 05-17-2022 Potassium [Moles/Vol] 3.9 mmol/L 3.5-5.1 [facility] Serum or plasma sodium measu rement (moles/volume)Ordered By: Aihca Mane on 05-17-2022 Sodium [Moles/Vol] 138 mmol/L 136-[address] [facility] Serum or plasma total biliru bin measurement (mass/volume)Ordered By: Aicha Mane on 05-17-2022 Bilirubin [Mass/Vol] 2.0 mg/dL 0.3-1.2 [facility] Comment on above: Samples from patient s who have taken Naproxen have shown spurious elevation in Total Bilirubin levels. A metabolite of Naproxen, O-desmethylnaproxen, has been shown to interfere with the Gricelda-Kenji method for measuring Total Bilirubin. Serum or plasma total carbon dioxide measurement (moles/volume)Ordered By: Aicha Mane on 05-17-2022 CO2 [Moles/Vol] 26.1 mmol/L 22.0-30.0 [facility] Serum or plasma urea nitroge n measurement (mass/volume)Ordered By: Aicha Mane on 05-17-2022 Urea nitrogen [Mass/Vol] 15 mg/dL 07-01 [facility] Urine lactic acid measuremen tOrdered By: Aicha Mane on 05-17-2022 Lactate (U) [Moles/Vol] 0.9 mmol/L 0.5-2.2 [facility] CHEMISTRYOrdered By: SYSTEM SYSTEM on 05-07-2022 Anion gap [Moles/Vol] 12 mmol/L Normal 6 - 16 mEq/L [facility]isol Calcium [Mass/Vol] 10.0 mg/dL Normal 8.9 - 11. 1 mg/dL [facility] Chloride [Moles/Vol] 105 mmol/L Normal 101 - 1 11 mmol/L [facility] CO2 [Moles/Vol] 25 mmol/L Normal 21 - 31 mmol/L [facility] Creatinine [Mass/Vol] 1.0 mg/dL Normal 0.5 - 1.3 mg/dL [facility] GFR/1.73 sq M.predicted among blacks MDRD (S/P/Bld) [Vol rate/Area] mL/min/1.73 m2 Normal >=59mL/min/1 .73 m2 [facility] [place] S GFR/1.73 sq M.predicted among non-blacks MDRD (S/P/Bld) [Vol rate/Area] mL/min/1.73 m2 Normal >=59mL/min/1 .73 m2 [facility] Chem S Glucose [Mass/Vol] 97 mg/dL Normal [...] ratio] 18 mg/mg Normal 10 - 20 [facility] CHEMISTRYOrdered By: Isi Valerio on 05-07-2022 Natriuretic peptide B (Bld) [Mass/Vol] 10 pg/mL Normal 5 - 80 pg/mL [facility] COAGULATIONOrdered By: Zeynep Hahn on 05-07-2022 [...] 33.4 g/dL Normal 31.4 - 36.0 gm/dL [facility] MCV (RBC) [Entitic vol] 89.7 fL Normal 80.0 - 100.0 fL [facility] Platelet mean volume (Bld) [Entitic vol] 8.9 fL Normal 6.4 - 10.8 fL [facility] Platelets (Bld) [#/Vol] 251.0 E9/L Normal 150. 0 - 500.0 E9/L [facility] RBC (Bld) [#/Vol] 5.7 E12/L Normal 4.3 - 5.9 E12/L [facility] WBC corrected for nucl RBC Auto (Bld) [#/Vol] 6.3 E9/L Normal 4.0 - 11.0 E9/L [facility]eAuto[facility] MRI LUMBAR SPINE WO CONTRAST on [...] Rolf Grayson MD 01/07/21 Final result Normal [facility] At L4-L5, central disc protrusion with annular tear and mild bilateral neural foraminal narrowing. At L5-S1, moderate bilateral neural foraminal narrowing, left paracentral disc protrusion impinges on the descending left S1 nerve root. [employer] Phone: EXAMINATION: MRI OF THE LUMBAR SPINE [...] result in moderate bilateral neural foraminal narrowing. [facility] Work Phone: Anmol, [employer] Incoming Radiant Results From [employer] - 2021 4:39 PM EDT EXAMINATION: MRI [...] on the descending left S1 nerve root. [employer] Phone: Vital Signs Date Time Vital Sign Value Performing Clinician Facility 08-26-2024 15:32-0500 Body height 182.88 cm [facility] 08-26-2024 15:32-0500 Body mass index (BMI) [Ratio] 27.9 kg/m2 [facility] 08-26-2024 15:32-0500 Body temperature 98.5 [degF] [facility] 08-26-2024 15:32-0500 Body weight 93.44 kg [facility] 08-26-2024 15:32-0500 Diastolic blood pressure 76 mm[Hg] [facility] 08-26-2024 15:32-0500 Heart rate 78 /min [facility] 08-26-2024 15:32-0500 Respiratory rate 16 /min [facility] 08-26-2024 15:32-0500 SaO2% (BldA) [Mass fraction] 95 % [facility] 08-26-2024 15:32-0500 Systolic blood pressure 120 mm[Hg] [facility] 08-06-2024 13:51-0400 Body height 180.34 cm [facility] 08-06-2024 13:51-0400 Body mass index (BMI) [Ratio] 28.4 kg/m2 [facility] 08-06-2024 13:51-0400 Body temperature 97.3 [degF] [facility] 08-06-2024 13:51-0400 Body weight 92.53 kg [facility] 08-06-2024 13:51-0400 Diastolic blood pressure 80 mm[Hg] [facility] 08-06-2024 13:51-0400 Heart rate 74 /min [facility] 08-06-2024 13:51-0400 SaO2% (BldA) [Mass fraction] 97 % [facility] 08-06-2024 13:51-0400 Systolic blood pressure 118 mm[Hg] [facility] 03-25-2024 16:09-0400 Body height 180.34 cm [facility] 03-25-2024 16:09-0400 Body mass index (BMI) [Ratio] 28.3 kg/m2 [facility] 03-25-2024 16:09-0400 Body temperature 97.5 [degF] [facility] 03-25-2024 16:09-0400 Body weight 92.22 kg [facility] 03-25-2024 16:09-0400 Diastolic blood pressure 82 mm[Hg] [facility] 03-25-2024 16:09-0400 Heart rate 80 /min [facility] 03-25-2024 16:09-0400 Systolic blood pressure 120 mm[Hg] [facility] 08-07-2023 15:20-0400 Body height 180.34 cm Ana Gabriel Other [employer] Other 08-07-2023 15:20-0400 Body mass index (BMI) [Ratio] 27.33 kg/m2 Ana Gabriel Other [employer] Other 08-07-2023 15:20-0400 Body temperature 98 [degF] Ana Gabriel Other [employer] Other 08-07-2023 15:20-0400 Body weight 88.91 kg Ana Gabriel Other [employer] Other 08-07-2023 15:20-0400 Diastolic blood pressure 74 mm[Hg] Ana Gabriel Other [employer] Other 08-07-2023 15:20-0400 Respiratory rate 18 /min Ana Gabriel Other [employer] Other 08-07-2023 15:20-0400 SaO2% (BldA) [Mass fraction] 99 % Ana Gabriel Other [employer] Other 08-07-2023 15:20-0400 Systolic blood pressure 118 mm[Hg] Ana Gabriel Other [employer] Other 07-11-2022 16:20-0400 Body height 180.34 cm Ana Gabriel Other [employer] Other 07-11-2022 16:20-0400 Body mass index (BMI) [Ratio] 29.84 kg/m2 Ana Gabriel Other [employer] Other 07-11-2022 16:20-0400 Body temperature 97.1 [degF] Ana Gabriel Other [employer] Other 07-11-2022 16:20-0400 Body weight 97.07 kg Ana Gabriel Other [employer] Other 07-11-2022 16:20-0400 Diastolic blood pressure 86 mm[Hg] Ana Gabriel Other [employer] Other 07-11-2022 16:20-0400 Respiratory rate 18 /min Ana Gabriel Other [employer] Other 07-11-2022 16:20-0400 SaO2% (BldA) [Mass fraction] 97 % Ana Gabriel Other [employer] Other 07-11-2022 16:20-0400 Systolic blood pressure 128 mm[Hg] Ana Gabriel Other [employer] Other 05-21-2022 07:56-0400 Body temperature 97.7 [degF] DO Ana Gabriel Work Phone: [facility] 05-21-2022 07:56-0400 Diastolic blood pressure 85 mm[Hg] DO Ana Gabriel Work Phone: [facility] 05-21-2022 07:56-0400 Heart rate 70 /min DO Ana Gabriel Work Phone: [facility] 05-21-2022 07:56-0400 Respiratory rate 16 /min DO Ana Gabriel Work Phone: [facility] 05-21-2022 07:56-0400 SaO2% (BldA) [Mass fraction] 98 % DO Ana Gabriel Work Phone: [facility] 05-21-2022 07:56-0400 Systolic blood pressure 144 mm[Hg] DO Ana Gabriel Work Phone: [facility] 05-21-2022 06:00-0400 Body weight 96 kg DO Ana Gabriel Work Phone: [facility] 05-19-2022 14:29-0400 Body height 182.88 cm DO Ana Gabriel Work Phone: [facility] 05-19-2022 13:35-0400 Inhaled oxygen flow rate 6 L/min DO Ana Gabriel Work Phone: [facility] 05-19-2022 12:33-0400 Body mass index (BMI) [Ratio] 28.5 kg/m2 DO Ana Gabriel Work Phone: [facility] 05-18-2022 08:45-0400 Body temperature 98 [degF] DO Ana Gabriel Work Phone: [facility] 05-18-2022 08:45-0400 Diastolic blood pressure 86 mm[Hg] DO Ana Gabriel Work Phone: [facility] 05-18-2022 08:45-0400 Heart rate 105 /min DO Ana Gabriel Work Phone: [facility] 05-18-2022 08:45-0400 Respiratory rate 18 /min DO Ana Gabriel Work Phone: [facility] 05-18-2022 08:45-0400 Systolic blood pressure 141 mm[Hg] DO Ana Gabriel Work Phone: [facility] 05-17-2022 21:15-0400 Body temperature 99.1 [degF] DO Ana Gabriel Work Phone: [facility] 05-17-2022 21:15-0400 Diastolic blood pressure 83 mm[Hg] DO Ana Gabriel Work Phone: [facility] 05-17-2022 21:15-0400 Heart rate 92 /min DO Ana Gabriel Work Phone: [facility] 05-17-2022 21:15-0400 Respiratory rate 16 /min DO Ana Gabriel Work Phone: [facility] 05-17-2022 21:15-0400 SaO2% (BldA) [Mass fraction] 96 % DO Ana Gabriel Work Phone: [facility] 05-17-2022 21:15-0400 Systolic blood pressure 137 mm[Hg] DO nAa Gabriel Work Phone: [facility] 05-17-2022 17:32-0400 Body height 182.88 cm DO Ana Gabriel Work Phone: [facility] 05-17-2022 17:32-0400 Body weight 95.6 kg DO Ana Gabriel Work Phone: [facility] 05-07-2022 14:39-0400 Diastolic blood pressure 79 mm[Hg] [facility] 05-07-2022 14:39-0400 Heart rate 77 /min [facility] 05-07-2022 14:39-0400 Mean blood pressure 90 mm[Hg] [facility] 05-07-2022 14:39-0400 Respiratory rate 16 /min [facility] 05-07-2022 14:39-0400 SaO2% (BldA) [Mass fraction] 98 % [facility] 05-07-2022 14:39-0400 Systolic blood pressure 111 mm[Hg] [facility] 05-07-2022 13:21-0400 Diastolic blood pressure 87 mm[Hg] [facility] 05-07-2022 13:21-0400 Heart rate 61 /min [facility] 05-07-2022 13:21-0400 Hourly Rounding [facility] 05-07-2022 13:21-0400 Mean blood pressure 98 mm[Hg] [facility] 05-07-2022 13:21-0400 Promise to Return [facility] 05-07-2022 13:21-0400 Respiratory rate 10 /min [facility] 05-07-2022 13:21-0400 SaO2% (BldA) [Mass fraction] 96 % [facility] 05-07-2022 13:21-0400 Systolic blood pressure 121 mm[Hg] [facility] 05-07-2022 12:40-0400 Hourly Rounding [facility] 05-07-2022 12:40-0400 Promise to Return [facility] 05-07-2022 12:34-0400 Diastolic blood pressure 89 mm[Hg] [facility] 05-07-2022 12:34-0400 Heart rate 69 /min [facility] 05-07-2022 12:34-0400 Mean blood pressure 105 mm[Hg] [facility] 05-07-2022 12:34-0400 Respiratory rate 14 /min [facility] 05-07-2022 12:34-0400 SaO2% (BldA) [Mass fraction] 97 % [facility] 05-07-2022 12:34-0400 Systolic blood pressure 136 mm[Hg] [facility] 05-07-2022 12:05-0400 Body temperature 97.88 [degF] [facility] 05-07-2022 12:05-0400 Hourly Rounding [facility] 05-07-2022 12:05-0400 Promise to Return [facility] 05-07-2022 11:41-0400 Heart rate 82 /min [facility] 05-07-2022 11:41-0400 Respiratory rate 20 /min Marcelo Noble [facility] 02-11-2022 12:30-0400 Body height 180.34 cm Ana Gabriel Other [employer] Other 07-26-2021 16:20-0400 Body height 180.34 cm Ana Gabriel Other [employer] Other 07-26-2021 16:20-0400 Body mass index (BMI) [Ratio] 29.84 kg/m2 Ana Gabriel Other [facility] Other 07-26-2021 16:20-0400 Body temperature 98.2 [degF] Ana Gabriel Other [facility] Other 07-26-2021 16:20-0400 Body weight 97.07 kg Ana Gabriel Other [facility] Other 07-26-2021 16:20-0400 Diastolic blood pressure 86 mm[Hg] Ana Gabriel Other [facility] Other 07-26-2021 16:20-0400 Respiratory rate 18 /min Ana Gabriel Other [facility] Other 07-26-2021 16:20-0400 SaO2% (BldA) [Mass fraction] 97 % Ana Gabriel Other [facility] Other 07-26-2021 16:20-0400 Systolic blood pressure 130 mm[Hg] Ana Gabriel Other [employer] Other Encounters Encounter Date Encounter Type Care Provider Facility Start: 05-07-2025 End: 05-07-2025 ambulatory Isabelle Alberts Facility:[id number] Start: 04-09-2025 End: 04-09-2025 ambulatory Isabelle Alberts Facility:[facility] Start: 04-09-2025 End: 04-09-2025 Patient encounter procedure Isabelle Alberts [facility] Start: 04-01-2025 ambulatory Facility:[facility] Start: 04-01-2025 End: 04-01-2025 ambulatory Gray Edouard Facility:[facility] Start: 08-26-2024 End: 08-26-2024 ambulatory [facility] Work Phone: Start: 08-26-2024 End: 08-26-2024 Patient encounter procedure [facility] Work Phone: Start: 08-06-2024 Patient encounter status [facility] Start: 08-06-2024 End: 08-06-2024 ambulatory [facility] Work Phone: Start: 08-06-2024 End: 08-06-2024 Encounter for general adult medical examination without abnormal findings [facility] Start: 08-06-2024 End: 08-06-2024 Patient encounter procedure [facility] Physician [facility] Work Phone: Start: 08-03-2024 Non-patient / Non-visit [facility] Physician [facility] Work Phone: Start: 03-25-2024 End: 03-25-2024 ambulatory [facility] Work Phone: Start: 03-25-2024 End: 03-25-2024 Patient encounter procedure [facility] Physician [facility] Family [facility] [place] Work Phone: Start: 01-15-2024 Non-patient / Non-visit [facility] Physician [facility] Work Phone: Start: 12-27-2023 End: 12-27-2023 ambulatory ABHISHEK GUTIERRES V Not Available Start: 12-12-2023 End: 12-12-2023 ambulatory ABHISHEK GUTIERRES Jennie Not Available Start: 08-07-2023 End: 08-07-2023 ambulatory Ana Gabriel Other [employer] Other Start: 08-07-2023 Encounter for genera l adult medical examination without abnormal findings Ana Gabriel [facility] Start: 08-07-2023 Periodic preventive med est patient 40-64yrs Ana Gabriel [facility] Start: 07-10-2023 End: 07-10-2023 ambulatory Ana Gabriel Other [employer] Other Start: 07-10-2023 Encounter for genera l adult medical examination without abnormal findings Ana Gabriel [facility] Start: 07-10-2023 Telephone encounter Ana Gabriel [facility] Start: 03-10-2023 End: 03-10-2023 ambulatory Ana Gabriel Other [facility] Other Start: 03-10-2023 Telephone encounter Ana Gabriel [facility] Start: 01-03-2023 End: 01-03-2023 ambulatory Ana Gabriel Other [employer] Other Start: 01-03-2023 Telephone encounter Ana Gabriel [facility] Start: 09-29-2022 End: 09-30-[address] ANA GABRIEL Facility: Start: 08-16-2022 End: 08-16-2022 ambulatory Monae Daily Other [employer] Other Start: 08-16-2022 Office outpatient vi sit 15 minutes Monae Daily [facility] Start: 07-20-2022 End: 07-20-2022 ambulatory Monae Daily Other [facility] Other Start: 07-20-2022 Postop follow up vis it related to original px Monae Daily [facility] Start: 07-18-2022 End: 07-19-[address] ANA GABRIEL Facility:[facility] Start: 07-12-2022 Encounter for genera l adult medical examination without abnormal findings DR ANA GABRIEL [facility] Start: 07-12-2022 End: 07-12-2022 ambulatory Ana Gabriel Other [employer] Other Start: 07-12-2022 Telephone encounter Ana Gabriel [facility] Start: 07-11-2022 End: 07-11-2022 ambulatory Ana Gabriel Other [employer] Other Start: 07-11-2022 Encounter for genera l adult medical examination without abnormal findings Ana Gabriel [facility] Start: 07-11-2022 Periodic preventive med est patient 40-64yrs Ana Gabriel [facility] Start: 07-11-2022 Telephone encounter Ana Gabriel [facility] Start: 07-09-2022 End: 07-10-[address] ANA GABRIEL Facility:[facility] Start: 07-09-2022 End: 07-10-2022 Encounter for general adult medical examination without abnormal findings DR ANA GABRIEL Facility:[facility] Start: 06-17-2022 End: 06-17-2022 ambulatory Monae Daily Other [facility] [facility] Other Start: 06-17-2022 Postop follow up vis it related to original px Monae Alemey [facility] Start: 06-16-2022 End: 06-16-2022 ambulatory Ana Gabriel Other [employer] Other Start: 06-16-2022 Telephone encounter Ana Gabriel [facility] Start: 06-03-2022 End: 06-03-2022 ambulatory Monae Daily Other [facility] Other Start: 06-03-2022 Postop follow up vis it related to original px Monae Calvey [facility] Start: 05-23-2022 End: 05-23-2022 ambulatory Ana Gabriel Other [employer] Other Start: 05-23-2022 Telephone encounter Ana Gabriel [facility] Start: 05-18-2022 End: 05-18-2022 ambulatory Ana Gabriel Other [employer] Other Start: 05-18-2022 Telephone encounter Ana Gabriel [facility] Start: 05-18-2022 End: 05-21-2022 Evaluation and management of inpatient DO Ana Gabriel Work Phone: [facility] [place] [facility] Start: 05-18-2022 End: 05-18-2022 Discharged Recurring DO Ana Gabriel Work Phone: [facility] - [facility] Start: 05-17-2022 End: 05-17-2022 Emergency department patient visit DO Ana Gabriel Work Phone: [facility] Start: 05-07-2022 End: 05-07-2022 [facility] Start: 05-06-2022 End: 05-06-2022 ambulatory Ana Gabriel Other [employer] Other Start: 05-06-2022 Telephone encounter Ana Diazaisha [facility] Start: 02-11-2022 End: 02-11-2022 ambulatory Ana Nery Other [employer] Other Start: 02-11-2022 Telephone encounter Ana Gabriel [facility] [place] Start: 09-27-2021 End: 09-27-2021 ambulatory Ana Gabriel Other [employer] Other Start: 09-27-2021 Telephone encounter Ana Gabriel [facility] [place] Start: 09-17-2021 End: 09-17-2021 ambulatory Ana Gabriel Other [employer] [employer] Other Start: 09-17-2021 Telephone encounter Ana Gabriel [facility] Start: 07-26-2021 Encounter for genera l adult medical examination without abnormal findings Ana Gabriel [facility] Start: 07-26-2021 Periodic preventive med est patient 40-64yrs Ana Gabriel [facility] Start: 2021 End: 01-10-2021 Patient encounter procedure ANA GABRIEL [facility] Start: 2021 End: 01-09-2021 Subsequent hospital visit by physician [facility] MRI Comment on above: Lumbar radiculopathy ; Numbness and tingling of both legs Procedures Date Procedure Procedure Detail Performing Clinician Start: 01-15-2024 E coli Shiga Toxin EIA Start: 01-15-2024 Salmonella/Shigella Screen Start: 07-09-[address] ANA GABRIEL Comment on above: Performed By: #### P [facility] #### [facility] [address] [place] [address] Dr. Faith Quintana Start: 05-18-2022 MRI of right hand wi th contrast DO Ana Gabriel Work Phone: Start: 05-18-2022 XR pre/post mri xray DO Ana Gabriel Work Phone: Start: 05-17-2022 Plain X-ray [...] Date Care Activity Detail Author Start: 05-21-2022 [facility] Work Phone: Start: 05-18-2022 Drainage of Right Mccarthy nd Tendon, Open Approach Drainage of Right Hand Tendon, Open Approach [facility] Start: 05-18-2022 Release Right Hand Tendon, Open Approach Release Right Hand Tendon, Open Approach [facility] Start: 05-18-2022 End: 05-21-2022 Evaluation and management of inpatient Cellulitis of thumb, right [facility] [place] [facility] Start: 05-18-2022 Consultation [facility] Work Phone: Start: 05-18-2022 Hospital admission [facility] Work Phone: Start: 06-09-2021 Influenza vaccination Flu vacc ine (Season Ended) [facility] Work Phone: Start: 2015 Lipid panel Lipid screen [facility] Work Phone: Start: 1994 DTaP/Tdap/Td vaccine (1 - Tdap) DTaP/Tdap/Td vaccine (1 - Tdap) [facility] Work Phone: Start: 1991 COVID-19 Vaccine (1) COVID-19 Vaccin e (1) [facility] Work Phone: Start: 1990 HIV screening HIV screen [facility] Work Phone: Start: 1975 Hepatitis C screening [facility] Work Phone: Comprehensive metabo lic 2000 panel - Serum or Plasma [facility] Patient Education [facility] Work Phone: Patient referral [facility] Work Phone: [facility] Immunizations Immunization Date Immunization Notes Care Provider Fa cility 05-14-2017 KENALOG - 10 mg Ana Gabriel Other [employer] Other 05-14-2017 Toradol per 15 mg Ana Parry in Other [employer] Other 04-20-2017 Depo-Medrol 80 mg Ana Girv in Other [employer] Other Payers Date Payer Category Payer Unknown [id number] 2.16.8 [id number] 2022 Private Health Insurance 68f [id number] 1975 Unknown [id number] 2.16.8 [id number] 1975 Unknown [id number] 2.16.84 [id number] 1975 Unknown [id number] 2.16.84 [id number] 1975 Unknown [id number] 2.16.84 [id number] 1975 Unknown [id number] 2.16.84 [id number] 1975 Unknown [id number] 2.16.84 [id number] 1975 Unknown [id number] 2.16.8 [id number] 1975 Unknown [id number] 2.16.8 [id number] 1975 Unknown [id number] 2.16.8 [id number] 1959 Unknown [id number] Self-pay Self Pay [id number] Social History Date Type Detail Facility Tobacco smoking stat us NVIS Unknown if ever smoked [facility] Work Phone: Sex Assigned At Not on file [facility] Work Phone: Exposure to SARS-CoV -2 (event) Not sure [facility] Work Phone: Start: 10-09-1989 Sex Assigned At N [employer] Other Tobacco smoking status No Smokin g Status Entered [facility] Start: 05-19-2022 End: 04-09-2025 Tobacco smoking status NHIS Ex-smoker (finding) [facility] Start: 1975 Sex Assigned At Male F [facility] Start: 05-07-2022 End: 08-26-2024 Sex Male (finding) [facility] Sexual Orientation [facility] Goals Date Patient Goal Desired Activity /State Functional Status Date Assessment Result Facility 05-21-2022 Functional status Patient at Baseline [facility] [employer] Work Phone: 05-07-2022 Functional Status N/A [facility] Mental Status Date Assessment Result Facility 05-21-2022 Cognitive function Cognitive Sta tus Patient at Baseline [facility] Work Phone: Clinical Notes 05-09-2020 to [...] Follow these instructions at home: Medicines Take gwkk-fjz-bdyurzd and prescription medicines only as told by [...] to keep your pee pale yellow. ?Take mbjk-bsd-nrbobxe or prescription medicines. ?Eat foods that are [...] provider. Document Revised: 05/26/2023 Document Reviewed: 05/26/2023 [employer] Patient Education 2023 [employer]. 04/09/2025 08:58:51 Laser Therapy for Kidney Stones [...] including vitamins, herbs, eye drops, creams, and earb-kvo-zzsdgdk medicines. Any problems you or family members [...] unless your provider tells you to. ?Taking otbx-igd-ahafvsy medicines, vitamins, herbs, and supplements. Tests You [...] provider. Document Revised: 05/26/2023 Document Reviewed: 05/26/2023 [employer] Patient Education 2023 [employer] 04/09/2025 08:58:48 ESWL for Kidney Stones, Care [...] Follow these instructions at home: Medicines Take mrfv-vye-opxukxw and prescription medicines only as told by [...] actions to prevent or treat constipation: ?Take poxp-nus-ylqwtzm or prescription medicines. ?Eat foods that are [...] provider. Document Revised: 01/26/2023 Document Reviewed: 01/26/2023 [employer] Patient Education 2023 [employer]. 04/09/2025 08:58:47 ESWL for Kidney Stones ESWL [...] including vitamins, herbs, eye drops, creams, and lvsd-ygj-pgraglp medicines. Any problems you or family members [...] health care provider tells you to. Taking jjda-dnb-ajmzizy medicines, vitamins, herbs, and supplements. Tests You [...] provider. Document Revised: 01/26/2023 Document Reviewed: 01/26/2023 [employer] Patient Education 2023 [employer]. Follow Up Care 04/03/2025 10:22:13 With:Aristeo SEBASTIAN, REBECCA Browning, URO Address: When: Unknown [facility] 04-09-2025 Note Patient Education Nephrology Laser [...] these instructions at home: Medicines ??? Take doiy-xjg-qrzygxb and prescription medicines only as told by [...] keep your pee pale yellow. ? Take fzoy-lxm-iyffrgj or prescription medicines. ? Eat foods that [...] provider. Document Revised: 05/26/2023 Document Reviewed: 05/26/2023 [employer] Patient Education ? 2023 [employer]. Laser Therapy for Kidney Stones Laser therapy [...] including vitamins, herbs, eye drops, creams, and bjom-yse-jydalkk medicines. ??? Any problems you or family [...] [facility] 08-06-2024 Evaluation note Authored October 29th, 2024 2 :53pm The above note written by __ _Mohit Baeza____ acting as human recorder, note dictated by Dr. Castro .I performed the above HPI, ROS, and Examination. I formulated and dictated the treatment plan and was present for entire encounter. Ana Gabriel D.O. [facility] Work Phone: 1(194) 622-337510-30-2023 Evaluation note* Encounter Date Diagnosis Assessment Notes [...] provided for him to see Dr. Gutierres. [employer] Other 10-02-2023 Evaluation note* Encounter Date Diagnosis Assessment Notes Treatment Notes Treatment Clinical Notes Jul, Wellness examination (ICD-10 - Z00.00) Jul, Vitamin D deficiency (ICD-10 - E55.9) [employer] Other 06-02-2023 Evaluation note* Encounter Date Diagnosis Assessment Notes Treatment Notes Treatment Clinical Notes Mar, Asthma (ICD-10 - J45.909) [employer] Other 03-28-2023 Evaluation note* Encounter Date Diagnosis Assessment Notes Treatment Notes Treatment Clinical Notes Dec, Other specified postprocedural states (ICD-10 - Z98.890) [employer] Other 11-08-2022 Evaluation note* Encounter Date Diagnosis Assessment Notes Treatment Notes Treatment Clinical Notes Aug, Cellulitis of right finger (ICD-10 - L03.011) Aug, Lymphangitis (ICD-10 - I89.1) Aug, Other specified postprocedural states (ICD-10 - Z98.890) Patient is progressing well from this Surgery. Progress activity as tolerated. [employer] Other 10-12-2022 Evaluation note* Encounter Date Diagnosis Assessment Notes Treatment Notes Treatment Clinical Notes Jul, Cellulitis of right finger (ICD-10 - L03.011) Jul, Lymphangitis (ICD-10 - I89.1) Jul, Other specified postprocedural states (ICD-10 - Z98.890) Patient instructed on the use of Voltaren Gel. use of heat and ice, use of lidocaine patches, use of turmeric/curcumin and Glucosamine/Chond roitin. Rx given for Medrol Dosepak [employer] Other 10-04-2022 Evaluation note* Encounter Date Diagnosis Assessment Notes Treatment Notes Treatment Clinical Notes Jul, Hematuria (ICD-10 - R31.9) [employer] Other 10-03-2022 Evaluation note* Encounter Date Diagnosis Assessment Notes Treatment Notes Treatment Clinical Notes Jul, Hematuria (ICD-10 - R31.9) [employer] Other 10-03-2022 Evaluation note* Encounter Date Diagnosis Assessment Notes Treatment Notes Treatment Clinical Notes Jul, Vitamin D deficiency (ICD-10 - E55.9) Jul, Elevated alkaline phosphatase level (ICD-10 - R74.8) [employer] Other 10-03-2022 Evaluation note* Encounter Date Diagnosis [...] likely refer him to Dr. Alcazar in [place]. He voices that the Omeprazole helped his constipation and hemorrhoids. Jul, Other He voices that he got a strep bacteria in his right thumb after he pinched the finger on a stereo compiler, he had to have surgery with Dr. Daily. He voices that it continues to heal but continues to be tender. He voices that it gets his attention at times if he grabs something and is not paying attention. He does return to see Dr. Daily one more time this month for evaluation. This could be why his alk phos level is elevated. [employer] Other 09-09-2022 Evaluation note* Encounter Date Diagnosis Assessment Notes Treatment Notes Treatment Clinical Notes Jun, Cellulitis of right finger (ICD-10 - L03.011) Patient instructed on desensitizing exercises. Patient may return to work with no restrictions 06/20/2022 Jun, Lymphangitis (ICD-10 - I89.1) Jun, Other specified postprocedural states (ICD-10 - Z98.890) [employer] Other 09-08-2022 Evaluation note* Encounter Date Diagnosis Assessment Notes Treatment Notes Treatment Clinical Notes Jun, Asthma (ICD-10 - J45.909) [employer] Other 08-26-2022 Evaluation note* Encounter Date Diagnosis [...] remova l of sutures (ICD-10 - Z48.02) [employer] Other 08-13-2022 Discharge summary Author Judit Cuevas [facility] May 23, 2022 10:36am Note Date/Time May 21, 2022 9: 54am [facility] [address] [place] [address] Discharge Summary Signed with Neginenda Patient: Americo Figueroa MR#: [id number] : 1975 Acct:[id number] Age/Sex: 47 / M Adm Date: 2 Loc: Room: [address] [place] [address]: Judit Cuevas MD Copies to: Kacie J EDI Antunez DO Mazhar Rahman, MD~ ADDENDUM1 Patient was personally seen by [...] the pad of his thumb in a stereo compiler.? He noticed increased pain, swelling, erythema prompting [...] the preprinted sheet three times daily Instructions: [facility] COVID-19 Discharge Instructions Stand Alone Forms: Work/School [...] signed by Judit Cuevas MD> 05/23/22 1035 [facility] Work Phone: 1(159) 150-472308-13-2022 Progress note Author Arnold Siegel [facility] May 21, 2022 8:47am Note Date/Time May 21, 2022 7: 35am [facility] [address] [place] [address] Orthopedic Progress Note Signed Patient: Americo Figueroa MR#: [id number] : 1975 Acct:[id number] Age/Sex: 47 / M Adm Date: 2 Loc: Room: [address] [place] [address] Type: ADM IN Attending Dr: Judit Cuevas [...] By: <Electronically signed by MD Arnold Siegel> 05/21/2247 [facility] Work Phone: 1(806) 356-959908-13-2022 Progress note Author Judit Cuevas [facility] May 21, 2022 8:22am Note Date/Time May 20, 2022 12 :19pm [facility] [address] [place] [address] Hospitalist Progress Note Signed with Addenda Patient: Americo Figueroa MR#: [id number] : 1975 Acct:[id number] Age/Sex: 47 / M Adm Date: 2 Loc: Room: [address] [place] [address] Type: ADM IN Attending Dr: Judit Cuevas [...] Lactated Ringers IV 05/19/23 13:44 75 mls/hr .[id number] KRISTEN Administration Vancomycin HCl 0.75 gm in [...] signed by Judit Cuevas MD> 05/21/22 0821 [facility] Work Phone: 1(456) 260-749308-12-2022 Progress note Author Monae Daily [facility] May 20, 2022 2:22pm Note Date/Time May 20, 2022 2: 22pm [facility] [address] [place] [address] Orthopedic Progress Note Signed Patient: Americo Figueroa MR#: [id number] : 1975 Acct:[id number] Age/Sex: 47 / M Adm Date: 2 Loc: Room: [address] [place] [address] Type: ADM IN Attending Dr: Judit Cuevas [...] MPV Neut % (Auto) Lymph % (Auto) Nicholas % (Auto) Eos % (Auto) Baso % (Auto) Neut # (Auto) Lymph # (Auto) Nicholas # (Auto) Eos # (Auto) Baso # [...] % (Auto) 67.9 Lymph % (Auto) 17.2 Nicholas % (Auto) 11.4 Eos % (Auto) 3.0 Baso % (Auto) 0.5 Neut # (Auto) 5.4 Lymph # (Auto) 1.4 Nicholas # (Auto) 0.9 H Eos # (Auto) [...] signed by Monae Daily MD> 05/20/22 1422 [facility] Work Phone: 1(133) 164-818208-12-2022 Progress note Author Naveen [facility] May 20, 2022 12:41am Note Date/Time May 19, 2022 4: 14pm [facility] [address] [place] [address] Hospitalist Progress Note Signed with Brian Patient: Americo Figueroa MR#: [id number] : 1975 Acct:[id number] Age/Sex: 47 / M Adm Date: 2 Loc: 3T Room: [address] [place] [address] Type: ADM IN Attending Dr: Naveen Moore MD Copies to: ~ ADDENDUM1 I personally saw this patient on the day of the encounter, reviewed the history,performed the garcia elements of the exam and formulated the plan of care and confirmed the nurse practitioners/residents/administration internship written note. Addendum Documented By: Naveen Moore [...] Lactated Ringers IV 05/19/23 09:59 75 mls/hr .[id number] KRISTEN Administration Lactated Ringer's 1,000 mls @ 75 mls/hr 05/19/22 13:45 05/19/22 15:01 Lactated Ringers IV 05/19/23 13:44 75 mls/hr .[id number] KRISTEN Administration Ketorolac Tromethamine 30 mg 05/18/22 [...] signed by Naveen Moore MD> 05/20/22 0036 [facility] Work Phone: 1(906) 529-751008-11-2022 Consult note Author Arnodl Siegel [facility] May 19, 2022 11:01am Note Date/Time May 19, 2022 6: 37am [facility] [address] [place], [place] [id number] Orthopedic Consult Note Signed Patient: Americo Figueroa MR#: [id number] : 1975 Acct:[id number] Age/Sex: 47 / M Adm Date: 2 Loc: Room: [address] [place] [address] Type: ADM IN Attending Dr: Naveen Moore [...] % (Auto) 86.8, Lymph % (Auto) 5.0, Nicholas % (Auto) 7.8, Eos % (Auto) 0.1, Baso % (Auto) 0.3, Neut # (Auto) 14.8 H, Lymph # (Auto) 0.9 L, Nicholas # (Auto) 1.3 H, Eos # (Auto) [...] organism Documented By: Arnold Siegel MD 05/19/22 0601 Signed By: <Electronically signed by MD Arnold Siegel> 05/19/22 2232 [facility] Work Phone: 1(348) 206-699008-10-2022 History and physical note Author Jennifer Momin [facility] May 18, 2022 6:54pm Note Date/Time May 18, 2022 11 :40am [facility] [address] [place] [address] Hospitalist H&P Signed Patient: Americo Figueroa MR#: [id number] : 1975 Acct:[id number] Age/Sex: 47 / M Adm Date: 2 Loc: Room: [address] [place] [address] Type: ADM IN Attending Dr: Jennifer Momin DO Copies to: EDI Kat,DO Jennifer Momin DO~ HPI DATE OF EXAMINATION: 05/18/22 CHIEF [...] % (Auto) 5.0 % (.) 05/18/22 09:14 Nicholas % (Auto) 7.8 % (.) 05/18/22 09:14 Eos % (Auto) 0.1 % (.) 05/18/22 09:14 Baso % (Auto) 0.3 % (.) 05/18/22 09:14 Neut # (Auto) 14.8 x10E3/uL (1.8-7.7) H 05/18/22 09:14 Lymph # (Auto) 0.9 x10E3/uL (1.00-4.8) L 05/18/22 09:14 Nicholas # (Auto) 1.3 x10E3/uL (0.0-0.8) H 05/18/22 [...] <Electronically signed by Jennifer Momin DO> 05/18/22 [facility] Work Phone: 1(444) 485-227408-10-2022 History and physical note Author Jennifer Momin [facility] May 18, 2022 6:54pm Note Date/Time May 18, 2022 11 :40am [facility] [address] [place] [address] Hospitalist H&P Signed Patient: Americo Figueroa MR#: [id number] : 1975 Acct:[id number] Age/Sex: 47 / M Adm Date: 2 Loc: Room: [address] [place] [address] Type: ADM IN Attending Dr: Jennifer Momin [...] 10 mg tablet 5 mg PO HS 10/28/20 [History Confirmed 05/18/22] Saccharomyces adelinei 250 mg capsule 500 mg PO BID [...] % (Auto) 5.0 % (.) 05/18/22 09:14 Nicholas % (Auto) 7.8 % (.) 05/18/22 09:14 Eos % (Auto) 0.1 % (.) 05/18/22 09:14 Baso % (Auto) 0.3 % (.) 05/18/22 09:14 Neut # (Auto) 14.8 x10E3/uL (1.8-7.7) H 05/18/22 09:14 Lymph # (Auto) 0.9 x10E3/uL (1.00-4.8) L 05/18/22 09:14 Nicholas # (Auto) 1.3 x10E3/uL (0.0-0.8) H 05/18/22 [...] has been outlined. -Agree with Vanco and Antoinetten -Obtain stat MRI to eval for foreign [...] <Electronically signed by Jennifer Momin DO> 05/18/22 [address] [facility] Work Phone: 1(313) 929-564607-30-2022 Hospital Discharge instructions Patient Education 05/07/2022 14:50:51 [...] Follow these instructions at home: Medicines Take bhas-snd-xwpaxzc and prescription medicines only as told by [...] 07/05/2006 Document Revised: 03/28/2019 Document Reviewed: 03/28/2019 [employer] Patient Education 2020 [employer]. Follow Up Care 05/07/2022 11:40:18 With:Ana Gabriel Address: [address] [place], [place] [address] [address] [facility] (1) When:05/10/2022 14:35:06 Comments:Return to the emergency room if your chest pain and/or shortness of breath recurs or any new symptoms. [facility]07-30-2022 Evaluation + Plan noteExtracted from: Title:ED Note Author:Dewey Campuzano Date:05/07/22 1. Atypical chest pain (R07. 89: [...] Single View Addendum by Aide Covarrubias, As trit on May 07, 2022 18:18:36 EDT Review of system: Additional ROS info: Except as noted in the above Review of Systems and in the History of Present Illness all other systems have been reviewed and are negative or noncontributory. [facility]05-06-2022 Evaluation note* Encounter Date Diagnosis Assessment Notes [...] February, Other 11:55 AM - 12:00 PM [employer] Other 04-01-2022 Progress note Author Judit Cuevas [facility] May 21, 2022 8:22am Note Date/Time May 20, 2022 12 :19pm [facility] [address] [place] [address] Hospitalist Progress Note Signed with Addenda Patient: Americo Figueroa MR#: [id number] : 1975 Acct:[id number] Age/Sex: 47 / M Adm Date: 2 Loc: Room: [address] [place] [address] Type: ADM IN Attending Dr: Judit Cuevas [...] Lactated Ringers IV 05/19/23 13:44 75 mls/hr .[id number] KRISTEN Administration Vancomycin HCl 0.75 gm in [...] signed by Judit Cuevas MD> 05/21/22 [facility] Work Phone: 1(938) 579-927012-20-2021 Evaluation note* Encounter Date Diagnosis Assessment Notes Treatment Notes Treatment Clinical Notes Sep, Acute sinusitis (ICD-10 - J01.90) [employer] Other 12-10-2021 Evaluation note* Encounter Date Diagnosis [...] Sep, Other 8:34 AM - 8:40 AM [employer] Other 10-18-2021 Evaluation note* Encounter Date Diagnosis [...] Astelin nasal spray. He was recently in [place] and [place] for 9 days and felt good. He [...] take it for at least six months. [facility] Other 08-01-2020 History general Narrative - Reported* Type Description Date Medical History Asthma Medical History Spinal stenosis of lumbar region Medical History COVID 05/2020 Surgical History hernia repair- right inguinal Surgical History hernia/ right inguinal at age [age]. Hospitalization History right inguinal hernia Hospitalization History right thumb infection- b [employer] Other 08-01-2020 History general Narrative - Reported* Type Description Date Medical History Asthma Medical History Spinal stenosis of lumbar region Medical History COVID 05/2020 Surgical History hernia repair- right inguinal Surgical History hernia/ right inguinal at age [age]. Surgical History I and D right thumb 05/2022 Hospitalization History right inguinal hernia Hospitalization History right thumb infection- b [facility] Hospitalization History Right thumb infection [facility] 05/2022 [employer] Other 08-01-2020 History general Narrative - Reported* Type Description Date Medical History Asthma Medical History Spinal stenosis of lumbar region Medical History COVID 05/2020 Medical History ANXIETY Surgical History hernia repair- right inguinal Surgical History hernia/ right inguinal at age 1 3. Surgical History I and D right thumb 05/2022 Hospitalization History right inguinal hernia Hospitalization History right thumb infection- b [facility] Hospitalization History Right thumb infection [facility] 05/2022 [employer] Other Consult note Author Arnold Siegel [facility] May 19, 2022 11:01am Note Date/Time May 19, 2022 6: 37am [facility] [address] [place] [address] Orthopedic Consult Note Signed Patient: Americo Figueroa MR#: [id number] : 1975 Acct:[id number] Age/Sex: 47 / M Adm Date: 2 Loc: Room: [address] [place] [address] Type: ADM IN Attending Dr: Naveen Moore [...] % (Auto) 86.8, Lymph % (Auto) 5.0, Nicholas % (Auto) 7.8, Eos % (Auto) 0.1, Baso % (Auto) 0.3, Neut # (Auto) 14.8 H, Lymph # (Auto) 0.9 L, Nicholas # (Auto) 1.3 H, Eos # (Auto) [...] <Electronically signed by MD Arnold Siegel> 05/19/22 [address] [facility] Work Phone: Discharge summary Author Judit Cuevas [facility] May 23, 2022 10:36am Note Date/Time May 21, 2022 9: 54am [facility] [address] [place] [address] Discharge Summary Signed with Addmariza Patient: Americo Figueroa MR#: [id number] : 1975 Acct:[id number] Age/Sex: 47 / M Adm Date: 2 Loc: Room: [address] [place] [address]: Judit Cuevas MD Copies to: Kacie Antunez NP-C Ana Gabriel,DO Judit Cuevas MD~ ADDENDUM1 Patient [...] the pad of his thumb in a stereo compiler.? He noticed increased pain, swelling, erythema prompting [...] the preprinted sheet three times daily Instructions: [facility] COVID-19 Discharge Instructions Stand Alone Forms: Work/School [...] signed by Judit Cuevas MD> 05/23/22 [facility] Work Phone: Evaluation noteNo [employer] Other Evaluation note* Diagnosis Onset Date Resolution Status Cellulitis of thumb, right a cute Finger infection acute Lymphangitis acute Sepsis acute [facility] Work Phone: Evaluation note* Diagnosis Onset Date Resolution Status Allergic rhinitis acute Otitis media [facility] Work Phone: Evaluation note* Diagnosis Onset Date Resolution Status Acute sinusitis acute Asthma acute Hyperglycemia acute Hyperlipidemia acute Vitamin D deficiency acute Wellness examination [facility] Work Phone: Hospital course Narrative No data available for this section [facility] Work [facility] Work Phone: [facility] Work Phone: [facility] Work Phone: Progress note No data available for this section [facility] May 20, 2022 12:41am Note Date/Time May 19, 2022 4: 14pm [facility] [address] [place] [address] Hospitalist Progress Note Signed with Brian Patient: Americo Figueroa MR#: [id number] : 1975 Acct:[id number] Age/Sex: 47 / M Adm Date: 2 Loc: Room: [address] [place] [address] Type: ADM IN Attending Dr: Naveen Moore MD Copies to: ~ ADDENDUM1 I personally saw this patient on the day of the encounter, reviewed the history,performed the garcia elements of the exam and formulated the plan of care and confirmed the nurse practitioners/residents/administration internship written note. Addendum Documented By: Naveen Moore [...] Lactated Ringers IV 05/19/23 09:59 75 mls/hr .[id number] KRISTEN Administration Lactated Ringer's 1,000 mls @ 75 mls/hr 05/19/22 13:45 05/19/22 15:01 Lactated Ringers IV 05/19/23 13:44 75 mls/hr .[id number] KRISTEN Administration Ketorolac Tromethamine 30 mg 05/18/22 [...] signed by Naveen Moore MD> 05/20/22 00[facility] Work Phone: Progress note Author Monae Daily [facility] May 20, 2022 2:22pm Note Date/Time May 20, 2022 2: 22pm [facility] [address] [place] [address] Orthopedic Progress Note Signed Patient: Americo Figueroa MR#: [id number] : 1975 Acct:[id number] Age/Sex: 47 / M Adm Date: 2 Loc: Room: [address] [place] [address] Type: ADM IN Attending Dr: Judit Cuevas [...] MPV Neut % (Auto) Lymph % (Auto) Nicholas % (Auto) Eos % (Auto) Baso % (Auto) Neut # (Auto) Lymph # (Auto) Nicholas # (Auto) Eos # (Auto) Baso # [...] % (Auto) 67.9 Lymph % (Auto) 17.2 Nicholas % (Auto) 11.4 Eos % (Auto) 3.0 Baso % (Auto) 0.5 Neut # (Auto) 5.4 Lymph # (Auto) 1.4 Nicholas # (Auto) 0.9 H Eos # (Auto) [...] signed by Monae Daily MD> 05/20/22 1422 [facility] Work Phone: Progress note Author Arnold Siegel [facility] May 21, 2022 8:47am Note Date/Time May 21, 2022 7: 35am [facility] [address] [place] [address] Orthopedic Progress Note Signed Patient: Americo Figueroa MR#: [id number] : 1975 Acct:[id number] Age/Sex: 47 / M Adm Date: 2 Loc: 3T Room: [address] [place] [address] Type: ADM IN Attending Dr: Judit Cuevas [...] signed by MD Arnold Siegel> 05/21/22 0847 [facility] Work Phone: Reason for Referral Status Reason Specialty Diagnoses / Procedures Referre d By Contact Referred To Contact Closed Radiology Diagnoses Lumbar radiculopathy Numbness and tingling of both legs Procedures MRI LUMBAR SPINE WO CONTRAST Marito Pathak, NANCY [address] [place] [id number] Reason appt pt needs cons ult to discuss screening colonoscopy Diagnosis 1 Encounter for screen ing colonoscopy (Z12.11) Referral Organization [facility] Family Stacie Carias Referring Provider First Name Ana Referring Provider Last Name Nery Referring Provider Specialty Family Prac estefania Referred Organization [facility] Referred Provider Abhishek Gutierres Referred Address ,[place], [place],[address] Referred Provider Specialty Surgery Referral Priority Routine [...] lumbar spine without contrast Marito Pathak DC [address] [place] [address] [address] (unrecognized sect ion and content) No Status Records FoundNo Status Records FoundNo Status Records FoundNo Status Records FoundNo Status Records FoundNo Status Records Found INFORMATION SOURCE (unrecogn ized section and content) DATE CREATED AUTHOR 01/10/2021 [facility] DATE CREATED AUTHOR AUTHOR'S ORGANIZ ATION 10/06/2022 [facility] DATE CREATED AUTHOR AUTHOR'S ORGANIZ ATION 12/28/2023 [facility] EPIC DATE CREATED AUTHOR AUTHOR'S ORGANIZ ATION 04/02/2025 [facility] DATE CREATED AUTHOR AUTHOR'S ORGANIZ ATION 04/04/[address] [facility] DATE CREATED AUTHOR AUTHOR'S ORGANIZ ATION 05/27/2025 [facility] Care Team (unrecognized sect ion and content) Team Status: Inactive Member Role Status Dates Ana Gabriel , DO Primary Care Provider Active Matthew Sneed , Emergency Provider Active Jennifer Momin DO Admit Provider Active Arnold Siegel MD Other Provider Active Judit Cuevas MD Attending Provider Active Team Status: Inactive Member Role Status Dates Ana Gabriel DO Primary Care Provider Active Aicha Mane , [employer] Attending Provider Active Team Status: Inactive Member Role Status Dates Ana Gabriel DO Primary Care Provider Active Aicha Mane , [employer] Emergency Provider Active Team Status: Active Member Role Status Dates Ana Gabriel DO Primary Care Provider Active Team Status: Active Member Role Status Yumiko Gabriel DO Primary Care Provide r, Attending Provider Active Start: January 15, 2024 Team Status: Inactive Member Role Status Dates Ana Gabriel DO Primary Care Provide r, Attending Provider Active Start: March 25, 2024 End: March 25, 2024 Team Status: Active Member Role Status Yumiko Gabriel DO Primary Care Provide r, Attending Provider Active Start: August 03, 2024 Team Status: Inactive Member Role Status Yumiko Gabriel DO Primary Care Provide r, Attending Provider Active Start: August 06, 2024 End: August 06, 2024 Team Status: Inactive Member Role Status Yumiko Gabriel DO Primary Care Provider Active S tart: [...] BE BASED ON THE PRIMARY CLINICAL RECORDS. [facility] [employer] [facility]. provides no warranty or guarantee of the accuracy or completeness of information in this document.
== END 2025-05-08 15:46 | disposition home or self-care (01) ==
LOC: LAB 15:45
PROVIDERS: PCP Family Medicine; Visit Provider Urology
DX: N20.0 Calculus of kidney (principal)
CPT/HCPCS: 82365

== ENCOUNTER 2025-06-11 15:45 | Outpatient (OUT) | payer OTHER, SELFPAY ==
--- NOTE | 2025-06-11 | XR_ITS ---
The [place] [id number] Patient Name: STEPHANIE BABB MRN: [id number] date: 1975 Sex: M Assigned Patient Location: US Current Patient Location: US Accession/Order Number: [id number] Exam Date: 06/11/2025 16:00 Report Date: 06/11/2025 23:05 At the request of: J LUIS PICKETT MD Procedure: XR abdomen 1V Single view of abdomen COMPARISON: 05/07/2025 HISTORY: Kidney stones THORAX: Lung bases unremarkable. FREE AIR: Supine position limits assessment BOWEL: No gaseous intestinal distention. STOOL: Large burden of stool throughout the colon RENAL STONES: No significant stones present. VASCULAR CALCIFICATIONS: Unremarkable SOFT TISSUE: Unremarkable BONES: Unremarkable POSTSURGICAL CHANGES: None XR/XR abdomen 1V IMPRESSION: No visible stones. Constipation Impression dictated by: Gray Mittal M.D. 06/11/2025 11:05 PM Dictation Location: [employer] Electronically authenticated by: [id number] Y Date: 06/11/2025 23:05
--- NOTE | 2025-06-11 | US_ITS ---
The [address] [address] Patient Name: STEPHANIE BABB MRN: [id number] date: 1975 Sex: M Assigned Patient Location: US Current Patient Location: LAB Accession/Order Number: [id number] Exam Date: 06/11/2025 16:36 Report Date: 06/12/2025 09:31 At the request of: J LUIS PICKETT MD Procedure: US renal bladder BILATERAL RENAL AND BLADDER ULTRASOUND CLINICAL HISTORY: Kidney stones with removal 1 month ago COMPARISON: CT 04/01/2025 Estimation of renal size is approximately 10.4 cm on the right and 10.7 cm on the left. An echogenic focus with twinkle artifact is identified at the lower pole of the left kidney measuring 3 to 4 mm in size. This may be a stone. No hydronephrosis is seen. No renal mass lesions were imaged. There is no perinephric fluid. The urinary bladder is well distended with a volume of 884 mL. There is a dependent echogenic focus measuring 13 x 10 x 6 mm. This may be a stone. There are bilateral ureteral jets. US/US renal bladder IMPRESSION: SUSPECTED LEFT NEPHROLITHIASIS. POSSIBLE BLADDER STONE. NO OBSTRUCTIVE UROPATHY. Impression dictated by: Manasa Trejo M.D. 06/12/2025 9:31 AM Dictation Location: [place] [address] Electronically authenticated by: [id number] Y Date: 06/12/2025 09:31
--- OUTSIDE RECORDS SUMMARY | 2025-06-11 15:48 | XMS_ITS | Clinical Summary ---
Author Organization [facility] Address [address], [address] [place] [address] Care Team Providers Care Bookbinding Machine Operator Name Role Phone Satish Kaufman DO Primary [...] on file Insurance [employer] Care Teams Bookbinding Machine Operator Relationship Specialty Start Date End Date Satish Kaufman DO [address] [place] [address] PCP - General Family Medicine 01/01/21
--- OUTSIDE RECORDS SUMMARY | 2025-06-11 15:48 | XMS_ITS | Encounter Summary ---
Author Organization [facility] Address [address], [address] [place] [address] Care Team Providers Care Electrical And Instrument Technician Name Role Phone Satish Kaufman DO Primary Care Provider Unavail able Reason for Referral * Imaging (Routine) - Closed Specialty Diagnoses / Procedures Referred By Lionel t Referred To Contact Radiology Diagnoses Lumbar radiculopathy Numbness and tingling of both legs Procedures MRI lumbar spine without contrast Marito Pathak DC [address] [place] [address] Phone: tel: fax: [address] [address] Phone: tel: Referral ID Status Reason Start Date Expiration Date Visits Re quested Visits Authorized [id number] Closed 12/15/2020 12/15/2021 1 1 Encounter Details Date Type Department Care Team (Latest Contact Info) Description 12/15/2020 Transcribe Orders [facility] [address] [place], [place] [id number] Marito Pathak DC [address] [place] [phone] Lumbar radiculopathy (Primary Dx); Numbness and tingling of both legs Social History Tobacco Use Types Packs/Day Years Used Date Smoking Tobacco: Never Assessed Sex and Gender Information Value Date Recorded Sex Assigned at Not on file Legal Sex Male 5:51 PM EST Gender Identity Not on file Sexual Orientation Not on file documented as of this encounter Plan of Treatment Scheduled Orders Name Type Priority Associated Diagnoses Orde r Schedule MRI lumbar spine without contrast Imaging Routine Lumbar radiculopathy Numbness and tingling of both legs Ordered: 12/15/2020 documented as of this encounter Visit Diagnoses Diagnosis Lumbar radiculopathy- Primary Thoracic or lumbosacral neuritis or radiculitis, unspecified Numbness and tingling of both legs Disturbance of skin sensation documented in this encounter Care Teams Electrical And Instrument Technician Relationship Specialty Start Date End Date Satish Kaufman DO [address] [place] [address] PCP - General Family Medicine 01/01/21 documented as of this encounter
--- OUTSIDE RECORDS SUMMARY | 2025-06-11 15:48 | XMS_ITS | Clinical Summary ---
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
--- OUTSIDE RECORDS SUMMARY | 2025-06-11 15:48 | XMS_ITS | Encounter Summary ---
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
== END 2025-06-11 15:46 | disposition home or self-care (01) ==
PROVIDERS: PCP Family Medicine; Visit Provider Urology
DX: N20.0 Calculus of kidney (principal); K59.00 Constipation, unspecified
CPT/HCPCS: 74018; 76770

== ENCOUNTER 2025-07-30 15:10 | Outpatient (OUT) | payer OTHER, SELFPAY ==
--- OUTSIDE RECORDS SUMMARY | 2025-07-30 15:13 | XMS_ITS | Clinical Summary ---
Author Organization [facility] Address [address], [address] [place] [address] Care Team Providers Care Violin Teacher Name Role Phone Satish Kaufman DO Primary Care Provider Unavail able Social History Tobacco UseTypesPacks/DayYears UsedDateSmoking Tobacco: Never AssessedSex and Gender InformationValueDate RecordedSex Assigned at BirthNot on fileLegal Sex Male11/18/2012 5:51 PM ESTGender IdentityNot on fileSexual OrientationNot on file Plan of Treatment Not on file Insurance * Guarantor: Americo Figueroa EAccount TypeRelation to PatientDate of BirthPhone Billing AddressPersonal/SkodqkQgup1975 [facility] [place] [address] Care Teams Team MemberRelationshipSpecialtyStart DateEnd Date Satish Kaufman DO [address] [place] [address] [facility]
--- OUTSIDE RECORDS SUMMARY | 2025-07-30 15:14 | XMS_ITS | Clinical Summary ---
Author Organization [facility] Healthcare Address [address] [place] [address] Care Team Providers Care Skid Strapper Name Role Phone Satish Kaufman MD Primary Care Provider [phone] Allergies Active AllergyReactionsCriticalityNoted DateCommentsDimetapp Children's Cold-CoughShortness of ekzmthEmme95/05/2024 Medications MedicationSigDispense QuantityRefillsLast FilledStart DateEnd DateStatus albuterol HFA 90 mcg/act inhaler INHALE 1 TO 2 PUFFS EVERY 4 TO 6 HOURS QNKEEF9508/07/2023ctive budesonide-formoterol (Symbicort) 160-4.5 MCG/ACT inhaler Inhale 2 puffs in the morning and 2 puffs before bedtime.08/07/2023ctive Active Problems ProblemNoted DateDiagnosed DateRight inguinal pain12/12/2023Encounter for screening for malignant neoplasm of colon12/12/2023 Immunizations ImmunizationAdministration DatesNext RgqFxfj3212/28/2015 Family History Medical HistoryRelationNameCommentsNo Known ProblemsSisterBreast cancerNeg Hx Colon cancerNeg HxOvarian cancerNeg HxRelationNameStatusCommentsFatherAlive MotherAliveSisterAlive Social History Tobacco UseTypesPacks/DayYears UsedDateSmoking Tobacco: RjzligTxloqxrukg307 10/09/1987 - 10/09/2004Smokeless Tobacco: CurrentChew Tobacco Cessation:Ready to Q uit: Not Asked; Counseling Given: Not Answered Alcohol UseStandard Drinks/WeekCommentsNot Currently0 (1 standard drink = 0.6 oz pure alcohol)caffeine intake: 1-2 cups per daySex and Gender InformationValue Date RecordedSex Assigned at BirthNot on fileLegal DuhIgzb1512/21/2022 7:21 PM EDT Gender IdentityNot on fileSexual OrientationNot on fileOccupationIndustryJob Start DateJob 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
--- OUTSIDE RECORDS SUMMARY | 2025-07-30 15:17 | XMS_ITS | CCD ---
Author Organization [facility] Care Team Providers Care Radio Installer Name Role Phone Ana Gabriel Primary Care Provider ANA Gomez Primary Care Unavailable MARITO OLEA Referring Unavailable Ana Gabriel Unavailable Ana Gabriel Primary Care Physician Monae Guan Unavailable DO Ana Gabriel Primary Care Provider Antonietta [facility] Villavicencio Emergency Provider Antonietta [facility] Villavicencio Attending Provider DO Matthew Sneed Emergency Provider DO Jennifer Momin Admit Provider MD Arnold Siegel Other Provider MD Judit Cuevas Attending Provider [phone] NERY, DR PEREZ Consulting Unavailable NERY, DR PEREZ Attending Unavailable GIRAISHA, DR PEREZ Admitting Unavailable GIRAISHA, DR PEREZ Primary Care Unavailable NERY, DR PEREZ Primary Care Unavailable NERY, DR PEREZ Consulting Unavailable NERY, DR PEREZ Attending Unavailable NERY, DR PEREZ Admitting Unavailable NERY, DR PEREZ Primary Care Unavailable GIRAISHA, DR PEREZ Consulting Unavailable NERY, DR PEREZ Attending Unavailable NERY, DR PEREZ Admitting Unavailable ABHISHEK MAYO Attending Unavailable ANA GABRIEL Referring Unavailable ABHISHEK MAYO Attending Unavailable Ana Gabriel DO Primary Care Provider Gray Edouard DO Attending Provider Dania Shannon Attending Provider Unavailab le Ana Gabriel DO Attending Provider [phone] [facility]icsEdith glynn APRN Attending Provider NON STAFF Primary Care Provider UnavailGray Encarnacion Attending Unavailable Gray Edouard Admitting Unavailable Edith Perez Attending Unavail Edith Trevino Admitting Unavail able Isabelle Alberts Attending Unavailable Isabelle Alberts Referring Unavailable Isabelle Alberts Attending Unavailable Isabelle Alberts Attending Unavailable Allergies Allergy ClassificationReported Allergen(s)Allergy TypeDate of OnsetReaction(s) Facility (20 sources)avocado allergenic extractDrug Allergyabdominal [facility] Dialog[facility] Other (1 source)Brompheniramine / PhenylephrineDrug Allergystopdonalsonville hospital [place] [facility] Other (20 sources)DoxycyclineDrug Pgndamr51-67-3868rkzm/leg cramps, Rash, Rash, rash/leg crampSamaritan Hospital (20 sources)fluticasone / salmeterolDrug AllergyheadLee[facility] Hospital [facility] Other (20 sources)PseudoephedrineDrug Allergystopdonalsonville hospital [place] [facility] Other (20 sources)Dimetapp Cold/AllergyDrug allergystshriners hospitals for children [place] [facility] Other (8 sources)Brompheniramine; Translations: [brompheniramine]Drug Allergy 41-89-9460Dpbjhvm (qualifier value)[facility] (1 source)Brompheniramine / PhenylpropanolamineDrug Npdckgu76-45-6207Pja [facility] (1 source)cefdinirDrug Ffkqtac76-28-7265Dwm [facility] (1 source)fluticasone / salmeterolDrug Junktgl15-86-8442ItqWilson [facility] Rep[facility] (5 sources)avocado oilDrug Ysheshh98-66-1144beudznhmo [facility] (5 sources)DextromethorphanDrug Xvqgmcg46-03-9205lcqfjjsACMC Healthcare System (5 sources)diphenhydrAMINEDrug Hgfuedy94-82-9969hzrtcla [facility] (5 sources)fluticasoneDrug Dzgfpvj79-62-8482jmsiuswkMyzpibisyWVUMedicine [facility] (5 sources)guaiFENesinDrug Wwlwkdr91-63-2324bcrnrevACMC Healthcare System (5 sources)PhenylephrineDrug Oaroxpe75-55-7675kapazhrChillicothe Hospital (5 sources)PseudoephedrineDrug Gjbbrwt01-00-1030arywbqiChillicothe Hospital (5 sources)salmeterolDrug Kabtser81-46-0443qgjkuixdTpdmxbrrbWVUMedicine [facility] Medications Current Medications MedicationDrug Class(es)DatesSig (Normalized)Sig (Original)[id number] 200 actuat albuterol 0.09 mg/actuat metered dose inhaler (20 sources)beta2-Adrenergic AgonistStart: 00-46-3387Iwo-Air HFA CFC free 90 mcg/inh MDI Inhalation, Refill(s) 0 Start Date: 04/08/25 Status: Ordered Repeat number: 1Start: 07-09-2024 End: 59-90-1719Iraww: 08-05-2020 End: 80-34-4205rxfg 1 puff(s) by inhalation once daily as needed for wheezing Albuterol Sulfate (Proair Hfa) 90 mcg/actuation HFA aerosol inhaler Discontinued 2 PUFF INHALATION Daily as needed for Shortness Of Breath Or Wheezing August 05, 2020 12:00am July 09, 2024 4:22pmtake 1-2 puff(s) by mouth every four to six hours as neededProAir HFA 108 INHALE 1-2 PUFFS BY MOUTH EVERY 4-6 HOURS NEEDED for 90 days Activetake 1-2 puff(s) by mouth every four to six hours as neededProAir HFA 108 INHALE 1-2 PUFFS BY MOUTH EVERY 4-6 HOURS NEEDED Active cholecalciferol 0.05 mg oral tablet (11 sources)Vitamin DStart: 41-80-2853qaef 1 tablet by mouth every twenty-four hoursVitamin D 50 MCG (2000 UT) 1 tablet Orally Once a day Jul, Active [facility] Fluticasone Propionate 50 MCG/ACT (2 sources)take 2 spray(s) nasal route once dailyCVS Fluticasone Propionate 50 MCG/ACT SPRAY 2 SPRAYS INTO INTO EACH NOSTRIL EVERY DAY for 30 ActiveLORazepam 0.5 mg oral tablet (6 sources)BenzodiazepineStart: 01-27-9544Irdpcekxipwf preparation (15 sources)Start: 08-64-5765uvtytrkieypz Refill(s) 0 Start Date: 04/09/25 Status: Ordered Repeat number: 1Start: 59-34-8623wkbr 1 tablet by mouth once daily Multivitamin Active 1 TAB PO Daily March 25, 2024 12:00amMultivitamin Active Multivitamin tablet (3 sources)Start: 36-92-8444ywgj 1 tablet by mouth once dailyStart: 03-25-2024 take 1 tablet by mouth once dailyMultivitamin tablet Active 1 TAB PO Daily March 25, 2024 12:00am Complies with drug therapyStart: 06-34-4110teyc 1 tablet by mouth once dailyMultivitamin tablet Active 1 TAB PO Daily March 24, 2024 11:00pmMultivitamins - (20 sources)Multivitamins - Orally Activeprobiotic (6 sources)probiotic ActiveProbiotic 250 MG (4 sources)take 1 capsule by mouth twice dailyProbiotic 250 MG 1 capsule Orally Twice a day Activetamsulosin hydrochloride 0.4 mg oral capsule (1 source)alpha-Adrenergic BlockerStart: 04-09-2025 End: 43-95-8180xvms 1 capsule by mouth once dailytamsulosin 0.4 mg Cap 0.4 mg = 1 cap(s), Oral, Daily, Take to help with stone passage. Stop taking if experiencing dizziness or lightheadedness., X 30 day(s), # 30 cap(s), Refills(s) 0 Start Date: 04/09/25 Stop Date: 05/09/25 Status: Ordered Quantity: 30.0 Unit: cap(s) Repeat number: 1 Completed/Discontinued Medications MedicationDrug Class(es)DatesSig (Normalized)Sig (Original)acetaminophen 325 mg / HYDROcodone bitartrate 5 mg oral tablet (9 sources)Opioid AgonistStart: 12-12-2020 End: 46-16-3290cjlw 1 tablet by mouth three times daily as needed for pain Hydrocodone-Acetaminophen 5-325 mg tablet Discontinued 1 TAB PO Three times daily as needed for pain 10 December 12, 2020 May 17, 2022 5:29pmamoxicillin 875 mg / clavulanate 125 mg oral tablet (20 sources)Penicillin-class AntibacterialStart: 03-25-2024 End: 95-08-4098wcfc 1 tablet by mouth twice daily at mealtimeAmoxicillin-Pot Clavulanate 875-125 mg tablet Discontinued 1 TAB PO Twice daily 20 March 25, 2024 12:00am August 06, 2024 3:17pm with foodStart: 49-65-9494ajwm 1 tablet by mouth every twelve hoursAmoxicillin-Pot Clavulanate 875-125 MG 1 tablet Orally every 12 hrs for 14 day(s) May, ActiveStart: 05-21-2022 End: 24-36-4635ehji 1 tablet by mouth twice dailyAmoxicillin-Pot Clavulanate 875-125 mg Tablet Discontinued 1 TAB PO Twice daily 14 May 21, 2022 12:00am January 15, 2024 11:59amStart: 78-68-5352znmc 1 tablet by mouth twice dailyAmoxicillin-Pot Clavulanate Active 1 TAB PO Twice daily 14 May 21, 2022 12:00amStart: 11-29-7331albu 1 tablet by mouth twice dailyAmoxicillin-Pot Clavulanate Active 1 TAB PO Twice daily 14 May 21, 2022 12:00amStart: 25-32-8208pfny 1 tablet by mouth twice dailyAmoxicillin-Pot Clavulanate Active 1 TAB PO Twice daily 14 May 21, 2022 12:00amStart: 61-69-1721dcff 1 tablet by mouth twice daily at mealtimeAmoxicillin-Pot Clavulanate 875-125 MG 1 tablet Orally bid with food May, Activeazithromycin 250 mg oral tablet (4 sources)Macrolide AntimicrobialStart: 11-06-2024 End: 88-64-1714Qrdllknabfyb 250 mg tablet Discontinued 0 PO .COMPLEX November 06, 2024 2:28pm June 12, 2025 6:36pm For 250 mg dose pack: take 500 mg today (day 1), then 250 mg for 4 days (days 2-5) PO120 actuat budesonide 0.16 mg/actuat / formoterol fumarate 0.0045 mg/actuat metered dose inhaler (20 sources)Corticosteroid, beta2-Adrenergic AgonistStart: 07-09-2024 End: 84-76-2029Wrwxqzxrfa-Formoterol (Symbicort) 160-4.5 mcg/actuation HFA aerosol inhaler Discontinued 2 INH INHALATION Twice daily 30.6 90 July 09, 2024 4:24pm August 26, 2024 4:39pm rinse mouth and brushteeth after use Start: 08-05-2020 End: 62-74-5778yikn 1 puff(s) by inhalation twice dailyBudesonide-Formoterol (Symbicort) 160-4.5 mcg/actuation HFA aerosol inhaler Discontinued 2 PUFF INHA LATION Twice daily August 05, 2020 12:00am July 09, 2024 4:23pmtake 2 puff(s) by inhalation twice dailyBudesonide-Formoterol Fumarate 160-4.5 MCG/ACT 2 puffs Inhalation Twice a day for 90 days Activetake 1 puff(s) by mouth twice dailyBudesonide-Formoterol Fumarate 160-4.5 MCG/ACT INHALE 1 PUFF BY MOUTH TWICE DAILY ActiveSymbicort Activecetirizine hydrochloride 10 mg oral tablet (15 sources)Histamine-1 Receptor AntagonistStart: 07-63-2034tonu 1 tablet by mouth once dailyZyrTEC Allergy 10 MG 1 tablet Orally Once a day Jul, Not-Takingciprofloxacin 250 mg oral tablet (19 sources)Quinolone AntimicrobialStart: 01-15-2024 End: 80-24-2440lxfe 1 tablet by mouth twice dailyCiprofloxacin Hcl 250 mg tablet Discontinued 250 MG PO Twice daily January 15, 2024 12:41pm March 25, 2024 4:18pmStart: 08-05-2020 End: 25-76-7191bpfs 1 tablet by mouth twice dailyCiprofloxacin Hcl 500 mg tablet Discontinued 500 MG PO Twice daily August 05, 2020 12:00am August 07, 2020 3:25pmclindamycin 150 mg oral capsule (9 sources)Lincosamide AntibacterialStart: 08-05-2020 End: 67-75-4558olty 1 capsule by mouth three times dailyClindamycin Hcl 150 mg capsule Discontinued 150 MG PO Three times daily August 05, 2020 12:00am O ctober 2019 3:25pmertapenem 1000 mg injection (9 sources)Penem AntibacterialStart: 08-07-2020 End: 38-16-2744vrho 1 g intravenously once dailyErtapenem (Invanz) 1 gram recon soln Discontinued 1 GM IV Daily 14 August 07, 2020 12:00am May 17, 2022 5:29pmescitalopram 10 mg oral tablet (20 sources)Serotonin Reuptake InhibitorStart: 08-05-2020 End: 10-08-8026xhpt 5 mg by mouth at bedtimeEscitalopram Oxalate 10 mg tablet Discontinued 5 MG PO Bedtime August 05, 2020 12:00am January 15, 2024 12:41pm Start: 08-05-2020 End: 62-35-8902rxsd 5 mg by mouth at bedtimeEscitalopram Oxalate Discontinued 5 MG PO Bedtime August 05, 2020 12:00am January 15, 2024 12:41pmtake 1 tablet by mouth once dailyEscitalopram Oxalate 5 MG TAKE 1 TABLET BY MOUTH EVERY DAY for 90 days Activetake 0.5 tablet by mouth once dailyEscitalopram Oxalate 10 MG TAKE 1/2 TABLET BY MOUTH DAILY for 30 Not-Smsjab664 actuat fluticasone propionate 0.22 mg/actuat metered dose inhaler (20 sources)CorticosteroidStart: 17-19-4836Kpahemxlrvg Propionate HFA 220 MCG/ACT 2 inhalations Inhalation Twice a day rinse mouth after use for 90 days Mar, Not-TakingStart: 66-43-0631lsbg 2 spray(s) nasal route once dailyFluticasone Propionate 50 MCG/ACT 2 sprays each nostril Nasally Once a day for 30 days Dec,ctiveStart: 62-01-2481znym 2 spray(s) nasal route once dailyFluticasone Propionate 50 MCG/ACT 2 sprays each nostril Nasally Once a day Jul, Not-TakingFluticasone Furoate Ppylul85 actuat fluticasone propionate 0.113 mg/actuat / salmeterol xinafoate 0.014 mg/actuat dry powder i nhaler (15 sources)Corticosteroid, beta2-Adrenergic AgonistStart: 76-19-3231yvlt 1 puff(s) by inhalation twice dailyAirDuo RespiClick 113/14 113-14 MCG/ACT 1 puff Inhalation Twice a day for 30 days Mar, Not-Takingibuprofen 800 mg oral tablet (15 sources)Nonsteroidal Anti-inflammatory Drugtake 1 tablet by mouth at mealtime as needed, then take 1-2 tablets by mouth once daily as neededIbuprofen 800 MG 1 tablet with food or milk as needed Orally 1 - 2 x daily PRN Not-Taking Ketorolac (18 sources)Nonsteroidal Anti-inflammatory Drug, Cyclooxygenase InhibitorStart: 49-19-8772Miycpta per 15 mg May, 30 mgmethylPREDNISolone 4 mg oral tablet (20 sources)CorticosteroidStart: 08-26-2024 End: 05-14-8814rsxk 1 tablet by mouth onceMethylprednisolone (Medrol (Carlyle)) 4 mg tablets,dose pack Discontinued 0 PO per package directions August 26, 2024 1:00am November 06, 2024 12:57pm PO PER PKG DIRStart: 77-36-5056Fckrpp 4 MG as directed Orally for 6 days Jul, ActiveStart: 77-23-9883Rzin-Medrol 80 mg Apr, 80 mgomeprazole 20 mg delayed release oral tablet (11 sources)Proton Pump InhibitorStart: 05-18-2022 End: 65-97-4621orpj 1 tablet by mouth once dailyOmeprazole Magnesium (Prilosec Otc) 20 mg Tablet,Delayed Release (Dr/Ec) Discontinued 20 MG PO Daily May 18, 2022 12:00am March 25, 2024 4:18pmOmeprazole 20 MG TAKE 1 CAPSULE BY MOUTH 30 MINUTES BEFORE MORNING MEAL for 30 Not-TakingOmeprazole Magnesium (Prilosec Otc) 20 mg Tablet,Delayed Release (Dr/Ec) (7 sources)Start: 05-18-2022 End: 74-98-2803jfxq 1 tablet by mouth once dailyOmeprazole Magnesium (Prilosec Otc) 20 mg Tablet,Delayed Release (Dr/Ec) Discontinued 20 MG PO Daily May 17, 2022 11:00pm March 25, 2024 3:18pmStart: 05-18-2022 End: 75-34-1636smff 1 tablet by mouth once dailyOmeprazole Magnesium (Prilosec Otc) 20 mg Tablet,Delayed Release (Dr/Ec) Discontinued 20 MG PO Daily May 18, 2022 12:00am March 25, 2024 4:18pmStart: 69-87-7218zmmd 1 tablet by mouth once dailyOmeprazole Magnesium (Prilosec Otc) 20 mg Tablet,Delayed Release (Dr/Ec) Active 20 MG PO Daily May 18, 2022 12:00ampredniSONE 20 mg oral tablet (13 sources)Start: 11-06-2024 End: 09-95-5127bbhs 3 tablets by mouth once daily at mealtime, then take 2 tablets by mouth once daily, then take 1 tablet by mouth once daily at mealtime Prednisone 20 mg tablet Discontinued 0 PO .with food or milk 26 06November 06, 2024 2:28pm June 12, 2025 6:36pm take 3 tablets a day x3 days, 2 tabs a day x3 days and then 1 tab a day x3 days orally WITH FOOD OR MILK;Start: 12-12-2020 End: 07-28-9390aqly 3 tablets by mouth once daily at mealtimePrednisone 20 mg tablet Discontinued 60 MG PO Daily December 12, 2020 1:00am May 17, 2022 5:29pm administer with food or milkStart: 12-12-2020 End: 42-27-1948jaxv 60 mg by mouth once daily at mealtimePrednisone Discontinued 60 MG PO Daily December 12, 2020 1:00am May 17, 2022 5:29pm administerwith food or milksaccharomyces boulardii 250 mg oral capsule (20 sources)Start: 05-18-2022 End: 32-31-0130iqik 1 capsule by mouth twice dailySaccharomyces Boulardii 250 mg Capsule Discontinued 500 MG PO Twice daily May 18, 2022 12:00amJun2023 4:18pmStart: 05-18-2022 End: 66-15-2101qucr 500 mg by mouth twice dailySaccharomyces Boulardii Discontinued 500 MG PO Twice daily May 18, 2022 12:00am March 25, 2024 4:18pmsulfamethoxazole 800 mg / trimethoprim 160 mg oral tablet (15 sources)Dihydrofolate Reductase Inhibitor Antibacterial, Sulfonamide AntimicrobialStart: 05-21-2022 End: 85-04-8031jwfx 1 tablet by mouth twice dailySulfamethoxazole-Trimethoprim 800-160 mg Tablet Discontinued 1 TAB PO Twice daily May 12:00am January 15, 2024 11:59amStart: 23-22-4183wgif 1 tablet by mouth twice dailySulfamethoxazole-Trimethoprim Active 1 TAB PO Twice daily 14 May 21, 2022 12:00amStart: 78-85-8455qsys 1 tablet by mouth twice daily Sulfamethoxazole-Trimethoprim Active 1 TAB PO Twice daily 21 04May 21, 2022 12:00amStart: 23-43-4453jmqi 1 tablet by mouth twice dailySulfamethoxazole- Trimethoprim Active 1 TAB PO Twice daily 21 04May 21, 2022 12:00amBactrim ActiveTriamcinolone (18 sources)CorticosteroidStart: 13-53-3891NKOYIAQ - 10 mg May, 40 mg Problems Active Problems Problem ClassificationProblemDateDocumented DateEpisodic/ChronicAbdominal hernia (1 source)Right inguinal uekuwg30-73-1030ExodolqpSyzsatc disorders (20 sources)Anxiety; Translations: [Anxiety disorder, unspecified]Onset: 07-26-2021 Resolved: 31-20-1278VylqohgDvqydz (20 sources)Asthma; Translations: [Unspecified asthma, uncomplicated]Onset: 07-26-2021 Resolved: 47-08-0954UhbhxieApberzoy of urinary tract (2 sources)History of calculus of kidney; Translations: [Personal history of urinary calculi]32-80-6682RmjgbuouRygz; stupor; and brain damage (20 sources)Daytime somnolence; Translations: [Somnolence]05-13-8528Mikyrwww Diabetes mellitus without complication (9 sources)Hyperglycemia, unspecified; Translations: [Hyperglycemia]Onset: 07-26-2021 Resolved: 54-43-7583VjvoefntHhguitkpi of lipid metabolism (20 sources)Hyperlipidemia; Translations: [Hyperlipidemia, unspecified]Onset: 07-26-2021 Resolved: 18-62-3659GamqoboFpsopuxspd disorders (20 sources)Gastroesophageal reflux disease; Translations: [Gastro-esophageal reflux disease without esophagitis]86-89-3358GpbxcvbKqnunbymgvspw symptoms and ill-defined conditions (11 sources)Hematuria, unspecified; Translations: [Dysuria]Onset: 07-12-2022 EpisodicNonspecific chest pain (1 source)Chest pain; Translations: [Other chest pain]Onset: 80-83-7537Oeapwhah Nutritional deficiencies (20 sources)Vitamin D deficiency; Translations: [Vitamin D deficiency, unspecified]Onset: 75-15-5268QlscpcvCgwpgwynivbksk (20 sources)Inflammation of joint of right hand; Translations: [Primary osteoarthritis, right hand]ChronicOther diseases of kidney and ureters (1 source)Urinary tract obstruction; Translations: [Hydronephrosis with renal and ureteral calculous obstruction]Onset: 71-42-5720LtztkwoeJyinq diseases of veins and lymphatics (20 sources)Lymphangitis; Translations: [Lymphangitis]14-21-5885OoqzbhkFhuqahm on above:Problem List clean-up per request of Phys. EHR CmteOther diseases of veins and lymphatics (8 sources)Lymphangitis; Translations: [Lymphangitis]Onset: 06-03-2022 Resolved: 59-75-1011ApwoumyAbvma gastrointestinal disorders (5 sources)Diarrhea; Translations: [Diarrhea, unspecified]50-08-0449Pxjniuwg Other liver diseases (3 sources)Abnormal levels of other serum enzymes; Translations: [ABNORMAL LEVELS OTHER SERUM ENZYMES]Onset: 79-58-6334ZcmdyfqgDrgxt lower respiratory disease (1 source)Dyspnea; Translations: [Shortness of breath]Onset: 94-07-3402Dtqiwzom Other nervous system disorders (1 source)Paresthesia of lower extremity; Translations: [Numbness and tingling of both legs]EpisodicOther nutritional; endocrine; and metabolic disorders (3 sources)Abnormal weight loss; Translations: [Weight loss R63.4]Onset: 07-26-2021 Resolved: 40-32-2294RpyoyxrvDcqlu screening for suspected conditions (not mental disorders or infectious disease) (2 sources)Encounter for screening for malignant neoplasm of prostate; Translations: [Encounter for screening for malignant neoplasm of colon]Onset: 87-11-8635BgvdiibgPzyoe upper respiratory disease (20 sources)Allergic rhinitis; Translations: [Allergic rhinitis, unspecified] 88-26-7320SbhndfxZfbtw upper respiratory disease (2 sources)Allergic rhinitis, unspecified; Translations: [Allergic rhinitis, cause unspecified]Onset: 09-17-2021 Resolved: 42-29-8302AsxmppyLiifm upper respiratory infections (9 sources)Acute sinusitis, unspecified; Translations: [Acute sinusitis]Onset: 09-17-2021 Resolved: 30-02-4460YstjjifeFyibyb media and related conditions (6 sources)Otitis media; Translations: [Otitis media, unspecified, unspecified ear]62-63-9516DghzhdgqNzbypwr on above:left / earlyResidual codes; unclassified (20 sources)Insomnia; Translations: [Insomnia, unspecified]EpisodicResidual codes; unclassified (5 sources)Other specified postprocedural statesOnset: 06-03-2022 Resolved: 51-57-4668WxblqrluNpournph codes; unclassified (9 sources)Other specified health status; Translations: [Failure of outpatient treatment]36-81-5974DshrngjmCoclqcw on above:Problem List clean-up per request of Phys. EHR CmteSepticemia (except in labor) (13 sources)Sepsis; Translations: [Sepsis, unspecified organism]05-18-2022 EpisodicComment on above:Problem List clean-up per request of Phys. EHR CmteSkin and subcutaneous tissue infections (20 sources)Cellulitis of right finger; Translations: [Infection of finger] Onset: 06-03-2022 Resolved: 90-79-8202SxxhzsgqXlugevt on above:Problem List clean-up per request of Phys. EHR CmteSpondylosis; intervertebral disc disorders; other back problems (20 sources)Degeneration of lumbar intervertebral disc; Translations: [Other intervertebral disc degeneration, lumbar region]ChronicSpondylosis; intervertebral disc disorders; other back problems (10 sources)Lumbar radiculopathy; Translations: [Radiculopathy, lumbar region] 58-23-7662TyvtxyfxQsanzfu on above:Problem List clean-up per request of Phys. EHR CmteUnclassified (1 source)Obstructive vyxaezhvhcoxnv69-75-7718Xcidc infection (9 sources)COVID-19; Translations: [Severe acute respiratory syndrome coronavirus 2 (SARS-CoV-2) detected]95-31-5273DubuivayQjkmvmo on above:Problem List clean-up per request of Phys. EHR Cmte Past or Other Problems Problem ClassificationProblemDateDocumented DateEpisodic/ChronicHeadache; including migraine (1 source)Headache; including migraine; Translations: [Sinus headache R51.9] Onset: 07-26-2021 Resolved: 50-47-1570Ixgty aftercare (1 source)Encounter for removal of suturesOnset: 06-03-2022 Resolved: 72-46-5823Frrntick Results Test NameValueInterpretationReference RangeFacilityProvider Letteron 07-01-2025 Provider LetterProvider Letter July 01, 2025 [address] [address] [address] [place] [id number] : 1975 Dear Americo Babb, We have been trying to reach you with no success. It is important that you return our call regarding your Test Results upon receiving this letter. Also, at the time of your call, please provide us with your current information. Thank you for your prompt attention to this matter. Sincerely, [facility] [place] [address] [place], [place] [address] NoEast [facility] Regional HospitalProvider Letteron 06-19-2025 Provider LetterProvider Letter June 19, 2025 [facility] [address] [place] [phone] : 1975 Dear Americo, We have been trying to reach you with no success. It is important that you return our call regarding a message from your provider upon receiving this letter. Also, at the time of your call, please provide us with your current information. Thank you for your prompt attention to this matter. Sincerely, [facility] [place] [address] UyvkvzOmorpnOhio Valley Surgical HospitalUrine Cultureon 06-12-2025 Bacteria identified Cx Nom (U)No Growth 2 Days PERFORMED BY: [facility] [address] [facility]. [place] [id number] PATHOLOGIST MELT ROOM OPERATOR STEFANIA BYRD M.D.[facility] Physician GroupComment on above: Performed By: #### CUU #### [facility] [address] [place] [address] USAProvider Letteron 61-56-2680Wiubjfyd LetterProvider Letter May 27, 2025 [address] [address] [place] [phone] : 1975 Dear Americo, We have been trying to reach you with no success. It is important that you return our call regarding a message from your provider upon receiving this letter. Also, at the time of your call, please provide us with your current information. Thank you for your prompt attention to this matter. Sincerely, [facility] [address] [place] [address]. [place] [address] PnmilpUpvihsOhio Valley Surgical HospitalPatient Letter FTMCon 08-11-5688Cxeeguv Letter FTMCPatient Letter [facility] May 26, 2025 [facility] BABB [address] [place] [phone] : 1975 Dear Mr. Babb, I am corresponding with you by certified [...] practice. Office Sincerely, Dr. Isabelle Alberts MD [facility] [address] [place] [address]. [place], [place] [address]CflbydRuxsbiOhio Valley Surgical HospitalProvider Letteron 05-12-2025 Provider LetterProvider Letter May 12, 2025 [facility] BABB [address] [phone] : 1975 Dear Americo, We have been trying to reach you with no success. It is important that you return our call regarding a message from your provider upon receiving this letter. Also, at the time of your call, please provide us with your current information. Thank you for your prompt attention to this matter. Sincerely, [facility] [address] [place] [address] PcehvoItauopOhio Valley Surgical HospitalActivated partial thromboplastin time (aPTT) in platelet poor plasma by coagulation aOrdered By: Isabelle Alberts on 74-28-7152rMLP Coag (PPP) [Time]29.1 s22.3-36.2FMemorial HospitalBasophils Auto (Bld) [#/Vol]Ordered By: Ana Gabriel on 05-01-2025 Basophils (Bld) [#/Vol]0.1 10 3/uL0.0-0.1FMemorial Hospital Basophils/100 WBC Auto (Bld)Ordered By: Ana Gabriel on 84-85-5315Rtvufomqm/100 WBC (Bld)0.9 %0.2-2.0[facility] HospitalEosinophils/100 WBC Auto (Bld)Ordered By: Ana Gabriel on 73-18-0190Gvnofctscbn/100 WBC (Bld)1.4 %0.9-7.[address] Anne HospitalErythrocyte distribution width Auto (RBC) [Ratio]Ordered By: nAa Gabriel on 05-24-1027Auuwofdgcqk distribution width (RBC) [Ratio]13.8 %11.0-15.0[facility] Anne HospitalGlomerular filtration rate (GFR) estimation in non- AmericanOrdered By: Isabelle Alberts on 71-34-0583PRX/1.73 sq M.predicted among non-blacks MDRD (S/P/Bld) [Vol rate/Area]mL/min/{1.73_m2}>=60 mL/min/1.73m 2FMemorial Hospital Hematocrit Auto (Bld) [Volume fraction]Ordered By: Ana Gabriel on 05-01-2025 Hematocrit (Bld) [Volume fraction]46.8 %42.0-54.0[facility] HospitalHemoglobin [Mass/volume] in BloodOrdered By: Ana Gabriel on 05-01-2025 Hemoglobin (Bld) [Mass/Vol]15.9 g/dL14.0-18.0[facility] INR in Platelet poor plasma by Coagulation assayOrdered By: Isabelle Alberts on 14-87-7450IMC Coag (PPP) [Relative time]1.02 {INR}[facility] HospitalComment on above:DESIRED INR:2.0-3.0 CONDITIONS NOT LISTED BELOW2.5-3.5 FOR PROSTHETIC HEART VALVE REPLACEMENT2.5-3.5 RECURRENT THROMBOSISLaboratory - Chemistry and Chemistry - challengeOrdered By: Isabelle Alberts on 05-02-6631Ixqaaogvg Ql (U)NegativeNEGATIVEMercy Health St. Anne HospitalCalcium [Mass/Vol]9.2 mg/dL8.5-10.1FMemorial HospitalChloride [Moles/Vol]105 mmol/L 98-107[facility] HospitalCO2 [Moles/Vol]26.2 mmol/L21.0-32.[address] [facility] HospitalCreatinine [Mass/Vol]0.98 mg/dL0.70-1.[address] [facility] HospitalGFR/1.73 sq M.predicted MDRD (S/P/Bld) [Vol rate/Area]mL/min/{1.73_m2}>=60 mL/min/1.73m 2FMemorial Hospital Glucose (U) [Mass/Vol]NegativeNEGATIVEMercy Health St. Anne HospitalGlucose [Mass/Vol]93 mg/rT30-909CkjnfxdftMercy Health St. Anne HospitalKetones Ql (U)Negative NEGATIVEMercy Health St. Anne HospitalpH (U)6.5 [pH]5.0-9.0[facility] HospitalPotassium [Moles/Vol]4.1 mmol/L3.5-5.1FMercy Health Lorain Hospitalodium [Moles/Vol]139 mmol/P892-517TvsrvfkfnMercy Health St. [facility] Hospital Specific gravity (U) [Rel density]1.0101.005-1.025[facility] HospitalUrea nitrogen [Mass/Vol]20.0 mg/dLHigh7.0-18.0[facility] HospitalUrea nitrogen/Creatinine [Mass ratio]20.4 mg/mgMercy Health St. Anne HospitalUrobilinogen Qn (U)0.2 {Colby'U}/dL0.2-1.0[facility] HospitalLaboratory - Hematology and Cell countsOrdered By: Ana Gabriel on 91-02-3657Kbiispuc granulocytes/100 WBC (Bld)0.0 %0.0-0.5FMemorial HospitalLaboratory - Specimen informationOrdered By: Isabelle Alberts on 61-52-5997Ymuisanasy (U)CLEARCLEARFMemorial HospitalColor (U)LT. YELLOWYELLOWMercy Health St. Anne HospitalLaboratory - UrinalysisOrdered By: Isabelle Alberts on 49-65-6477Itzgdbeux esterase Test strip Ql (U)NegativeNEGATIVE [facility] HospitalNitrite Ql (U)NegativeNEGATIVEMercy Health St. Anne HospitalProtein Ql (U)NegativeNEG/TRACEMercy Health St. Anne HospitalLeukocytes [#/volume] corrected for nucleated erythrocytes in Blood by Automated counOrdered By: Ana Gabriel on 28-10-7124HZP corrected for nucl RBC Auto (Bld) [#/Vol]5.6 10 3/uL4.0-11.0[facility] Lymphocytes Auto (Bld) [#/Vol]Ordered By: Ana Gabriel on 05-54-4567Jsqnwanwrqd (Bld) [#/Vol]1.7 10 3/uL1.2-3.8[facility] HospitalLymphocytes/100 WBC Auto (Bld)Ordered By: Ana Gabriel on 28-89-1619Irlkhvxrnuv/100 WBC (Bld) 30.8 %20.5-60.0[facility] Auto (RBC) [Entitic mass] Ordered By: Ana Gabriel on 04-38-3294CJS (RBC) [Entitic mass]30.3 pg25.9-34.[address] [facility] HospitalMCHC Auto (RBC) [Mass/Vol]Ordered By: Ana Gabriel on 63-14-9241WNOK (RBC) [Mass/Vol]34.0 g/dL29.9-35.2FMemorial HospitalMCV Auto (RBC) [Entitic vol]Ordered By: Ana Gabriel on 05-01-2025 MCV (RBC) [Entitic vol]89.1 fL80.0-94.0[facility] Monocytes Auto (Bld) [#/Vol]Ordered By: Ana Gabriel on 60-87-9657Wxefnknpp (Bld) [#/Vol]0.6 10 3/uL0.3-0.8[facility] HospitalMonocytes/100 WBC Auto (Bld)Ordered By: Ana Gabriel on 84-02-0287Rwifdtvqy/100 WBC (Bld)11.5 %1.7-12.0[facility] HospitalNeutrophils Auto (Bld) [#/Vol]Ordered By: Ana Gabriel on 99-62-7440Zzfrtjvegpb (Bld) [#/Vol]3.1 10 3/uL1.4-6.[address] [facility] HospitalNeutrophils/100 WBC Auto (Bld)Ordered By: Ana Gabriel on 23-73-6591Emrtdlebeug/100 WBC (Bld)55.4 %43.0-75.0[facility] HospitalNo Panel InformationOrdered By: Ana Gabriel on 05-01-2025 Eosinophils # (Auto)0.1 10 3/uL0.0-0.7FMemorial HospitalImmature Granulocyte # (Auto)0.00 10 3/uL0.00-0.03[facility] HospitalNo Panel InformationOrdered By: Isabelle Alberts on 87-75-7669Fvgkb Microscopic ReviewWVUMedicine Barnesville HospitalUrine Occult BloodNegativeNEGATIVEMercy Health St. Anne HospitalPlatelet mean volume Auto (Bld) [Entitic vol]Ordered By: Ana Gabriel on 92-75-2898Kzgvtbjv mean volume (Bld) [Entitic vol]10.4 fL 9.5-13.5FMemorial HospitalPlatelets Auto (Bld) [#/Vol]Ordered By: Ana Gabriel on 68-99-5747Vzlvxbqoo (Bld) [#/Vol]225 10 3/pS590-146UqevhozzwMercy Health St. Anne HospitalProthrombin time (PT)Ordered By: Isabelle Alberts on 05-01-2025 PT Coag (PPP) [Time]10.8 s9.0-11.6FMemorial HospitalRBC Auto (Bld) [#/Vol]Ordered By: Ana Gabriel on 93-32-4171VYM (Bld) [#/Vol]5.25 10 6/uL 4.70-6.10[facility] Trumbullerum or plasma anion gap determinationOrdered By: Isabelle Alberts on 15-65-4084Qmdjf gap [Moles/Vol]11.9 mmol/L 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 pt presented to [facility] ED with hematuria and left flank [...] yo M new pt following up to [facility] ER visit on 04/01/25 d/t hematuria and [...] pain, infection, inability to break up the stone,ureteral obstruction, cardiac arrhythmias, damage to surrounding structures and need for additionalprocedures; ureteroscopy - bleeding, pain, infection, damage to [...] include bleeding, infection, inability to break or retrieveall of the stone, injury to the ureter [...] Electronically signed by scr (more content not included)...[facility] HospitalComment on above:Result Comment: Electronically Signed By: Isabelle Alberts MD\.br\Date and Time Signed: 04/09/25 09:11EDT\.br\Electronically Co- Signed By: Mary Roberts\.br\Date and Time Co-Signed: 04/09/25 09:00 EDT Basophils Auto (Bld) [#/Vol]Ordered By: Ana Gabriel on 58-14-3578Cjkyhnogu (Bld) [#/Vol]0.0 10 3/uL0.0-0.1FMemorial HospitalBasophils/100 WBC Auto (Bld)Ordered By: Ana Gabriel on 81-30-9652Jpesemaby/100 WBC (Bld)0.4 % 0.2-2.0[facility] HospitalEosinophils/100 WBC Auto (Bld)Ordered By: Ana Gabriel on 51-01-5638Ppprhgcwgak/100 WBC (Bld)0.2 %Low0.9-7.0[facility] HospitalErythrocyte distribution width Auto (RBC) [Ratio]Ordered By: Ana Gabriel on 64-90-3693Pywwwmnruxq distribution width (RBC) [Ratio]13.6 % 11.0-15.0[facility] HospitalGlomerular filtration rate (GFR) estimation in non- AmericanOrdered By: Gray Edouard on 04-01-2025 GFR/1.73 sq M.predicted among non-blacks MDRD (S/P/Bld) [Vol rate/Area] mL/min/{1.73_m2}>=60 mL/min/1.73m 2FMemorial HospitalHematocrit Auto (Bld) [Volume fraction]Ordered By: Ana Gabriel on 12-98-5257Btnanvibpo (Bld) [Volume fraction]48.5 %42.0-54.0[facility] Hemoglobin [Mass/volume] in BloodOrdered By: Ana Gabriel on 04-01-2025 Hemoglobin (Bld) [Mass/Vol]16.7 g/dL14.0-18.0[facility] Laboratory - Chemistry and Chemistry - challengeOrdered By: Gray Edouard on 25-10-1970Kbvhfzp [Mass/Vol]9.2 mg/dL8.5-10.1FMemorial Hospital Chloride [Moles/Vol]104 mmol/L24-607SuljdmysbMercy Health St. Anne HospitalCO2 [Moles/Vol]23.5 mmol/L21.0-32.0[facility] HospitalCreatinine [Mass/Vol]0.83 mg/dL0.70-1.30[facility] HospitalGFR/1.73 sq M.predicted MDRD (S/P/Bld) [Vol rate/Area]mL/min/{1.73_m2}>=60 mL/min/1.73m [address] [facility] HospitalGlucose [Mass/Vol]106 mg/vN38-537MhwaaimsgMercy Health St. Anne HospitalPotassium [Moles/Vol]4.1 mmol/L3.5-5.1FMercy Health Lorain Hospitalodium [Moles/Vol]138 mmol/Z995-579VpeizrexyMercy Health St. Anne HospitalUrea nitrogen [Mass/Vol]19.0 mg/dLHigh7.0-18.0[facility] HospitalUrea nitrogen/Creatinine [Mass ratio]22.9 mg/mgMercy Health St. Anne HospitalBilirubin Ql (U)NegativeNEGATIVEMercy Health St. Anne HospitalGlucose (U) [Mass/Vol]NegativeNEGATIVEMercy Health St. Anne HospitalKetones Ql (U) NegativeNEGATIVEMercy Health St. Anne HospitalpH (U)6.0 [pH]5.0-9.0[facility] Trumbullpecific gravity (U) [Rel density]1.0251.005-1.[address] [facility] HospitalUrobilinogen Qn (U)0.2 {Colby'U}/dL0.2-1.[address] [facility] HospitalLaboratory - Hematology and Cell countsOrdered By: Ana Gabriel on 85-03-5735Yhuwjzly granulocytes/100 WBC (Bld)0.3 %0.0-0.[address] [facility] HospitalLaboratory - Specimen informationOrdered By: Gray Edouard on 69-14-6689Atztmutuiq (U)CLOUDYAbnormalCLEARFMemorial HospitalColor (U)BROWNAbnormalYELLOWMercy Health St. Anne Hospital Laboratory - UrinalysisOrdered By: Gray Edouard on 22-31-0047Tnmddmxtv esterase Test strip Ql (U)NegativeNEGNewark HospitalMucus Ql (Urine sed)NONE SEENNONE SEENMercy Health St. Anne HospitalNitrite Ql (U) NegativeNEGATIVEMercy Health St. Anne HospitalProtein Ql (U)TRACE mg/dL NEG/TRACEMercy Health St. Anne HospitalLeukocytes [#/volume] corrected for nucleated erythrocytes in Blood by Automated counOrdered By: Ana Gabriel on 90-44-8659JOK corrected for nucl RBC Auto (Bld) [#/Vol]10.0 10 3/uL4.0-11.[address] [facility] HospitalLymphocytes Auto (Bld) [#/Vol]Ordered By: Ana Gabriel on 70-86-8282Lnlaavzybkx (Bld) [#/Vol]1.2 10 3/uL1.2-3.8[facility] HospitalLymphocytes/100 WBC Auto (Bld)Ordered By: Ana Gabriel on 52-67-4045Zhpynhvbdzu/100 WBC (Bld)11.7 %Low20.5-60.0[facility] Auto (RBC) [Entitic mass]Ordered By: Ana Gabriel on 23-38-3798BUJ (RBC) [Entitic mass]30.5 pg25.9-34.0[facility] CenterHC Auto (RBC) [Mass/Vol]Ordered By: Ana Gabriel on 70-76-5520JSMJ (RBC) [Mass/Vol]34.4 g/dL29.9-35.2FMemorial HospitalMCV Auto (RBC) [Entitic vol] Ordered By: Ana Gabriel on 72-50-9295IET (RBC) [Entitic vol]88.7 fL80.0-94.[address] [facility] HospitalMonocytes Auto (Bld) [#/Vol]Ordered By: Ana Gabriel on 76-42-5248Imdgprnfu (Bld) [#/Vol]0.7 10 3/uL0.3-0.8[facility] HospitalMonocytes/100 WBC Auto (Bld)Ordered By: Ana Gabriel on 04-01-2025 Monocytes/100 WBC (Bld)6.7 %1.7-12.0[facility] HospitalNeutrophils Auto (Bld) [#/Vol]Ordered By: Ana Gabriel on 29-89-6301Sftizriztan (Bld) [#/Vol]8.1 10 3/uLHigh1.4-6.5FMemorial HospitalNeutrophils/100 WBC Auto (Bld)Ordered By: Ana Gabriel on 16-52-8775Fwfmiixcupn/100 WBC (Bld) 80.7 %High43.0-75.0[facility] HospitalNo Panel InformationOrdered By: Ana Gabriel on 96-95-4248Wtjwhlkwqfs # (Auto)0.0 10 3/uL0.0-0.7FMemorial HospitalImmature Granulocyte # (Auto)0.03 10 3/uL0.00-0.[address] [facility] HospitalNo Panel InformationOrdered By: Gray Edouard on 76-34-7077Afnti BacteriaLARGE #/HPFAbnormalNONE SEENMercy Health St. Anne HospitalUrine Culture ReflexedYES-FRMCMercy Health St. Anne Hospital Urine Occult BloodLARGEAbnormalNEGATIVEMercy Health St. Anne HospitalUrine Other CastsNONE SEEN #/LPFNONE [facility] CenterUrine Other CrystalsNone Seen #/HPFNone [facility] HospitalUrine RBC>100 #/HPFAbnormal0-2FMemorial HospitalUrine Squamous Epithelial Cells NONE SEEN #/LPFNONE/RAREMercy Health St. Anne HospitalUrine WBC0-2 #/HPF AbnormalNONE [facility] CenterPlatelet mean volume Auto (Bld) [Entitic vol]Ordered By: Ana Gabriel on 96-39-7688Olgbtjbc mean volume (Bld) [Entitic vol]10.2 fL9.5-13.5FMemorial HospitalPlatelets Auto (Bld) [#/Vol]Ordered By: Ana Gabriel on 59-30-2866Dpysljsfp (Bld) [#/Vol] 225 10 3/uB783-455CfvhjswsvMercy Health St. Anne HospitalRBC Auto (Bld) [#/Vol]Ordered By: Ana Gabriel on 30-29-3581TIS (Bld) [#/Vol]5.47 10 6/uL4.70-6.10[facility] - Trumbullerum or plasma anion gap determinationOrdered By: Gray Edouard on 46-07-7591Ebaqi gap [Moles/Vol]14.6 mmol/LFMemorial HospitalUrine Cultureon 84-27-5789Fqxvupli identified Cx Nom (U)No Growth 2 Days PERFORMED BY: [facility] [address] [place] [address] PATHOLOGIST MELT ROOM OPERATOR STEFANIA BYRD M.D.NormalThe [facility] Physician GroupComment on above: Performed By: #### CUU #### [facility] [address] [place] [address] USABasophils Auto (Bld) [#/Vol]on 09-78-6120Dlabftbda (Bld) [#/Vol]0.0 10 3/uL0.0-0.1[facility] CenterBasophils (Bld) [#/Vol]Automated basophil count0.0-0.1FMemorial Hospital Basophils/100 WBC Auto (Bld)on 86-93-5726Uolussrgt/100 WBC (Bld)0.9 %0.2-2.[address] [facility] HospitalBasophils/100 WBC (Bld)Automated basophil % 0.2-2.0[facility] HospitalCholesterol in LDL Calc [Mass/Vol]on 88-02-7873Xeozockptun in LDL [Mass/Vol]109.2 mg/dLMercy Health St. Anne HospitalComment on above:<100 mg/dl LXILEML409-480 mg/dl NEAR OR ABOVE YKSAMQE529- 159 mg/dl BORDERLINE IMZM836-256 mg/dl HIGH>190 mg/dl VERY HIGHCholesterol in LDL [Mass/Vol]Cholesterol in LDL [Mass/volume] in Serum or Plasma by calculation [facility] HospitalComment on above:<100 mg/dl HEHUURN575-411 mg/dl NEAR OR ABOVE YHSJTLO701-254 mg/dl BORDERLINE TDQW466-475 mg/dl HIGH>190 mg/dl VERY HIGHCholesterol in VLDL Calc [Mass/Vol]on 76-30-0585Qaqobbjffxm in VLDL [Mass/Vol]13.8 mg/dLMercy Health St. Anne HospitalCholesterol in VLDL [Mass/Vol]Cholesterol in VLDL [Mass/volume] in Serum or Plasma by calculation [facility] HospitalEosinophils/100 WBC Auto (Bld)on 08-03-2024 Eosinophils/100 WBC (Bld)0.9 %0.9-7.0[facility] Eosinophils/100 WBC (Bld)Automated eosinophil %0.9-7.0[facility] HospitalErythrocyte distribution width Auto (RBC) [Ratio]on 29-05-9647Eutumgmkyll distribution width (RBC) [Ratio]13.5 %11.0-15.0[facility] HospitalErythrocyte distribution width (RBC) [Ratio]Erythrocyte distribution width [Ratio] by Automated count11.0-15.0[facility] HospitalEstimated glomerular filtration rate (GFR) non- Americanon 84-33-3758VAF/1.73 sq M.predicted among non-blacks MDRD (S/P/Bld) [Vol rate/Area]mL/min/{1.73_m2}>=60 mL/min/1.73m 2FMemorial HospitalGFR/1.73 sq M.predicted among non-blacks MDRD (S/P/Bld) [Vol rate/Area]Estimated glomerular filtration rate (GFR) non->=60 mL/min/1.73m 2FMemorial Hospital Globulin Calc (S) [Mass/Vol]on 49-21-1690Yodietoi (S) [Mass/Vol]3.3 g/dL [facility] HospitalGlobulin (S) [Mass/Vol]Serum globulin measurement by calculation (mass/volume)[facility] HospitalGlucose mean value [Mass/volume] in Blood Estimated from glycated hemoglobinon 06-30-1821Hiurrcx glucose Estimated from glycated hemoglobin (Bld) [Mass/Vol]94 mg/dLMercy Health St. Anne HospitalAverage glucose Estimated from glycated hemoglobin (Bld) [Mass/Vol]Glucose mean value [Mass/volume] in Blood Estimated from glycated hemoglobinMercy Health St. Anne HospitalHematocrit Auto (Bld) [Volume fraction]on 98-99-6632Hulkmpyxko (Bld) [Volume fraction]49.9 %42.0-54.[address] [facility] HospitalHematocrit (Bld) [Volume fraction]Hematocrit [Volume Fraction] of Blood by Automated count42.0-54.0[facility] HospitalHemoglobin [Mass/volume] in Bloodon 75-51-2276Ybhelkszie (Bld) [Mass/Vol] 16.3 g/dL14.0-18.0[facility] HospitalHemoglobin (Bld) [Mass/Vol] Hemoglobin [Mass/volume] in Blood14.0-18.0[facility] Laboratory - Chemistry and Chemistry - challengeon 16-68-0985Huvupgp [Mass/Vol] 4.0 g/dL3.4-5.0[facility] HospitalALP [Catalytic activity/Vol]100 U/E67-124FyqebpplgMercy Health St. Anne HospitalALT [Catalytic activity/Vol]35 U/L 16-63[facility] HospitalAST [Catalytic activity/Vol]23 U/L15-[address] [facility] HospitalBilirubin [Mass/Vol]2.4 mg/dLHigh0.2-1.[address] [facility] HospitalCalcium [Mass/Vol]9.4 mg/dL8.5-10.1FMemorial HospitalChloride [Moles/Vol]106 mmol/Y18-690EdbgecfznMercy Health St. Anne HospitalCholesterol [Mass/Vol]166 mg/dL<=200[facility] HospitalCholesterol in HDL [Mass/Vol]43 mg/dX43-02SfjcendotMercy Health St. Anne HospitalComment on above:> or =60 mg/dl - LOW CARDIOVASCULAR RISK<40 mg/dl - HIGH CARDIOVASCULAR RISKCO2 [Moles/Vol]27.5 mmol/L21.0-32.0[facility] HospitalCreatinine [Mass/Vol]1.10 mg/dL0.70-1.30[facility] GFR/1.73 sq M.predicted MDRD (S/P/Bld) [Vol rate/Area]mL/min/{1.73_m2}>=60 mL/min/1.73m 2FMemorial HospitalGlucose [Mass/Vol]95 mg/iD11-[address] [facility] HospitalPotassium [Moles/Vol]4.2 mmol/L3.5-5.1FMemorial HospitalProtein [Mass/Vol]7.3 g/dL6.4-8.2FMercy Health Lorain Hospitalodium [Moles/Vol]142 mmol/G753-373TaqhpsplsMercy Health St. Anne HospitalTriglyceride [Mass/Vol]69 mg/dL<=150[facility] HospitalTSH Qn1.807 m[IU]/L0.358-3.740[facility] HospitalUrea nitrogen [Mass/Vol]18.0 mg/dL7.0-18.0[facility] HospitalUrea nitrogen/Creatinine [Mass ratio]16.4 mg/mgMercy Health St. [facility] Hospital Bilirubin Ql (U)NegativeNEGATIVEMercy Health St. Anne HospitalGlucose (U) [Mass/Vol]NegativeNEGATIVEMercy Health St. Anne HospitalKetones Ql (U) NegativeNEGATIVEMercy Health St. Anne HospitalpH (U)6.5 [pH]5.0-9.0[facility] Trumbullpecific gravity (U) [Rel density]<=1.005Abnormal 1.005-1.025[facility] HospitalUrobilinogen Qn (U)0.2 {Colby'U}/dL0.2-1.0[facility] HospitalLaboratory - Hematology and Cell countson 08-25-6805CqZ4a (Bld) [Mass fraction]4.9 %4.5-6.2FMemorial HospitalComment on above:ADA RECOMMENDED LIMIT 4.0 - 6.0ADA THERAPEUTIC TARGET < 7.0ACTION SUGGESTED> 7.0Immature granulocytes/100 WBC (Bld) 0.0 %0.0-0.5FMemorial HospitalLaboratory - Specimen informationon 17-88-5282Tsinkyauiz (U)CLEARCLEARFMemorial HospitalColor (U)LT. YELLOWYELLOWMercy Health St. Anne HospitalLaboratory - Urinalysison 36-61-6062Gktekeszf esterase Test strip Ql (U)NegativeNEGATIVEMercy Health St. Anne HospitalMucus Ql (Urine sed)NONE SEENNONE SEENMercy Health St. Anne HospitalNitrite Ql (U)NegativeNEGATIVEMercy Health St. Anne HospitalProtein Ql (U)NegativeNEG/TRACEMercy Health St. Anne HospitalLeukocytes [#/volume] corrected for nucleated erythrocytes in Blood by Automated counon 89-83-4682GOI corrected for nucl RBC Auto (Bld) [#/Vol]4.3 10 3/uL4.0-11.0[facility] HospitalWBC corrected for nucl RBC Auto (Bld) [#/Vol]Leukocytes [#/volume] corrected for nucleated erythrocytes in Blood by Automated coun4.0-11.[address] [facility] HospitalLymphocytes Auto (Bld) [#/Vol]on 08-03-2024 Lymphocytes (Bld) [#/Vol]1.4 10 3/uL1.2-3.8[facility] Lymphocytes (Bld) [#/Vol]Lymphocytes [#/volume] in Blood by Automated count 1.2-3.8[facility] HospitalLymphocytes/100 WBC Auto (Bld)on 84-22-9846Vmrhdszvdxk/100 WBC (Bld)32.6 %20.5-60.0[facility] HospitalLymphocytes/100 WBC (Bld)Lymphocytes/100 leukocytes in Blood by Automated count20.5-60.0[facility] Auto (RBC) [Entitic mass]on 03-23-8274CCO (RBC) [Entitic mass]29.9 pg25.9-34.0[facility] (RBC) [Entitic mass]MCH [Entitic mass] by Automated count25.9-34.0 [facility] CenterHC Auto (RBC) [Mass/Vol]on 23-94-7730CWIX (RBC) [Mass/Vol]32.7 g/dL29.9-35.2FAvita Health System Bucyrus HospitalHC (RBC) [Mass/Vol]MCHC [Mass/volume] by Automated count29.9-35.2FAvita Health System Bucyrus HospitalV Auto (RBC) [Entitic vol]on 10-77-0292SDL (RBC) [Entitic vol] 91.6 fL80.0-94.0[facility] CenterV (RBC) [Entitic vol]MCV [Entitic volume] by Automated count80.0-94.0[facility] Monocytes Auto (Bld) [#/Vol]on 18-69-5530Fputkvmbx (Bld) [#/Vol]0.5 10 3/uL 0.3-0.8[facility] HospitalMonocytes (Bld) [#/Vol]Automated blood monocyte count0.3-0.8[facility] HospitalMonocytes/100 WBC Auto (Bld)on 99-17-1602Tretkkgir/100 WBC (Bld)11.8 %1.7-12.0[facility] HospitalMonocytes/100 WBC (Bld)Automated monocyte %1.7-12.0[facility] HospitalNeutrophils Auto (Bld) [#/Vol]on 00-87-2337Orpywhloqcv (Bld) [#/Vol]2.3 10 3/uL1.4-6.5FMemorial HospitalNeutrophils (Bld) [#/Vol]Neutrophils [#/volume] in Blood by Automated count1.4-6.5FMemorial HospitalNeutrophils/100 WBC Auto (Bld)on 08-03-2024 Neutrophils/100 WBC (Bld)53.8 %43.0-75.0[facility] Neutrophils/100 WBC (Bld)Automated neutrophil %43.0-75.0[facility] HospitalNo Panel Informationon 076772-Nxmbnab Vitamin D Total32.9 ng/mLMercy Health St. Anne HospitalComment on above:<20 ng/mL Vit D wqljmxxje83-<30 ng/mL Vit D usvssfklzprn51-408 ng/mL Vit D sufficient>100 ng/mL Potential ToxicityEosinophils # (Auto)0.0 10 3/uL0.0-0.7FMemorial HospitalImmature Granulocyte # (Auto)0.00 10 3/uL0.00-0.03[facility] HospitalProstate Specific Antigen Screen0.69 ng/mL<=4.00[facility] HospitalUrine BacteriaNONE SEEN #/HPFNONE [facility] CenterUrine Occult BloodNegativeNEGATIVEMercy Health St. Anne HospitalUrine Other CastsNONE SEEN #/LPFNONE [facility] Urine Other CrystalsNone Seen #/HPFNone [facility] Urine RBCNONE SEEN #/HPF0-2FMemorial HospitalUrine Squamous Epithelial CellsRARE #/LPFNONE/RAREMercy Health St. Anne HospitalUrine WBC NONE SEEN #/HPFNONE [facility] CenterPlatelet mean volume Auto (Bld) [Entitic vol]on 96-32-0521Wgmczqcv mean volume (Bld) [Entitic vol] 10.3 fL9.5-13.5FMemorial HospitalPlatelet mean volume (Bld) [Entitic vol]Platelet mean volume [Entitic volume] in Blood by Automated count 9.5-13.5FMemorial HospitalPlatelets Auto (Bld) [#/Vol]on 16-52-0903Xgpenpofk (Bld) [#/Vol]236 10 3/aA172-776FnknvqxicMercy Health St. Anne HospitalPlatelets (Bld) [#/Vol]Platelets [#/volume] in Blood by Automated count 150-450[facility] St[facility] Anne HospitalRBC Auto (Bld) [#/Vol]on 61-06-9289HHF (Bld) [#/Vol]5.45 10 6/uL4.70-6.10[facility] Anne HospitalRB (Bld) [#/Vol]Erythrocytes [#/volume] in Blood by Automated count4.70-6.10[facility]um or plasma albumin/globulin mass ratioon 08-03-2024 Albumin/Globulin [Mass ratio]1.2 {ratio}[facility] Albumin/Globulin [Mass ratio]Serum or plasma albumin/globulin mass ratio [facility]erum or plasma anion gap determinationon 64-61-9885Xgaxa gap [Moles/Vol]12.7 mmol/LFMemorial HospitalAnion gap [Moles/Vol]Serum or plasma anion gap determinationSelect Medical Specialty Hospital - Trumbullerum or plasma total cholesterol/high density lipoprotein (HDL) cholesterol mass en 50-23-2679Zcjimpngnqy.total/Cholesterol in HDL [Mass ratio]3.9 {ratio}[facility] Anne HospitalComment on above:3.3 - 4.4 LOW RISK4.4 - 7.1 AVERAGE RISK7.1 - 11.0 MODERATE RISK>11.0 HIGH RISK Cholesterol.total/Cholesterol in HDL [Mass ratio]Serum or plasma total cholesterol/high density lipoprotein (HDL) cholesterol mass ratMercy Health St. Anne HospitalComment on above:3.3 - 4.4 LOW RISK4.4 - 7.1 AVERAGE RISK7.1 - 11.0 MODERATE RISK>11.0 HIGH RISKNo Panel Informationon 01-15-2024 Clostridium difficile (PCR)(LAB)NegativeNEGATIVEMercy Health St. Anne HospitalMiscellaneous TestCOMMENT.[facility] Anne HospitalComment on above:Test Ordered: [id number] Norovirus, RT-PCRNorovirus GI Negative BN Reference Range: NegativeNorovirus GII Positive [A ] BN Reference Range: NegativeThis test was developed and its performance characteristicsdetermined by [employer] It has not been cleared or approvedby the Food and Drug Administration. The FDA hasdetermined that such clearance or approval is notnecessary.Performed at: [address] [id number] Director: Jossue Elizabeth MD, Phone: [phone] at: [address] [id number] Director: Prosper Cristobal, Phone: [phone] Miscellaneous Test CommentSee St. Anthony's HospitalComment on above:Specimen Source: ST - Stool - Stool - 700.100Ova & Parasite Result [address] Anne HospitalComment on above:No ova, cysts, or parasites seen.One negative specimen does not rule out the possibility ofa parasitic infection.Performed at: [address] [id number] Director: Prosper Peña PhD, Phone: [phone] and Parasites (LAB)Final report.[facility]. Anne HospitalComment on above: These results were obtained using wet preparation(s) andtrichrome stained smear. This test does notinclude testingfor Cryptosporidium parvum, Cyclospora, or Microsporidia.Rotavirus Antigen (LAB)NegativeNegativeMercy Health St. Anne HospitalComment on above:Performed at: [address] [id number] Director: Prosper Peña PhD, Phone: [phone] Campylobacter Culture Res 1See St. Anthony's HospitalComment on above:[facility],Stool Leukocytes, Qualitative<1.00 ug/mL(g)0.00-7.24[facility]. Anne HospitalComment on above:Results verified by repeat testing Baseline (normal) 0.00 - 7.24 Elevated >7.24An elevated result is indicative of the presence offecal lactoferrin, a marker of intestinal inflammation.A normal result does not exclude the presence ofintestinal inflammation.The test can be used as an in vitrodiagnostic aid todistinguish patients with active inflammatory boweldisease (IBD) from those with non-inflammatoryirritable bowel syndrome (IBS).Performed at: [facility] [address] [id number] Director: Jossue Elizabeth MD, Phone: [phone] Occult BloodNegativeMercy Health St. Anne HospitalNo Panel InformationOrdered By: Ana Gabriel on 01-15-2024E coli Shiga Toxin EIASelect Medical Specialty Hospital - Trumbullalmonella/Shigella ScreenMercy Health St. Anne HospitalVITAMIN D 25 OH on 76-44-1066TBD D 25-OH31.0 ng/mLNormalWilson HealthComment on above: Performed By: #### VITAD #### [facility] [address] [address] [address] Faith Keller D RANGESSEE BELOWCleveland Clinic Euclid HospitalComment on above: Result Comment: <20 ng/mL Vit D deficient 20 - <30 ng/mL Vit D insufficient 30 - 100 ng/mL Vit D sufficient >100 ng/mL Potential ToxicityPerformed By: #### VITAD #### [facility] [address] [address] [address] Faith Woods RANDOM W/MICROSCOPICon 03-70-3177TMJQIPFLE CRYSTALSMODERATE NormalWilson HealthComment on above:Performed By: #### UAMIC #### [facility] [address] [address] [address] Faith QuintanaBACTERIANICOLE SEENDeaconess Incarnate Word Health SystemalNONE The MetroHealth SystemComment on above:Performed By: #### UAMIC #### [facility] [address] [address] [address] Faith Perezirubin Ql (U)NegativeNormalNEGATIVEWilson Health Comment on above:Performed By: #### UAMIC #### [facility] [address] [address] [address] Faith QuintanaCASTNONSaud SEENNormalNONE SEENWilson HealthComment on above:Performed By: #### UAMIC #### [facility] [address] [place] [address] Dr. Faith QuintanaClarity (U)CLEARNormalCLEARWilson HealthComment on above: Performed By: #### UAMIC #### [facility] [address] [address] [address] Faith Meehan (U)LT. YELLOWNormalYELLOWWilson HealthComment on above:Performed By: #### UAMIC #### [facility] [address] [address] [address] Faith QuintanaCrystals LM Nom (Urine sed)SEENAbnormalNONE SEENWilson HealthComment on above:Performed By: #### UAMIC #### [facility] [address] [address] [address] Faith Jinpithelial cells LM Ql (Urine sed)RARENormalNONE SEEN /RAREWilson HealthComment on above:Performed By: #### UAMIC #### [facility] [address] [place] [address] Dr. Faith QuintanaGlucose Ql (U)NegativeNormalNEGATIVEWilson HealthComment on above:Performed By: #### UAMIC #### [facility] [address] [place] [address] Dr. Faith QuintanaHemoglobin Ql (U)TRACE-INTACTAbnormalNEGAdams County Regional Medical CenterComment on above:Performed By: #### UAMIC #### [facility] [address] [place] [address] Dr. Faith QuintanaKetones Ql (U)NegativeNormalNEGATIVEWilson HealthComselect specialty hospital[facility] on above:Performed By: #### UAMIC #### [facility] [address] [address] [address] Faith QuintanaLEUKOCYTESNegativeNormalNEGATIVEWilson HealthComselect specialty hospital-[facility] on above:Performed By: #### UAMIC #### [facility] [address] [address] [address] Faith QuintanaMUCOUSNONE SEENNormalNONE SEENWilson HealthComselect specialty hospital-[facility] on above:Performed By: #### UAMIC #### [facility] [address] [place] [address] Dr. Faith QuintanaNitrite Ql (U)NegativeNormalNEGATIVEWilson HealthComment on above:Performed By: #### UAMIC #### [facility] [address] [place] [address] Dr. Faith QuintanapH (U)6.5 [pH]Normal5-9The [facility] HospitalComment on above: Performed By: #### UAMIC #### [facility] [address] [place] [address] Dr. Faith QuintanaYpiuhIKF1-6Kkchps6-1Ipa [facility] HospitalComment on above:Performed By: #### UAMIC #### [facility] [address] [place] [address] Dr. Faith QuintanaSPEC GRAVITY1.934Zxlduh0.005-<=1.025The [facility] HospitalComment on above:Performed By: #### UAMIC #### [facility] [address] [place] [address] Dr. Faith Woods PROTEINNegativeNormalNEGATIVE/ TRACEThe [facility] Comment on above:Performed By: #### UAMIC #### [facility] [address] [place] [address] Dr. Faith Juliobilmarlongen Qn (U)0.2 {Colby'U}/dLNormal0.2 - 1.0The [facility] HospitalComment on above:Performed By: #### UAMIC #### [facility] [address] [place] [address] Dr. Faith QuintanaWBCNONE SEENNormalNONE SEENThe [facility] HospitalComment on above: Performed By: #### UAMIC #### [facility] [address] [place] [address] Dr. Faith Kaur AUTO DIFFon 46-47-9192LKRS #0.0 103/ulNormal0.0-0.1The [facility] HospitalComment on above:Performed By: #### CBC #### [facility] [address] [place] [address] Dr. Faith QuintanaBasophils/100 WBC (Bld)0.9 %Normal0.2-2.0The [facility] Comment on above:Performed By: #### CBC #### [facility] [address] [address] [address] Faith Urban #0.1 103/ulNormal0.0-0.7The [facility] HospitalComment on above: Performed By: #### CBC #### [facility] [address] [place] [address] Dr. Faith Jinosinophils/100 WBC (Bld)1.2 %Normal0.9-7.0The [facility] Comment on above:Performed By: #### CBC #### [facility] [address] [place] [address] Dr. Faith Jinrythrocyte distribution width (RBC) [Ratio]13.7 %Upqnhe11.0-15.0 The [facility] HospitalComment on above:Performed By: #### CBC #### [facility] [address] [place] [address] Dr. Faith QuintanaHematocrit (Bld) [Volume fraction]50.2 %Xipojk67.0-54.0The [facility] HospitalComment on above:Performed By: #### CBC #### [facility] [address] [place] [address] Dr. Faith QuintanaHemoglobin (Bld) [Mass/Vol]16.4 g/kBZifoml96.0-18.0The [facility] HospitalComment on above:Performed By: #### CBC #### [facility] [address] [place] [address] Dr. Faith Velasco #0.01 10e3/ulNormal0.00-0.03The [facility] HospitalComment on above:Performed By: #### CBC #### [facility] [address] [place] [address] Dr. Faith Velasco %0.2 %Normal0.0-0.5The [facility] HospitalComment on above: Performed By: #### CBC #### [facility] [address] [place] [address] Dr. Faith SotoH #1.5 103/ulNormal1.2-3.8The [facility] HospitalComment on above:Performed By: #### CBC #### [facility] [address] [place] [address] Dr. Faith Headleymphocytes/100 WBC (Bld)34.7 %Qhvdtu27.5-60.0The [facility] Miamisburgment on above:Performed By: #### CBC #### [facility] [address] [place] [address] Dr. Faith Solorio DIFF REQNONormalThe [facility] HospitalComment on above: Performed By: #### CBC #### [facility] [address] [place] [address] Dr. Faith Cote (RBC) [Entitic mass]29.7 nsEmhjyv62.9-34.0The [facility] HospitalComment on above:Performed By: #### CBC #### [facility] [address] [place] [address] Dr. Faith Cote (RBC) [Mass/Vol]32.7 g/tQGdjvpr41.9-35.2The [facility] HospitalComment on above:Performed By: #### CBC #### [facility] [address] [place] [address] Dr. Faith CoteV (RBC) [Entitic vol]90.8 zVQmxxvh29.0-94.0The [facility] HospitalComment on above:Performed By: #### CBC #### [facility] [address] [place] [address] Dr. Faith Guardado #0.5 103/ulNormal0.3-0.8The [facility] HospitalComment on above:Performed By: #### CBC #### [facility] [address] [place] [address] Dr. Faith Carneyocytes/100 WBC (Bld)11.2 %Normal1.7-12.0The [facility] Comment on above:Performed By: #### CBC #### [facility] [address] [place] [address] Dr. Faith Collins #2.2 103/ulNormal1.4-6.5The [facility] HospitalComment on above:Performed By: #### CBC #### [facility] [address] [address] [address] Faith QuintanaNeutrophils/100 WBC (Bld)51.8 %Ruetck10.0-75.0The [facility] on above:Performed By: #### CBC #### [facility] [address] [place] [address] Dr. Faith QuintanaPlatelet mean volume (Bld) [Entitic vol]10.3 fLNormal9.5-13.5The [facility] HospitalComment on above:Performed By: #### CBC #### [facility] [address] [place] [address] Dr. Faith QuintanaPLT227 103/fyTfhbhu444-661Nqf [facility] on above: Performed By: #### CBC #### [facility] [address] [place] [address] Dr. Faith QuintanaRBC5.53 106/ulNormal4.70-6.10The [facility] HospitalComselect specialty hospital[facility] on above:Performed By: #### CBC #### [facility] [address] [place] [address] Dr. Faith QuintanaWBC4.3 103/ulNormal4.0-11.0The [facility] on above: Performed By: #### CBC #### [facility] [address] [place] [address] Dr. Faith QuintanaGLYCOHEMOGLOBIN A1Con 83-58-3641ANQ RECOMMENDATIONSEE BELOWNormal The [facility] HospitalComselect specialty hospital-[facility] on above:Result Comment: ADA RECOMMENDED LIMIT 4.0 - 6.0 ADA THERAPEUTIC TARGET < 7.0 ACTION SUGGESTED > 7.0Performed By: #### A1C #### [facility] [address] [place] [address] Dr. Faith QuintanaGlucose [Mass/Vol]100 mg/dLNormalThUniversity Hospitals Tri[facility] on above:Performed By: #### A1C #### [facility] [address] [place] [address] Dr. Faith QuintanaHbA1c (Bld) [Mass fraction]5.1 %Normal4.5-6.2The [facility] HospitalComment on above:Performed By: #### A1C #### [facility] [address] [place] [address] Dr. Faith IrbyID PROFILEon 05-40-8256CVYK-HDL RATIO NORMSEE BELOWCleveland Clinic Euclid HospitalComment on above:Result Comment: 3.3 - 4.4 LOW RISK 4.4 - 7.1 AVERAGE RISK 7.1 - 11.0 MODERATE RISK >11.0 HIGH RISKPerformed By: #### TSH, CMP, LIPID #### [facility] [address] [place] [address] Dr. Faith QuintanaCholesterol [Mass/Vol]192 mg/dLNormal<=200The [facility] Comment on above:Performed By: #### TSH, CMP, LIPID #### [facility] [address] [place] [address] Dr. Faith Napieresterol in HDL [Mass/Vol]36 mg/dLCritically crn24-18Zkp [facility] HospitalComment on above:Performed By: #### TSH, CMP, LIPID #### [facility] [address] [place] [address] Dr. Faith Napieresterol in LDL [Mass/Vol]136.2 mg/dLNoParkview Health Bryan HospitalComment on above:Performed By: #### TSH, CMP, LIPID #### [facility] [address] [place] [address] Dr. Faith Napieresterconcetta.total/Cholesterol in HDL [Mass ratio]5.3 {ratio} NormalWilson HealthComment on above:Performed By: #### TSH, CMP, LIPID #### [facility] [address] [place] [address] Dr. Faith Cosme NORMAL> or = 60 mg/dl - LOW CARDIOVASCULAR RISK <40 mg/dl - HIGH CARDIOVASCULAR RISKCleveland Clinic Euclid HospitalComment on above:Performed By: #### TSH, CMP, LIPID #### [facility] [address] [place] [address] Dr. Faith Abebe CALC NORMALSEE BELOWNoParkview Health Bryan HospitalComment on above:Result Comment: <100 mg/dl OPTIMAL 100 - 129 mg/dl NEAR OR ABOVE OPTIMAL 130 - 159 mg/dl BORDERLINE HIGH 160 - 189 mg/dl HIGH >190 mg/dl VERY HIGH Performed By: #### TSH, CMP, LIPID #### [facility] [address] [place] [address] Dr. Faith QuintanaTriglyceride [Mass/Vol]99 mg/dLNormal<=150The [facility] Comment on above:Performed By: #### TSH, CMP, LIPID #### [facility] [address] [address] [address] Faith QuintanaVLDL CALC19.8 mg/dLNoParkview Health Bryan HospitalComment on above: Performed By: #### TSH, CMP, LIPID #### [facility] [address] [place] [address] Dr. Faith QuintanaPROF 14(COMP METB)on 69-15-9374Yfbwhhf [Mass/Vol]4.2 g/dLNormal 3.4-5.0The [facility] HospitalComment on above:Performed By: #### TSH, CMP, LIPID #### [facility] [address] [place] [address] Dr. Faith QuintanaAlbumin/Globulin [Mass ratio]1.3 {ratio}NormalThe [facility] HospitalComment on above:Performed By: #### TSH, CMP, LIPID #### [facility] [address] [place] [address] Dr. Faith Toussaint [Catalytic activity/Vol]120 U/LCritically mjsm36-313Prt [facility] HospitalComment on above:Performed By: #### TSH, CMP, LIPID #### [facility] [address] [place] [address] Dr. Faith Abebe [Catalytic activity/Vol]37 U/CAasofj07-08Zaf [facility] HospitalComment on above:Performed By: #### TSH, CMP, LIPID #### [facility] [address] [place] [address] Dr. Yilan ChangAnion gap [Moles/Vol]9.2 mmol/LNormalThe [facility] HospitalComment on above:Performed By: #### TSH, CMP, LIPID #### [facility] [address] [address] [address] Faith QuintanaAST [Catalytic activity/Vol]19 U/JPjntuu26-98Kaz [facility] HospitalComment on above:Performed By: #### TSH, CMP, LIPID #### [facility] [address] [address] [address] Faith QuintanaBilirubin [Mass/Vol]1.8 mg/dLCritically high0.2-1.0The [facility] HospitalComment on above:Performed By: #### TSH, CMP, LIPID #### [facility] [address] [place] [address] Dr. Faith QuintanaCalcium [Mass/Vol]8.8 mg/dLNormal8.5-10.1The [facility] Comment on above:Performed By: #### TSH, CMP, LIPID #### [facility] [address] [place] [address] Dr. Faith QuintanaChloride [Moles/Vol]102 mmol/XLcxklx27-466Ejd [facility] Comment on above:Performed By: #### TSH, CMP, LIPID #### [facility] [address] [place] [address] Dr. Faith QuintanaCO2 [Moles/Vol]27.6 mmol/VHcylyg67.0-32.0The [facility] Comment on above:Performed By: #### TSH, CMP, LIPID #### [facility] [address] [place] [address] Dr. Faith QuintanaCreatinine [Mass/Vol]1.00 mg/dLNormal0.70-1.30The [facility] HospitalComment on above:Performed By: #### TSH, CMP, LIPID #### [facility] [address] [place] [address] Dr. Faith JinGFR-AF CYMRAES>60Normal>=60The [facility] HospitalComment on above:Performed By: #### TSH, CMP, LIPID #### [facility] [address] [address] [address] Faith JinGFR-NON AF CYMRAES>60Normal>=60The [facility] HospitalComment on above:Performed By: #### TSH, CMP, LIPID #### [facility] [address] [address] [address] Faith QuintanaGlobulin (S) [Mass/Vol]3.3 g/dLNormGlenbeigh HospitalComment on above:Performed By: #### TSH, CMP, LIPID #### [facility] [address] [address] [address] Faith QuintanaGlucose [Mass/Vol]91 mg/jHRtmdto56-065Dqh [facility] Comment on above:Performed By: #### TSH, CMP, LIPID #### [facility] [address] [address] [address] Faith QuintanaPotassium [Moles/Vol]3.8 mmol/LNormal3.5-5.1The [facility] Comment on above:Performed By: #### TSH, CMP, LIPID #### [facility] [address] [address] [address] Faith QuintanaProtein [Mass/Vol]7.5 g/dLNormal6.4-8.2The [facility] Comment on above:Performed By: #### TSH, CMP, LIPID #### [facility] [address] [address] [address] Faith QuintanaSodium [Moles/Vol]135 mmol/LCritically ehc444-180Unw [facility] HospitalComment on above:Performed By: #### TSH, CMP, LIPID #### [facility] [address] [address] [address] Faith QuintanaUrea nitrogen [Mass/Vol]19.0 mg/dLCritically high7.0-18.0The [facility] HospitalComment on above:Performed By: #### TSH, CMP, LIPID #### [facility] [address] [address] [address] Faith Bhakta nitrogen/Creatinine [Mass ratio]19.0 mg/mgNoalThBlanchard Valley Health System [facility] HospitalComment on above:Performed By: #### TSH, CMP, LIPID #### [facility] [address] [address] [address] Faith Jackson 69-66-1766QRR5.378 uIU/mLNormal0.358-3.740The [facility] Miamisburgment on above:Performed By: #### TSH, CMP, LIPID #### [facility] [address] [address] [address] Faith Arguello 45-57-0076Pkzlwnrqw Ql (U)NegativeNormalNEGATIVEWilson HealthComment on above:Performed By: #### UA #### [facility] [address] [place] [address] Dr. Faith Charity (U)CLEARNormalCLEARWilson HealthComment on above: Performed By: #### UA #### [facility] [address] [place] [address] Dr. Faith Liulor (U)LT. YELLOWNormalYELLOWWilson HealthComment on above:Performed By: #### UA #### [facility] [address] [address] [address] Faith QuintanaGlucose Ql (U)NegativeNormalNEGATIVEWilson HealthComselect specialty hospital[facility] on above:Performed By: #### UA #### [facility] [address] [place] [address] Dr. Faith QuintanaHemoglobin Ql (U)TRACE-INTACTAbnormalNEGATIVEWilson HealthComselect specialty hospital-[facility] on above:Performed By: #### UA #### [facility] [address] [address] [address] Faith QuintanaKetones Ql (U)NegativeNormalNEGATIVEWilson HealthComment on above:Performed By: #### UA #### [facility] [address] [place] [address] Dr. Faith QuintanaLEUKOCYTESNegativeNormalNEGATIVEWilson HealthComment on above:Performed By: #### UA #### [facility] [address] [place] [address] Dr. Faith Espinoza Ql (U)NegativeNormalNEGATIVEThe [facility] HospitalComment on above:Performed By: #### UA #### [facility] [address] [place] [address] Dr. Faith QuintanapH (U)6.0 [pH]Normal5-9The [facility] HospitalComment on above: Performed By: #### UA #### [facility] [address] [place] [address] Dr. Faith QuintanaSPEC GRAVITY1.355Cahbom9.005-<=1.025The [facility] HospitalComment on above:Performed By: #### UA #### [facility] [address] [place] [address] Dr. Faith Woods PROTEINNegativeNormalNEGATIVE/ TRACEThe [facility] Comment on above:Performed By: #### UA #### [facility] [address] [place] [address] Dr. Faith Juliobilino Qn (U)0.2 {Colby'U}/dLNormal0.2 - 1.0The [facility] HospitalComment on above:Performed By: #### UA #### [facility] [address] [place] [address] Dr. Faith QuintanaVITAMIN D 25 OHon 05-13-5202PLH D 25-OH26.4 ng/mLNormalThe [facility] HospitalComment on above:Performed By: #### VITAD #### [facility] [address] [place] [address] Dr. Faith Castelan RANGESSEE BELOWCleveland Clinic Euclid HospitalComment on above: Result Comment: <20 ng/mL Vit D deficient 20 - <30 ng/mL Vit D insufficient 30 - 100 ng/mL Vit D sufficient >100 ng/mL Potential ToxicityPerformed By: #### VITAD #### [facility] [address] [place] [address] Dr. Faith Portillo identified Anaer cx Nom (Unsp spec)Ordered By: Monae Guan on 70-12-9382Bebfsmcop microbial cultureNo Anaerobes Isolated [address] [facility] HospitalBacterial blood cultureOrdered By: Aicha Mane on 46-91-7494Wpwpmwol identified Cx Nom (Bld)NO GROWTH [address] Anne HospitalBacteria identified Aer cx Nom (Unsp spec)Ordered By: Monae Guan on 22-47-6130Sabtxpm CultureBeta strep not Group A or BFMemorial HospitalBasophils Auto (Bld) [#/Vol]Ordered By: Kacie Antunez on 64-27-7850Frjxwiplh (Bld) [#/Vol]0.1 10*3/uL0.0-0.2FMemorial HospitalBasophils/100 WBC Auto (Bld)Ordered By: Kacie Antunez on 05-21-2022 Basophils/100 WBC (Bld)0.9 %.[facility] HospitalBlood hemoglobin measurement (mass/volume)Ordered By: Kacie Antunez on 84-85-2230Geoadqmpnk (Bld) [Mass/Vol]14.5 g/dL13.0-17.0[facility] HospitalBlood leukocytes automated count (number/volume)Ordered By: Kacie Antunez on 07-69-6900SVJ (Bld) [#/Vol]5.7 10*3/uL4.5-11.0[facility] Creatinine and Glomerular filtration rate.predicted panel (S/P/Bld)Ordered By: Kacie Antunez on 53-15-8904Edlyumlqyl [Mass/Vol]0.95 mg/dL0.64-1.27[facility] HospitalEosinophils Auto (Bld) [#/Vol]Ordered By: Kacie Antunez on 48-84-5463Wgdpckucdwd (Bld) [#/Vol]0.1 10*3/uL0.0-0.45[facility] HospitalEosinophils/100 WBC Auto (Bld)Ordered By: Kacie Antunez on 43-22-4874Edcuczhltfk/100 WBC (Bld)2.6 %.[facility] Erythrocyte distribution width Auto (RBC) [Ratio]Ordered By: Kacie Antunez on 67-35-8150Jhnietmamzv distribution width (RBC) [Ratio]14.1 %12.0-14.8[facility] Anne HospitalEstimated glomerular filtration rate (GFR) non- AmericanOrdered By: Kacie Antunez on 00-51-3635XGM/1.73 sq M.predicted among non-blacks MDRD (S/P/Bld) [Vol rate/Area]> 60 mL/MinMercy Health St. Anne HospitalHematocrit Auto (Bld) [Volume fraction]Ordered By: Kacie Antunez on 63-25-6028Ezwqlnxdmo (Bld) [Volume fraction]44.1 %38.8-50.0[facility] HospitalLaboratory - Hematology and Cell countsOrdered By: Kacie Antunez on 08-69-0957Hnqdwfhbb RBC/100 WBC (Bld) [Ratio]0.0 %0-0.5FMemorial HospitalLymphocytes Auto (Bld) [#/Vol]Ordered By: Kacie Antunez on 50-73-5728Hzficeohkoj (Bld) [#/Vol]1.1 10*3/uL1.00-4.8[facility] HospitalLymphocytes/100 WBC Auto (Bld)Ordered By: Kacie Antunez on 05-21-2022 Lymphocytes/100 WBC (Bld)18.8 %.[facility] [facility] Auto (RBC) [Entitic mass]Ordered By: Kacie Antunez on 70-96-5119GIV (RBC) [Entitic mass] 30.1 pg27.5-35.2FAvita Health System Bucyrus HospitalHC Auto (RBC) [Mass/Vol] Ordered By: Kacie Antunez on 66-94-2501VDJB (RBC) [Mass/Vol]32.9 g/dL32.5-35.6 [facility]V Auto (RBC) [Entitic vol]Ordered By: Kacie Antunez on 23-35-0867LMC (RBC) [Entitic vol]91.5 fL83.5-101[facility] HospitalMonocytes Auto (Bld) [#/Vol]Ordered By: Kacie Antunez on 05-76-0101Pldtwlvdp (Bld) [#/Vol]0.7 10*3/uL0.0-0.8[facility] HospitalMonocytes/100 WBC Auto (Bld)Ordered By: Kacie Antunez on 05-21-2022 Monocytes/100 WBC (Bld)11.7 %.[facility] HospitalNeutrophils Auto (Bld) [#/Vol]Ordered By: Kacie Antunez on 03-73-9362Wgohsoxhhlv (Bld) [#/Vol] 3.7 10*3/uL1.8-7.7FMemorial HospitalNeutrophils/100 WBC Auto (Bld)Ordered By: Kacie Antunez on 41-88-0843Xprfwkjrjhn/100 WBC (Bld)66.0 %. [facility] HospitalNo Panel InformationOrdered By: Kacie Antunez on 57-27-7461Clgfejyya GFR ()> 60 mL/MinMercy Health St. Anne HospitalComment on above:GFR estimated reference range: According to KDOQI guidelines, <60 ml/min/1.73m2 is sufficient todiagnose a patient with chronic kidney disease.Pharmacy Creatinine Clearance (Zszq639.52[facility] HospitalPeak vancomycin levelOrdered By: Kacie Antunez on 05-21-2022 Vancomycin peak [Mass/Vol]25.3 ug/mL20.0-40.0[facility] Comment on above:Last dose: -Platelet mean volume Auto (Bld) [Entitic vol] Ordered By: Kacie Antunez on 94-61-1508Divzxcia mean volume (Bld) [Entitic vol] 9.1 fL6.6-10.1FMemorial HospitalPlatelets Auto (Bld) [#/Vol] Ordered By: Kacie Antunez on 22-25-9059Mellipdpp (Bld) [#/Vol]208 10*3/uL 150-450[facility] HospitalRBC Auto (Bld) [#/Vol]Ordered By: Kacie Antunez on 66-79-5868JOV (Bld) [#/Vol]4.82 10*6/uL3.90-5.60[facility] Trumbullerum or plasma calcium measurement (mass/volume)Ordered By: Kacie Antunez on 85-88-4617Mliicvt [Mass/Vol]9.3 mg/dL8.2-10.2FMercy Health Lorain Hospitalerum or plasma chloride measurement (moles/volume)Ordered By: Kacie Antunez on 94-43-6088Qpkfocea [Moles/Vol]108 mmol/C92-804DmqfdtefpSelect Medical Specialty Hospital - Trumbullerum or plasma glucose measurement (mass/volume)Ordered By: Kacie Antunez on 44-16-9104Pvmqoco [Mass/Vol]76 mg/fZ86-247XryorqvzkMercy Health St. Anne HospitalComment on above:ADA recommended reference range Random Glucose Reference Range is dependent on time and content of last meal. Glucose of more than 200 mg/dL in a nonstressed, ambulatory subject supports the diagnosis of Diabetes Mellitus.Serum or plasma potassium measurement (moles/volume)Ordered By: Kacie Antunez on 14-62-0407Wbdionoht [Moles/Vol]3.9 mmol/L3.5-5.1FMercy Health Lorain Hospitalerum or plasma sodium measurement (moles/volume)Ordered By: Kacie Antunez on 89-34-7205Qrntow [Moles/Vol]140 mmol/O306-909LycmwvmntSelect Medical Specialty Hospital - Trumbullerum or plasma total carbon dioxide measurement (moles/volume)Ordered By: Kacie Antunez on 08-31-4559LX4 [Moles/Vol]22.1 mmol/L22.0-30.0[facility] Trumbullerum or plasma urea nitrogen measurement (mass/volume)Ordered By: Kacie Antunez on 05-21-2022 Urea nitrogen [Mass/Vol]12 mg/dL9-23[facility] HospitalABO and Rh group post transfusion reaction Nom (Bld)Ordered By: Monae Guan on 23-16-5153Gdszcwswvcd observation Gram stain Nom (Unsp spec)[facility] Trumbullerum or plasma trough vancomycin levelOrdered By: Kacie Antunez on 86-84-7867Qnmntyeuev trough [Mass/Vol]13.1 ug/mL10.0-20.0[facility] Anne HospitalComment on above:Last dose: -Activated partial thromboplastin time (aPTT) in platelet poor plasma by coagulation aOrdered By: Kacie Antunez on 06-92-2097kVDV Coag (PPP) [Time]28.7 s25.1-36.5FMemorial Hospital Albumin [Mass/volume] in Serum or PlasmaOrdered By: Kacie Antunez on 05-19-2022 Albumin [Mass/Vol]3.2 g/dL3.2-5.5FMemorial HospitalGlobulin Calc (S) [Mass/Vol]Ordered By: Kacie Antunez on 94-11-1206Hdfdktwu (S) [Mass/Vol]2.5 g/dLMercy Health St. Anne HospitalLaboratory - CoagulationOrdered By: Kacie Antunez on 17-68-8307TG Coag (PPP) [Time]14.4 s9.0-12.9[facility] Anne HospitalPlatelet poor plasma international normalized ratio (INR) by coagulation assay (relatOrdered By: Kacie Antunez on 54-93-8688JRC Coag (PPP) [Relative time]1.3 {INR}[facility] Anne HospitalComment on above:INR Therapeutic Range A) Pre- and Peroperative OAT started two weeks before surgery. NOT HIP SURGERY: 1.5 - 2.5 HIP SURGERY: 2 - 3 B) Primary and secondary prevention of venous THROMBOSIS: 2 - 3 C) Active venous thrombosis, pulmonary embolism and prevention of recurrent venous thrombosis: 2 - 3 D) Prevention of arterial thromboembolism including patients with mechanical heart valves: 3 - 4.5Protein [Mass/volume] in Serum or PlasmaOrdered By: Kacie Antunez on 11-39-0145Fcmxjda [Mass/Vol]5.7 g/dL6.1-7.9[facility] Trumbullerum or plasma alanine aminotransferase measurement without P-5'-P (enzymatic activiOrdered By: Kacie Antunez on 51-95-0319FEM No additional P-5'-P [Catalytic activity/Vol]22 U/L 10-60[facility] Trumbullerum or plasma albumin/globulin mass ratioOrdered By: Kacie Antunez on 42-61-8265Fqfphzo/Globulin [Mass ratio]1.3 {ratio}[facility] Trumbullerum or plasma alkaline phosphatase measurement (enzymatic activity/volume)Ordered By: Kacie Antunez on 05-19-2022 ALP [Catalytic activity/Vol]62 U/R33-24BcfdedkfpSelect Medical Specialty Hospital - Trumbullerum or plasma aspartate aminotransferase measurement (enzymatic activity/volume)Ordered By: Kacie MimsCarroll on 83-61-8371MKD [Catalytic activity/Vol]18 U/E45-31FnpkqtowxSelect Medical Specialty Hospital - Trumbullerum or plasma total bilirubin measurement (mass/volume) Ordered By: Kacie MimsCarroll on 06-14-3556Allkvthit [Mass/Vol]2.2 mg/dL0.3-1.[address] Anne HospitalComment on above:Samples from patients who have taken Naproxen have shown spurious elevation in Total Bilirubin levels. A metabolite of Naproxen, O-desmethylnaproxen, has been shown to interfere with the Gricelda-Kenji method for measuring Total Bilirubin.C reactive protein [Mass/volume] in Serum or PlasmaOrdered By: Matthew Sneed on 04-74-0401FNF [Mass/Vol]11.8 mg/dL0.0-1.0[facility] HospitalCOVID-19 Positive/NegativeOrdered By: Matthew Sneed on 49-25-3998VXJY-CoV-2 (COVID-19) N gene ARIELLE+probe Ql (Resp)PositiveNegativeMercy Health St. Anne HospitalComment on above:Positive results will only be called to Providers for the following groups of patients: Pre-Surgical Testing, Emergency Room, and Inpatients. Results called at 1857 on 05/18/22 Testing for SARS-CoV-2 by RT-PCR This test was developed and its performance characteristics determined by [employer] ([employer]) and validated at the [facility]. This test has not been FDA cleared [...] of time the declaration that circumstances exist ju stifying the authorization of the emergency use of in vitro diagnostic tests for detection of SARS-CoV-2 virus and/or diagnosis of COVID-19 infection under section 564(b)(1) of the Act, 21 U.S.C. 360bbb-3(b)(1), unless the authorization is terminated or revoked sooner.COVID-19 SOFIAOrdered By: Matthew Sneed on 23-71-0286WSAR-CoV+SARS-CoV-2 (COVID-19) Ag IA.rapid Ql (Resp)NegativeNegative [facility] HospitalComment on above:This is a duplicate Nina SARS Antigen (CATRACHO) result to be used for statistical tracking purpose only.Creatine kinase [Enzymatic activity/volume] in Serum or PlasmaOrdered By: Jennifer Momin on 43-56-9056LY [Catalytic activity/Vol]237 U/N46-030KxeklztddMercy Health St. Anne HospitalErythrocyte sedimentation rate by Photometric methodOrdered By: Matthew Sneed on 51-49-6151YFW Photometric method (Bld) [Velocity]4 mm/hr0-14[facility] HospitalLaboratory - Microbiology and Antimicrobial susceptibilityOrdered By: Matthew Sneed on 10-13-0860JMZD-CoV-2 (COVID-19) RNA ARIELLE+probe Ql (Unsp spec)N/AFMemorial HospitalNo Panel Information Ordered By: Matthew Sneed on 80-13-3254IODM Antigen (LFIA)[facility] HospitalUrine lactic acid measurementOrdered By: Matthew Sneed on 05-18-2022 Lactate (U) [Moles/Vol]1.2 mmol/L0.5-2.2FMemorial Hospital Basophils Auto (Bld) [#/Vol]Ordered By: Aicha Mane on 67-75-1203Tihlhplpt (Bld) [#/Vol]0.0 10*3/uL0.0-0.2FMemorial HospitalBasophils/100 WBC Auto (Bld)Ordered By: Aicha Lawsonimore on 59-09-1517Fwhtdqvke/100 WBC (Bld) 0.3 %.[facility] HospitalBlood hemoglobin measurement (mass/volume)Ordered By: Aicha Mane on 60-28-0041Pwqsnfxfes (Bld) [Mass/Vol]16.9 g/dL13.0-17.0[facility] HospitalBlood leukocytes automated count (number/volume)Ordered By: Aicha Mane on 29-28-5759RSP (Bld) [#/Vol]16.8 10*3/uL4.5-11.0[facility] HospitalBody fluid albumin measurement (mass/volume)Ordered By: Aicha Mane on 05-17-2022 Albumin (Body fld) [Mass/Vol]4.8 g/dL3.2-5.5FMemorial Hospital Creatinine and Glomerular filtration rate.predicted panel (S/P/Bld)Ordered By: Aicha Mane on 09-85-5277Ehequrtioc [Mass/Vol]1.06 mg/dL0.64-1.27[facility] HospitalEosinophils Auto (Bld) [#/Vol]Ordered By: Aicha Benzore on 86-98-6349Oxdbdafqixn (Bld) [#/Vol]0.0 10*3/uL0.0-0.45[facility] HospitalEosinophils/100 WBC Auto (Bld)Ordered By: [employer] Rennyimore on 39-12-2834Qsycuvgzczl/100 WBC (Bld)0.2 %.[facility] HospitalErythrocyte distribution width Auto (RBC) [Ratio]Ordered By: Aicha Benzore on 39-10-7234Gvnnzlwgzpd distribution width (RBC) [Ratio]13.4 % 12.0-14.8[facility] HospitalEstimated glomerular filtration rate (GFR) non- AmericanOrdered By: Aicha Mane on 91-26-8375NFH/1.73 sq M.predicted among non-blacks MDRD (S/P/Bld) [Vol rate/Area]> 60 mL/MinMercy Health St. Anne HospitalGlobulin Calc (S) [Mass/Vol]Ordered By: Aicha Mane on 36-07-6969Gvfhelzn (S) [Mass/Vol]3.1 g/dLMercy Health St. Anne Hospital Hematocrit Auto (Bld) [Volume fraction]Ordered By: Aicha Benzore on 72-20-5785Qqpmwlqaud (Bld) [Volume fraction]50.9 %38.8-50.0[facility] HospitalLaboratory - Hematology and Cell countsOrdered By: Aicha Bullimore on 53-06-8046Gqeqpazlp RBC/100 WBC (Bld) [Ratio]0.0 %0-0.5FMemorial HospitalLymphocytes Auto (Bld) [#/Vol]Ordered By: Aicha Bullimore on 58-69-7331Nyxregsozde (Bld) [#/Vol]0.8 10*3/uL1.00-4.8[facility] HospitalLymphocytes/100 WBC Auto (Bld)Ordered By: Aicha Bullimore on 49-47-9950Jrflhjbhccz/100 WBC (Bld)4.7 %.[facility] CenterH Auto (RBC) [Entitic mass]Ordered By: Aicha Bullimore on 05-17-2022 MCH (RBC) [Entitic mass]30.0 pg27.5-35.2FMemorial HospitalMCHC Auto (RBC) [Mass/Vol]Ordered By: Aicha Bullimore on 58-21-1587UDYA (RBC) [Mass/Vol]33.2 g/dL32.5-35.6FMemorial HospitalMCV Auto (RBC) [Entitic vol]Ordered By: Aicha Bullimore on 21-03-2885HIF (RBC) [Entitic vol] 90.4 fL83.5-101[facility] HospitalMonocytes Auto (Bld) [#/Vol] Ordered By: Aicha Bullimore on 84-37-0833Jnqyfooef (Bld) [#/Vol]1.1 10*3/uL 0.0-0.8[facility] HospitalMonocytes/100 WBC Auto (Bld)Ordered By: Aicha Bullimore on 06-44-8310Gvywucqjh/100 WBC (Bld)6.4 %.[facility] HospitalNeutrophils Auto (Bld) [#/Vol]Ordered By: Aicha Bullimore on 14-55-1085Khxnviyslax (Bld) [#/Vol]14.8 10*3/uL1.8-7.7FMemorial HospitalNeutrophils/100 WBC Auto (Bld)Ordered By: Aicha Mane on 05-17-2022 Neutrophils/100 WBC (Bld)88.[address] [address] [facility] HospitalNo Panel InformationOrdered By: Aicha Mane on 33-71-6541Zzmsmvmqw GFR ()> 60 mL/MinMercy Health St. Anne HospitalComment on above:GFR estimated reference range: According to KDOQI guidelines, <60 ml/min/1.73m2 is sufficient todiagnose a patient with chronic kidney disease.Pharmacy Creatinine Clearance (Vzqn380.33[facility] Anne HospitalPlatelet mean volume Auto (Bld) [Entitic vol]Ordered By: Aicha Mane on 11-38-9350Vrkqcnue mean volume (Bld) [Entitic vol]9.0 fL6.6-10.1FMemorial Hospital Platelets Auto (Bld) [#/Vol]Ordered By: Aicha Lawsonimore on 59-77-0881Omcoehfvr (Bld) [#/Vol]235 10*3/qB148-322VimimmomgMercy Health St. Anne HospitalProtein [Mass/volume] in Serum or PlasmaOrdered By: Aicha Mane on 05-17-2022 Protein [Mass/Vol]7.9 g/dL6.1-7.9[facility] HospitalRBC Auto (Bld) [#/Vol]Ordered By: Aicha Lawsonimore on 68-26-4168ALX (Bld) [#/Vol]5.63 10*6/uL 3.90-5.60[facility] Trumbullerum or plasma alanine aminotransferase measurement without P-5'-P (enzymatic activiOrdered By: Aicha Mnae on 59-03-9046DGZ No additional P-5'-P [Catalytic activity/Vol]32 U/L 10-60[facility] Trumbullerum or plasma albumin/globulin mass ratioOrdered By: Aicha Benzore on 29-86-0980Wdohgds/Globulin [Mass ratio]1.5 {ratio}[facility] Trumbullerum or plasma alkaline phosphatase measurement (enzymatic activity/volume)Ordered By: Aicha Lawsonimore on 66-14-2774PGE [Catalytic activity/Vol]86 U/V15-00BfxapwwhtSelect Medical Specialty Hospital - Trumbullerum or plasma aspartate aminotransferase measurement (enzymatic activity/volume)Ordered By: Aichaashely Lawsongreater [facility] on 73-77-0229CMI [Catalytic activity/Vol]25 U/F86-13GyjrfekewSelect Medical Specialty Hospital - Trumbullerum or plasma calcium measurement (mass/volume)Ordered By: Aicha Lawsongreater [facility] on 32-75-4376Knpexfz [Mass/Vol]9.9 mg/dL8.2-10.2FMercy Health Lorain Hospitalerum or plasma chloride measurement (moles/volume)Ordered By: Aichaashely Lawsongreater [facility] on 05-17-2022 Chloride [Moles/Vol]101 mmol/R71-019BixmzpbopSelect Medical Specialty Hospital - Trumbullerum or plasma glucose measurement (mass/volume)Ordered By: Aicha Rennygreater balt[facility] medical [facility] on 81-51-2563Amjqczn [Mass/Vol]105 mg/jE17-172LukhyqlvgMercy Health St. Anne Hospital Comment on above:ADA recommended reference range Random Glucose Reference Range is dependent on time and content of last meal. Glucose of more than 200 mg/dL in a nonstressed, ambulatory subject supports the diagnosis of Diabetes Mellitus.Serum or plasma potassium measurement (moles/volume)Ordered By: Aicha Rennygreater baltimore medical center on 80-90-6824Ighnshqts [Moles/Vol]3.9 mmol/L3.5-5.1FMercy Health Lorain Hospitalerum or plasma sodium measurement (moles/volume)Ordered By: Aichaashely Lawsongreater [facility] on 68-87-3930Scmwwe [Moles/Vol]138 mmol/P493-452MihppdioeSelect Medical Specialty Hospital - Trumbullerum or plasma total bilirubin measurement (mass/volume)Ordered By: Aicha Rennygreater baltimore medical center on 23-68-5238Whahuwilx [Mass/Vol]2.0 mg/dL0.3-1.2FMemorial Hospital Comment on above:Samples from patients who have taken Naproxen have shown spurious elevation in Total Bilirubin levels. A metabolite of Naproxen, O- desmethylnaproxen, has been shown to interfere with the Gricelda-Kenji method for measuring Total Bilirubin.Serum or plasma total carbon dioxide measurement (moles/volume)Ordered By: Aichaashely Lawsongreater [facility] on 49-52-7145CC0 [Moles/Vol]26.1 mmol/L22.0-30.0[facility] Trumbullerum or plasma urea nitrogen measurement (mass/volume)Ordered By: Aicha Mane on 10-89-3105Yrrk nitrogen [Mass/Vol]15 mg/dL9-23[facility] HospitalUrine lactic acid measurementOrdered By: Aicha Mane on 45-09-8302Vmuoodr (U) [Moles/Vol]0.9 mmol/L0.5-2.2FMemorial HospitalCHEMISTRYOrdered By: SYSTEM SYSTEM on 41-23-6589Ysstc gap [Moles/Vol]12 mmol/LNormal6 - 16 mEq/LFTMC Remisol Calcium [Mass/Vol]10.0 mg/dLNormal8.9 - 11.1 mg/dLFTMC RemisolChloride [Moles/Vol]105 mmol/FDusoym835 - 111 mmol/LFTMC RemisolCO2 [Moles/Vol]25 mmol/L Spwndc68 - 31 mmol/LFTMC RemisolCreatinine [Mass/Vol]1.0 mg/dLNormal0.5 - 1.3 mg/dLFTMC RemisolGFR/1.73 sq M.predicted among blacks MDRD (S/P/Bld) [Vol rate/Area]mL/min/1.73 x7Jcmtmb>=59mL/min/1.73 m2FT Chem SGFR/1.73 sq M.predicted among non-blacks MDRD (S/P/Bld) [Vol rate/Area]mL/min/1.73 t0Cyfoln >=59mL/min/1.73 m2FT Chem SGlucose [Mass/Vol]97 mg/nFBvwcaj78 - 199 mg/dLFTMC RemisolMagnesium [Mass/Vol]2.3 mg/dLNormal1.3 - 2.4 mg/dLFTMC RemisolPotassium [Moles/Vol]4.1 mmol/LNormal3.5 - 5.3 mmol/LFTMC RemisolSodium [Moles/Vol]138 mmol/GGnjzpd256 - 145 mmol/LFTMC RemisolTroponin I.cardiac [Mass/Vol]3.90 pg/mL Low15.90 - 38.40 pg/mLFT RemisolUrea nitrogen [Mass/Vol]18 mg/dLNormal5 - 21 mg/dLFTMC RemisolUrea nitrogen/Creatinine [Mass ratio]18 mg/miQgucae25 - 20FTMC RemisolCHEMISTRYOrdered By: Isi Valerio on 03-43-9891Tqoglsfsoja peptide B (Bld) [Mass/Vol]10 pg/mLNormal5 - 80 pg/mLFTMC HemeManSSCOAGULATIONOrdered By: Zeynep Hahn on 90-29-8095wBRF Coag (PPP) [Time]37.9 sHigh25.1 - 36.5 second(s) [facility] Auto CoagFibrin D-dimer FEU (PPP) [Mass/Vol]445 ng/mL UYCSaanwb346 - 500 ng/mL FEUFTMC Auto CoagINR Coag (PPP) [Relative time]1.0 {INR}Invalid Interpretation CodeFTMC Auto CoagPT Coag (PPP) [Time]11.9 lPhukwh01.2 - 12.9 second(s)[facility] Auto CoagHEMATOLOGYOrdered By: SYSTEM SYSTEM on 05-07-2022 Basophils/100 WBC (Bld)1.0 %Normal0.0 - 2.0 %[facility] HemeAutoSSBasophils/Leukocytes Auto (Bld) [Pure # fraction]0.1 E9/LNormal0.0 - 0.2 E9/LFTMC HemeAutoSS Eosinophils/100 WBC (Bld)0.9 %Normal0.0 - 8.0 %[facility] HemeAutoSS Eosinophils/Leukocytes Auto (Bld) [Pure # fraction]0.1 E9/LNormal0.0 - 0.5 E9/L [facility] HemeAutoSSLymphocytes/100 WBC (Bld)21.3 %Rufqdt82.0 - 50.0 %[facility] HemeAutoSS Lymphocytes/Leukocytes Auto (Bld) [Pure # fraction]1.3 E9/LNormal1.0 - 4.0 E9/L [facility] HemeAutoSSMonocytes/100 WBC (Bld)10.4 %Normal4.0 - 14.0 %[facility] HemeAutoSS Monocytes/Leukocytes Auto (Bld) [Pure # fraction]0.7 E9/LNormal0.2 - 1.0 E9/L [facility] HemeAutoSSNeutrophils/100 WBC (Bld)66.4 %Hhxwte97.0 - 75.0 %[facility] HemeAutoSS Neutrophils/Leukocytes Auto (Bld) [Pure # fraction]4.2 E9/LNormal2.0 - 7.5 E9/L [facility] HemeAutoSSHEMATOLOGYOrdered By: Isi Valerio on 06-07-0736Xycuizrhhlh distribution width (RBC) [Ratio]13.6 %Jaawuy06.9 - 14.2 %[facility] HemeAutoSS Hematocrit (Bld) [Volume fraction]51.3 %High37.7 - 49.0 %[facility] HemeAutoSS Hemoglobin (Bld) [Mass/Vol]17.1 g/nRXmbuha02.5 - 17.5 gm/dLFTMC HemeAutoSSMCH (RBC) [Entitic mass]30.0 zcAolgve73.0 - 34.0 pgFTMC HemeAutoSSMCHC (RBC) [Mass/Vol]33.4 g/rBKrepez56.4 - 36.0 gm/dLFTMC HemeAutoSSMCV (RBC) [Entitic vol] 89.7 zRPefocg78.0 - 100.0 fLFTMC HemeAutoSSPlatelet mean volume (Bld) [Entitic vol]8.9 fLNormal6.4 - 10.8 fLFTMC HemeAutoSSPlatelets (Bld) [#/Vol]251.0 E9/L Chzpjs523.0 - 500.0 E9/LFTMC HemeAutoSSRBC (Bld) [#/Vol]5.7 E12/LNormal4.3 - 5.9 E12/LFTMC HemeAutoSSWBC corrected for nucl RBC Auto (Bld) [#/Vol]6.3 E9/LNormal 4.0 - 11.0 E9/LFTMC HemeAutoSSMRI LUMBAR SPINE WO CONTRASTon 68-94-8241TXN LUMBAR SPINE WO CONTRASTEXAMINATION: MRI OF THE LUMBAR SPINE WITHOUT CONTRAST, [...] Signed by: Rolf Grayson MD 01/07/21 Final resultNormalMercy [facility] L4-L5, central disc protrusion with annular tear and mild bilateral neural foraminal narrowing. At L5-S1, moderate bilateral neural foraminal narrowing, left paracentral disc protrusion impinges on the descending left S1 nerve root.[employer] Phone: eXAMINATION: MRI OF THE LUMBAR SPINE WITHOUT CONTRAST, 2021 3:43 pm TECHNIQUE: Multiplanar multisequence MRI of the lumbar spine was performed without the administration of intravenous contrast. COMPARISON: None. HISTORY: ORDERING SYSTEM PROVIDED HISTORY: Lumbar radiculopathy FINDINGS: BONES/ALIGNMENT: There is normal alignment of the spine. The vertebral body heights are maintained. The bonemarrow signal appears unremarkable. SPINAL CORD: The conus terminates normally. SOFT TISSUES: No paraspinal mass identified. L1- L2: There is no significant disc herniation, spinal canal stenosis or neural foraminal narrowing. L2-L3: There is no significant disc herniation, spinal canal stenosis or neural foraminal narrowing. L3-L4: There is no significant disc herniation, spinal canal stenosis orneural foraminal narrowing. L4-L5: Mild loss of disc [...] on the descending left S1 nerve root. Moder ate bilateral facet arthropathy and ligamentum flavum thickening. Findings result in moderate bilateral neural foraminal narrowing.[employer] Work Phone: edi, [facility] Incoming Radiant Results From [employer] - 2021 4:39 PM EDT EXAMINATION: MRI [...] on the descending left S1 nerve root. [employer] Work Phone: Vital Signs Date TimeVital SignValuePerforming TnkbviejzDmwxqlhv03-48-5692 18:38-0400Body nivquf693.88 cmDacan Nery DO Work Phone: [phone] [place], [place] 5707709-04-2025 18:38-0400 Body mass index (BMI) [Ratio]28 kg/b7Xspfe Nery DO Work Phone: [phone]09-04-2025 18:38-0400 Body kxaazxpjjml09.8 [degF]Ana Gabriel DO Work Phone: [phone]09-04-2025 18:38-0400 Body ggiipj67.89 kgDaviannelise Nery DO Work Phone: [phone]09-04-2025 18:38-0400 Diastolic blood vkrgyacf59 mm[Hg]Ana Gabriel DO Work Phone: [phone]09-04-2025 18:38-0400 Heart rate76 /Dante Gabriel DO Work Phone: [phone]09-04-2025 18:38-0400 Respiratory rate14 /Floraannelise Nery DO Work Phone: [phone]09-04-2025 18:38-0400 SaO2% (BldA) [Mass fraction]97 %Ana Gabriel DO Work Phone: [phone]09-04-2025 18:38-0400 Systolic blood bleififr944 mm[Hg]Ana Gabriel DO Work Phone: [phone]11-18-2024 15:32-0500 Body exkdyd724.[address] [facility]11-18-2024 15:32-0500Body mass index (BMI) [Ratio]27.9 kg/a2JqkolmpiaMercy Health St. Anne Hospital11-18-2024 15:32-0500Body yytngvlgeot41.5 [degF][facility]11-18-2024 15:32-0500Body .[address] [facility] Hospital11-18-2024 15:32-0500Diastolic blood jrprivbr25 mm[Hg][facility] 08-26-2024 15:32-0500Heart rate78 /[facility] 08-26-2024 15:32-0500Respiratory rate16 /[facility] 08-26-2024 15:32-5725AdB5% (BldA) [Mass fraction]95 %[facility]11-18-2024 15:32-0500Systolic blood mpqbvvew905 mm[Hg][facility]10-29-2024 13:51-0400Body oehmvt573.[address] [facility]10-29-2024 13:51-0400Body mass index (BMI) [Ratio]28.4 kg/m2 [facility]10-29-2024 13:51-0400Body duskzhqpvsc72.3 [degF][facility]10-29-2024 13:51-0400Body ctqjom83.[address] [facility]10-29-2024 13:51-0400Diastolic blood uoclktnr00 mm[Hg][facility]10-29-2024 13:51-0400Heart rate74 /min [facility]10-29-2024 13:51-3046AoR6% (BldA) [Mass fraction]97 %[facility]10-29-2024 13:51-0400Systolic blood mshpeszn076 mm[Hg][facility]06-17-2024 16:09-0400 [address] juveba160.[address] [facility] 16:09-0400Body mass index (BMI) [Ratio]28.3 kg/p0IsrogfyijMer[facility]06[facility]17[facility]2024 16:09-0400Body othyhgxgpau69.5 [degF][facility]06-17-2024 16:09-0400Body nuygve52.[address] [facility]06[facility]2024 16:09-0400Diastolic blood xkjbexfx66 mm[Hg][facility] 03-25-2024 16:09-0400Heart rate80 /[facility] 03-25-2024 16:09-0400Systolic blood iczsjqqr293 mm[Hg][facility]10-30-2023 15:20-0400Body wqfzic543.34 cmDacan Gabriel Other [employer] Other 10-30-2023 15:20-0400Body mass index (BMI) [Ratio] 27.33 kg/r0OinbjAna Gabriel Other [employer] Other 10-30-2023 15:20-0400Body yomcpxdmnxw61 [degF]Ana Gabriel Other [employer] Other 10-30-2023 15:20-0400Body osurlm38.91 kgAna Gabriel Other [employer] Other 10-30-2023 15:20-0400Diastolic blood bbzjrikh82 mm[Hg] Ana Gabriel Other [employer] Other 10-30-2023 15:20-0400Respiratory rate18 /minDkaiden Gabriel Other [employer] Other 10-30-2023 15:20-3898HjB4% (BldA) [Mass fraction]99 % Ana Gabriel Other [employer] Other 10-30-2023 15:20-0400Systolic blood kqxnwehl581 mm[Hg] Ana Gabriel Other [phone] Other 10-03-2022 16:20-0400Body ciftnd572.34 cmAna Gabriel Other [employer] Other 10-03-2022 16:20-0400Body mass index (BMI) [Ratio] 29.84 kg/g7NbrebAna Gabriel Other [employer] Other 10-03-2022 16:20-0400Body bgefdoefvqv71.1 [degF]Ana Gabriel Other [employer] Other 10-03-2022 16:20-0400Body .07 kgDacan Gabriel Other [employer] Other 10-03-2022 16:20-0400Diastolic blood letuoqfg86 mm[Hg] Ana Gabriel Other [employer] Other 10-03-2022 16:20-0400Respiratory rate18 /minDkaiden Gabriel Other [employer] Other 10-03-2022 16:20-5720GyO3% (BldA) [Mass fraction]97 % Ana Gabriel Other [employer] Other 10-03-2022 16:20-0400Systolic blood whgovzzm561 mm[Hg] Ana Gabriel Other [employer] Other [id number] 07:56-0400Body cjmtmotstaf04.7 [degF]DO Ana Gabriel Work Phone: [facility]08-13-2022 07:56-0400 Diastolic blood hniuesme47 mm[Hg]DO Ana Gabriel Work Phone: 1(419)[address]08-13-2022 07:56-0400 Heart rate70 /Bernardo Gabriel Work Phone: 1(607)[address] [place], [place] 5490208-13-2022 07:56-0400 Respiratory rate16 /Bernardo Gabriel Work Phone: 1(332)[address] [place], [place] 5490208-13-2022 07:56-0400 SaO2% (BldA) [Mass fraction]98 %DO Ana Gabriel Work Phone: 1(776)[address] [place], [place] 5490208-13-2022 07:56-0400 Systolic blood xedtuqyt813 mm[Hg]DO Ana Gabriel Work Phone: 1(438)[address] [place], [place] 5490208-13-2022 06:00-0400 Body hisemd22 kgDO Ana Gabriel Work Phone: 1(163)[address] [place], [place] 5490208-11-2022 14:29-0400 Body tayssx054.88 cmDO Ana Gabriel Work Phone: 1(684)[address] [place], [place] 5490208-11-2022 13:35-0400 Inhaled oxygen flow rate6 L/Bernardo Gabriel Work Phone: 1(079)[address] [place], [place] 5490208-11-2022 12:33-0400 Body mass index (BMI) [Ratio]28.5 kg/m2DO Ana Gabriel Work Phone: 1(887)[address] [place], [place] 5490208-10-2022 08:45-0400 Body jvsczrbigkn68 [degF]DO Ana Gabriel Work Phone: 1(649)[address] [place], [place] 5490208-10-2022 08:45-0400 Diastolic blood yjwjfkrk60 mm[Hg]DO Ana Nery Work Phone: 1(303)[address] [place], [place] 5490208-10-2022 08:45-0400 Heart nswn085 /Bernardo Ana Diazaisha Work Phone: 1(431)[address] [place], [place] 5490208-10-2022 08:45-0400 Respiratory rate18 /Bernardo Ana Diazaisha Work Phone: 1(290)[address] [place], [place] 5490208-10-2022 08:45-0400 Systolic blood mm[Hg]DO Ana Gabriel Work Phone: 1(933)[address]08-09-2022 21:15-0400 Body hzgsekxkloi14.1 [degF]DO Ana Gabriel Work Phone: 1(541)[address]08-09-2022 21:15-0400 Diastolic blood rrgzbzyg04 mm[Hg]DO Ana Gabriel Work Phone: 1(504)[address]08-09-2022 21:15-0400 Heart rate92 /Bernardo Gabriel Work Phone: 1(223)[address]08-09-2022 21:15-0400 Respiratory rate16 /Bernardo Gabriel Work Phone: 1(265)[address]08-09-2022 21:15-0400 SaO2% (BldA) [Mass fraction]96 %DO Ana Gabriel Work Phone: 1(905)[address]08-09-2022 21:15-0400 Systolic blood ynryhkua302 mm[Hg]DO Ana Gabriel Work Phone: 1(191)[address]08-09-2022 17:32-0400 Body xzrakp826.88 cmDO Ana Gabriel Work Phone: 1(211)[address]08-09-2022 17:32-0400 Body jwmnas53.6 kgDO Ana Gabriel Work Phone: 1(214)[address]07-30-2022 14:39-0400 Diastolic blood mm[Hg][facility] 05-07-2022 14:39-0400Heart rate77 /[facility]07-30-2022 14:39-0400Mean blood yiiowcrb32 mm[Hg][facility]07-30-2022 14:39-0400Respiratory rate16 /[facility]20[facility] 14:39-1774WoV0% (BldA) [Mass fraction]98 %[facility]07-30-2022 14:39-0400Systolic blood yoylvwwh948 mm[Hg][facility]07-30-2022 13:21-0400Diastolic blood mm[Hg][facility]07-30-2022 13:21-0400Heart rate61 /min[facility]07-30-2022 13:21-0400Hourly RoundingTriHealth07-30-2022 13:21-0400Mean blood qkpreszt37 mm[Hg][facility]07-30-2022 13:21-0400Promise to ReturnTriHealth07-30-2022 13:21-0400Respiratory rate10 /minProm[facility]07-30-2022 13:21-4235TjF2% (BldA) [Mass fraction]96 %[facility]07-30-2022 13:21-0400Systolic blood bvbzkpal370 mm[Hg][facility]07-30-2022 12:40-0400Hourly RoundingTriHealth07-30-2022 12:40-0400Promise to ReturnTriHealth07-30-2022 12:34-0400Diastolic blood qvyqyogh95 mm[Hg][facility]07-30-2022 12:34-0400Heart rate69 /minTri[facility]07-30-2022 12:34-0400Mean blood rtgbexcq860 mm[Hg][facility]07-30-2022 12:34-0400Respiratory rate14 /minTri[facility]07-30-2022 12:34-2175IwH3% (BldA) [Mass fraction]97 %[facility]07-30-2022 12:34-0400 Systolic blood eqconvno181 mm[Hg][facility] 05-07-2022 12:05-0400Body obgjtcpqqsy71.88 [degF][facility]07-30-2022 12:05-0400Hourly RoundingTriHealth07-30-2022 12:05-0400Promise to ReturnTriHealth07-30-2022 11:41-0400Heart rate82 /minTriHealth07-30-2022 11:41-0400Respiratory rate20 /minProm[facility]05-06-2022 12:30-0400Body rfvcra690.34 cmAna Gabriel [facility] [employer] Other 10-18-2021 16:20-0400Body nlmomc401.34 cmAna Gabriel [facility] [employer] Other 10-18-2021 16:20-0400Body mass index (BMI) [Ratio] 29.84 kg/s3BvcrrAna Gabriel Other [employer] Other 10-18-2021 16:20-0400Body wzseoydatzk07.2 [degF]Ana Gabriel Other [employer] Other 10-18-2021 16:20-0400Body .07 kgAna Gabriel Other [employer] Other 10-18-2021 16:20-0400Diastolic blood aoyhjvne04 mm[Hg] Ana Gabriel [facility] [employer] Other 10-18-2021 16:20-0400Respiratory rate18 /minDaviannelise Gabriel Other [facility] [employer] Other 10-18-2021 16:20-1471HzN8% (BldA) [Mass fraction]97 % Ana Gabriel [facility] [employer] Other 10-18-2021 16:20-0400Systolic blood mm[Hg] Ana Gabriel [facility] [employer] Other Encounters Encounter DateEncounter TypeCare ProviderFacilityStart: 06-12-2025 End: 47-10-0874Kzjnmblj ReferredPatricarnulfo Landeros [facility] MEDICAL BILLING AND CODING INSTRUCTOR-Lab [facility] Work Phone: Start: 06-12-2025 End: 53-49-0911cqjrhnjyvuAymyv Giraisha HARVEY Work Phone: [facility] Work Phone: Start: 06-12-2025 End: 05-79-9307Igtzgmn encounter procedurePaoziel Olivaresrenard MEDICAL BILLING AND CODING INSTRUCTOR-[facility] David Work Phone: Start: 05-07-2025 End: 89-63-5939dnxwyqrowvDoqmx M. LueFacility:CD:[id number]: 03-92-4196Coz- patient / Non-visitDaviannelise Gabriel DO-[facility]do Work Phone: Start: 04-09-2025 End: 47-45-4459mcxsjlqgykOkvdg M. LueFacility:EMMIE VicenteueStart: 04-09-2025 End: 04-82-9088Brvkaae encounter procedureIsabelle Alberts [facility] [place] start: 29-67-3189Tur-patient / Non-visitTerrieura Sylvain RMA-[facility] [place] Work Phone: Start: 97-20-7350eeahuntwvyEspyfysi:EU [place]vueStart: 04-01-2025 End: 55-87-0089hsjlsqytwjFnowipx D KatkoFacility:[facility]: 37-85-7441Wwc-patient / Non-visitGray Castelan DO-[facility] Co Work Phone: Start: 08-26-2024 End: 38-68-9169abfetagpbgFoemuchezCleveland Clinic Work Phone: Start: 08-26-2024 End: 95-21-7533Sjnsttp [facility]Nov[facility] Ur[facility] David Work Phone: Start: 47-17-7764Vklfajp encounter statusSelect Medical Specialty Hospital [facility]ulltart: 08-06-2024 End: 22-74-2389fnsgekzizqRvtnzzdbaCleveland Clinic Work Phone: Start: 08-06-2024 End: 50-38-6573Pgcypoamp for general adult medical examination without abnormal findingsSelect Medical Specialty Hospital - Tr[facility]ulltart: 08-06-2024 End: 69-82-0342Sobugie encounter procedureNov[facility] [place] Work Phone: Start: 93-45-8142Fys-patient / Non-visitNov[facility] Work Phone: Start: 03-25-2024 End: 79-31-3786fjdnqvybqqSrcycyoqgCleveland Clinic Work Phone: Start: 03-25-2024 End: 82-43-6660Daiblml encounter procedureNov[facility] [place] Work Phone: Start: 96-26-1324Lmj-patient / Non-visitNovant Health [facility] Work Phone: Start: 12-27-2023 End: 35-25-6746fmpggtulhpYBXNCU CHAPA VNot AvailableStart: 12-12-2023 End: 76-20-0498oloakxdpczMEOGNJ CHAPA VNot AvailableStart: 08-07-2023 End: 34-12-0371sgamqqjrofOzvki Nery Other [employer] Other Start: 58-75-0003Wlfilekcw for general adult medical examination without abnormal findingsDavid GiraishaG [facility] [place] Start: 71-25-6565Srfjyztt preventive med est patient 40-64yrsDavid GiraishaFPG [facility] [place]vueStart: 07-10-2023 End: 51-99-2610sjnueeqsoxDqbfw Nery Other [employer] Other Start: 34-33-1005Rfesvcdbp for general adult medical examination without abnormal findingsDavid GiraishaFP[facility] [place] Start: 64-30-7987Pjyhrryxm encounterDavid GiraishaFPG [facility] [place] Start: 03-10-2023 End: 61-95-5282eequfvzstsFkklu Nery Other [employer] Other Start: 70-35-3397Aeenztabs encounterDavid GiraishaFPG [facility] [place]vueStart: 01-03-2023 End: 80-93-8747jxhokqeasmZqsqf Nery Other [employer] Other Start: 60-34-0373Iqmqtumri encounterDavid GiraishaFPG [facility] [place]vueStart: 09-29-2022 End: 51-49-0785jcbpehymclLM ANA GABRIELFacility:X9Psfel: 08-16-2022 End: 30-37-3367mghklgcpjpBrtpyep Calvey Other [employer] Other Start: 06-64-3349Htzehz outpatient visit 15 minutes Monaecliff [facility]ers OrthopedicsStart: 07-20-2022 End: 81-77-2242fisbanbspeEpyptif Calvey Other [facility] [employer] Other Start: 54-71-1011Fptucr follow up visit related to original pxMonae Meyers OrthopedicsStart: 07-18-2022 End: 85-84-4360mwyxtuwbsxHY ANA Almarazity:S0Zgscn: 79-24-4242Jyifotibd for general adult medical examination without abnormal findingsDR ANA GABRIEL [facility]: 07-12-2022 End: 20-15-8318cieuhlrxdpHjfch Girvin Other [facility] [employer] Other Start: 08-21-6547Srxhpltwj encounterDavid NeryHilda [facility]ustart: 07-11-2022 End: 41-04-3064bworrewaxbIfogy Girvin Other [facility] [employer] Other Start: 57-10-3462Civnpvtto for general adult medical examination without abnormal findingsDacan Gutierrez [facility] [place] Start: 94-07-4821Yesxbnck preventive med est patient 40-64yrsDavid Brenda [facility]art: 83-55-7747Ovghjfsvg encounterDavid Brenda [facility]: 07-09-2022 End: 58-24-0748kdaxcuzvgqHR DAVID GIRVINFacility:L5Pzuwh: 07-09-2022 End: 81-21-0337Biljfritp for general adult medical examination without abnormal findingsDR ANA Almarazity:B0Pzqlc: 06-17-2022 End: 37-70-4495flhjmglsavAmpxaeg Calvgabriele Other [facility] [employer] Other Start: 37-57-5711Jotwgc follow up visit related to original pxCollbabs GeigerG Luigi OrthopedicsStart: 06-16-2022 End: 15-06-0557eqfirkzamyYfdju Nery Other [facility] [employer] Other Start: 16-74-9956Bvzwgscou encounterDavid GiraishaFPG [facility] [place]vueStart: 06-03-2022 End: 27-04-3753uuhduliolwUpmqloj Abimbola Other [facility] [employer] Other Start: 15-08-0716Vxoltn follow up visit related to original pxCollbabs GeigerG Luigi OrthopedicsStart: 05-23-2022 End: 44-43-6170yshsqhnytiDlmtn Nery Other [facility] [employer] Other Start: 34-24-4644Xybvmtsvp encounterDavid GiraishaFPG [facility] [place]vueStart: 05-18-2022 End: 80-14-2838zbdrydjodgChbcv Nery Other [facility] [employer] Other Start: 51-02-7918Wimhdafxm encounterDavid GiraishaFPG [facility] [place]vueStart: 05-18-2022 End: 81-66-6187Lzqxuubldc and management of inpatientDO Ana Gabriel Work Phone: [facility]-[address] [place] Med SurgStart: 05-18-2022 End: 31-25-2372Jiucyjdvrb RecurringDO Ana Gabriel Work Phone: [facility]-Infusion Therapy - O/P Start: 05-17-2022 End: 61-42-6599Iquflbhyn department patient visitDO Ana Gabriel Work Phone: [facility]-Emergency RoomStart: 05-07-2022 End: 74-94-6333Mmhjowvkj department patient visitAstrit H madelinekathieMercy Health [facility]ard [facility] Start: 05-06-2022 End: 68-08-4570gsavqlyhecRximb Girvin Other [employer] Other Start: 05-03-5473Xdwyfgoea encounterDavid Brenda [facility] [place]Start: 02-11-2022 End: 99-75-2635wpmlghjjvyKqiro Girvin Other [employer] Other Start: 98-63-4386Giiwtdbfz encounterDavid NeryHilda [facility] [place]vueStart: 09-27-2021 End: 05-57-4298lpzrpdawehQopbj Girvin Other [employer] Other Start: 69-61-9263Chfgwbdhj encounterDavid NeryBANNER BAYWOOD [facility] Family Medicine [place]Start: 09-17-2021 End: 72-80-9273bijmulruprPeadx Girvin Other [employer] Other Start: 87-87-3659Efzhcxvbz encounterDaviannelise GabrielBANNER BAYWOOD [facility]ICAL CENTER Family Medicine [place]Start: 70-77-6551Nxpgbxuxt for general adult medical examination without abnormal findingsDacan [facility] HospitalaishaB[facility] [place] Start: 36-62-7368Vboatgnk preventive med est patient 40-64yrsDavid [facility] HospitalaishaB[facility] Family Medicine BellueStart: 2021 End: 04-85-0072Qteywfl encounter procedureDACAN Lopez [facility]LLASAISHA[facility] Start: 2021 End: 57-88-9862Nujydyejiw hospital visit by [facility] HospitalComment on above:Lumbar radiculopathy; Numbness and tingling of both legs Procedures DateProcedureProcedure DetailPerforming ClinicianStart: 01-15-2024E coli Shiga Toxin EIAStart: 79-04-9865Krpnxidvus/Shigella ScreenStart: 08-11-5112NRW screeningDR ANA GABRIELComment on above:Performed By: #### PSASC #### [facility] [address] [place], [place] [address] Dr. Faith QuintanaStart: 67-37-0575YDJ of right hand with contrastDO Ana Gabriel Work Phone: Start: 96-12-4084RZ pre/post mri xrayDO Ana Gabriel Work Phone: Start: 08-42-8220Byfrl X-ray of right thumbDO Ana Gabriel Work Phone: Start: 12-67-1300Xhd spinal canal lumbar w/o contrast materialJochristina Olea Work Phone: Aerobic microbial cultureDO Ana Gabriel Work Phone: Anaerobic microbial cultureDO Ana Gabriel Work Phone: Blood culture for bacteria, including anaerobic screen DO Ana Gabriel Work Phone: Investigation of transfusion reactionDO Ana Gabriel Work Phone: Repair of right inguinal herniaKathy Lue SARS Antigen (LFIA)DO Ana Gabriel Work Phone: Plan of Treatment DateCare ActivityDetailAuthorStart: 64-99-0138Rmmlb cultureSelect Medical Specialty Hospital - Trumbulltart: 43-07-5270Plbtlsqw identified in Urine by CultureUrine CultureSelect Medical Specialty Hospital - Trumbulltart: 90-97-4572UynfznyneMartins Ferry Hospital Ctr Work Phone: Start: 83-66-6484Rrzwcnhm of Right Hand Tendon, Open ApproachDrainage of Right Hand Tendon, Open ApproachSelect Medical Specialty Hospital - Trumbulltart: 30-72-6799Xlwccsa Right Hand Tendon, Open ApproachRelease Right Hand Tendon, Open ApproachSelect Medical Specialty Hospital - Trumbulltart: 05-18-2022 End: 79-51-6602Vjctthefdc and management of inpatientCellulitis of thumb, right [facility] [place] Med SurgStart: 72-71-9563Tnnnseilzxrc [facility] Work Phone: Start: 06-02-3281Hlzinedj admissionMartins Ferry Hospital Ctr Work Phone: Start: 23-53-5430Advxvcnjv vaccinationFlu vaccine (Season Ended)[employer] Work Phone: start: 44-10-9530Exhvg panelLipid screenWooster Community Hospital [employer] Work Phone: start: 24-46-6046OZkY/Tdap/Td vaccine (1 - Tdap) DTaP/Tdap/Td vaccine (1 - Tdap)[employer] Work Phone: start: 04-72-1969IHWKS-19 Vaccine (1)COVID-19 Vaccine (1)[employer] Work Phone: start: 60-17-6934FGV screeningHIV screenWooster Community Hospital [employer] Work Phone: start: 81-24-2822Epnehrdwl C screeningHepatitis C screenUniversity Hospitals Ahuja Medical CenterAIT Work Phone: comprehensive metabolic 2000 panel - Serum or Plasma [facility] HospitalPatient EducationMartins Ferry Hospital Ctr Work Phone: Patient referralMartins Ferry Hospital Ctr Work Phone: Urine cultureHca Florida Mercy [facility] Immunizations Immunization DateImmunizationNotesCare PceyfdtzYtfuifvj09-22-7993YVAEHBZ - 10 mg Ana Gabriel Other [employer] Other [id number] per 15 Nusrat Gabriel Other [employer] Other 07-853991-55-6368Npbg-Uogemd 80 mgDacan Gabriel Other [employer] Other Payers DatePayer CategoryPayerPolicy [id number] [id number] Health [id number] [id number] 2.16.840.1.508528.3.57[id number] 2.16.840.1.296795.3.57[id number] 2.16.840.1.720705.3.57[id number] 2.16.840.1.040925.3.57[id number] 2.16.840.1.282401.3.57[id number] 2.16.840.1.004669.3.57[id number] 2.16.840.1.071037.3.57[id number] 2.16.840.1.644803.3.57[id number] 2.16.840.1.038110.3.57[id number] 1.2.840.412083.1.13.239.2.7.3.614549.315Self-paySelf Pay [id number] Social History DateTypeDetailFacilityTobacco smoking status NHISUnknown if ever smokedUniversity Hospitals Ahuja Medical CenterAIT Work Phone: Sex Assigned At BirthNot on [employer] Work Phone: exposure to SARS-CoV-2 (event)Not [employer] Work Phone: start: 97-61-8344Kep Assigned At [facility] [employer] Other Tobacco smoking statusNo Smoking Status EnteredBrown Memorial Hospitaltart: 05-19-2022 End: 85-74-2480Gihohao smoking status NHISEx-smoker (finding)[facility]tart: 67-02-0856Jvs Assigned At [facility] Hospitaltart: 05-07-2022 End: 64-77-1461QkrKpdo (finding)[facility] - Trumbullexual OrientationExec[facility] of [facility] Goals DatePatient GoalDesired Activity/State Functional Status FueoZgttlsjyjfDzsmjgCliduxrc74-63-9380Wqpjywjztw statusPatient at Baseline [facility] Work Phone: 1(210) 384-735207991195-93-1253Ptwasrbggv StatusN/[facility] Mental Status JqkfYwwdbrpcorRzogloBdyvetvr58-01-6519Ieiipbzod functionCognitive Status [facility] Work Phone: Clinical Notes 05-09-2020 to 06-12-2025 Note Date & XajtZnzuDfkayvto63-03-3517 Evaluation note* Diagnosis Onset Date Resolution Status Admit Date Dysuria acuteSeptember 2024 6:32pm [facility] Work Phone: 1(710) 855-224507-02-2025 Hospital Discharge instructions Patient Education 04/09/2025 08:58:51 Laser Therapy [...] Follow these instructions at home: Medicines Take zwae-bed-fdujetl and prescription medicines only as told by [...] to keep your pee pale yellow. ?Take qygm-rqd-ovzccvn or prescription medicines. ?Eat foods that are [...] provider. Document Revised: 05/26/2023 Document Reviewed: 05/26/2023 [employer] Patient Education 2023 [employer]. 04/09/2025 08:58:51 Laser Therapy for Kidney Stones [...] are painful or that are stopping you frombeing able to pee. Tell a health care provider about: Any allergies you have. All medicines you are taking, including vitamins, herbs, eye drops, creams, and hngq-rrb-gbnafuy medicines. Any problems you or family members [...] unless your provider tells you to. ?Taking rblm-vcz-gwwijaw medicines, vitamins, herbs, and supplements. Tests You [...] for at least 4 weeks before the procedure.These products include cigarettes, chewing tobacco, and vaping [...] blood oxygen level will be monitored until youleave the hospital or clinic. If you had [...] provider. Document Revised: 05/26/2023 Document Reviewed: 05/26/2023 [employer] Patient Education 2023 [employer]. 04/09/2025 08:58:48 ESWL for Kidney Stones, Care [...] Follow these instructions at home: Medicines Take pvje-ekl-ljafyon and prescription medicines only as told by [...] actions to prevent or treat constipation: ?Take rvgu-pow-iwkhjno or prescription medicines. ?Eat foods that are [...] provider. Document Revised: 01/26/2023 Document Reviewed: 01/26/2023 [employer] Patient Education 2023 [employer]. 04/09/2025 08:58:47 ESWL for Kidney Stones ESWL [...] including vitamins, herbs, eye drops, creams, and udno-pax-gvaeiad medicines. Any problems you or family members [...] These include any diabetes medicines or blood thinnersyou take. Taking medicines such as aspirin and ibuprofen. These medicines can thin your blood. Do not take them unless your health care provider tells you to. Taking lvpx-nmh-iydrepd medicines, vitamins, herbs, and supplements. Tests You [...] blood oxygen level will be monitored until youleave the hospital or clinic. You may have an X-ray after the procedure to see how many of the kidney stones were broken up. Thiswill also show how much of the stone [...] provider. Document Revised: 01/26/2023 Document Reviewed: 01/26/2023 [employer] Patient Education 2023 [employer]. Follow Up Care 04/03/2025 10:22:13 With:Aristeo SEBASTIAN, REBECCA Browning, URO Address: When: Unknown [facility] 07-02-2025 NotePatient Education Nephrology Laser Therapy for Kidney Stones, [...] these instructions at home: Medicines ??? Take dnpo-fdv-jfxbcno and prescription medicines only as told by [...] keep your pee pale yellow. ? Take rndr-qhv-vggdxue or prescription medicines. ? Eat foods that [...] water for a few hours after your procedure.If you have heart or kidney disease, ask [...] provider. Document Revised: 05/26/2023 Document Reviewed: 05/26/2023 [employer] Patient Education ? 2023 [employer]. Laser Therapy for Kidney Stones Laser therapy [...] are painful or that are stopping you frombeing able to pee. Tell a health care provider about: ??? Any allergies you have. ??? All medicines you are taking, including vitamins, herbs, eye drops, creams, and ixac-sih-ahxwvpx medicines. ??? Any problems you or family [...] eat and drink. Thes (more content not included)...[facility]10-29-2024 Evaluation note* Author Ana Gabriel [facility] HospitalAuthoredOctober 2023 2:53pmThe above note written by ___Mohit Baeza____ acting as human recorder, note dictated by Dr. Castro .I performed the above HPI, ROS, and Examination. I formulated and dictated the treatment plan and was present for entire encounter. Ana Gabriel D.O. [facility] Work Phone: 1(662) [phone] Evaluation note* Encounter Date Diagnosis Assessment Notes Treatment Notes Treatment Clinical Notes Jul, Wellness examination (ICD-10 - Z 00.00) He is here for a wellness exam today. I did recommend a colonoscopy. He does agree, a referral is provided. His PSA is 0.63, no sign of prostate cancer at this time. Jul,sthma (ICD-10 - J45.909)Provided him with a new prescription for above medications today. He has only been using the Budesonide-Formoterol one inhalation twice a day and is doing well. Jul,nxiety (ICD-10 - F41.9)Above medication is working well, I did provide him with a new prescription today. Jul,Hyperglycemia (ICD-10 - R73.9)Discussed blood sugar results with him today. Glucose is 94. HgA1C is 5.1. He is to continue with his lifestyle and dietary changes and weight loss. Jul,Hyperlipidemia (ICD-10 - E78.5)Discussed cholesterol results with patient today. Total is 200. HDL is 48. LDL is 140.4. Triglycerides are 58. VLDL is 11.6. Jul,Vitamin D deficiency (ICD-10 - E55.9)His Vitamin D level is 45.5. He is to continue with his Vitamin D supplement. Jul,Weight loss (ICD-10 - R63.4)He has lost weight by watching his diet and with exercise. He started one year ago and has done well. He is to continue with his dietary and lifestyle changes. He voices that on his home scale he is a round 185-190 pounds. His TSH is normal at 1.319. 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 Jul,Infection of right hand (ICD-10 - L08.9)He voices that he had another infection in his right hand thumb last fall (2021) but since then he has not had any issue. He voices that the thumb functions well but it does not feel normal. Jul,Encounter for screening colonoscopy (ICD-10 - Z12.11)I did recommend that he have a colonoscopy. He agrees and a referral is provided for him to see . [facility] Other 10-02-2023 Evaluation note* Encounter Date Diagnosis Assessment Notes Treatment Notes Treatment Clinical Notes Jul, Wellness examination (ICD-10 - Z 00.00) Jul,Vitamin D deficiency (ICD-10 - E55.9) [facility] Other 06-02-2023 Evaluation note* Encounter Date Diagnosis Assessment Notes Treatment Notes Treatment Clinical Notes Mar, Asthma (ICD-10 - J45.909) [facility] Other 03-28-2023 Evaluation note* Encounter Date Diagnosis Assessment Notes Treatment Notes Treatment Clinical Notes Dec, Other specified postprocedural s tates (ICD-10 - Z98.890) [facility] Other 11-08-2022 Evaluation note* Encounter Date Diagnosis Assessment Notes Treatment Notes Treatment Clinical Notes Aug, Cellulitis of right finger (ICD- 10 - L03.011) Aug,Lymphangitis (ICD-10 - I89.1) Aug,ther specified postprocedural states (ICD-10 - Z98.890)Patient is progressing well from this Surgery. Progress activity as tolerated. [facility] Other 10-12-2022 Evaluation note* Encounter Date Diagnosis Assessment Notes Treatment Notes Treatment Clinical Notes Jul, Cellulitis of right finger (ICD- 10 - L03.011) Jul,Lymphangitis (ICD-10 - I89.1) 12 Oct, 2022Other specified postprocedural states (ICD-10 - Z98.890)Patient instructed on the use of Voltaren Gel. use of heat and ice, use of lidocaine patches, use of turmeric/curcumin and Glucosamine/Chondroitin. Rx given for Medrol Dosepak [facility] Other 10-04-2022 Evaluation note* Encounter Date Diagnosis Assessment Notes Treatment Notes Treatment Clinical Notes Jul, Hematuria (ICD-10 - R31.9) [facility] Other 10-03-2022 Evaluation note* Encounter Date Diagnosis Assessment Notes Treatment Notes Treatment Clinical Notes Jul, Hematuria (ICD-10 - R31.9) [facility] Other 10-03-2022 Evaluation note* Encounter Date Diagnosis Assessment Notes Treatment Notes Treatment Clinical Notes Jul, Vitamin D deficiency (ICD-10 - E 55.9) Jul,Elevated alkaline phosphatase level (ICD-10 - R74.8) [facility] Other 10-03-2022 Evaluation note* Encounter Date Diagnosis Assessment Notes Treatment Notes Treatment Clinical Notes Jul, Wellness examination (ICD-10 - Z 00.00) He is here for a wellness exam today. His PSA is 0.82 which is normal, no sign of over or underactive thyroid. Jul,nxiety (ICD-10 - F41.9)He is doing well on the generic Lexapro. He is still taking 1/2 of the 10 MG of Lexapro (5 MG) daily. He has only used the Lorazepam one time and does not feel he will need to use these. I will discon tinue the Lorazepam. If he feels he needs to return to taking this medication he will need to be seen every three months for evaluation. Side effects/risks/benefits of medication were reviewed. An OARRS report was reviewed no discrepancies noted. Jul,sthma (ICD-10 - J45.909)He does continue to use and benefit from above medications. Jul,Hyperglycemia (ICD-10 - R73.9)Discussed blood sugar results with patient today. Glucose is 91. HgA1C is 5.1 which is normal. Continue to monitor intake of carbs and sugars. Stay active. Jul,Hyperlipidemia (ICD-10 - E78.5)Discussed cholesterol results with patient today. Total is 192. HDL is 36. LDL is 136.2. Triglycerides are 99. VLDL is 19.8. Again, he is encouraged to watch his intake of carbs and sugars, stay active. Jul,Weight loss (ICD-10 - R63.4)TSH is normal at 1.378. Thyroid is not over or underactive. Jul,Hematuria (ICD-10 - R31.9)His urine did have blood in it so we did ask the lab to do the microscopic urine, they are currently working on this and he was asked to call later this week for that result. He has never seen blood in his urine. His urine was not infected. Jul,Elevated alkaline phosphatase level (ICD-10 - R74.8)His alk phos level is 120 which is elevated. He voices that the issue with his right hand thumb wasin May (2021) I would like to see if they can add a Vitamin D level to his lab that was recentlydrawn. He can call for the results. I explained to him that this is usually an indication that the Vitamin D level is low but it is also possible that the lab is being too strict with their lab values. Jul,Gastroesophageal reflux disease, esophagitis presence not specified (ICD-10 - K21.9)He voices that he took the Omeprazole as [...] likely refer him to Dr. Alcazar in [place]. He voices that the Omeprazole helped his constipation and hemorrhoids. Jul,therHe voices that he got a strep bacteria in his right thumb after he pinched the finger on a pressure control supervisor, he had to have surgery with Dr. Guan. He voices that it continues to heal but continues to be tender. He voices that it gets his attention at times if he grabs something and is not paying attention. He does return to see Dr. Guan one more time this month for evaluation. This could be why his alk phos level is elevated. [facility] Other 09-09-2022 Evaluation note* Encounter Date Diagnosis Assessment Notes Treatment Notes Treatment Clinical Notes Jun, Cellulitis of right finger (ICD- 10 - L03.011) Patient instructed on desensitizing exercises. Patient may return to work with no restrictions 06/20/2022 Jun,Lymphangitis (ICD-10 - I89.1) Jun,ther specified postprocedural states (ICD-10 - Z98.890) [facility] Other 09-08-2022 Evaluation note* Encounter Date Diagnosis Assessment Notes Treatment Notes Treatment Clinical Notes Jun, Asthma (ICD-10 - J45.909) [facility] Other 08-26-2022 Evaluation note* Encounter Date Diagnosis Assessment Notes Treatment Notes Treatment Clinical Notes May, Cellulitis of right finger (ICD- 10 - L03.011) May,Lymphangitis (ICD-10 - I89.1) May,ther specified postprocedural states (ICD-10 - Z98.890)Patient is progressing well from surgery. Advised the skin peeling is normal, and it will likely continue to some extent. Swelling continues to improve. Sutures removed under clean conditions, patient tolerated well. Advised the numbness he is experiencing is also normal and should improve as time goes. Continue gentle motion exercises of the hand. May slowly progress lifting as tolerated. Instruc randolph to keep thumb clean and covered for any potentially contaminated activities. Finish antibioticsas directed. Continue to monitor for signs of infection, call if any occur. May,Encounter for removal of sutures (ICD-10 - Z48.02) [facility] Other 08-13-2022 Discharge summary Author Judit Cuevas [facility] May 23, 2022 10:36amNote Date/TimeAugust 2021 9:54[place] [address] Discharge Summary Signed with Addenda Patient: Americo Babb MR#: [id number] : 1975 Acct:[id number] Age/Sex: 47 / M Adm Date: 2 Loc: 3T Room: [address] [place] [address]: Judit Cuevas MD Copies to: Kacie Antunez, CHANNEL SUPERVISOR-C Ana Gabriel,DO Judit Cuevas MD~ ADDENDUM1 Patient was personally seen by me on the day of encounter, reviewed his history and performed garcia elements of exam and formulated the plan of care and confirmedthe nurse practitioner note below. Addendum Documented By: Judit Cuevas MD 05/23/22 1036 Addendum Signed By: <Electronically signed by Jduit Cuevas MD> 05/23/22 1036 Providers Date of [...] the pad of his thumb in a pressure control supervisor.? He noticed increased pain, swelling, erythema prompting [...] abscess and flexor tendon shealth(Right) - Monae Guan MD Diagnostic Studies Completed and Pending Studies [...] Disposition: Home Activity: Other Comment: See Dr. Guan and Clark discharge instructions for activity restrictions. Diet: Regular Additional Instructions: You tested positive for Covid-19. Please see provided instructions. DR. GUAN'S POST OP INSTRUCTIONS Take prescribed pain medication as directed and as needed to control your post- operative pain. -In addition to the prescribed medication, [...] at least 2-3 pillows, keeping the hand higherthan the elbow. Keep ice at the operative area as much as possible. It takes longer than 20 minutes for the cold topenetrate the bandages, so leave the ice bag [...] This is lifting your coffee cup, using yoursilverware, and typing on a computer or tablet. [...] the preprinted sheet three times daily Instructions: [facility] COVID-19 Discharge Instructions Stand Alone Forms: Work/School [...] they can schedule this appointment accordingly.) Monae Guan MD [Active Staff] - (Please call and schedule an appointment for 1 week.) Documented By: EDI Kat 05/21/22 0 954 Signed By: <Electronically signed by EDI Antunez> 05/22/227 <Electronically signed by Judit Cuevas MD> 05/23/22 1035 [facility] Work Phone: 1(311) 761-547408-13-2022 Progress note Author Arnold Siegel [facility] May 21, 2022 8:47amNote Date/TimeAugust 2021 7:35[place] [address] Orthopedic Progress Note Signed Patient: Americo Babb MR#: [id number] : 1975 Acct:[id number] Age/Sex: 47 / M Adm Date: 2 Loc: Room: [address] [place] [address] Type: ADM IN Attending Dr: Judit Cuevas [...] <Electronically signed by MD Arnold Siegel> 05/21/2247 [facility] Work Phone: 1(755) 770-990308-13-2022 Progress note Author Judit Cuevas [facility] May 21, 2022 8:22amNote Date/TimeAugust 2021 12:19[place] [address] Hospitalist Progress Note Signed with Addenda Patient: Americo Babb MR#: [id number] : 1975 Acct:[id number] Age/Sex: 47 / M Adm Date: 2 Loc: Room: [address] [place] [address] Type: ADM IN Attending Dr: Judit Cuevas [...] Lactated Ringers IV 05/19/23 13:44 75 mls/hr .[id number] KRISTEN Administration Vancomycin HCl 0.75 gm in [...] signed by Judit Cuevas MD> 05/21/22 0821 [facility] Work Phone: 1(308) 841-424908-12-2022 Progress note Author Monae [facility]zer [facility] May 20, 2022 2:22pmNote Date/TimeAugust 2021 2:22[place] [address] Orthopedic Progress Note Signed Patient: Americo Babb MR#: [id number] : 1975 Acct:[id number] Age/Sex: 47 / M Adm Date: 2 Loc: Room: [address] [place] [address] Type: ADM IN Attending Dr: Judit Cuevas [...] MPV Neut % (Auto) Lymph % (Auto) [place] % (Auto) Eos % (Auto) Baso % (Auto) Neut # (Auto) Lymph # (Auto) [place] # (Auto) Eos # (Auto) Baso # [...] % (Auto) 67.9 Lymph % (Auto) 17.2 [place] % (Auto) 11.4 Eos % (Auto) 3.0 Baso % (Auto) 0.5 Neut # (Auto) 5.4 Lymph # (Auto) 1.4 [place] # (Auto) 0.9 H Eos # (Auto) [...] Applicable Codes for Billin Documented By: Monae Guan MD 05/20/22 141 8 Signed By: <Electronically signed by Monae Guan MD> 05/20/22 1422 [facility] Work Phone: 1([phone]) 230-967108-12-2022 Progress note Author Naveen [facility] 12th, 2022 12:41amNote Date/TimeAugust 2021 4:14pm[place] [address] Hospitalist Progress Note Signed with Brian Patient: Americo Babb MR#: [id number] : 1975 Acct:[id number] Age/Sex: 47 / M Adm Date: 2 Loc: 3T Room: [address] [place] [address] Type: ADM IN Attending Dr: Naveen Moore MD Copies to: ~ ADDENDUM1 I personally saw this patient on the day of the encounter, reviewed the history,performed the garcia elements of the exam and formulated the plan of care and confirmed the nurse practitioners/residents/campus interviews intern written note. Addendum Documented By: Naveen Moore [...] that he was sick approximately 2 to 3weeks ago. States that he did have contact with coworkers who were COVID-positive around that time.Reports no symptoms at present. Exam Physical Exam [...] sounds Skin General: other (Right forearm postsurgical dressing/Mcihael wrap intact) Neuro General: patient alert, patient [...] Lactated Ringers IV 05/19/23 09:59 75 mls/hr .[id number] KRISTEN Administration Lactated Ringer's 1,000 mls @ 75 mls/hr 05/19/22 13:45 05/19/22 15:01 Lactated Ringers IV 05/19/23 13:44 75 mls/hr .[id number] KRISTEN Administration Ketorolac Tromethamine 30 mg 05/18/22 [...] signed by Naveen Moore MD> 05/20/22 0036 [facility] Work Phone: 1(608) 320-314308-11-2022 Consult note Author Arnold Siegel [facility] May 19, 2022 11:01amNote Date/TimeAugust 2021 6:37[place] [address] Orthopedic Consult Note Signed Patient: Americo Babb MR#: [id number] : 1975 Acct:[id number] Age/Sex: 47 / M Adm Date: 2 Loc: Room: [address] [place] [address] Type: ADM IN Attending Dr: Naveen Moore [...] proximally to the volar aspect of the wristand forearm. Results Lab Results Result Diagrams: 05/18/22 [...] % (Auto) 86.8, Lymph % (Auto) 5.0, [place] % (Auto) 7.8, Eos % (Auto) 0.1, Baso % (Auto) 0.3, Neut # (Auto) 14.8 H, Lymph # (Auto) 0.9L, [place] # (Auto) 1.3 H, Eos # (Auto) [...] <Electronically signed by MD Arnold Siegel> 05/19/22 1894 [facility] Work Phone: 1(500) 342-237608-10-2022 History and physical note Author Jennifer Momin [facility] May 18, 2022 6:54pmNote Date/TimeAugust 2021 11:40[place] [address] Hospitalist H&P Signed Patient: Americo Babb MR#: [id number] : 1975 Acct:[id number] Age/Sex: 47 / M Adm Date: 2 Loc: Room: [address] [place] [address] Type: ADM IN Attending Dr: Jennifer Momin [...] No fevers. Endorses chills. No chest pain orshortness of breath. No abdominal pain or nausea. [...] % (Auto) 5.0 % (.) 05/18/22 09:14 [place] % (Auto) 7.8 % (.) 05/18/22 09:14 Eos % (Auto) 0.1 % (.) 05/18/22 09:14 Baso % (Auto) 0.3 % (.) 05/18/22 09:14 Neut # (Auto) 14.8 x10E3/uL (1.8-7.7) H 05/18/22 09:14 Lymph # (Auto) 0.9 x10E3/uL (1.00-4.8) L 05/18/22 09:14 [place] # (Auto) 1.3 x10E3/uL (0.0-0.8) H 05/18/22 [...] over the phone, states he will see patientfirst thing in the morning -Did discuss the [...] <Electronically signed by Jennifer Momin DO> 05/18/22 1904 [facility] Work Phone: 1(419) 626-219408-10-2022 History and physical note Author Jennifer Momin [facility] May 18, 2022 6:54pmNote Date/TimeAugust 2021 11:40[place] [address] Hospitalist H&P Signed Patient: Americo Babb MR#: [id number] : 1975 Acct:[id number] Age/Sex: 47 / M Adm Date: 2 Loc: Room: [address] [place] [address] Type: ADM IN Attending Dr: Jennifer Momin DO Copies to: EDI Kat DO Jennifer Merrill, DO~ HPI DATE OF EXAMINATION: 05/18/22 CHIEF [...] No fevers. Endorses chills. No chest pain orshortness of breath. No abdominal pain or nausea. Nodiarrhea. Review of Systems Review of Systems Review of systems: 10 point review of systems was obtained and all are negative unless noted below or in the HPI. [facility]?: No Medical History (Updated [...] % (Auto) 5.0 % (.) 05/18/22 09:14 [place] % (Auto) 7.8 % (.) 05/18/22 09:14 Eos % (Auto) 0.1 % (.) 05/18/22 09:14 Baso % (Auto) 0.3 % (.) 05/18/22 09:14 Neut # (Auto) 14.8 x10E3/uL (1.8-7.7) H 05/18/22 09:14 Lymph # (Auto) 0.9 x10E3/uL (1.00-4.8) L 05/18/22 09:14 [place] # (Auto) 1.3 x10E3/uL (0.0-0.8) H 05/18/22 [...] over the phone, states he will see patientfirst thing in the morning -Did discuss the [...] <Electronically signed by Jennifer Momin DO> 05/18/22 9117 [facility] Work Phone: [phone]) [phone] Hospital Discharge instructions Patient Education 05/07/2022 14:50:51 [...] Follow these instructions at home: Medicines Take udek-iyu-cpavnna and prescription medicines only as told by [...] 07/05/2006 Document Revised: 03/28/2019 Document Reviewed: 03/28/2019 [employer] Patient Education 2020 [employer]. Follow Up Care 05/07/2022 11:40:18 With:Ana Gabriel Address: [address] [place] [address], [facility] [place] [address] [facility] (1) When:05/10/2022 14:35:06 Comments:Return to the emergency room if your chest pain and/or shortness of breath recurs or any new symptoms. [facility]07-30-2022 Evaluation + Plan noteExtracted from: Title:ED NoteAuthor:Dewey Campuzano JDate:05/07/22 1. Atypical chest pain (R07. 89: Other [...] Hr. XR Chest Single View Addendum by Marcelo Noble M.D. on May 07, 2022 18:18:36 EDT Review of system: Additional ROS info: Except as noted in the above Review of Systems and in the History of Present Illness all other systems have been reviewed and are negative or noncontributory. [facility]05-06-2022 Evaluation note* Encounter Date Diagnosis Assessment Notes Treatment Notes Treatment Clinical Notes February, Acute sinusitis (ICD-10 - J01.90 ) Will treat with an antibiotic to help resolve symptoms. He is in agreement to this. He is encouraged to eat yogurt daily while on ATB to prevent GI upset. Rest, push fluids. He may get loose stools while on the medication but if he develops severe diarrhea then he should stop the medication and letme know. He is encouraged to start using the Fluticasone nasal spray 2 sprays each morning versus evening due to letdown effect to help keep the eustachian tube open and decrease inflammation. February,ther11:55 AM - 12:00 PM [facility] Other 04-01-2022 Progress note Author Judit Cuevas [facility] May 21, 2022 8:22amNote Date/TimeAugust 2021 12:19pm[place] [address] Hospitalist Progress Note Signed with Brian Patient: Americo Babb MR#: [id number] : 1975 Acct:[id number] Age/Sex: 47 / M Adm Date: 2 Loc: Room: [address] [place] [address] Type: ADM IN Attending Dr: Judit Cuevas [...] Lactated Ringers IV 05/19/23 13:44 75 mls/hr .[id number] KRISTEN Administration Vancomycin HCl 0.75 gm in [...] signed by Judit Cuevas MD> 05/21/22 0821 [facility] Work Phone: 1(267) [phone] Evaluation note* Encounter Date Diagnosis Assessment Notes Treatment Notes Treatment Clinical Notes Sep, Acute sinusitis (ICD-10 - J01.90 ) [facility] [facility] Other 12-10-2021 Evaluation note* Encounter Date Diagnosis Assessment Notes Treatment Notes Treatment Clinical Notes Sep, Acute sinusitis (ICD-10 - J01.90 ) Will treat with above medication. He is encouraged to eat yogurt daily while on ATB to prevent GI upset. Rest, push fluids. If he develops severe diarrhea then he is to stop the medication. If by tendays he does not feel completely better he should call and we will extend treatment. Other than theyogurt he should avoid dairy to keep secretions thin and make them easier to expel. I do not feel he needs steroid treatment just yet. Rest, push fluids. Sep,llergic rhinitis (ICD-10 - J30.9) He has been taking above medications daily for the last two months. He can continue with the nasal spray but while on the ATB he should hold the Zyrtec. Sep,Other8:34 AM - 8:40 AM [facility] Other 10-18-2021 Evaluation note* Encounter Date Diagnosis Assessment Notes Treatment Notes Treatment Clinical Notes Jul, Wellness examination (ICD-10 - Z 00.00) He is here for a wellness exam today. After evaluation I did sign his physical exam form today. HisPSA level is 0.67, no sign of prostate cancer at this time. Jul,Hyperglycemia (ICD-10 - R73.9) Discussed blood sugar results with patient today. Glucose is 103. HgA1C is up from 5.1 to 5.2. Readings are at goal. Jul,Hyperlipidemia (ICD-10 - E78.5) Discussed cholesterol results with patient today. Total is 184. HDL is 37. LDL is 128.6. Triglycerides are 92. I would like to see his LDL between 70-100. He is encouraged to watch his intake of carbs and sugars. Stay active. Jul,sthma (ICD-10 - J45.909) He is using the Symbicort daily as directed. He uses the ProAir as needed but states that he uses it on Monday's twice. When he hikes he does not need the ProAir. He notices he may use the inhaler when he has to wear a mask. He did not fill the AirDuo inhaler because it cost more than Symbicort. Jul,Weight loss (ICD-10 - R63.4) He has lost 8 pounds since last seen. He is encouraged to continue with what he is doing as it is working well. TSH is 1.801. Jul,inus headache (ICD-10 - R51.9) He voices that [...] until the first deep freeze. I asked himto keep me posted with how he is doing by two weeks and if needed we may have him switch to Astelinnasal spray. He was recently in [place] and [place] for 9 days and felt good. He feels that his allergies are caused by his work and home environment. Mondays and Tuesdays he uses his inhaler often because of allergens. We may also try Singulair but I did advise him that this can cause behavior issues and irritate the liver. May also consider Accolate. Jul,nxiety (ICD-10 - F41.9) Right now he is not taking the generic Lexapro, but wants to have it available. He feels he may need this during the winter months. He has this available if needed and understands that if he needs totake it he should take it for at least six months. [facility] Other 08-01-2020 History general Narrative - Reported* Type Description Date Medical History Asthma Medical HistorySpinal stenosis of lumbar regionMedical HistoryCOVID 05/2020 Surgical Historyhernia repair- right inguinalSurgical Historyhernia/ right inguinal at age 13.Hospitalization Historyright inguinal herniaHospitalization Historyright thumb infection- jv [facility] Other 08-01-2020 History general Narrative - Reported* Type Description Date Medical History Asthma Medical HistorySpinal stenosis of lumbar regionMedical HistoryCOVID 05/2020 Surgical Historyhernia repair- right inguinalSurgical Historyhernia/ right inguinal at age 13.Surgical HistoryI and D right thumb05/2022Hospitalization Historyright inguinal herniaHospitalization Historyright thumb infection- [place] HistoryRight thumb infection [facility] [facility] Other 08-01-2020 History general Narrative - Reported* Type Description Date Medical History Asthma Medical HistorySpinal stenosis of lumbar regionMedical HistoryCOVID 05/2020 Medical HistoryANXIETYSurgical Historyhernia repair- right inguinalSurgical Historyhernia/ right inguinal at age 13.Surgical HistoryI and D right thumb 05/2022Hospitalization Historyright inguinal herniaHospitalization Historyright thumb infection- [place]Hospitalization HistoryRight thumb infection [facility] [facility] Other Consult note Author Arnold Siegel [facility] May 19, 2022 11:01amNote Date/TimeAugust 2021 6:37[place] [address] Orthopedic Consult Note Signed Patient: Americo Babb MR#: [id number] : 1975 Acct:[id number] Age/Sex: 47 / M Adm Date: 2 Loc: Room: [address] [place] [address] Type: ADM IN Attending Dr: Naveen Moore [...] proximally to the volar aspect of the wristand forearm. Results Lab Results Result Diagrams: 05/18/22 [...] % (Auto) 86.8, Lymph % (Auto) 5.0, [place] % (Auto) 7.8, Eos % (Auto) 0.1, Baso % (Auto) 0.3, Neut # (Auto) 14.8 H, Lymph # (Auto) 0.9L, [place] # (Auto) 1.3 H, Eos # (Auto) [...] signed by MD Arnold Siegel> 05/19/22 1101 [facility] Work Phone: Discharge summary Author Judit Cuevas 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 He noticed increased pain, swelling, erythema prompting [...] abscess and flexor tendon shealth(Right) - Monae Guan MD Diagnostic Studies Completed and Pending Studies [...] Disposition: Home Activity: Other Comment: See Dr. Guan and [facility] discharge instructions for activity restrictions. Diet: Regular Additional Instructions: You tested positive for Covid-19. Please see provided instructions. DR. GUAN'S POST OP INSTRUCTIONS Take prescribed pain medication as directed and as needed to control your post- operative pain. -In addition to the prescribed medication, [...] at least 2-3 pillows, keeping the hand higherthan the elbow. Keep ice at the operative area as much as possible. It takes longer than 20 minutes for the cold topenetrate the bandages, so leave the ice bag [...] This is lifting your coffee cup, using yoursilverware, and typing on a computer or tablet. [...] the preprinted sheet three times daily Instructions: [facility] COVID-19 Discharge Instructions Stand Alone Forms: Work/School [...] they can schedule this appointment accordingly.) Monae Guan MD [Active Staff] - (Please call and schedule an appointment for 1 week.) Documented By: EDI Kat 05/21/22 0 954 Signed By: <Electronically signed by EDI Antunez> 05/22/22 1927 <Electronically signed by Judit Cuevas MD> 05/23/22 1035 [facility] Work Phone: Evaluation noteNo [employer] Other Evaluation note* Diagnosis Onset Date Resolution Status Cellulitis of thumb, right acuteFinger infectionacuteLymphangitisacuteSepsisacute [facility] Work Phone: Evaluation note* Diagnosis Onset Date Resolution Status Allergic rhinitis acuteOtitis mediaacute [facility] Work Phone: Evaluation note* Diagnosis Onset Date Resolution Status Acute sinusitis acuteAsthmaacuteHyperglycemiaacuteHyperlipidemiaacuteVitamin D deficiencyacute Wellness examinationacute [facility] Work Phone: Evaluation noteNo assessment information available [facility] Work Phone: Hospital course Narrative No data available for this section [facility] instructions[facility] Work Phone: Hospital Discharge instructionsMart[facility]erry [facility] Work Phone: Hospital Discharge instructionsMart[facility] Ferry [facility] Work Phone: Hospital Discharge instructionsMartins Ferry [facility] Work Phone: Progress note No data available for this section [facility] Author Naveen Moore [facility] May 20, 2022 12:41amNote Date/TimeAugust 2021 4:14pm[place] [address] Hospitalist Progress Note Signed with Addenda Patient: Americo Babb MR#: [id number] : 1975 Acct:[id number] Age/Sex: 47 / M Adm Date: 2 Loc: Room: [address] [place] [address] Type: ADM IN Attending Dr: Naveen Moore MD Copies to: ~ ADDENDUM1 I personally saw this patient on the day of the encounter, reviewed the history,performed the garcia elements of the exam and formulated the plan of care and confirmed the nurse practitioners/residents/campus interviews intern written note. Addendum Documented By: Naveen Moore [...] that he was sick approximately 2 to 3weeks ago. States that he did have contact with coworkers who were COVID-positive around that time.Reports no symptoms at present. Exam Physical Exam [...] Lactated Ringers IV 05/19/23 09:59 75 mls/hr .[id number] KRISTEN Administration Lactated Ringer's 1,000 mls @ 75 mls/hr 05/19/22 13:45 05/19/22 15:01 Lactated Ringers IV 05/19/23 13:44 75 mls/hr .[id number] KRISTEN Administration Ketorolac Tromethamine 30 mg 05/18/22 [...] signed by Naveen Moore MD> 05/20/22 0036 [facility] Work Phone: Progress note Author Monae Guan [facility] May 20, 2022 2:22pmNote Date/TimeAugust 2021 2:22pm[place] [address] Orthopedic Progress Note Signed Patient: Americo Babb MR#: [id number] : 1975 Acct:[id number] Age/Sex: 47 / M Adm Date: 2 Loc: Room: [address] [place] [address] Type: ADM IN Attending Dr: Judit Cuevas [...] MPV Neut % (Auto) Lymph % (Auto) [place] % (Auto) Eos % (Auto) Baso % (Auto) Neut # (Auto) Lymph # (Auto) [place] # (Auto) Eos # (Auto) Baso # [...] % (Auto) 67.9 Lymph % (Auto) 17.2 [place] % (Auto) 11.4 Eos % (Auto) 3.0 Baso % (Auto) 0.5 Neut # (Auto) 5.4 Lymph # (Auto) 1.4 [place] # (Auto) 0.9 H Eos # (Auto) [...] Applicable Codes for Billin Documented By: Monae Guan MD 05/20/22 141 8 Signed By: <Electronically signed by Monae Guan MD> 05/20/22 1422 [facility] Work Phone: Progress note Author Arnold Siegel [facility] May 21, 2022 8:47amNote Date/TimeAugust 2021 7:35[place] [address] Orthopedic Progress Note Signed Patient: Americo Babb MR#: [id number] : 1975 Acct:[id number] Age/Sex: 47 / M Adm Date: 2 Loc: Room: [address] [place] [address] Type: ADM IN Attending Dr: Jduit Cuevas MD Copies to: ~ Date of [...] signed by MD Arnold Siegel> 05/21/22 0847 [facility] Work Phone: Reason for referral (narrative)No reason for referral information availableS[facility] Work Phone: Reason for Referral StatusReasonSpecialtyDiagnoses / ProceduresReferred By ContactReferred To ContactClosedRadiology Diagnoses Lumbar radiculopathy Numbness and tingling of both legs Procedures MRI LUMBAR SPINE WO CONTRAST Marito Olea, [address] [place] [address] Reason appt pt needs cons ult to discuss screening colonoscopy Diagnosis 1 Encounter for screen ing colonoscopy (Z12.11) Referral Organization [facility] Family Stacie Carias Referring Provider First Name Ana Referring Provider Last Name Nery Referring Provider Specialty Family Prac estefania Referred Organization [facility] Referred Provider Abhishek Chapa Referred Address ,[place], [place],[address] Referred Provider Specialty Surgery Referral Priority Routine [...] Specified Heart disease Unknown Malignant neoplasm of lungUnknown Relationship Condition Age at Onset Recorded Date/T jeri Not Specified Malignant neoplasm of lung Unknown grandparentDeceasedUnknownHeart diseaseUnknownMyocardial infarctionUnknown grandparentMyocardial infarctionUnknownDeceasedUnknownMalignant neoplasmUnknown Advance Directives No Advanced Directives Records Found Advance Directive Response Recorded Date/ Time Advance Directives No August 05, 2020 10:32am Advance Directive Response Recorded Date/ Time Advance Directives No August 05, 2020 9:32am Chief Complaint and Reason for Visit Chief Complaint rt hand poss infecti on cellulitis. R hand/arm infection getting worseReason for VisitCellulitis of thumb, right Finger infection Lymphangitis Sepsis [...] 3:07pm Wellness examination August 06, 2024 3:07pm Chief Complaint Admit Date Amb Documentation April 02, 2025 1:33 pm Dysuria June 12, 2025 6:32pm Reason for Visit Admit Date Dysuria June 12, 2025 6:32pm Additional Source Comments Reason for Visit (unrecogniz ed section and content) StatusReasonSpecialtyDiagnoses / ProceduresReferred By ContactReferred To ContactPending ReviewRadiology Diagnoses Lumbar radiculopathy Numbness and tingling of both legs Procedures MRI lumbar spine without contrast Marito Olea, NANCY [address] [place] [id number] [place] [address] (unrecognized sect ion and content) No Status Records FoundNo Status Records FoundNo Status Records FoundNo Status Records FoundNo Status Records FoundNo Status Records Found INFORMATION SOURCE (unrecogn ized section and content) DATE CREATED AUTHOR 01/10/2021 [facility] DATE CREATED AUTHOR AUTHOR'S ORGANIZ ATION 10/06/2022 [facility] DATE CREATED AUTHOR AUTHOR'S ORGANIZ ATION 12/28/2023 [facility] DATE CREATED AUTHOR AUTHOR'S ORGANIZ ATION 04/02/2025 [facility] DATE CREATED AUTHOR AUTHOR'S ORGANIZ ATION 06/16/2025 [facility] DATE CREATED AUTHOR AUTHOR'S ORGANIZ ATION 07/02/2025 [facility] Care Team (unrecognized sect ion and content) Team Status: Inactive Member Role Status Dates Ana Gabriel DO Primary Care Provider Active Danie Wick ProviderActiveMargo Merrill , DOAdmit ProviderActive Arnold Siegel MDOther ProviderActiveJudit Cuevas MDAttending ProviderActive Team Status: Inactive Member Role Status Dates Ana Gabriel , DO Primary Care Provider Active Aicha Mane , MASTER CARPENTER-BCAttending ProviderActive Team Status: Inactive Member Role Status Dates Ana Gabriel , DO Primary Care Provider Active Aicha Mane , MASTER CARPENTER-BCEmergency ProviderActive Team Status: Active Member Role Status Dates [...] 2024 Team Status: Active Member Role Status Dates Ana Gabriel DO Primary Care Provide r, Attending Provider Active Start: August 03, 2024 Team Status: Inactive Member Role Status Dates Ana Gabriel DO Primary Care Provide r, Attending Provider Active Start: August 06, 2024 End: August 06, 2024 Team Status: Inactive Member Role Status Dates Ana Gabriel DO Primary Care Provider Active S tart: August 26, 2024 End: August 26Rosanna Blankenship ProviderActiveStart: August 26, 2024 End: August 26, 2024 Team Status: Active Member Role Status Dates NON STAFF Primary Care Provider Active Team Status: Active Member Role Status Dates Ana Gabriel DO Primary Care Provider Active S tart: April 01, 2025 Gray Edouard DOAttending ProviderActiveStart: April 01, 2025 Team Status: Active Member Role Status Dates KIKO Lundberg Attending Provider Active S tart: April 02, 2025 Team Status: Active Member Role Status Dates Ana Gabriel DO Attending Provider Active Star t: May 01, 2025 Team Status: Inactive Member Role Status Dates JULITO Caldwell RN CHANNEL SUPERVISOR-C Attending Provider Active Start: June End: June 12, 2025NON STAFFPrimary Care ProviderActiveStart: June 12, 2025 End: June 12, 2025 Team Status: Inactive Member Role Status Dates Edith Leti Hackenburg , AP RN CHANNEL SUPERVISOR-C Attending Provider Active Start: June End: June 12, 2025 Goals (unrecognized section and content) Goals may [...] BE BASED ON THE PRIMARY CLINICAL RECORDS. [employer] [facility]. provides no warranty or guarantee of the accuracy or completeness of information in this document.
[2025-07-30 15:52] LABS: Hematocrit 51.1 % (42.0-54.0); Hemoglobin 17.1 g/dL (14.0-18.0); Immature Granulocytes Abs Auto 0.01 10^3/uL (0.00-0.03); Immature Granulocytes Pct Auto 0.2 % (0.0-0.5); Lymphocytes Absolute Auto 1.8 10^3/uL (1.2-3.8); Mean Corpuscular HGB Conc 33.5 g/dL (29.9-35.2); Mean Corpuscular Hemoglobin 30.5 pg (25.9-34.0); Mean Corpuscular Volume 91.3 fL (80.0-94.0); Platelet Count 243 10^3/uL (150-450); Red Blood Count 5.60 10^6/uL (4.70-6.10); White Blood Count 5.8 10^3/uL (4.0-11.0)
[2025-07-30 16:05] LABS: Alanine Aminotransferase 37 U/L (16-63); Albumin Globulin Ratio 1.3; Albumin Level 4.3 g/dL (3.4-5.0); Alkaline Phosphatase 98 U/L (46-116); Anion Gap 10.5; Aspartate Amino Transferase 21 U/L (15-37); Blood Urea Nitrogen 15.0 mg/dL (7.0-18.0); Calcium 9.0 mg/dL (8.5-10.1); Carbon Dioxide 29.1 mmol/L (21.0-32.0); Chloride 102 mmol/L (98-107); Cholesterol 198 mg/dL (<=200); Estimated GFR (African America >60 (>=60 mL/min/1.73m^2); Estimated GFR (Non-African Ame >60 (>=60 mL/min/1.73m^2); Globulin 3.2 g/dL; Glucose 91 mg/dL (74-106); HDL Cholesterol 38 mg/dL (40-60); Potassium 3.6 mmol/L (3.5-5.1); Sodium 138 mmol/L (136-145); Thyroid Stimulating Hormone 1.510 uIU/mL (0.358-3.740); Total Protein 7.5 g/dL (6.4-8.2); Triglycerides 127 mg/dL (<=150); VLDL CHOLESTEROL 25.4 mg/dL
[2025-07-30 16:10] LABS: Glucose Urine UA NEGATIVE (NEGATIVE)
[2025-07-30 16:55] LABS: Cast Seen? NONE SEEN #/LPF (NONE SEEN); Crystals Seen? None Seen #/HPF (None Seen)
== END 2025-07-30 15:11 | disposition home or self-care (01) ==
LOC: LAB 15:11
PROVIDERS: PCP Family Medicine; Visit Provider Family Medicine
DX: Z00.00 Encounter for general adult medical examination without abnormal findings (principal); E55.9 Vitamin D deficiency, unspecified; Z12.5 Encounter for screening for malignant neoplasm of prostate
CPT/HCPCS: 36415; 80053; 80061; 81001; 82306; 83036; 84443; 85025; G0103